=== PATIENT | female | born 1925 | race Caucasian/White ===

== ENCOUNTER 2016-04-20 21:36 | Inpatient (IN) | payer BC, OTHER ==
[~2016-04-20] VITALS: Ht 152.4 cm; Wt 84.9 kg
[~2016-04-20 21:36] MED LIST: ATEN50TA8 PO; ATOR-54 PO; CALC500C70 PO; DOCU100C31 PO; FURO-85 PO; GLIP5TAB3 PO; LEVO100T PO; LISI2.5T5 PO; MAGN400T6 PO; MULT-240 PO; OMEP20TA PO; SITA50TA PO
[2016-04-20 22:15] LABS: BASO % 0.2 %; BASO ABS # 0.02 K/uL (0-0.2); COMPLETE YES; EOS % 1.3 %; HEMATOCRIT 39.4 % (37-47); IG% 0.5 %; LYMPH % 13.3 %; MEAN CELL VOLUME 81.6 fL (80-100); MEAN CORPUSCULAR HEMOGLOBIN 26.9 pg (25-34); MEAN PLATELET VOLUME 9.9 fL (7.4-10.4); MONO % 8.4 %; NEUT % 76.3 %; PLATELET COUNT 252 K/uL (130-400); RED BLOOD COUNT 4.83 M/uL (4.2-5.4); WHITE BLOOD COUNT 9.81 K/uL (4.8-10.8)
--- NOTE | 2016-04-20 22:24 | DIAGNOSTIC IMAGING REPORT ---
CHEST ONE VIEW PORTABLE HISTORY: Possible sepsis COMPARISON: Chest 10/31/2014. FINDINGS: No focal lung consolidations to suggest pneumonia. No evidence for pulmonary edema. The heart is normal in size. No pleural effusions. No pneumothorax. Degenerative changes within the bilateral shoulders and sternoclavicular joints are again noted. IMPRESSION: No significant change compared to the prior study. No acute process. Electronically signed by: Arpit Gallagher M.D. 04/20/2016 10:22 PM
[2016-04-20 22:26] LABS: INR 1.2 (0.9-1.1); PROTHROMBIN TIME (PATIENT) 12.5 SECONDS (9.0-12.0)
[2016-04-20 22:35] LABS: BUN/CREATININE RATIO 23.7 (10-20); CALCIUM 9.2 mg/dl (8.5-10.1); MAGNESIUM 1.3 mg/dl (1.8-2.4); POTASSIUM 3.8 mmol/L (3.5-5.1)
[2016-04-20 22:38] LABS: ALB/GLOB RATIO 0.6 (0.9-2)
[2016-04-20] MEDS ORDERED: SODIUM CHLORIDE 0.9% 1000ML 250 ML IV STA (22:59)
[2016-04-20] MEDS ORDERED: PIPERACILLIN/TAZOBACTAM 4.5 GM/100ML D5W IV STA (22:59)
[2016-04-20] MEDS ORDERED: SODIUM CHLORIDE 0.9% 1000ML 1,000 ML IV STA (22:59)
[2016-04-20] MEDS ORDERED: CHOL100010 PO (23:10)
[2016-04-20] MEDS ORDERED: CALC-51 PO (23:10)
[2016-04-20] MEDS ORDERED: AMOX250C PO (23:11)
[2016-04-20] MEDS ORDERED: MAGNESIUM SULFATE 1GM / D5W 2 GM in PREMIXED IN D5W 100 ML IV STA (23:34)
[2016-04-20] MEDS ORDERED: MAGNESIUM SULFATE 1GM / D5W 1 GM BAG IV STA (23:44)
[2016-04-21] MEDS ORDERED: HEPARIN SOD 5000 UNIT/0.5 ML CARP SQ SCH
[2016-04-21] MEDS ORDERED: MAGNESIUM HYDROXIDE SUSP 30 ML UDC PO PRN
[2016-04-21] MEDS ORDERED: DOCUSATE SODIUM 100 MG CAP PO PRN
[2016-04-21] MEDS ORDERED: GLUCOSE 40% GEL 15 GM TUBE PO PRN
[2016-04-21] MEDS ORDERED: ONDANSETRON INJ 2 MG/ML 2 ML VIAL IV PRN
[2016-04-21] MEDS ORDERED: DEXTROSE 50% 50 ML SYR IV PRN
[2016-04-21] MEDS ORDERED: ALUMINUM/MAGNESIUM/SIMETH (MAALOX MAX) 30 ML UDC PO PRN
[2016-04-21] MEDS ORDERED: GLUCOSE 10 TABS/TUBE PO PRN
[2016-04-21] MEDS ORDERED: GLUCAGON FOR INJ 1 MG VIAL SQ PRN
--- NOTE | 2016-04-21 01:13 | EMERGENCY ROOM VISIT NOTE ---
History Report prepared by Kelly: Micheal Bryatn Under the Supervision of: Dr. Wander Paris M.D. First contact with patient: 22:47 Chief Complaint: INFECTION Stated Complaint: CONGESTION, DIARRHEA Nursing Triage Summary: Patient arrived to [facility] via BLS from home. EMS was paged for a fall with lift assistance to this patient's home. Patient reports falling this evening without sustaining an injury. Patient is due to see her PCP, Dr. Mccauley, tomorrow. Patient reports that she had a cold and the diarrhea last week when she scheduled the appointment. Those symptoms have since passed. Patient is concerned about a possible cellulits to the right hand. She is a diabetic and "bites her fingers when she is nervous." Patient has an open wound , draining purulent and bloody drainage, to the tip of the right middle finger. Right hand is edematous, +1 nonpitting edema noted. Right hand reddened with redness extending up into the right shoulder. Patient states "My hand just feels really stiff and tight." History of Present Illness The patient is a 89 year old female who presents to the Emergency Room by EMS with complaints of a worsening right arm infection. She has a history of diabetes and skin infections. She notes that she bites her fingers regularly. The patient notes that she had diarrhea all last week, as well as some abdominal pain. She has associated subjective fevers. She denies any chest pain , cough, or shortness of breath. The patient's caregiver notes that the patient fell earlier tonight. He states that the patient lives alone. He states that EMS was called for the patient's fall. The patient states that she fell onto her recliner, and slipped onto the floor. She has no pain from the fall. Denies dysuria or hematuria. No chest pain Source of History: patient, family Position: arm (right) Quality: other (infection) Timing: worsening Associated Symptoms: + abdominal pain (last week), + diarrhea (last week), + fevers (subjective), No SOB, No chest pain, No cough Review of Systems See HPI for pertinent positives & negatives. A total of 10 systems reviewed and were otherwise negative. Past Medical & Surgical Medical Problems: (1) Appendectomy (2) Atrial fibrillation (3) Benign hypertension (4) Bleeding from mouth (5) Bleeding from mouth (6) Cataract (7) Cellulitis (8) Cholecystectomy (9) Contact dermatitis (10) Diabetes mellitus (11) Gastroesophageal reflux disease (12) Lightheadedness (13) lymphedema right upper extremity (14) Orthopnea (15) Partial mastectomy - breast cancer (16) Respiratory distress (17) Shortness of breath (18) Urinary tract infection (19) venous stasis ulcer left lower extremity Old medical records were reviewed. Nurse's notes were reviewed and I agree with. Family History No pertinent family history Social History Smoking Status: Never Smoker Alcohol Use: none Drug Use: none Marital Status: Housing Status: lives alone Occupation Status: retired Current/Historical Medications Scheduled Amoxicillin (Amoxil), 250 MG PO BID Atenolol (Tenormin), 50 MG PO QAM Atorvastatin (Lipitor), 20 MG PO HS Calcium Carbonate-Vitamin D (Calcium), 1 TAB PO DAILY Cholecalciferol (Vitamin D), 1 TAB PO DAILY Furosemide (Lasix), 20 MG PO QAM Glipizide (Glucotrol), 10 MG PO BID Levothyroxine Sodium (Synthroid), 1 TAB PO QAM Lisinopril (Lisinopril), 5 MG PO QAM Magnesium Oxide (Mag-Ox), 400 MG PO QAM Multiple Vitamins W/ Minerals (Womens One Daily), 1 TAB PO DAILY Omeprazole (Omeprazole), 20 MG PO QPM Sitagliptin Phosphate (Januvia), 100 MG PO QPM Scheduled PRN Docusate Sodium (Docusate Sodium), 1 CAP PO DAILY PRN for Constipation Allergies Coded Allergies: No Known Allergies (Verified , 04/20/16) Physical Exam Vital Signs Date Time Temp Pulse Resp B/P Pulse Ox O2 Delivery O2 Flow Rate FiO2 04/20/16 22:59 102 20 107/65 96 Room Air 04/20/16 22:26 102 04/20/16 21:50 96 Room Air 04/20/16 21:49 37.4 102 20 116/77 96 Room Air Physical Exam General: Well developed, well nourished, non-ill appearing older female in no acute distress, breathing comfortably on room air. Normal speech HEENT: Normal cephalic atraumatic. Pupils are equal round and reactive to light. Extraocular movements are intact. Oropharynx is pink with moist mucous membranes. No swelling of the mouth lips or tongue. Neck: Supple with a midline trachea. No meningeal signs or stiffness, no JVD or bruits. No Stridor. Chest: Clear to auscultation bilaterally. No wheezes or rhonchi. No increased work of breathing. Heart: regular rate and rhythm. Abdomen: Soft nontender, nondistended without rebound guarding or rigidity. Extremities: No cyanosis or clubbing. No calf tenderness or assymetry. Spine/Back. Non tender to palpation. No CVA tenderness Skin: Redness and swelling of the right hand extending up to the axilla. Right middle finger has a lesion with some purulence at the tip. Lower extremities have chronic skin changes from peripheral edema. Neurologic exam: Cranial nerves two through 12 are intact. Motor and sensation are intact and symmetrical throughout. Medical Decision & Procedures ER Provider Diagnostic Interpretation: X-ray results as stated below per interpretation by me and the radiologist: CHEST ONE VIEW PORTABLE FINDINGS: No focal lung consolidations to suggest pneumonia. No evidence for pulmonary edema. The heart is normal in size. No pleural effusions. No pneumothorax. Degenerative changes within the bilateral shoulders and sternoclavicular joints are again noted. IMPRESSION: No significant change compared to the prior study. No acute process. Electronically signed by: Arpit Gallagher M.D. Three View Right Hand X-ray interpreted by me: Chronic degenerative change. Calcification at the tip of the middle finger. This could be bony destruction. Difficult to exclude osteomyelitis. Laboratory Results Test 04/20/16 21:50 04/20/16 21:59 Immature Granulocyte % (Auto) 0.5 % White Blood Count 9.81 K/uL (4.8-10.8) Red Blood Count 4.83 M/uL (4.2-5.4) Hemoglobin 13.0 g/dL (12.0-16.0) Hematocrit 39.4 % (37-47) Mean Corpuscular Volume 81.6 fL (80-100) Mean Corpuscular Hemoglobin 26.9 pg (25-34) Mean Corpuscular Hemoglobin Concent 33.0 g/dl (32-36) Platelet Count 252 K/uL (130-400) Mean Platelet Volume 9.9 fL (7.4-10.4) Neutrophils (%) (Auto) 76.3 % Lymphocytes (%) (Auto) 13.3 % Monocytes (%) (Auto) 8.4 % Eosinophils (%) (Auto) 1.3 % Basophils (%) (Auto) 0.2 % Neutrophils # (Auto) 7.49 K/uL (1.4-6.5) Lymphocytes # (Auto) 1.30 K/uL (1.2-3.4) Monocytes # (Auto) 0.82 K/uL (0.11-0.59) Eosinophils # (Auto) 0.13 K/uL (0-0.5) Basophils # (Auto) 0.02 K/uL (0-0.2) Immature Granulocyte # (Auto) 0.05 K/uL (0.00-0.02) Prothrombin Time 12.5 SECONDS (9.0-12.0) Prothromb Time International Ratio 1.2 (0.9-1.1) Activated Partial Thromboplast Time 27.1 SECONDS (21.0-31.0) Partial Thromboplastin Ratio 1.0 Magnesium Level 1.3 mg/dl (1.8-2.4) Total Bilirubin 0.6 mg/dl (0.2-1) Aspartate Amino Transf (AST/SGOT) 25 U/L (15-37) Alanine Aminotransferase (ALT/SGPT) 26 U/L (12-78) Alkaline Phosphatase 133 U/L (45-117) Total Protein 8.1 gm/dl (6.4-8.2) Albumin 2.9 gm/dl (3.4-5.0) Globulin 5.2 gm/dl (2.5-4.0) Albumin/Globulin Ratio 0.6 (0.9-2) Bedside Lactic Acid Venous 1.69 mmol/L (0.90-1.70) Laboratory studies as stated above per my review. Medications Administered Medications (Trade) Dose Ordered Sig/Susana Route Start Time Stop Time Status Last Admin Dose Admin Sodium Chloride 250 ml @ 999 mls/hr Q16M STAT IV 04/20/16 22:59 04/20/16 23:14 DC 04/20/16 23:05 999 MLS/HR Sodium Chloride (Nss 1000ml) 1,000 ml @ 100 mls/hr Q10H STAT IV 04/20/16 22:59 04/21/16 02:59 DC 04/21/16 00:18 100 MLS/HR Piperacillin Sod/ Tazobactam Sod (Zosyn Iv) 4.5 gm NOW STAT IV 04/20/16 22:59 04/20/16 23:01 DC 04/20/16 23:06 4.5 GM Magnesium Sulfate (Magnesium Sulfate) 2 gm NOW STAT IV 04/20/16 23:44 04/20/16 23:45 DC 04/21/16 00:18 2 GM ECG Indication: abdominal pain Rate (beats per minute): 102 Rhythm: atrial flutter Findings: no acute ischemic change, other (Left Langston Deviation) Comparison ECG Date: November 26, 2015 Change: no significant change ED Course 8: Past medical records reviewed. The patient was evaluated in room C4, and a complete history and physical examination were performed. 2258: Ordered Zosyn 4.5 gm IV, NSS 1000 mL @ 100 mL/hr IV, NSS 250 mL @ 999 mL/ hr IV. 2332: Upon reevaluation, the patient is resting comfortably. I discussed the results and treatment plan with the patient. She verbalized agreement of the treatment plan. The patient will be evaluated for further management. Medical Decision Differentials include, but are not limited to; cellulitis, abscess, osteomyelitis, and sepsis. The patient comes in as described above., She's not felt well for a couple days. On exam I'm concerned that she has redness and swelling over read hand with redness going all the way up to the axilla. She apparently chews on her fingers. The middle finger does have some lesion at the end of itself with some possible infection. On x-ray, there is a lot of bony destruction is difficult to say what chronic versus what's new. It's potential which could have an osteomyelitis underneath as well. She certainly does have an extensive cellulitis of the arm. She hasno elevated white count and she's been hemodynamically stable. She was hydrated with IV normal saline here. She was given IV antibiotics as outlined above. Blood cultures were obtained. She has nothing to suggest pneumonia or acute coronary syndrome at this point. I do think she needs to be admitted for IV antibiotics and wound care orthopedic consultation and further evaluation to determine the extensiveness of the wound. [facility] and will admit her for these measures. Consults Time Called: [id number] Consulting Physician: Dr. Javy Mcneal Returned Call: [phone] Discussed the patient's case with Dr. Palafox. The patient will be evaluated for further management. Impression Primary Impression: Right arm cellulitis Scribe Attestation The scribe's documentation has been prepared under my direction and personally reviewed by me in its entirety. I confirm that the note above accurately reflects all work, treatment, procedures, and medical decision making performed by me. Departure Information Dispostion Being Evaluated By Hospitalist Referrals Olivier Blevins M.D. (PCP) Patient Instructions A Signature Page, My [facility]
[2016-04-21 01:30] VITALS: BP 109/70; PULSE 98; TEMP 36.5; O2SAT 96; BMI 36.6
--- NOTE | 2016-04-21 02:19 | History and Physical ---
History & Physical Date & Time of Service: Apr 21, 2016 at 01:59 Chief Complaint: Cellulitis Primary Care Physician: Olivier Blevins M.D. History of Present Illness Source: patient, clinic records, hospital records This is an 89 year old female with PMH of paroxysmal atrial fibrillation, 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 Patient states that an injury over 20 years ago caused her to lose the distal portion of her right pointer finger and two fingers on the left hand; since then she has had a habit of biting her nails/distal fingers; states that she felt some pain in the right middle finger and has been picking at it and even biting it recently. She noticed that the right hand and arm developed erythema and swelling. Has had right axillary lymph node dissection in the past, but did not notice any swelling in the right upper extremity until today. Past Medical/Surgical History Medical Problems: (1) Appendectomy Status: Resolved (2) Atrial fibrillation Status: Chronic (3) Benign hypertension Status: Chronic (4) Bleeding from mouth Status: Resolved (5) Bleeding from mouth Status: Resolved (6) Cataract Status: Resolved (7) Cholecystectomy Status: Resolved (8) Contact dermatitis Status: Resolved (9) Diabetes mellitus Status: Chronic (10) Gastroesophageal reflux disease Status: Chronic (11) Lightheadedness Status: Resolved (12) lymphedema right upper extremity Status: Chronic (13) Orthopnea Status: Chronic (14) Partial mastectomy - breast cancer Status: Resolved (15) Respiratory distress Status: Resolved (16) Shortness of breath Status: Chronic (17) Urinary tract infection Status: Resolved (18) venous stasis ulcer left lower extremity Status: Chronic Family History No pertinent family history Social History Smoking Status: Never Smoker Drug Use: none Marital Status: Housing status: lives alone, other Occupational Status: retired Immunizations History of Influenza Vaccine: Yes History of Tetanus Vaccine?: Yes Tetanus Immunization Date: Dec 16, 2004 History of Pneumococcal: Yes Pneumococcal Date: Dec 16, 2004 History of Hepatitis B Vaccine: No Multi-Drug Resistant Organisms History of MDRO: No Allergies Coded Allergies: No Known Allergies (Verified , 04/20/16) Home Medications Scheduled Amoxicillin (Amoxil), 250 MG PO BID Atenolol (Tenormin), 50 MG PO QAM Atorvastatin (Lipitor), 20 MG PO HS Calcium Carbonate-Vitamin D (Calcium), 1 TAB PO DAILY Cholecalciferol (Vitamin D), 1 TAB PO DAILY Furosemide (Lasix), 20 MG PO QAM Glipizide (Glucotrol), 10 MG PO BID Levothyroxine Sodium (Synthroid), 1 TAB PO QAM Lisinopril (Lisinopril), 5 MG PO QAM Magnesium Oxide (Mag-Ox), 400 MG PO QAM Multiple Vitamins W/ Minerals (Womens One Daily), 1 TAB PO DAILY Omeprazole (Omeprazole), 20 MG PO QPM Sitagliptin Phosphate (Januvia), 100 MG PO QPM Scheduled PRN Docusate Sodium (Docusate Sodium), 1 CAP PO DAILY PRN for Constipation Review of Systems Constitutional: No chills, No fever Respiratory: No cough, No dyspnea on exertion, No shortness of breath, No sputum Cardiovascular: + edema (RUE), No chest pain, No palpitations Abdomen: No diarrhea, No nausea, No pain, No vomiting Musculoskeletal: + joint pain (right middle finger) Genitourinary - Female: No dysuria, No urinary frequency, No urinary incontinence, No urinary retention, No urinary urgency Neurologic: + balance problems (uses walker at baseline), No numbness/tingling Psychiatric: No depression symptoms Hematologic / Lymphatic: No abnormal bleeding/bruising Integumentary: + new/changing skin lesions Allergic / Immunologic: No environmental allergies, No seasonal allergies Physical Exam Vital Signs Date Time Temp Pulse Resp B/P Pulse Ox O2 Delivery O2 Flow Rate FiO2 04/21/16 00:18 102 20 110/75 96 Room Air 04/20/16 22:59 102 20 107/65 96 Room Air 04/20/16 22:26 102 04/20/16 21:50 96 Room Air 04/20/16 21:49 37.4 102 20 116/77 96 Room Air General Appearance: no apparent distress Head: normocephalic, atraumatic Respiratory/Chest: lungs clear, normal breath sounds, no respiratory distress, no accessory muscle use Cardiovascular: regular rate, rhythm, no murmur Abdomen/GI: normal bowel sounds, non tender, soft Extremities/Musculoskelatal: + swelling Neurologic/Psych: no motor/sensory deficits, alert, normal mood/affect Skin: + pertinent finding (right upper extremity erythema) Lymphatic: no adenopathy Diagnostics Laboratory Results Results Past 24 Hours Test 04/20/16 21:50 04/20/16 21:59 04/21/16 00:27 Range/Units White Blood Count 9.81 4.8-10.8 K/uL Red Blood Count 4.83 4.2-5.4 M/uL Hemoglobin 13.0 12.0-16.0 g/dL Hematocrit 39.4 37-47 % Mean Corpuscular Volume 81.6 80-100 fL Mean Corpuscular Hemoglobin 26.9 25-34 pg Mean Corpuscular Hemoglobin Concent 33.0 32-36 g/dl Platelet Count 252 130-400 K/uL Mean Platelet Volume 9.9 7.4-10.4 fL Neutrophils (%) (Auto) 76.3 % Lymphocytes (%) (Auto) 13.3 % Monocytes (%) (Auto) 8.4 % Eosinophils (%) (Auto) 1.3 % Basophils (%) (Auto) 0.2 % Neutrophils # (Auto) 7.49 1.4-6.5 K/uL Lymphocytes # (Auto) 1.30 1.2-3.4 K/uL Monocytes # (Auto) 0.82 0.11-0.59 K/uL Eosinophils # (Auto) 0.13 0-0.5 K/uL Basophils # (Auto) 0.02 0-0.2 K/uL RDW Standard Deviation 44.5 36.4-46.3 fL RDW Coefficient of Variation 15.1 11.5-14.5 % Immature Granulocyte % (Auto) 0.5 % Immature Granulocyte # (Auto) 0.05 0.00-0.02 K/uL Prothrombin Time 12.5 9.0-12.0 SECONDS Prothromb Time International Ratio 1.2 0.9-1.1 Activated Partial Thromboplast Time 27.1 21.0-31.0 SECONDS Partial Thromboplastin Ratio 1.0 Sodium Level 138 136-145 mmol/L Potassium Level 3.8 3.5-5.1 mmol/L Chloride Level 101 98-107 mmol/L Carbon Dioxide Level 27 21-32 mmol/L Anion Gap 10.0 3-11 mmol/L Blood Urea Nitrogen 24 7-18 mg/dl Creatinine 1.00 0.60-1.20 mg/dl Est Creatinine Clear Calc Drug Dose 36.9 ml/min Estimated GFR () 57.8 Estimated GFR (Non- 49.9 BUN/Creatinine Ratio 23.7 10-20 Random Glucose 235 70-99 mg/dl Calcium Level 9.2 8.5-10.1 mg/dl Magnesium Level 1.3 1.8-2.4 mg/dl Total Bilirubin 0.6 0.2-1 mg/dl Aspartate Amino Transf (AST/SGOT) 25 15-37 U/L Alanine Aminotransferase (ALT/SGPT) 26 12-78 U/L Alkaline Phosphatase 133 45-117 U/L Total Protein 8.1 6.4-8.2 gm/dl Albumin 2.9 3.4-5.0 gm/dl Globulin 5.2 2.5-4.0 gm/dl Albumin/Globulin Ratio 0.6 0.9-2 Bedside Lactic Acid Venous 1.69 0.90-1.70 mmol/L Influenza Type A Antigen Neg for Influ A NEG Influenza Type B Antigen Neg for Influ B NEG Microbiology Results 04/20/16 Blood Culture, Received Pending 04/20/16 Blood Culture, Received Pending 04/20/16 Gram Stain, Received Pending 04/20/16 Wound Culture, Received Pending Diagnostic Radiology CHEST ONE VIEW PORTABLE HISTORY: Possible sepsis COMPARISON: Chest 10/31/2014. FINDINGS: No focal lung consolidations to suggest pneumonia. No evidence for pulmonary edema. The heart is normal in size. No pleural effusions. No pneumothorax. Degenerative changes within the bilateral shoulders and sternoclavicular joints are again noted. IMPRESSION: No significant change compared to the prior study. No acute process. Impression Assessment and Plan This is an 89 year old female with PMH of paroxysmal atrial fibrillation, 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 Right Upper Extremity Cellulitis -->patient with likely trauma of the right middle finger causing cellulitis of the right upper extremity -->has had a history of lymphedema and cellulitis of the lower extremities -->right hand radiograph interpretation pending -->has a hx. of enterococcus faecalis sensitive to vanco -->will continue vancomycin here -->cultures are pending -->ID consultation pending DM2 -->hold oral agents -->sliding scale insulin HTN -->continue home medications Paroxysmal Atrial Fibrillation -->continue b-genie -->no anticoagulation due to fall risk and bleed risk DVT ppx -->SCDs FULL CODE VTE Prophylaxis VTE Risk Assessment Done? Y/N: Yes Risk Level: High
[2016-04-21] MEDS ORDERED: INSULIN ASPART 100 UNITS/ML 3 ML PEN SC STA (03:04)
[2016-04-21] MEDS ORDERED: VANCOMYCIN CONSULT ACTIVE PRN (03:15)
[2016-04-21] MEDS ORDERED: VANCOMYCIN INJ 2,100 MG in SODIUM CHLORIDE 0.9% 500ML 500 ML IV ONE (04:00)
[2016-04-21] MEDS: LEVOTHYROXINE 100 MCG TAB PO SCH (05:00)
[2016-04-21 06:22] LABS: HEMATOCRIT 33.4 % (37-47); MEAN CELL VOLUME 81.9 fL (80-100); MEAN CORPUSCULAR HEMOGLOBIN 27.2 pg (25-34); MEAN CORPUSCULAR HGB CONC 33.2 g/dl (32-36); MEAN PLATELET VOLUME 9.7 fL (7.4-10.4); PLATELET COUNT 223 K/uL (130-400); RED BLOOD COUNT 4.08 M/uL (4.2-5.4)
[2016-04-21 06:55] LABS: BUN/CREATININE RATIO 23.8 (10-20); CALCIUM 8.3 mg/dl (8.5-10.1); CREATININE 0.87 mg/dl (0.60-1.20); POTASSIUM 3.5 mmol/L (3.5-5.1)
--- NOTE | 2016-04-21 07:01 | DIAGNOSTIC IMAGING REPORT ---
RIGHT HAND MIN 3 VIEWS ROUTINE CLINICAL HISTORY: Hand pain status post trauma. COMPARISON: None. DISCUSSION: The bones are osteopenic. There are vascular calcifications present. Within the wrist there is chondrocalcinosis. There is calcification at right lower fibrocartilage. There are advanced osteoarthritic changes the level the first carpometacarpal joint. There are periarticular calcifications at the level of the metacarpophalangeal and interphalangeal joints. There are destructive changes involving the distal phalanges of the second and third fingers. There is tapering of the middle phalanx of the second/index finger. These findings may be chronic and related to old trauma. Clinical correlation this regard is advocated no acute fractures are visualized. There is dorsal soft tissue swelling. IMPRESSION: 1. Destructive changes involve the distal phalanges of the second and third digits. These findings are likely chronic, possibly related to old trauma. Clinical correlation in this regard is advocated 2. Multifocal periarticular calcifications 3. Chondrocalcinosis 4. Advanced degenerative changes the level the first carpal metacarpal joint 5. No acute fractures identified Electronically signed by: Brian Cedillo M.D. 04/21/2016 6:59 AM
[2016-04-21 08:17] VITALS: O2SAT 95
[2016-04-21 08:22] VITALS: BP 110/78; PULSE 96; TEMP 36.6; O2SAT 95
[2016-04-21] MEDS: CEROVITE ADV FORMULA TAB PO SCH (09:00)
[2016-04-21] MEDS: MAGNESIUM OXIDE 400 MG TAB PO SCH (09:00)
[2016-04-21] MEDS: LISINOPRIL 5 MG TAB PO SCH (09:00)
[2016-04-21] MEDS: INSULIN ASPART 100 UNITS/ML 3 ML PEN SC SCH ×4 (09:05→21:02)
[2016-04-21 09:56] LABS: ESTIMATED AVERAGE GLUCOSE 200 mg/dl; HA1C FLAG Normal (Normal)
--- NOTE | 2016-04-21 10:44 | Progress Note ---
Progress Note ID Consult Dictated #[id number] A/P: 1.Right 3rd digit cellulitis with abscess and chronic wound -continue vanco -check esr -suggest ortho eval, new abscess on plantar surface of hand, may need I&D -no osteo on x ray -will follow, thank you
[2016-04-21] MEDS ORDERED: NURSING VERBAL MED ORDER ONE (11:15)
[2016-04-21] MEDS ORDERED: MICONAZOLE NITRATE POWDER 43 GM EXT PRN (12:00)
--- NOTE | 2016-04-21 12:02 | INFECT. DISEASE CONSULTATION ---
DATE OF CONSULTATION: 04/21/2016 REQUESTING PHYSICIAN: Dr. Case. CONSULTATION IS FOLLOWS: This is an 89-year-old female who was admitted from home after she had worsening pain, swelling and erythema of her right middle finger. She has multiple digits with wounds and partial amputations. She states she does pick at her fingers. She had a wound over her right middle finger which she was picking at and this worsened within the past 2-3 days. She states she has had some weakness and fatigue over the past 1-2 weeks. She felt like she was getting the flu. She states she saw her primary care physician within the last 2 weeks and had blood work done which she reports as being normal. She does admit to subjective fevers and chills at home. She has been afebrile since admission. She did receive vancomycin and Zosyn empirically in the Emergency Room and now is on vancomycin monotherapy. Her white blood cell count is within normal limits. Blood cultures were done in the Emergency Room and are pending. She did have an x-ray of the hand which showed severe degenerative disease, but no fractures or foreign bodies were noted. She states this morning she has had worsening swelling and decreased range of motion of the third digit. She also reports a new pustule over the plantar aspect of the hand. She denies any drainage; however, the tip of her finger does have an open wound. There is a wound culture that is labeled right hip; however, I suspect that this is a culture of the hand. Results of this are pending. She appears to be tolerating antibiotics well. On my examination, she is out of bed to chair. She states she ate breakfast without difficulty. She denies any chest pain, cough, shortness of breath, nausea, vomiting, or abdominal pain. She does admit to having some diarrhea last week, but this has resolved. She denies any urinary symptoms. All remaining review of systems are reviewed and are negative except for as noted above. MEDICAL HISTORY: Significant for paroxysmal atrial fibrillation, history of breast cancer with metastatic disease to the axillary lymph nodes, type 2 diabetes, chronic kidney disease, lower extremity lymphedema, GERD, orthopnea and history of venous stasis ulcers. PAST SURGICAL HISTORY: Significant for appendectomy, cholecystectomy, mastectomy with node dissection. FAMILY HISTORY: Noncontributory. SOCIAL HISTORY: Negative for alcohol, drug and tobacco use. She lives alone. She is . ALLERGIES: She has no known drug allergies. CURRENT MEDICATIONS: Include vancomycin, Lipitor, Protonix, atenolol, lisinopril, magnesium, multivitamins, insulin, Synthroid, Tylenol, Maalox, Milk of Magnesia, Zofran and Colace. PHYSICAL EXAMINATION: VITAL SIGNS: She is afebrile, current temperature is 36.6, pulse is 96, respiratory rate 16, blood pressure 110/78, oxygen saturation is 95-96% on room air. GENERAL: She is awake, alert and oriented x3. She is in no acute distress. She is out of bed to chair. HEENT: On my exam, mucous membranes are moist. Extraocular muscles are intact. SKIN: Without rash. HEART: Without murmur. LUNGS: Clear bilaterally. ABDOMEN: Soft, nontender, and nondistended. EXTREMITIES: Examination of the right hand reveals significant edema and erythema of the right middle finger. She has decreased range of motion secondary to this. It is warm to touch. She does have erythema extending up to the wrist; however, she states on arrival yesterday this was to the area of the elbow and has improved. She did remove her dressing this morning to eat breakfast and now states that she noticed a small abscess over the plantar surface. This is about 1 x 1 cm, which is indurated and fluctuant. It is tender to touch. I am unable to express any drainage. The tip of the finger has a significant wound and erosion with minimal serous drainage. There is no bleeding. This is tender to palpation as well. LABORATORY STUDIES: CBC today reveals a white blood cell count of 8.0, hemoglobin 11.1, hematocrit 33.4, and platelets are 223. Chemistry panel reveals a sodium of 140, potassium 3.5, chloride 104, bicarbonate 24, BUN 21, creatinine 0.8, glucose of 193. LFTs are within normal limits in the Emergency Room. A flu swab was done in the ER and is negative. Blood and wound cultures are pending. Hand x-ray again shows degenerative changes, but no evidence of osteomyelitis. A chest x-ray done in the ER shows no acute disease. There is no previous micro from the wounds to review. ASSESSMENT AND PLAN: Right hand cellulitis with abscess concerning for underlying osteomyelitis. She can continue empiric antibiotics. I would suggest an orthopedic consultation for potential incision and drainage of the newly formed abscess. I will check inflammatory markers. Blood cultures and wound culture are pending. Pending those results, antibiotics will be adjusted. I suspect she will need a prolonged course of antibiotics. If she has any worsening, a CAT scan or MRI should be done to rule out any underlying osteomyelitis. We will follow along with you. Thank you for this consultation.
[2016-04-21 13:07] VITALS: Ht 152.4 cm; Wt 84.9 kg
--- NOTE | 2016-04-21 15:42 | Pharmacy Progress Note ---
Pharmacy Antibiotic Consult Date of Service: Apr 21, 2016. Pharmacy Dosing Scope Pharmacy is consulted to initiate Vancomycin IV dosing therapy, order appropriate labs and adjust drug dose/frequency. Subjective The patient is a 89 year old female admitted on Apr 20, 2016 at 23:54 with right hand cellulitis. PMH significant for CKD stage 3 and chronic lower extremity lymphedema. Objective Height (Feet): 5 Height (Inches): 0.00 Weight (Kilograms): 84.900 Lab Results (24hrs): Laboratory Tests Test 04/20/16 21:50 04/21/16 05:42 BUN/Creatinine Ratio 23.7 23.8 Blood Urea Nitrogen 24 mg/dl 21 mg/dl Creatinine 1.00 mg/dl 0.87 mg/dl White Blood Count 9.81 K/uL 8.00 K/uL Red Blood Count 4.83 M/uL Hemoglobin 13.0 g/dL Hematocrit 39.4 % Mean Corpuscular Volume 81.6 fL Mean Corpuscular Hemoglobin 26.9 pg Mean Corpuscular Hemoglobin Concent 33.0 g/dl Platelet Count 252 K/uL Mean Platelet Volume 9.9 fL Neutrophils (%) (Auto) 76.3 % Lymphocytes (%) (Auto) 13.3 % Monocytes (%) (Auto) 8.4 % Eosinophils (%) (Auto) 1.3 % Basophils (%) (Auto) 0.2 % Neutrophils # (Auto) 7.49 K/uL Lymphocytes # (Auto) 1.30 K/uL Monocytes # (Auto) 0.82 K/uL Eosinophils # (Auto) 0.13 K/uL Basophils # (Auto) 0.02 K/uL Micro Results: Item Value Date Time Gram Stain - Final Resulted 04/20/162253 Incision Site Hip , Right Blood Culture Received 04/20/162252 Blood Pending Blood Culture Received 04/20/162149 Blood Pending Assessment & Plan Assessment 89 year old female receiving empiric Vancomycin IV for treatment of right hand cellulitis with abscess concerning for osteomyelitis. 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 Plan Vancomycin IV dosing: * Loading dose: 2100 mg (25 mg/kg) * Maintenance dose: 1200 mg (14 mg/kg) IV every 24 hours. * PK estimates (based on Scr of 1.0 mg/dL): ke = 0.034 hr-1, T1/2 = ~20 hours, Vd = 0.7 L/kg * Risk factors for possible drug accumulation: BMI 36.6, CKD III. Selected dosing interval of q24 hour and slightly less than traditional dosing due to possible accumulation. * Goal trough level estimate for cellulitis/possible osteo: between 15 - 20 mcg /mL. * Trough level has been ordered for: at 0000. Pharmacy will continue to follow and will adjust dose/frequency as necessary. Thank you
[2016-04-21 16:24] VITALS: BP 118/72; PULSE 85; TEMP 36.6; O2SAT 97
[2016-04-21] MEDS: PANTOprazole SOD 40 MG TAB PO SCH (20:55)
[2016-04-21] MEDS: MICONAZOLE NITRATE POWDER 43 GM EXT SCH (20:55)
[2016-04-21] MEDS: ATORVASTATIN 20 MG TAB PO SCH (20:55)
--- NOTE | 2016-04-21 21:52 | Progress Note ---
Medicine Progress Note Date & Time of Visit: Apr 21, 2016 at 21:41. Subjective Pt was seen and examined Lying in bed comfortable with no acute distress Pt said that the right hand swelling, pain and erythema improve denies any chest pain, fever, palpitation Objective Last 8 Hrs Date Time Temp Pulse Resp B/P Pulse Ox O2 Delivery O2 Flow Rate FiO2 04/21/16 16:24 36.6 85 16 118/72 97 Room Air 04/21/16 15:46 Room Air Physical Exam: General- No acute distress Head- atraumatic Eyes- PERRL, EOMI ENT- oropharynx clear Neck- supple, no JVD Lungs- clear to auscultation and percussion Heart- regular rhythm; no murmur Abdomen- normal bowel sounds, soft, nontender Extremities- no calf tenderness, right hand swelling, erythema, Neuro- alert, oriented x 3; PERRL, EOMI Laboratory Results: Last 24 Hours Test 04/20/16 21:50 04/20/16 21:59 04/21/16 00:22 04/21/16 00:27 White Blood Count 9.81 K/uL Red Blood Count 4.83 M/uL Hemoglobin 13.0 g/dL Hematocrit 39.4 % Mean Corpuscular Volume 81.6 fL Mean Corpuscular Hemoglobin 26.9 pg Mean Corpuscular Hemoglobin Concent 33.0 g/dl Platelet Count 252 K/uL Mean Platelet Volume 9.9 fL Neutrophils (%) (Auto) 76.3 % Lymphocytes (%) (Auto) 13.3 % Monocytes (%) (Auto) 8.4 % Eosinophils (%) (Auto) 1.3 % Basophils (%) (Auto) 0.2 % Neutrophils # (Auto) 7.49 K/uL Lymphocytes # (Auto) 1.30 K/uL Monocytes # (Auto) 0.82 K/uL Eosinophils # (Auto) 0.13 K/uL Basophils # (Auto) 0.02 K/uL RDW Standard Deviation 44.5 fL RDW Coefficient of Variation 15.1 % Immature Granulocyte % (Auto) 0.5 % Immature Granulocyte # (Auto) 0.05 K/uL Prothrombin Time 12.5 SECONDS Prothromb Time International Ratio 1.2 Activated Partial Thromboplast Time 27.1 SECONDS Partial Thromboplastin Ratio 1.0 Sodium Level 138 mmol/L Potassium Level 3.8 mmol/L Chloride Level 101 mmol/L Carbon Dioxide Level 27 mmol/L Anion Gap 10.0 mmol/L Blood Urea Nitrogen 24 mg/dl Creatinine 1.00 mg/dl Est Creatinine Clear Calc Drug Dose 36.9 ml/min Estimated GFR () 57.8 Estimated GFR (Non- 49.9 BUN/Creatinine Ratio 23.7 Random Glucose 235 mg/dl Calcium Level 9.2 mg/dl Magnesium Level 1.3 mg/dl Total Bilirubin 0.6 mg/dl Aspartate Amino Transf (AST/SGOT) 25 U/L Alanine Aminotransferase (ALT/SGPT) 26 U/L Alkaline Phosphatase 133 U/L Total Protein 8.1 gm/dl Albumin 2.9 gm/dl Globulin 5.2 gm/dl Albumin/Globulin Ratio 0.6 Bedside Lactic Acid Venous 1.69 mmol/L Bedside Glucose 236 mg/dl Influenza Type A Antigen Neg for Influ A Influenza Type B Antigen Neg for Influ B Test 04/21/16 04:07 04/21/16 05:42 04/21/16 08:14 04/21/16 11:50 Bedside Glucose 219 mg/dl 194 mg/dl 218 mg/dl White Blood Count 8.00 K/uL Red Blood Count 4.08 M/uL Hemoglobin 11.1 g/dL Hematocrit 33.4 % Mean Corpuscular Volume 81.9 fL Mean Corpuscular Hemoglobin 27.2 pg Mean Corpuscular Hemoglobin Concent 33.2 g/dl RDW Standard Deviation 45.4 fL RDW Coefficient of Variation 15.2 % Platelet Count 223 K/uL Mean Platelet Volume 9.7 fL Sodium Level 140 mmol/L Potassium Level 3.5 mmol/L Chloride Level 104 mmol/L Carbon Dioxide Level 24 mmol/L Anion Gap 12.0 mmol/L Blood Urea Nitrogen 21 mg/dl Creatinine 0.87 mg/dl Est Creatinine Clear Calc Drug Dose 42.4 ml/min Estimated GFR () 68.5 Estimated GFR (Non- 59.1 BUN/Creatinine Ratio 23.8 Random Glucose 193 mg/dl Estimated Average Glucose 200 mg/dl Hemoglobin A1c 8.6 % Calcium Level 8.3 mg/dl Test 04/21/16 16:55 Bedside Glucose 154 mg/dl Date/Time Source Procedure Growth Status 04/20/16 22:53 Blood Blood Culture Pending Received 04/20/16 21:50 Blood Blood Culture Pending Received 04/20/16 22:54 Incision Site Hip , Right Gram Stain - Final Resulted 04/20/16 22:54 Incision Site Hip , Right Wound Culture Pending Resulted Assessment & Plan Right Upper Extremity Cellulitis -history of lymphedema and cellulitis of the lower extremities - Right hand xray: Destructive changes involve the distal phalanges of the second and third digits. Multifocal periarticular calcifications. Chondrocalcinosis Afebrile and no elevated WBC Continue IV vanco Follow up on urine cx and blood cx -ID on board -will consult ortho will check ESR, CRP DM2 -hold oral agents -sliding scale insulin - Continue monitor BS HTN -->continue home medications Paroxysmal Atrial Fibrillation -continue b-genie -no anticoagulation due to fall risk and bleed risk - rate is controlled DVT ppx -->SCDs CODE STATUS FULL CODE Current Inpatient Medications: Current Inpatient Medications Medications (Trade) Dose Ordered Sig/Susana Route Start Time Stop Time Status Last Admin Dose Admin Acetaminophen (Tylenol Tab) 650 mg Q4H PRN PO 04/21/16 00:00 05/21/16 00:00 Al Hydrox/Mg Hydrox/Simethicone (Maalox Max Susp) 15 ml Q4H PRN PO 04/21/16 00:00 05/21/16 00:00 Magnesium Hydroxide (Milk Of Magnesia Susp) 30 ml Q6H PRN PO 04/21/16 00:00 05/21/16 00:00 Ondansetron HCl (Zofran Inj) 4 mg Q6H PRN IV 04/21/16 00:00 05/21/16 00:00 Insulin Aspart (novoLOG ASPART) SLIDING SCALE If C... ACHS SC 04/21/16 07:00 05/21/16 06:59 04/21/16 21:02 1 UNITS Glucose (Glucose 40% Gel) 15-30 GRAMS 15 GRAMS... UD PRN PO 04/21/16 00:00 05/21/16 00:00 Glucose (Glucose Chew Tab) 4-8 Tablets 4 Tabl... UD PRN PO 04/21/16 00:00 05/21/16 00:00 Dextrose (Dextrose 50% 50ML Syringe) 25-50ML OF 50% DW IV FOR... UD PRN IV 04/21/16 00:00 05/21/16 00:00 Glucagon (Glucagon Inj) 1 mg UD PRN SQ 04/21/16 00:00 05/21/16 00:00 Atenolol (Tenormin Tab) 50 mg QAM PO 04/21/16 09:00 05/21/16 08:59 04/21/16 09:00 50 MG Atorvastatin Calcium (Lipitor Tab) 20 mg HS PO 04/21/16 21:00 05/21/16 20:59 04/21/16 20:55 20 MG Docusate Sodium (coLACE CAP) 100 mg DAILY PRN PO 04/21/16 00:00 05/21/16 00:00 Levothyroxine Sodium (Synthroid Tab) 100 mcg DAILYBB PO 04/21/16 06:00 05/21/16 05:59 04/21/16 05:00 100 MCG Lisinopril (Zestril Tab) 5 mg QAM PO 04/21/16 09:00 05/21/16 08:59 04/21/16 09:00 5 MG Magnesium Oxide (Mag-Ox Tab) 400 mg QAM PO 04/21/16 09:00 05/21/16 08:59 04/21/16 09:00 400 MG Multivitamins/ Minerals (Multivitamin W/ Minerals Tab) 1 tab DAILY PO 04/21/16 09:00 05/21/16 08:59 04/21/16 09:00 1 TAB Pantoprazole Sodium (Protonix Tab) 40 mg QPM PO 04/21/16 21:00 05/21/16 20:59 04/21/16 20:55 40 MG Vancomycin HCl 1 ea 1 ea UD PRN N/A 04/21/16 03:15 05/21/16 03:14 Vancomycin HCl/ Sodium Chloride (Vancomycin Inj/ Nss 250ml) 274 ml @ 125 mls/hr Q24H IV 04/22/16 00:00 05/01/16 04:44 Miconazole Nitrate (Desenex Powder) 1 appln BID EXT 04/21/16 21:00 05/21/16 20:59 04/21/16 20:55 1 APPLN Miconazole Nitrate (Desenex Powder) 1 appln DAILY PRN EXT 04/21/16 12:00 05/21/16 11:59
[2016-04-21 22:56] VITALS: BP 116/76; PULSE 102; TEMP 37.1; O2SAT 97
[2016-04-21] MEDS: VANCOMYCIN INJ 1,200 MG in SODIUM CHLORIDE 0.9% 250ML 250 ML IV SCH (23:45)
[2016-04-22] MEDS ORDERED: VANCOMYCIN INJ 1,300 MG in SODIUM CHLORIDE 0.9% 250ML 250 ML IV SCH ×2
[2016-04-22] MEDS: ACETAMINOPHEN 325 MG TAB PO PRN (01:23)
[2016-04-22] MEDS: LEVOTHYROXINE 100 MCG TAB PO SCH (05:44)
[2016-04-22 07:15] VITALS: BP 106/70; PULSE 96; TEMP 36.5; O2SAT 96
[2016-04-22 07:20] LABS: HEMATOCRIT 33.5 % (37-47); MEAN CELL VOLUME 81.7 fL (80-100); MEAN CORPUSCULAR HEMOGLOBIN 26.8 pg (25-34); MEAN CORPUSCULAR HGB CONC 32.8 g/dl (32-36); MEAN PLATELET VOLUME 9.6 fL (7.4-10.4); PLATELET COUNT 211 K/uL (130-400); WHITE BLOOD COUNT 7.42 K/uL (4.8-10.8)
[2016-04-22 08:05] LABS: BLOOD UREA NITROGEN 19 mg/dl (7-18); BUN/CREATININE RATIO 20.2 (10-20); C-REACTIVE PROTEIN 7.56 mg/dl (0-0.29); CALCIUM 8.4 mg/dl (8.5-10.1); CARBON DIOXIDE 25 mmol/L (21-32); CHLORIDE 107 mmol/L (98-107); CREATININE 0.96 mg/dl (0.60-1.20); GLUCOSE 193 mg/dl (70-99); POTASSIUM 4.1 mmol/L (3.5-5.1); RHEUMATOID FACTOR < 10.0 U/mL (0-15); SODIUM 141 mmol/L (136-145)
[2016-04-22] MEDS: LISINOPRIL 5 MG TAB PO SCH (09:04)
[2016-04-22] MEDS: MAGNESIUM OXIDE 400 MG TAB PO SCH (09:04)
[2016-04-22] MEDS: CEROVITE ADV FORMULA TAB PO SCH (09:05)
[2016-04-22] MEDS: MICONAZOLE NITRATE POWDER 43 GM EXT SCH ×2 (09:05→20:30)
[2016-04-22] MEDS: INSULIN ASPART 100 UNITS/ML 3 ML PEN SC SCH ×4 (09:08→22:42)
--- NOTE | 2016-04-22 10:14 | Clinical Documentation Query ---
CLINICAL DOCUMENTATION QUERY 89 year old female who presents to the Emergency Room by EMS with complaints of a worsening right arm infection. In your clinical opinion is this patient being managed for: ( ) Pressure ulcer of right buttock, stage 2 POA ( ) Other explanation of clinical findings (Please Explain) ( ) Unable to determine (Please Define) ( ) Need to Discuss ( ) Not Agree The medical record reflects the following clinical findings, treatment, and risk factors. Clinical Indicators: WOCN notes stage II pressure ulcer to right buttocks. H&P nor daily progress notes make any statement of pressure ulcer to right buttock. Without diagnosis and POA status associated severity and hospital acquired injury are at risk. Treatment: WOCN consult, Duoderm, Q2hr repositioning Risk Factors: Age, Please clarify and document your clinical opinion in the progress notes and discharge summary. Terms such as "probable", "suspected", "likely", "questionable", "possible", or "still to be ruled out" are acceptable. IF IN AGREEMENT, YOU MUST DOCUMENT ABOVE DIAGNOSTIC STATEMENT IN DAILY PROGRESS NOTES AND DISCHARGE SUMMARY. This document is not part of the patient's record. Thank You, Bry Carroll, RN [phone]
--- NOTE | 2016-04-22 12:59 | Progress Note ---
Medicine Progress Note Date & Time of Visit: Apr 22, 2016 at 12:55. Subjective Pt was seen and examined Sitting in chair very comfortable watching TV Pt said that she feels fine she said the right hand feels much better denies any pain, fever, sob, chest pain and palpitation Objective Last 8 Hrs Date Time Temp Pulse Resp B/P Pulse Ox O2 Delivery O2 Flow Rate FiO2 04/22/16 08:15 Room Air 04/22/16 07:15 36.5 96 16 106/70 96 Room Air Physical Exam: General- No acute distress Head- atraumatic Eyes- PERRL, EOMI ENT- oropharynx clear Neck- supple, no JVD Lungs- clear to auscultation and percussion Heart- regular rhythm; no murmur Abdomen- normal bowel sounds, soft, nontender Extremities- no calf tenderness, right hand swelling, erythema, Neuro- alert, oriented x 3; PERRL, EOMI Laboratory Results: Last 24 Hours Test 04/21/16 16:55 04/22/16 07:00 04/22/16 08:22 04/22/16 12:41 Bedside Glucose 154 mg/dl 189 mg/dl 179 mg/dl White Blood Count 7.42 K/uL Red Blood Count 4.10 M/uL Hemoglobin 11.0 g/dL Hematocrit 33.5 % Mean Corpuscular Volume 81.7 fL Mean Corpuscular Hemoglobin 26.8 pg Mean Corpuscular Hemoglobin Concent 32.8 g/dl RDW Standard Deviation 45.3 fL RDW Coefficient of Variation 15.3 % Platelet Count 211 K/uL Mean Platelet Volume 9.6 fL Erythrocyte Sedimentation Rate 51 mm/hr Sodium Level 141 mmol/L Potassium Level 4.1 mmol/L Chloride Level 107 mmol/L Carbon Dioxide Level 25 mmol/L Anion Gap 9.0 mmol/L Blood Urea Nitrogen 19 mg/dl Creatinine 0.96 mg/dl Est Creatinine Clear Calc Drug Dose 38.4 ml/min Estimated GFR () 60.8 Estimated GFR (Non- 52.4 BUN/Creatinine Ratio 20.2 Random Glucose 193 mg/dl Calcium Level 8.4 mg/dl C-Reactive Protein 7.56 mg/dl Rheumatoid Factor < 10.0 U/mL Assessment & Plan Right Upper Extremity Cellulitis -history of lymphedema and cellulitis of the lower extremities - Right hand xray: Destructive changes involve the distal phalanges of the second and third digits. Multifocal periarticular calcifications. Chondrocalcinosis Afebrile and no elevated WBC Continue IV vanco Follow up on urine cx and blood cx Preliminary wound cx growth staph aureus -ID on board -will consult ortho -ESR and CRP elevated improved DM2 -hold oral agents -sliding scale insulin - Continue monitor BS HTN -->continue home medications Paroxysmal Atrial Fibrillation -continue b-genie -no anticoagulation due to fall risk and bleed risk - rate is controlled DVT ppx -->SCDs CODE STATUS FULL CODE Current Inpatient Medications: Current Inpatient Medications Medications (Trade) Dose Ordered Sig/Susana Route Start Time Stop Time Status Last Admin Dose Admin Acetaminophen (Tylenol Tab) 650 mg Q4H PRN PO 04/21/16 00:00 05/21/16 00:00 04/22/16 01:23 650 MG Al Hydrox/Mg Hydrox/Simethicone (Maalox Max Susp) 15 ml Q4H PRN PO 04/21/16 00:00 05/21/16 00:00 Magnesium Hydroxide (Milk Of Magnesia Susp) 30 ml Q6H PRN PO 04/21/16 00:00 05/21/16 00:00 Ondansetron HCl (Zofran Inj) 4 mg Q6H PRN IV 04/21/16 00:00 05/21/16 00:00 Insulin Aspart (novoLOG ASPART) SLIDING SCALE If C... ACHS SC 04/21/16 07:00 05/21/16 06:59 04/22/16 09:08 5 UNITS Glucose (Glucose 40% Gel) 15-30 GRAMS 15 GRAMS... UD PRN PO 04/21/16 00:00 05/21/16 00:00 Glucose (Glucose Chew Tab) 4-8 Tablets 4 Tabl... UD PRN PO 04/21/16 00:00 05/21/16 00:00 Dextrose (Dextrose 50% 50ML Syringe) 25-50ML OF 50% DW IV FOR... UD PRN IV 04/21/16 00:00 05/21/16 00:00 Glucagon (Glucagon Inj) 1 mg UD PRN SQ 04/21/16 00:00 05/21/16 00:00 Atenolol (Tenormin Tab) 50 mg QAM PO 04/21/16 09:00 05/21/16 08:59 04/22/16 09:05 50 MG Atorvastatin Calcium (Lipitor Tab) 20 mg HS PO 04/21/16 21:00 05/21/16 20:59 04/21/16 20:55 20 MG Docusate Sodium (coLACE CAP) 100 mg DAILY PRN PO 04/21/16 00:00 05/21/16 00:00 Levothyroxine Sodium (Synthroid Tab) 100 mcg DAILYBB PO 04/21/16 06:00 05/21/16 05:59 04/22/16 05:44 100 MCG Lisinopril (Zestril Tab) 5 mg QAM PO 04/21/16 09:00 05/21/16 08:59 04/22/16 09:04 5 MG Magnesium Oxide (Mag-Ox Tab) 400 mg QAM PO 04/21/16 09:00 05/21/16 08:59 04/22/16 09:04 400 MG Multivitamins/ Minerals (Multivitamin W/ Minerals Tab) 1 tab DAILY PO 04/21/16 09:00 05/21/16 08:59 04/22/16 09:05 1 TAB Pantoprazole Sodium (Protonix Tab) 40 mg QPM PO 04/21/16 21:00 05/21/16 20:59 04/21/16 20:55 40 MG Vancomycin HCl 1 ea 1 ea UD PRN N/A 04/21/16 03:15 05/21/16 03:14 Vancomycin HCl/ Sodium Chloride (Vancomycin Inj/ Nss 250ml) 274 ml @ 125 mls/hr Q24H IV 04/22/16 00:00 05/01/16 04:44 04/21/16 23:45 125 MLS/HR Miconazole Nitrate (Desenex Powder) 1 appln BID EXT 04/21/16 21:00 05/21/16 20:59 04/22/16 09:05 1 APPLN Miconazole Nitrate (Desenex Powder) 1 appln DAILY PRN EXT 04/21/16 12:00 05/21/16 11:59
--- NOTE | 2016-04-22 14:57 | Progress Note ---
Progress Note Dr. Clifton was consulted regarding right hand cellulitis. I visited with the patient to begin orthopedic consultation. After introducing myself and explaining I am from [facility] and work with Dr. Clifton I was notified by the patient she is a longtime patient of Dr. Palacios from [facility] and would like to continue under his care. I advised the patient I would notify correct personal and have consult switched accordingly, which she was pleased about. Spoke with patient' s nurse and charge nurse. Consult switched.. No other issues at this time, thank you.
[2016-04-22 15:09] VITALS: BP 122/84; PULSE 79; TEMP 36.4; O2SAT 98
[2016-04-22] MEDS: ATORVASTATIN 20 MG TAB PO SCH (22:35)
[2016-04-22] MEDS: PANTOprazole SOD 40 MG TAB PO SCH (22:36)
--- NOTE | 2016-04-22 22:41 | DIAGNOSTIC IMAGING REPORT ---
MRI THE RIGHT HAND WITHOUT A WITH GADOLINIUM CLINICAL HISTORY: And swelling. Suspected abscess. COMPARISON STUDY: Conventional radiographic study dated 04/20/2016 FINDINGS: The patient was scanned in the axial sagittal and coronal planes before and after the administration of 8 cc of intravenous Gadavist. The examination is limited from a technical standpoint. There appears to be a blister/fluid collection involving the palm. This measures 6 mm. There is diffuse soft tissue edema. There are no fluid collections to indicate an abscess. There are osteoarthritic changes present most pronounced the level the first carpometacarpal joint. There are deformities involving the distal phalanges of the second and third digits consistent with an old posttraumatic injury. There is also nonspecific marrow edema involving the distal phalanx of the third digit. This could relate to prior trauma although osteomyelitis could appear similar. IMPRESSION: 1. Significantly limited study from a technical standpoint 2. No evidence of soft tissue abscess 3. Superficial 6 mm blister/fluid collection involving the palmar aspect of the hand 4. Moderate multilevel degenerative changes 5. Diffuse soft tissue edema 6. Nonspecific T1 and T2 marrow edema involving the distal phalanx of the third digit. This could either be posttraumatic or inflammatory/infectious. Electronically signed by: Brian Cedillo M.D. 04/22/2016 10:39 PM Dictated Date/Time: 04/22/2016 10:31 PM
[2016-04-22] MEDS ORDERED: GADAVIST IV PRN (22:45)
[2016-04-23] VITALS (8 sets, daily range): BP systolic 108–144; BP diastolic 52–83; PULSE 80–100; TEMP 36.4–36.7; O2SAT 96–100
[2016-04-23] MEDS: VANCOMYCIN INJ 1,200 MG in SODIUM CHLORIDE 0.9% 250ML 250 ML IV SCH (00:16)
--- NOTE | 2016-04-23 02:10 | CONSULTATION REPORT ---
DATE OF CONSULTATION: 04/22/2016 HISTORY OF PRESENT ILLNESS: The patient is an 89-year-old female well known to the practice. She has an injury to her left hand, where her fingertips got caught in some sort of a salt grinder, this was a number of days ago. Two days ago, she started to notice increased pain and swelling and redness in the left third finger. On physical examination, she has very little active motion. She has diffusely swollen third finger with bloody drainage from the wound on the tip of the finger. Not particularly tender along the tendon sheath or painful to passive stretch, consistent with Kan[place] signs. ASSESSMENT: It represents some cellulitis, possibly an abscess, less likely septic flexor tenosynovitis. PLAN: We will obtain an MRI of her hand to evaluate the soft tissues for collection that might need to be drained. Thank you for the consult. THEA
[2016-04-23] MEDS: LEVOTHYROXINE 100 MCG TAB PO SCH (05:31)
[2016-04-23] MEDS: MICONAZOLE NITRATE POWDER 43 GM EXT SCH ×2 (07:59→21:22)
[2016-04-23] MEDS: MAGNESIUM OXIDE 400 MG TAB PO SCH (08:00)
[2016-04-23] MEDS: LISINOPRIL 5 MG TAB PO SCH (08:00)
[2016-04-23] MEDS: CEROVITE ADV FORMULA TAB PO SCH (08:00)
[2016-04-23] MEDS: INSULIN ASPART 100 UNITS/ML 3 ML PEN SC SCH ×4 (08:04→21:21)
--- NOTE | 2016-04-23 09:54 | Orthopedic Progress Note ---
Orthopedic Progress Note Date of Service Apr 23, 2016. Subjective Reports: feeling well, Denies: complaints Additional Notes: States that the blister on the zurita aspect of her hand has gotten bigger. No increase in pain etc. Still difficult to bend fingers. Objective Blister on zurita surface has enlarged to approx 2cm. Middle fingertip looking more purulent. Erythema essentially the same of the middle finger. Date Time Temp Pulse Resp B/P Pulse Ox O2 Delivery O2 Flow Rate FiO2 04/23/16 08:29 96 Room Air 04/23/16 07:41 36.7 87 16 144/77 96 Room Air 04/23/16 06:09 36.6 87 18 142/77 96 Room Air 04/23/16 00:10 Room Air 04/23/16 00:08 36.7 100 18 108/52 98 Room Air 04/22/16 15:25 Room Air 04/22/16 15:09 36.4 79 18 122/84 98 Room Air Assessment & Plan Assessment: Infection Right middle finger. Plan: MRI negative for abscess. Cx of surface wound showing Staph Aureus. May need partial amputation of finger tip with possible I&D. Will discuss with Dr Santiago and make her NPO for now.
--- NOTE | 2016-04-23 10:21 | Progress Note ---
Subjective Date of Service: Apr 23, 2016. Subjective Pt evaluation today including: conversation w/ patient, physical exam, chart review, lab review pt seen in follow up, remains with edema of right third digit, larger palmar collection today, still with pain. denies f/c, no drainage, still with pain and decreased rom although somewhat improved. Mri done yesterday, ? distal osteo, no abscess, soft tissue edema noted. eval by orhto, ? distal amp, I&D. cultures with MSSA, remains on vanco, tolerating well. wbc nml,afebrile. blood cultures remain negative. All remaining ros reviewed and are negative, except as noted. Problem List Medical Problems: (1) Anxiety Status: Acute (2) Back pain Status: Acute (3) Intertriginous candidiasis Status: Acute (4) Right arm cellulitis Status: Acute Objective Vital Signs Date Time Temp Pulse Resp B/P Pulse Ox O2 Delivery O2 Flow Rate FiO2 04/23/16 08:29 96 Room Air 04/23/16 07:41 36.7 87 16 144/77 96 Room Air 04/23/16 07:20 Room Air 04/23/16 06:09 36.6 87 18 142/77 96 Room Air 04/23/16 00:10 Room Air 04/23/16 00:08 36.7 100 18 108/52 98 Room Air 04/22/16 15:25 Room Air 04/22/16 15:09 36.4 79 18 122/84 98 Room Air Physical Exam General Appearance: WD/WN, no apparent distress Eyes: EOMI Neck: supple Respiratory/Chest: lungs clear Cardiovascular: regular rate, rhythm, no edema Abdomen: soft Extremities: non-tender, normal inspection, no pedal edema Neurologic/Psychiatric: alert, oriented x 3 Skin: normal color Comments: exam of right hand shows minimal improvement in edema of 3rd digit, no opening, no drainage, distal finger dressing c/d/i. less erythema and edema in dorsal hand however increased size of palmar collection, ? blister vs superficial abscess. still with pain to palpation Laboratory Results Item Value Date Time Blood Culture - Preliminary Resulted 04/20/162149 Blood NO GROWTH TO DATE. Blood Culture - Preliminary Resulted 04/20/162252 Blood NO GROWTH TO DATE. Gram Stain - Final Resulted 04/20/162253 Incision Site Hip , Right Last 24 Hours Test 04/22/16 12:41 04/22/16 17:03 04/23/16 05:50 Bedside Glucose 179 mg/dl 158 mg/dl Creatinine 1.00 mg/dl Est Creatinine Clear Calc Drug Dose 36.9 ml/min Estimated GFR () 57.8 Estimated GFR (Non- 49.9 Assessment and Plan (1) Osteomyelitis Assessment & Plan: will change to ancef as culture with mssa, await ortho decision regarding debridement, ? distal amp. would give 4 weeks abx, maintain IV for now as she will be npo for possible surgery, blood cultures negative to date. will maintain IV for now but plan to d/c on po keflex x 4 weeks when medically stable for d/c
[2016-04-23] MEDS: CEFAZOLIN IV 1,000 MG in DEXTROSE 5% 50ML 50 ML IV SCH ×2 (11:35→19:15)
--- NOTE | 2016-04-23 20:31 | Progress Note ---
Medicine Progress Note Date & Time of Visit: Apr 23, 2016 at 20:24. Subjective Pt was seen and examined Lying in bed with no distress She said that she feels hungry because she was made NPO for possible surgery in the right hand denies any fever, palpitation, dizziness and SOB she still cannot close her hand, still has some pain in her hand Objective Last 8 Hrs Date Time Temp Pulse Resp B/P Pulse Ox O2 Delivery O2 Flow Rate FiO2 04/23/16 15:30 Room Air 04/23/16 15:28 36.4 18 127/75 100 Room Air Physical Exam: General- No acute distress Head- atraumatic Eyes- PERRL, EOMI ENT- oropharynx clear Neck- supple, no JVD Lungs- clear to auscultation and percussion Heart- regular rhythm; no murmur Abdomen- normal bowel sounds, soft, nontender Extremities- no calf tenderness, right hand swelling, erythema, Neuro- alert, oriented x 3; PERRL, EOMI Laboratory Results: Last 24 Hours Test 04/23/16 05:50 04/23/16 12:01 Creatinine 1.00 mg/dl Est Creatinine Clear Calc Drug Dose 36.9 ml/min Estimated GFR () 57.8 Estimated GFR (Non- 49.9 Bedside Glucose 224 mg/dl Assessment & Plan Right Upper Extremity Cellulitis -history of lymphedema and cellulitis of the lower extremities - Right hand xray: Destructive changes involve the distal phalanges of the second and third digits. Multifocal periarticular calcifications. Chondrocalcinosis Afebrile and no elevated WBC GRAM STAIN Final 04/21/16-1038 RESULT FEW POLYS NO ORGANISMS SEEN SURFACE WOUND CULTURE Final 04/23/16-0941 Organism 1 STAPHYLOCOCCUS AUREUS QUANITY FEW SENS SENSITIVITY TO FOLLOW +MIXWOUND PLUS LOW COUNTS OF PROBABLE SKIN HAILEY 1. STAPHYLOCOCCUS AUREUS Target Route Dose RX AB Cost M.I.C. IQ ------ ----- ------ -- ------ -------- - ------ TRIMET/SULFA S <=0.5/ 9.5 * OXACILLIN S 0.5 VANCOMYCIN S 2 ERYTHROMYCIN S <=0.5 TETRACYCLINE R >8 CLINDAMYCIN S <=0.5 DAPTOMYCIN S <=0.5 -ID on board -vanco was changed to IV ancef. Once ready to discharge she can transition to PO Keflex for 4 weeks -Will go to OR today for possible debridement, NPO for now - Will continue monitor DM2 -hold oral agents -sliding scale insulin - Continue monitor BS HTN -->continue home medications Paroxysmal Atrial Fibrillation -continue b-genie -no anticoagulation due to fall risk and bleed risk - rate is controlled DVT ppx -->SCDs CODE STATUS FULL CODE Current Inpatient Medications: Current Inpatient Medications Medications (Trade) Dose Ordered Sig/Susana Route Start Time Stop Time Status Last Admin Dose Admin Acetaminophen (Tylenol Tab) 650 mg Q4H PRN PO 04/21/16 00:00 05/21/16 00:00 04/22/16 01:23 650 MG Al Hydrox/Mg Hydrox/Simethicone (Maalox Max Susp) 15 ml Q4H PRN PO 04/21/16 00:00 05/21/16 00:00 Magnesium Hydroxide (Milk Of Magnesia Susp) 30 ml Q6H PRN PO 04/21/16 00:00 05/21/16 00:00 Ondansetron HCl (Zofran Inj) 4 mg Q6H PRN IV 04/21/16 00:00 05/21/16 00:00 Insulin Aspart (novoLOG ASPART) SLIDING SCALE If C... ACHS SC 04/21/16 07:00 05/21/16 06:59 04/23/16 16:49 2 UNITS Glucose (Glucose 40% Gel) 15-30 GRAMS 15 GRAMS... UD PRN PO 04/21/16 00:00 05/21/16 00:00 Glucose (Glucose Chew Tab) 4-8 Tablets 4 Tabl... UD PRN PO 04/21/16 00:00 05/21/16 00:00 Dextrose (Dextrose 50% 50ML Syringe) 25-50ML OF 50% DW IV FOR... UD PRN IV 04/21/16 00:00 05/21/16 00:00 Glucagon (Glucagon Inj) 1 mg UD PRN SQ 04/21/16 00:00 05/21/16 00:00 Atenolol (Tenormin Tab) 50 mg QAM PO 04/21/16 09:00 05/21/16 08:59 04/23/16 08:00 50 MG Atorvastatin Calcium (Lipitor Tab) 20 mg HS PO 04/21/16 21:00 05/21/16 20:59 04/22/16 22:35 20 MG Docusate Sodium (coLACE CAP) 100 mg DAILY PRN PO 04/21/16 00:00 05/21/16 00:00 Levothyroxine Sodium (Synthroid Tab) 100 mcg DAILYBB PO 04/21/16 06:00 05/21/16 05:59 04/23/16 05:31 100 MCG Lisinopril (Zestril Tab) 5 mg QAM PO 04/21/16 09:00 05/21/16 08:59 04/23/16 08:00 5 MG Magnesium Oxide (Mag-Ox Tab) 400 mg QAM PO 04/21/16 09:00 05/21/16 08:59 04/23/16 08:00 400 MG Multivitamins/ Minerals (Multivitamin W/ Minerals Tab) 1 tab DAILY PO 04/21/16 09:00 05/21/16 08:59 04/23/16 08:00 1 TAB Pantoprazole Sodium (Protonix Tab) 40 mg QPM PO 04/21/16 21:00 05/21/16 20:59 04/22/16 22:36 40 MG Miconazole Nitrate (Desenex Powder) 1 appln BID EXT 04/21/16 21:00 05/21/16 20:59 04/23/16 07:59 1 APPLN Miconazole Nitrate (Desenex Powder) 1 appln DAILY PRN EXT 04/21/16 12:00 05/21/16 11:59 Gadobutrol 8 mmol 8 mmol UD PRN IV 04/22/16 22:45 04/26/16 22:44 Cefazolin Sodium/ Dextrose (Ancef Iv/D5 50ml) 55 ml @ 100 mls/hr Q8H IV 04/23/16 11:00 05/23/16 10:29 04/23/16 19:15 100 MLS/HR
[2016-04-23] MEDS: ATORVASTATIN 20 MG TAB PO SCH (21:16)
[2016-04-23] MEDS: PANTOprazole SOD 40 MG TAB PO SCH (21:16)
[2016-04-23] MEDS ORDERED: VANCOMYCIN TROUGH SCH (23:30)
[2016-04-24] VITALS (9 sets, daily range): BP systolic 102–149; BP diastolic 62–86; PULSE 79–107; TEMP 36.4–37; O2SAT 98–100
[2016-04-24] MEDS: CEFAZOLIN IV 1,000 MG in DEXTROSE 5% 50ML 50 ML IV SCH ×3 (03:28→19:26)
[2016-04-24] MEDS: LEVOTHYROXINE 100 MCG TAB PO SCH (04:31)
[2016-04-24] MEDS ORDERED: NURSING VERBAL MED ORDER ONE ×2 (06:00→15:00)
[2016-04-24] MEDS: INSULIN ASPART 100 UNITS/ML 3 ML PEN SC SCH ×5 (06:00→20:59)
[2016-04-24 06:14] LABS: HEMATOCRIT 33.5 % (37-47); MEAN CELL VOLUME 82.5 fL (80-100); MEAN CORPUSCULAR HEMOGLOBIN 26.1 pg (25-34); MEAN CORPUSCULAR HGB CONC 31.6 g/dl (32-36); MEAN PLATELET VOLUME 9.9 fL (7.4-10.4); PLATELET COUNT 217 K/uL (130-400); RED BLOOD COUNT 4.06 M/uL (4.2-5.4); WHITE BLOOD COUNT 7.59 K/uL (4.8-10.8)
[2016-04-24 06:47] LABS: BUN/CREATININE RATIO 20.1 (10-20); CALCIUM 8.5 mg/dl (8.5-10.1); CREATININE 0.97 mg/dl (0.60-1.20)
[2016-04-24] MEDS: CEROVITE ADV FORMULA TAB PO SCH (08:44)
[2016-04-24] MEDS: MAGNESIUM OXIDE 400 MG TAB PO SCH (08:44)
[2016-04-24] MEDS: MICONAZOLE NITRATE POWDER 43 GM EXT SCH ×2 (08:44→20:27)
[2016-04-24] MEDS: LISINOPRIL 5 MG TAB PO SCH (08:52)
[2016-04-24] MEDS ORDERED: ONDANSETRON INJ 2 MG/ML 2 ML VIAL ONE (10:34)
[2016-04-24] MEDS ORDERED: LIDOCAINE HCL 2% 2 ML VIAL (20MG/ML) ONE (10:34)
[2016-04-24] MEDS ORDERED: FENTANYL CITRATE INJ 50 MCG/1 ML 2 ML VIAL ONE (10:34)
[2016-04-24] MEDS ORDERED: PROPOFOL IV EMULSION 10 MG/ML 20 ML VIAL IV ONE (10:34)
[2016-04-24] MEDS ORDERED: MIDAZOLAM HCL 1 MG/ML 2ML VIAL ONE (10:34)
--- NOTE | 2016-04-24 10:50 | Orthopedic Progress Note ---
Orthopedic Progress Note Date of Service Apr 24, 2016. Subjective Additional Notes: c/o pain in finger and malasie Objective left middle finger has obviouys infection,likely exposed bone Date Time Temp Pulse Resp B/P Pulse Ox O2 Delivery O2 Flow Rate FiO2 04/24/16 09:03 92 112/69 04/24/16 07:35 36.8 107 18 112/78 98 Room Air 04/24/16 07:15 Room Air 04/23/16 23:59 36.6 98 18 129/78 98 Room Air 04/23/16 23:45 Room Air 04/23/16 15:30 Room Air 04/23/16 15:28 36.4 18 127/75 100 Room Air 04/23/16 11:36 36.6 80 18 119/83 96 Room Air Laboratory Results 24 Hours: Test 04/24/16 05:33 Hematocrit 33.5 % Hemoglobin 10.6 g/dL Assessment & Plan Assessment: Infection Right middle finger. Plan: MRI negative for abscess. Cx of surface wound showing Staph Aureus. May need partial amputation of finger tip with possible I&D. Will discuss with Dr Santiago and make her NPO for now. (1) Osteomyelitis Acute Assessment & Plan: will plan for I and D of middle finger andf likely ampuation at tip for distal phalanx osteomyelitis. could not get into the OR yesterday due top muliptle emergencies. consent obtained. r/b discussed
[2016-04-24] MEDS ORDERED: CEFAZOLIN SOD 1 GM VIAL ONE (11:06)
--- NOTE | 2016-04-24 11:45 | Anesthesiology Progress Note ---
Anesthesia Post Op Note Date & Time Apr 24, 2016 at 11:45 Vital Signs Pain Intensity: 0.0 Vital Signs Past 12 Hours Date Time Temp Pulse Resp B/P Pulse Ox O2 Delivery O2 Flow Rate FiO2 04/24/16 09:03 92 112/69 04/24/16 07:35 36.8 107 18 112/78 98 Room Air 04/24/16 07:15 Room Air 04/23/16 23:59 36.6 98 18 129/78 98 Room Air Notes Mental Status: alert / awake / arousable, participated in evaluation Pt Amnestic to Procedure: Yes Nausea / Vomiting: adequately controlled Pain: adequately controlled Airway Patency, RR, SpO2: stable & adequate BP & HR: stable & adequate Hydration State: stable & adequate Anesthetic Complications: no major complications apparent
--- NOTE | 2016-04-24 11:50 | [facility] Post Operative Brief Note ---
Immediate Operative Summary Operative Date Apr 24, 2016. Pre-Operative Diagnosis Infected right middle finger Post-Operative Diagnosis Infected right middle finger Procedure(s) Performed right middle finger amputation, Incision and Drainage of septic flexor tenosynovitis Surgeon Dr. Sandy Copper Tapper Surgeon(s) none Estimated Blood Loss 15cc Findings gross pus and osteomyelitis; septic flexor tenosynovitis Specimens A. Right middle finger tissue Drains none Anesthesia local mac Complication(s) None Disposition Recovery Room / PACU
--- NOTE | 2016-04-24 14:10 | Progress Note ---
Medicine Progress Note Date & Time of Visit: Apr 24, 2016 at 14:02. Subjective Pt was seen and examined Lying in bed comfortable with no distress Daughter and grandson at bedside Pt is NPO this morning because she is waiting to go to OR denies any chest pain, palpitation, dizziness and sob Objective Last 8 Hrs Date Time Temp Pulse Resp B/P Pulse Ox O2 Delivery O2 Flow Rate FiO2 04/24/16 13:49 37.0 88 18 137/74 04/24/16 13:19 80 18 124/78 04/24/16 12:35 Nasal Cannula 2.0 04/24/16 12:35 36.4 79 18 121/73 99 Nasal Cannula 2.0 04/24/16 12:20 83 16 135/63 98 Nasal Cannula 2 04/24/16 12:10 36.5 80 18 96/61 99 Nasal Cannula 2 04/24/16 12:00 80 16 106/61 99 Nasal Cannula 2 04/24/16 11:51 36.3 79 16 107/64 100 Mask 10 04/24/16 09:03 92 112/69 04/24/16 07:35 36.8 107 18 112/78 98 Room Air 04/24/16 07:15 Room Air Physical Exam: General- No acute distress Head- atraumatic Eyes- PERRL, EOMI ENT- oropharynx clear Neck- supple, no JVD Lungs- clear to auscultation and percussion Heart- regular rhythm; no murmur Abdomen- normal bowel sounds, soft, nontender Extremities- no calf tenderness, right middle finger drainage pus Neuro- alert, oriented x 3; PERRL, EOMI Laboratory Results: Last 24 Hours Test 04/23/16 16:31 04/23/16 20:12 04/24/16 05:33 04/24/16 05:44 Bedside Glucose 179 mg/dl 214 mg/dl 224 mg/dl White Blood Count 7.59 K/uL Red Blood Count 4.06 M/uL Hemoglobin 10.6 g/dL Hematocrit 33.5 % Mean Corpuscular Volume 82.5 fL Mean Corpuscular Hemoglobin 26.1 pg Mean Corpuscular Hemoglobin Concent 31.6 g/dl RDW Standard Deviation 47.0 fL RDW Coefficient of Variation 15.4 % Platelet Count 217 K/uL Mean Platelet Volume 9.9 fL Sodium Level 140 mmol/L Potassium Level 4.0 mmol/L Chloride Level 107 mmol/L Carbon Dioxide Level 23 mmol/L Anion Gap 10.0 mmol/L Blood Urea Nitrogen 19 mg/dl Creatinine 0.97 mg/dl Est Creatinine Clear Calc Drug Dose 38.0 ml/min Estimated GFR () 60.0 Estimated GFR (Non- 51.8 BUN/Creatinine Ratio 20.1 Random Glucose 206 mg/dl Calcium Level 8.5 mg/dl Test 04/24/16 12:09 Bedside Glucose 190 mg/dl Date/Time Source Procedure Growth Status 04/24/16 11:30 Drainage-Deep Finger , Right 2nd Gram Stain Pending Received 04/24/16 11:30 Drainage-Deep Finger , Right 2nd Bacterial Culture Pending Received Assessment & Plan Right Upper Extremity Cellulitis -history of lymphedema and cellulitis of the lower extremities - Right hand xray: Destructive changes involve the distal phalanges of the second and third digits. Multifocal periarticular calcifications. Chondrocalcinosis Afebrile and no elevated WBC GRAM STAIN Final 04/21/16-1038 RESULT FEW POLYS NO ORGANISMS SEEN SURFACE WOUND CULTURE Final 04/23/16-0941 Organism 1 STAPHYLOCOCCUS AUREUS QUANITY FEW SENS SENSITIVITY TO FOLLOW +MIXWOUND PLUS LOW COUNTS OF PROBABLE SKIN HAILEY 1. STAPHYLOCOCCUS AUREUS Target Route Dose RX AB Cost M.I.C. IQ ------ ----- ------ -- ------ -------- - ------ TRIMET/SULFA S <=0.5/ 9.5 * OXACILLIN S 0.5 VANCOMYCIN S 2 ERYTHROMYCIN S <=0.5 TETRACYCLINE R >8 CLINDAMYCIN S <=0.5 DAPTOMYCIN S <=0.5 -ID on board -vanco was changed to IV ancef. Once ready to discharge she can transition to PO Keflex for 4 weeks -Went to OR this morning for debridement and amputation of the tip of the middle finger - Finding as per surgeon gross pus and osteomyelitis; septic flexor tenosynovitis -Continue IV antibiotic DM2 -hold oral agents -sliding scale insulin - Continue monitor BS HTN -->continue home medications Paroxysmal Atrial Fibrillation -continue b-genie -no anticoagulation due to fall risk and bleed risk - rate is controlled DVT ppx -->SCDs CODE STATUS FULL CODE Consultants: ID Orthopedic Current Inpatient Medications: Current Inpatient Medications Medications (Trade) Dose Ordered Sig/Susana Route Start Time Stop Time Status Last Admin Dose Admin Acetaminophen (Tylenol Tab) 650 mg Q4H PRN PO 04/21/16 00:00 05/21/16 00:00 04/22/16 01:23 650 MG Al Hydrox/Mg Hydrox/Simethicone (Maalox Max Susp) 15 ml Q4H PRN PO 04/21/16 00:00 05/21/16 00:00 Magnesium Hydroxide (Milk Of Magnesia Susp) 30 ml Q6H PRN PO 04/21/16 00:00 05/21/16 00:00 Ondansetron HCl (Zofran Inj) 4 mg Q6H PRN IV 04/21/16 00:00 05/21/16 00:00 Glucose (Glucose 40% Gel) 15-30 GRAMS 15 GRAMS... UD PRN PO 04/21/16 00:00 05/21/16 00:00 Glucose (Glucose Chew Tab) 4-8 Tablets 4 Tabl... UD PRN PO 04/21/16 00:00 05/21/16 00:00 Dextrose (Dextrose 50% 50ML Syringe) 25-50ML OF 50% DW IV FOR... UD PRN IV 04/21/16 00:00 05/21/16 00:00 Glucagon (Glucagon Inj) 1 mg UD PRN SQ 04/21/16 00:00 05/21/16 00:00 Atenolol (Tenormin Tab) 50 mg QAM PO 04/21/16 09:00 05/21/16 08:59 04/24/16 09:06 50 MG Atorvastatin Calcium (Lipitor Tab) 20 mg HS PO 04/21/16 21:00 05/21/16 20:59 04/23/16 21:16 20 MG Docusate Sodium (coLACE CAP) 100 mg DAILY PRN PO 04/21/16 00:00 05/21/16 00:00 Levothyroxine Sodium (Synthroid Tab) 100 mcg DAILYBB PO 04/21/16 06:00 05/21/16 05:59 04/23/16 05:31 100 MCG Lisinopril (Zestril Tab) 5 mg QAM PO 04/21/16 09:00 05/21/16 08:59 04/23/16 08:00 5 MG Magnesium Oxide (Mag-Ox Tab) 400 mg QAM PO 04/21/16 09:00 05/21/16 08:59 04/23/16 08:00 400 MG Multivitamins/ Minerals (Multivitamin W/ Minerals Tab) 1 tab DAILY PO 04/21/16 09:00 05/21/16 08:59 04/23/16 08:00 1 TAB Pantoprazole Sodium (Protonix Tab) 40 mg QPM PO 04/21/16 21:00 05/21/16 20:59 04/23/16 21:16 40 MG Miconazole Nitrate (Desenex Powder) 1 appln BID EXT 04/21/16 21:00 05/21/16 20:59 04/24/16 08:44 1 APPLN Miconazole Nitrate (Desenex Powder) 1 appln DAILY PRN EXT 04/21/16 12:00 05/21/16 11:59 Gadobutrol 8 mmol 8 mmol UD PRN IV 04/22/16 22:45 04/26/16 22:44 Cefazolin Sodium/ Dextrose (Ancef Iv/D5 50ml) 55 ml @ 100 mls/hr Q8H IV 04/23/16 11:00 05/23/16 10:29 04/24/16 03:28 100 MLS/HR Insulin Aspart (novoLOG ASPART) SLIDING SCALE If C... Q6 SC 04/24/16 06:00 05/24/16 05:59 04/24/16 13:27 3 UNITS
[2016-04-24] MEDS: PANTOprazole SOD 40 MG TAB PO SCH (20:27)
[2016-04-24] MEDS: ATORVASTATIN 20 MG TAB PO SCH (20:27)
[2016-04-24] MEDS: ACETAMINOPHEN 325 MG TAB PO PRN (20:28)
[2016-04-24] MEDS ORDERED: KETOROLAC TROMETHAMINE 15 MG/ML VIAL IV. PRN (21:15)
[2016-04-24] MEDS ORDERED: MoRPHine SULFATE 2 MG/ML CARP IV PRN (21:15)
[2016-04-24] MEDS ORDERED: KETOROLAC TROMETHAMINE 15 MG/ML VIAL IV. STA (21:21)
[2016-04-25 03:08] VITALS: BP 136/80; PULSE 75; TEMP 36.3; O2SAT 100
[2016-04-25] MEDS: CEFAZOLIN IV 1,000 MG in DEXTROSE 5% 50ML 50 ML IV SCH ×3 (03:35→18:42)
[2016-04-25] MEDS: LEVOTHYROXINE 100 MCG TAB PO SCH (05:42)
--- NOTE | 2016-04-25 06:28 | Orthopedic Progress Note ---
Orthopedic Progress Note Date of Service Apr 25, 2016. Subjective Post OP Day: 1 (right middle finger amputation, Incision and Drainage of septic flexor ) Reports: feeling well, pain controlled w PO medications, Denies: SOB, calf pain , chest pain, complaints, light headedness, nausea / vomiting Objective dressing C/D/I, A&O x3 sensation intact to thumb. dressing in place, no significant drainage noted. Date Time Temp Pulse Resp B/P Pulse Ox O2 Delivery O2 Flow Rate FiO2 04/25/16 03:08 36.3 75 16 136/80 100 Nasal Cannula 2.0 04/24/16 23:21 36.9 83 16 106/72 98 Nasal Cannula 2.0 04/24/16 19:40 Room Air 04/24/16 19:27 36.7 88 18 102/62 99 Nasal Cannula 2.0 04/24/16 16:15 36.4 83 18 149/86 100 Nasal Cannula 2.0 04/24/16 15:20 Nasal Cannula 2.0 04/24/16 14:56 82 18 123/62 04/24/16 13:49 37.0 88 18 137/74 04/24/16 13:19 80 18 124/78 04/24/16 12:35 Nasal Cannula 2.0 04/24/16 12:35 36.4 79 18 121/73 99 Nasal Cannula 2.0 04/24/16 12:20 83 16 135/63 98 Nasal Cannula 2 04/24/16 12:10 36.5 80 18 96/61 99 Nasal Cannula 2 04/24/16 12:00 80 16 106/61 99 Nasal Cannula 2 04/24/16 11:51 36.3 79 16 107/64 100 Mask 10 04/24/16 09:03 92 112/69 04/24/16 07:35 36.8 107 18 112/78 98 Room Air 04/24/16 07:15 Room Air Laboratory Results 24 Hours: Test 04/25/16 06:16 Assessment & Plan Assessment: Infection Right middle finger. POD #1 s/p right middle finger amputation, Incision and Drainage of septic flexor tenosynovitis -cont to ice/elevate above heart level for swelling -dr trejo instructed to leave dressing on until Tuesday, new dressing at that time -currently on IV abx, plan to switch to PO Abx at discharge -Intra op Cx pending -recheck CBC this am (1) Osteomyelitis Acute
[2016-04-25 07:12] LABS: BASO % 0.3 %; BASO ABS # 0.02 K/uL (0-0.2); COMPLETE YES; EOS % 2.9 %; HEMATOCRIT 35.2 % (37-47); IG% 0.9 %; LYMPH % 29.3 %; LYMPH ABS # 1.89 K/uL (1.2-3.4); MEAN CELL VOLUME 83.2 fL (80-100); MEAN CORPUSCULAR HEMOGLOBIN 26.5 pg (25-34); MEAN CORPUSCULAR HGB CONC 31.8 g/dl (32-36); MEAN PLATELET VOLUME 9.9 fL (7.4-10.4); MONO % 10.4 %; NEUT % 56.2 %; PLATELET COUNT 216 K/uL (130-400); RED BLOOD COUNT 4.23 M/uL (4.2-5.4); WHITE BLOOD COUNT 6.46 K/uL (4.8-10.8)
[2016-04-25 07:48] VITALS: BP 132/87; PULSE 83; TEMP 36.4; O2SAT 96
[2016-04-25] MEDS: CEROVITE ADV FORMULA TAB PO SCH (09:05)
[2016-04-25] MEDS: LISINOPRIL 5 MG TAB PO SCH (09:05)
[2016-04-25] MEDS: MAGNESIUM OXIDE 400 MG TAB PO SCH (09:05)
[2016-04-25] MEDS: MICONAZOLE NITRATE POWDER 43 GM EXT SCH ×2 (09:06→21:12)
[2016-04-25] MEDS: INSULIN ASPART 100 UNITS/ML 3 ML PEN SC SCH ×4 (09:31→21:24)
--- NOTE | 2016-04-25 10:25 | Progress Note ---
Medicine Progress Note Date & Time of Visit: Apr 25, 2016 at 10:13. Subjective Pt was seen and examined Sitting in chair very comfortable Pt said that she feels fine she said that she does not have any pain in her hand denies any fever, chest pain, palpitation, dizziness and sob Objective Last 8 Hrs Date Time Temp Pulse Resp B/P Pulse Ox O2 Delivery O2 Flow Rate FiO2 04/25/16 07:48 36.4 83 18 132/87 96 Room Air 04/25/16 03:08 36.3 75 16 136/80 100 Nasal Cannula 2.0 Physical Exam: General- No acute distress, very pleasant Head- atraumatic Eyes- PERRL, EOMI ENT- oropharynx clear Neck- supple, no JVD Lungs- clear to auscultation and percussion Heart- regular rhythm; no murmur Abdomen- normal bowel sounds, soft, nontender Extremities- no calf tenderness, Right hand dressing and wrapped Neuro- alert, oriented x 3; PERRL, EOMI Laboratory Results: Last 24 Hours Test 04/24/16 12:09 04/24/16 17:03 04/24/16 20:35 04/25/16 06:55 Bedside Glucose 190 mg/dl 207 mg/dl 190 mg/dl White Blood Count 6.46 K/uL Red Blood Count 4.23 M/uL Hemoglobin 11.2 g/dL Hematocrit 35.2 % Mean Corpuscular Volume 83.2 fL Mean Corpuscular Hemoglobin 26.5 pg Mean Corpuscular Hemoglobin Concent 31.8 g/dl Platelet Count 216 K/uL Mean Platelet Volume 9.9 fL Neutrophils (%) (Auto) 56.2 % Lymphocytes (%) (Auto) 29.3 % Monocytes (%) (Auto) 10.4 % Eosinophils (%) (Auto) 2.9 % Basophils (%) (Auto) 0.3 % Neutrophils # (Auto) 3.63 K/uL Lymphocytes # (Auto) 1.89 K/uL Monocytes # (Auto) 0.67 K/uL Eosinophils # (Auto) 0.19 K/uL Basophils # (Auto) 0.02 K/uL RDW Standard Deviation 46.6 fL RDW Coefficient of Variation 15.3 % Immature Granulocyte % (Auto) 0.9 % Immature Granulocyte # (Auto) 0.06 K/uL Test 04/25/16 08:05 Bedside Glucose 188 mg/dl Date/Time Source Procedure Growth Status 04/24/16 11:30 Drainage-Deep Finger , Right 2nd Gram Stain - Final Resulted 04/24/16 11:30 Bacterial Culture - Preliminary Alpha Strep. Not Enterococcus Resulted Assessment & Plan Right Upper Extremity Cellulitis -history of lymphedema and cellulitis of the lower extremities - Right hand xray: Destructive changes involve the distal phalanges of the second and third digits. Multifocal periarticular calcifications. Chondrocalcinosis Afebrile and no elevated WBC GRAM STAIN Final 04/21/16-1038 RESULT FEW POLYS NO ORGANISMS SEEN SURFACE WOUND CULTURE Final 04/23/16-0941 Organism 1 STAPHYLOCOCCUS AUREUS QUANITY FEW SENS SENSITIVITY TO FOLLOW +MIXWOUND PLUS LOW COUNTS OF PROBABLE SKIN HAILEY 1. STAPHYLOCOCCUS AUREUS Target Route Dose RX AB Cost M.I.C. IQ ------ ----- ------ -- ------ -------- - ------ TRIMET/SULFA S <=0.5/ 9.5 * OXACILLIN S 0.5 VANCOMYCIN S 2 ERYTHROMYCIN S <=0.5 TETRACYCLINE R >8 CLINDAMYCIN S <=0.5 DAPTOMYCIN S <=0.5 -ID on board -vanco was changed to IV ancef. Once ready to discharge she can transition to PO Keflex for 4 weeks -had debridement and amputation of the tip of the middle finger on 04/24/16) - Finding as per surgeon gross pus and osteomyelitis; septic flexor tenosynovitis -Continue IV antibiotic - POD#1, doing well. Right hand dressing and wrapped - As per ortho team, leave dressing on for Tuesday - Continue wound care - Intra op culture result pending - Advised pt to keep right hand elevates for the swelling - continue monitor DM2 -hold oral agents -sliding scale insulin - Continue monitor BS HTN -->continue home medications Paroxysmal Atrial Fibrillation -continue b-genie -no anticoagulation due to fall risk and bleed risk - rate is controlled DVT ppx -->SCDs CODE STATUS FULL CODE Consultants: [facility] Current Inpatient Medications: Current Inpatient Medications Medications (Trade) Dose Ordered Sig/Susana Route Start Time Stop Time Status Last Admin Dose Admin Acetaminophen (Tylenol Tab) 650 mg Q4H PRN PO 04/21/16 00:00 05/21/16 00:00 04/24/16 20:28 650 MG Al Hydrox/Mg Hydrox/Simethicone (Maalox Max Susp) 15 ml Q4H PRN PO 04/21/16 00:00 05/21/16 00:00 Magnesium Hydroxide (Milk Of Magnesia Susp) 30 ml Q6H PRN PO 04/21/16 00:00 05/21/16 00:00 Ondansetron HCl (Zofran Inj) 4 mg Q6H PRN IV 04/21/16 00:00 05/21/16 00:00 Glucose (Glucose 40% Gel) 15-30 GRAMS 15 GRAMS... UD PRN PO 04/21/16 00:00 05/21/16 00:00 Glucose (Glucose Chew Tab) 4-8 Tablets 4 Tabl... UD PRN PO 04/21/16 00:00 05/21/16 00:00 Dextrose (Dextrose 50% 50ML Syringe) 25-50ML OF 50% DW IV FOR... UD PRN IV 04/21/16 00:00 05/21/16 00:00 Glucagon (Glucagon Inj) 1 mg UD PRN SQ 04/21/16 00:00 05/21/16 00:00 Atenolol (Tenormin Tab) 50 mg QAM PO 04/21/16 09:00 05/21/16 08:59 04/25/16 09:06 50 MG Atorvastatin Calcium (Lipitor Tab) 20 mg HS PO 04/21/16 21:00 05/21/16 20:59 04/24/16 20:27 20 MG Docusate Sodium (coLACE CAP) 100 mg DAILY PRN PO 04/21/16 00:00 05/21/16 00:00 Levothyroxine Sodium (Synthroid Tab) 100 mcg DAILYBB PO 04/21/16 06:00 05/21/16 05:59 04/25/16 05:42 100 MCG Lisinopril (Zestril Tab) 5 mg QAM PO 04/21/16 09:00 05/21/16 08:59 04/25/16 09:05 5 MG Magnesium Oxide (Mag-Ox Tab) 400 mg QAM PO 04/21/16 09:00 05/21/16 08:59 04/25/16 09:05 400 MG Multivitamins/ Minerals (Multivitamin W/ Minerals Tab) 1 tab DAILY PO 04/21/16 09:00 05/21/16 08:59 04/25/16 09:05 1 TAB Pantoprazole Sodium (Protonix Tab) 40 mg QPM PO 04/21/16 21:00 05/21/16 20:59 04/24/16 20:27 40 MG Miconazole Nitrate (Desenex Powder) 1 appln BID EXT 04/21/16 21:00 05/21/16 20:59 04/25/16 09:06 1 APPLN Miconazole Nitrate (Desenex Powder) 1 appln DAILY PRN EXT 04/21/16 12:00 05/21/16 11:59 Gadobutrol 8 mmol 8 mmol UD PRN IV 04/22/16 22:45 04/26/16 22:44 Cefazolin Sodium/ Dextrose (Ancef Iv/D5 50ml) 55 ml @ 100 mls/hr Q8H IV 04/23/16 11:00 05/23/16 10:29 04/25/16 03:35 100 MLS/HR Insulin Aspart (novoLOG ASPART) SLIDING SCALE If C... ACHS SC 04/24/16 17:15 05/24/16 17:14 04/25/16 09:31 3 UNITS Ketorolac Tromethamine (Toradol Inj) 15 mg Q6H PRN IV. 04/24/16 21:15 04/29/16 21:14 Morphine Sulfate (MoRPHine SULFATE INJ) 1 mg Q4 PRN IV 04/24/16 21:15 05/08/16 21:14
[2016-04-25 11:00] VITALS: BP 118/82; PULSE 83; TEMP 36.3; O2SAT 96
[2016-04-25 15:38] VITALS: BP 113/67; PULSE 71; TEMP 36.9; O2SAT 97
[2016-04-25] MEDS: PANTOprazole SOD 40 MG TAB PO SCH (21:11)
[2016-04-25] MEDS: ATORVASTATIN 20 MG TAB PO SCH (21:11)
[2016-04-25 23:45] VITALS: BP 123/81; PULSE 104; TEMP 36.4; O2SAT 98
[2016-04-26] MEDS: CEFAZOLIN IV 1,000 MG in DEXTROSE 5% 50ML 50 ML IV SCH ×3 (03:44→18:13)
[2016-04-26] MEDS: LEVOTHYROXINE 100 MCG TAB PO SCH (06:05)
--- NOTE | 2016-04-26 07:03 | OPERATIVE REPORT ---
DATE OF OPERATION: 04/24/2016 PREOPERATIVE DIAGNOSIS: Right middle finger osteomyelitis. POSTOPERATIVE DIAGNOSIS: Same plus right middle finger septic flexor tenosynovitis. PROCEDURES: 1. Right middle finger amputation at middle phalanx. 2. Right middle finger I\T\D of septic flexor tenosynovitis. 3. Right middle finger excision of FDP tendon. SURGEON: Dr. Sandy. DRY PRESS OPERATOR HELPER: None. ANESTHESIA: Local monitored anesthesia care with a digital block. INDICATIONS: This is an 89-year-old female with a history of diabetes. She presents with a progressive drainage from the tip of the finger. Radiographs show concern for osteomyelitis. I reviewed her MRI but I find it nondiagnostic. Clinically, she has a suspicion for osteomyelitis in the finger with possible septic flexor tenosynovitis as she has a large blister in the palm. I discussed with her in the preoperative holding area amputation at the level of the middle phalanx with other work as indicated and she is agreeable and wishes to proceed. The risks and benefits have been discussed including, but not limited to, risk of infection, nerve injury, stiffness, loss of motion, failure to improve, etc. The patient is agreeable and wishes to proceed. DESCRIPTION OF PROCEDURE: Prior to beginning the finger amputation, I performed a digital block with 2 mL of lidocaine and 2 mL of Marcaine with a single injection at the proximal flexion crease of the digit for anesthesia. I made an elliptical fishmouth incision over the middle phalanx. Dissection was carried down through the skin and subcutaneous tissues. There was gross osteomyelitis at the distal phalanx and there was evidence of necrotic tissue and infection. I performed an amputation at the level of the middle phalanx and the remainder of the finger was passed off the table. The area was copiously irrigated and debrided of any devitalized tissue. This was irrigated with 2 liters of normal saline. I then performed a loose closure with 4-0 nylon. A finger tourniquet was applied. This was let down and there was adequate bleeding at the area once the tourniquet was removed. I inspected the patient's palm. There was a large blister in the area. I unroofed the blister, unroofed the sinus tract in the region of the A1 yahir. I injected lidocaine in the local area. The patient's sinus tract was opened and there was evidence of gross pus coming from the flexor tendon system. I elected to excise the FDP tendon as it was no longer attached to the distal tip of the finger. The A1 yahir was sharply incised. I took care to preserve the A2 yahir. There was gross pus encountered in the flexor tendon sheath. I then performed through and through irrigation for septic flexor tenosynovitis from distal to proximal as well as from proximal to distal. This resulted in improvements in infection. I debrided the finger in the region of the A1 yahir with debridement of skin, subcutaneous tissue and fascia. This completed irrigation and debridement of septic flexor tenosynovitis. The palmar incision was closed with 4-0 nylon in a running fashion. The patient was placed in a soft dressing and sent to the PACU in stable condition. Postoperative plan will be range of motion as tolerated and we will continue antibiotics. I recommend continuing intravenous antibiotics until interval clinical improvement is seen. I attest to the content of the Intraoperative Record and any orders documented therein. Any exceptio ns are noted below.
[2016-04-26 07:32] VITALS: BP 123/78; PULSE 100; TEMP 36.4; O2SAT 97
[2016-04-26 08:12] VITALS: O2SAT 97
[2016-04-26] MEDS: MICONAZOLE NITRATE POWDER 43 GM EXT SCH ×2 (08:21→20:27)
[2016-04-26 09:04] LABS: HEMATOCRIT 36.3 % (37-47); MEAN CELL VOLUME 81.8 fL (80-100); MEAN CORPUSCULAR HEMOGLOBIN 26.4 pg (25-34); MEAN CORPUSCULAR HGB CONC 32.2 g/dl (32-36); MEAN PLATELET VOLUME 9.6 fL (7.4-10.4); PLATELET COUNT 223 K/uL (130-400); RED BLOOD COUNT 4.44 M/uL (4.2-5.4)
[2016-04-26] MEDS: CEROVITE ADV FORMULA TAB PO SCH (09:05)
[2016-04-26] MEDS: MAGNESIUM OXIDE 400 MG TAB PO SCH (09:05)
[2016-04-26] MEDS: LISINOPRIL 5 MG TAB PO SCH (09:06)
[2016-04-26] MEDS: INSULIN ASPART 100 UNITS/ML 3 ML PEN SC SCH ×4 (09:10→20:40)
[2016-04-26 09:29] LABS: BUN/CREATININE RATIO 17.9 (10-20); CALCIUM 8.6 mg/dl (8.5-10.1); CREATININE 0.91 mg/dl (0.60-1.20); POTASSIUM 4.2 mmol/L (3.5-5.1)
--- NOTE | 2016-04-26 11:12 | Orthopedic Progress Note ---
Orthopedic Progress Note Date of Service Apr 26, 2016. Subjective Post OP Day: 2 Reports: feeling well, Denies: complaints Additional Notes: States he hand and finger are feeling better today. No other complaints. Objective Dressings taken down. Neri wound and finger tip looking much better since I saw them prior to surgery. Erythema lessening. No overt drainage. No purulence. Date Time Temp Pulse Resp B/P Pulse Ox O2 Delivery O2 Flow Rate FiO2 04/26/16 08:12 97 Room Air 04/26/16 08:09 Room Air 04/26/16 07:32 36.4 100 16 123/78 97 Room Air 04/26/16 00:25 Room Air 04/25/16 23:45 36.4 104 16 123/81 98 Room Air 04/25/16 20:00 Room Air 04/25/16 16:38 Room Air 04/25/16 15:38 36.9 71 18 113/67 97 Room Air 04/25/16 11:12 Room Air Laboratory Results 24 Hours: Test 04/26/16 08:51 Hematocrit 36.3 % Hemoglobin 11.7 g/dL Assessment & Plan Assessment: Infection Right middle finger. POD #2 s/p right middle finger amputation, Incision and Drainage of septic flexor tenosynovitis -cont to ice/elevate above heart level for swelling -Discussed with Dr Sandy this AM. No further surgical treatment needed. - Continue daily dressing changes of the right hand -Antibx as per admitting service/ID Team - FOLLOW UP WITH DR SANDY IN 7-10 DAYS -Intra op Cx showing Alpha Strep (1) Osteomyelitis Acute
[2016-04-26 15:07] VITALS: BP 121/82; PULSE 88; TEMP 36.4; O2SAT 96
--- NOTE | 2016-04-26 15:19 | Progress Note ---
Subjective Date of Service: Apr 26, 2016. Subjective Pt evaluation today including: chart review, lab review pt s/p amp of third digit. tolerated well. tolerating abx. afebrile. dressing intact, no plans for additional OR. culture with MSSA. OR culture with alpha strep. no leukocytosis. no events. Problem List Medical Problems: (1) Anxiety Status: Acute (2) Back pain Status: Acute (3) Intertriginous candidiasis Status: Acute (4) Right arm cellulitis Status: Acute Objective Vital Signs Date Time Temp Pulse Resp B/P Pulse Ox O2 Delivery O2 Flow Rate FiO2 04/26/16 13:10 Room Air 04/26/16 08:12 97 Room Air 04/26/16 08:09 Room Air 04/26/16 07:32 36.4 100 16 123/78 97 Room Air 04/26/16 00:25 Room Air 04/25/16 23:45 36.4 104 16 123/81 98 Room Air 04/25/16 20:00 Room Air 04/25/16 16:38 Room Air 04/25/16 15:38 36.9 71 18 113/67 97 Room Air Laboratory Results Item Value Date Time Blood Culture - Preliminary Resulted 04/20/16 2150 Blood NO GROWTH TO DATE. Blood Culture - Preliminary Resulted 04/20/16 2253 Blood NO GROWTH TO DATE. Gram Stain - Final Resulted 04/20/16 2254 Incision Site Hip , Right Blood Culture - Final Complete 04/20/16 2253 Blood NO GROWTH Gram Stain - Final Complete 04/20/16 2254 Incision Site Hip , Right Last 24 Hours Test 04/25/16 16:58 04/25/16 20:47 04/26/16 08:09 04/26/16 08:51 Bedside Glucose 207 mg/dl 198 mg/dl 205 mg/dl White Blood Count 7.30 K/uL Red Blood Count 4.44 M/uL Hemoglobin 11.7 g/dL Hematocrit 36.3 % Mean Corpuscular Volume 81.8 fL Mean Corpuscular Hemoglobin 26.4 pg Mean Corpuscular Hemoglobin Concent 32.2 g/dl RDW Standard Deviation 45.0 fL RDW Coefficient of Variation 15.1 % Platelet Count 223 K/uL Mean Platelet Volume 9.6 fL Sodium Level 140 mmol/L Potassium Level 4.2 mmol/L Chloride Level 105 mmol/L Carbon Dioxide Level 24 mmol/L Anion Gap 11.0 mmol/L Blood Urea Nitrogen 16 mg/dl Creatinine 0.91 mg/dl Est Creatinine Clear Calc Drug Dose 40.5 ml/min Estimated GFR () 64.8 Estimated GFR (Non- 55.9 BUN/Creatinine Ratio 17.9 Random Glucose 197 mg/dl Calcium Level 8.6 mg/dl Test 04/26/16 12:26 Bedside Glucose 220 mg/dl Assessment and Plan (1) Osteomyelitis Status: Acute Assessment & Plan: ok to transition to po abx upon d/c. would give 4 weeks. continue local wound care. can follow up with Id post d/c.
--- NOTE | 2016-04-26 20:22 | Progress Note ---
Medicine Progress Note Date & Time of Visit: Apr 26, 2016 at 20:15. Subjective Pt was seen and examined sitting in chair comfortable with no distress Pt said that she feels fine she does not have any pain denies any fever, palpitation, chest pain, shortness of breath Objective Last 8 Hrs Date Time Temp Pulse Resp B/P Pulse Ox O2 Delivery O2 Flow Rate FiO2 04/26/16 15:07 36.4 88 16 121/82 96 Room Air 04/26/16 13:10 Room Air Physical Exam: General- No acute distress, very pleasant Head- atraumatic Eyes- PERRL, EOMI ENT- oropharynx clear Neck- supple, no JVD Lungs- clear to auscultation and percussion Heart- regular rhythm; no murmur Abdomen- normal bowel sounds, soft, nontender Extremities- no calf tenderness, Right hand dressing and wrapped, no drainage Neuro- alert, oriented x 3; PERRL, EOMI Laboratory Results: Last 24 Hours Test 04/25/16 20:47 04/26/16 08:09 04/26/16 08:51 04/26/16 12:26 Bedside Glucose 198 mg/dl 205 mg/dl 220 mg/dl White Blood Count 7.30 K/uL Red Blood Count 4.44 M/uL Hemoglobin 11.7 g/dL Hematocrit 36.3 % Mean Corpuscular Volume 81.8 fL Mean Corpuscular Hemoglobin 26.4 pg Mean Corpuscular Hemoglobin Concent 32.2 g/dl RDW Standard Deviation 45.0 fL RDW Coefficient of Variation 15.1 % Platelet Count 223 K/uL Mean Platelet Volume 9.6 fL Sodium Level 140 mmol/L Potassium Level 4.2 mmol/L Chloride Level 105 mmol/L Carbon Dioxide Level 24 mmol/L Anion Gap 11.0 mmol/L Blood Urea Nitrogen 16 mg/dl Creatinine 0.91 mg/dl Est Creatinine Clear Calc Drug Dose 40.5 ml/min Estimated GFR () 64.8 Estimated GFR (Non- 55.9 BUN/Creatinine Ratio 17.9 Random Glucose 197 mg/dl Calcium Level 8.6 mg/dl Assessment & Plan Right Upper Extremity Cellulitis -history of lymphedema and cellulitis of the lower extremities - Right hand xray: Destructive changes involve the distal phalanges of the second and third digits. Multifocal periarticular calcifications. Chondrocalcinosis Afebrile and no elevated WBC GRAM STAIN Final 04/21/16-1038 RESULT FEW POLYS NO ORGANISMS SEEN SURFACE WOUND CULTURE Final 04/23/16-0941 Organism 1 STAPHYLOCOCCUS AUREUS QUANITY FEW SENS SENSITIVITY TO FOLLOW +MIXWOUND PLUS LOW COUNTS OF PROBABLE SKIN HAILEY 1. STAPHYLOCOCCUS AUREUS Target Route Dose RX AB Cost M.I.C. IQ ------ ----- ------ -- ------ -------- - ------ TRIMET/SULFA S <=0.5/ 9.5 * OXACILLIN S 0.5 VANCOMYCIN S 2 ERYTHROMYCIN S <=0.5 TETRACYCLINE R >8 CLINDAMYCIN S <=0.5 DAPTOMYCIN S <=0.5 -ID on board -vanco was changed to IV ancef. Once ready to discharge she can transition to PO Keflex for 4 weeks -had debridement and amputation of the tip of the middle finger on 04/24/16) - Finding as per surgeon gross pus and osteomyelitis; septic flexor tenosynovitis -Continue IV antibiotic - POD#2, doing well. Right hand dressing and wrapped - Follow up with ortho in 1 week - Continue wound care - Intra op culture grew alpha strep - Advised pt to keep right hand elevates for the swelling - Will discharge tomorrow on Keflex for 1 month - continue monitor DM2 -hold oral agents -sliding scale insulin - Continue monitor BS HTN -->continue home medications Paroxysmal Atrial Fibrillation -continue b-genie -no anticoagulation due to fall risk and bleed risk - rate is controlled DVT ppx -->SCDs CODE STATUS FULL CODE Disposition Will transfer to [facility] for rehab Consultants: [facility] Orth[facility] Current Inpatient Medications: Current Inpatient Medications Medications (Trade) Dose Ordered Sig/Susana Route Start Time Stop Time Status Last Admin Dose Admin Acetaminophen (Tylenol Tab) 650 mg Q4H PRN PO 04/21/16 00:00 05/21/16 00:00 04/24/16 20:28 650 MG Al Hydrox/Mg Hydrox/Simethicone (Maalox Max Susp) 15 ml Q4H PRN PO 04/21/16 00:00 05/21/16 00:00 04/25/16 16:55 15 ML Magnesium Hydroxide (Milk Of Magnesia Susp) 30 ml Q6H PRN PO 04/21/16 00:00 05/21/16 00:00 Ondansetron HCl (Zofran Inj) 4 mg Q6H PRN IV 04/21/16 00:00 05/21/16 00:00 Glucose (Glucose 40% Gel) 15-30 GRAMS 15 GRAMS... UD PRN PO 04/21/16 00:00 05/21/16 00:00 Glucose (Glucose Chew Tab) 4-8 Tablets 4 Tabl... UD PRN PO 04/21/16 00:00 05/21/16 00:00 Dextrose (Dextrose 50% 50ML Syringe) 25-50ML OF 50% DW IV FOR... UD PRN IV 04/21/16 00:00 05/21/16 00:00 Glucagon (Glucagon Inj) 1 mg UD PRN SQ 04/21/16 00:00 05/21/16 00:00 Atenolol (Tenormin Tab) 50 mg QAM PO 04/21/16 09:00 05/21/16 08:59 04/26/16 09:05 50 MG Atorvastatin Calcium (Lipitor Tab) 20 mg HS PO 04/21/16 21:00 05/21/16 20:59 04/25/16 21:11 20 MG Docusate Sodium (coLACE CAP) 100 mg DAILY PRN PO 04/21/16 00:00 05/21/16 00:00 Levothyroxine Sodium (Synthroid Tab) 100 mcg DAILYBB PO 04/21/16 06:00 05/21/16 05:59 04/26/16 06:05 100 MCG Lisinopril (Zestril Tab) 5 mg QAM PO 04/21/16 09:00 05/21/16 08:59 04/26/16 09:06 5 MG Magnesium Oxide (Mag-Ox Tab) 400 mg QAM PO 04/21/16 09:00 05/21/16 08:59 04/26/16 09:05 400 MG Multivitamins/ Minerals (Multivitamin W/ Minerals Tab) 1 tab DAILY PO 04/21/16 09:00 05/21/16 08:59 04/26/16 09:05 1 TAB Pantoprazole Sodium (Protonix Tab) 40 mg QPM PO 04/21/16 21:00 05/21/16 20:59 04/25/16 21:11 40 MG Miconazole Nitrate (Desenex Powder) 1 appln BID EXT 04/21/16 21:00 05/21/16 20:59 04/26/16 08:21 1 APPLN Miconazole Nitrate (Desenex Powder) 1 appln DAILY PRN EXT 04/21/16 12:00 05/21/16 11:59 Gadobutrol 8 mmol 8 mmol UD PRN IV 04/22/16 22:45 04/26/16 22:44 Cefazolin Sodium/ Dextrose (Ancef Iv/D5 50ml) 55 ml @ 100 mls/hr Q8H IV 04/23/16 11:00 05/23/16 10:29 04/26/16 18:13 100 MLS/HR Insulin Aspart (novoLOG ASPART) SLIDING SCALE If C... ACHS SC 04/24/16 17:15 05/24/16 17:14 04/26/16 17:49 4 UNITS Ketorolac Tromethamine (Toradol Inj) 15 mg Q6H PRN IV. 04/24/16 21:15 04/29/16 21:14 Morphine Sulfate (MoRPHine SULFATE INJ) 1 mg Q4 PRN IV 04/24/16 21:15 05/08/16 21:14
[2016-04-26] MEDS: PANTOprazole SOD 40 MG TAB PO SCH (20:27)
[2016-04-26] MEDS: ATORVASTATIN 20 MG TAB PO SCH (20:27)
[2016-04-26 23:10] VITALS: BP 99/63; PULSE 98; TEMP 36.6; O2SAT 97
[2016-04-27] MEDS: CEFAZOLIN IV 1,000 MG in DEXTROSE 5% 50ML 50 ML IV SCH ×2 (02:23→11:43)
[2016-04-27] MEDS: LEVOTHYROXINE 100 MCG TAB PO SCH (05:53)
[2016-04-27 07:07] VITALS: BP 108/64; PULSE 91; TEMP 36.6; O2SAT 95
[2016-04-27] MEDS: MICONAZOLE NITRATE POWDER 43 GM EXT SCH (08:59)
[2016-04-27] MEDS: MAGNESIUM OXIDE 400 MG TAB PO SCH (08:59)
[2016-04-27] MEDS: CEROVITE ADV FORMULA TAB PO SCH (08:59)
[2016-04-27] MEDS: LISINOPRIL 5 MG TAB PO SCH (09:00)
[2016-04-27] MEDS: INSULIN ASPART 100 UNITS/ML 3 ML PEN SC SCH ×2 (09:11→13:56)
[2016-04-27 14:20] VITALS: BP 108/64; PULSE 91; TEMP 36.6; O2SAT 95
--- NOTE | 2016-04-27 14:29 | Progress Note ---
Medicine Progress Note Date & Time of Visit: Apr 27, 2016 at 14:21. Subjective Pt was seen and examined very pleasant Sitting in chair comfortable with no distress Pt said that she feels fine she said that she does not have any pain in her had she denies any fever, palpitation, dizziness and sob Objective Last 8 Hrs Date Time Temp Pulse Resp B/P Pulse Ox O2 Delivery O2 Flow Rate FiO2 04/27/16 08:31 Room Air 04/27/16 07:07 36.6 91 18 108/64 95 Room Air Physical Exam: General- No acute distress, very pleasant Head- atraumatic Eyes- PERRL, EOMI ENT- oropharynx clear Neck- supple, no JVD Lungs- clear to auscultation and percussion Heart- regular rhythm; no murmur Abdomen- normal bowel sounds, soft, nontender Extremities- no calf tenderness, Right hand dressing and wrapped, no drainage Neuro- alert, oriented x 3; PERRL, EOMI Laboratory Results: Last 24 Hours Test 04/26/16 16:48 04/26/16 20:32 04/27/16 08:10 04/27/16 11:55 Bedside Glucose 210 mg/dl 195 mg/dl 195 mg/dl 206 mg/dl Diagnostic Imaging: MRI THE RIGHT HAND WITHOUT A WITH GADOLINIUM CLINICAL HISTORY: And swelling. Suspected abscess. COMPARISON STUDY: Conventional radiographic study dated 04/20/2016 FINDINGS: The patient was scanned in the axial sagittal and coronal planes before and after the administration of 8 cc of intravenous Gadavist. The examination is limited from a technical standpoint. There appears to be a blister/fluid collection involving the palm. This measures 6 mm. There is diffuse soft tissue edema. There are no fluid collections to indicate an abscess. There are osteoarthritic changes present most pronounced the level the first carpometacarpal joint. There are deformities involving the distal phalanges of the second and third digits consistent with an old posttraumatic injury. There is also nonspecific marrow edema involving the distal phalanx of the third digit. This could relate to prior trauma although osteomyelitis could appear similar. IMPRESSION: 1. Significantly limited study from a technical standpoint 2. No evidence of soft tissue abscess 3. Superficial 6 mm blister/fluid collection involving the palmar aspect of the hand 4. Moderate multilevel degenerative changes 5. Diffuse soft tissue edema 6. Nonspecific T1 and T2 marrow edema involving the distal phalanx of the third digit. This could either be posttraumatic or inflammatory/infectious. Electronically signed by: Brian Cedillo M.D. Assessment & Plan Right Upper Extremity Cellulitis -history of lymphedema and cellulitis of the lower extremities - Right hand xray: Destructive changes involve the distal phalanges of the second and third digits. Multifocal periarticular calcifications. Chondrocalcinosis Afebrile and no elevated WBC GRAM STAIN Final 04/21/16-1038 RESULT FEW POLYS NO ORGANISMS SEEN SURFACE WOUND CULTURE Final 04/23/16-0941 Organism 1 STAPHYLOCOCCUS AUREUS QUANITY FEW SENS SENSITIVITY TO FOLLOW +MIXWOUND PLUS LOW COUNTS OF PROBABLE SKIN HAILEY 1. STAPHYLOCOCCUS AUREUS Target Route Dose RX AB Cost M.I.C. IQ ------ ----- ------ -- ------ -------- - ------ TRIMET/SULFA S <=0.5/ 9.5 * OXACILLIN S 0.5 VANCOMYCIN S 2 ERYTHROMYCIN S <=0.5 TETRACYCLINE R >8 CLINDAMYCIN S <=0.5 DAPTOMYCIN S <=0.5 -ID on board -vanco was changed to IV ancef. Once ready to discharge she can transition to PO Keflex for 4 weeks -had debridement and amputation of the tip of the middle finger on 04/24/16) - Finding as per surgeon gross pus and osteomyelitis; septic flexor tenosynovitis -Continue IV antibiotic - POD#2, doing well. Right hand dressing and wrapped - Follow up with ortho in 1 week - Continue wound care - Intra op culture grew alpha strep - Advised pt to keep right hand elevates for the swelling - Will discharge on Keflex 500mg qid for 1 month - Case discussed with ID - Follow with ID as an outpatient DM2 -Will resume PO meds upon discharge -sliding scale insulin - Continue monitor BS HTN -->continue home medications Paroxysmal Atrial Fibrillation -continue b-genie -no anticoagulation due to fall risk and bleed risk - rate is controlled DVT ppx -->SCDs CODE STATUS FULL CODE Disposition Will transfer to [facility] for [facility] today Continue wound care Continue PT/OT Consultants: ID Orthopedic Procedures: Right middle finger amputation, Incision and Drainage of septic flexor tenosynovitis Current Inpatient Medications: Current Inpatient Medications Medications (Trade) Dose Ordered Sig/Susana Route Start Time Stop Time Status Last Admin Dose Admin Acetaminophen (Tylenol Tab) 650 mg Q4H PRN PO 04/21/16 00:00 05/21/16 00:00 04/24/16 20:28 650 MG Al Hydrox/Mg Hydrox/Simethicone (Maalox Max Susp) 15 ml Q4H PRN PO 04/21/16 00:00 05/21/16 00:00 04/25/16 16:55 15 ML Magnesium Hydroxide (Milk Of Magnesia Susp) 30 ml Q6H PRN PO 04/21/16 00:00 05/21/16 00:00 Ondansetron HCl (Zofran Inj) 4 mg Q6H PRN IV 04/21/16 00:00 05/21/16 00:00 Glucose (Glucose 40% Gel) 15-30 GRAMS 15 GRAMS... UD PRN PO 04/21/16 00:00 05/21/16 00:00 Glucose (Glucose Chew Tab) 4-8 Tablets 4 Tabl... UD PRN PO 04/21/16 00:00 05/21/16 00:00 Dextrose (Dextrose 50% 50ML Syringe) 25-50ML OF 50% DW IV FOR... UD PRN IV 04/21/16 00:00 05/21/16 00:00 Glucagon (Glucagon Inj) 1 mg UD PRN SQ 04/21/16 00:00 05/21/16 00:00 Atenolol (Tenormin Tab) 50 mg QAM PO 04/21/16 09:00 05/21/16 08:59 04/27/16 08:59 50 MG Atorvastatin Calcium (Lipitor Tab) 20 mg HS PO 04/21/16 21:00 05/21/16 20:59 04/26/16 20:27 20 MG Docusate Sodium (coLACE CAP) 100 mg DAILY PRN PO 04/21/16 00:00 05/21/16 00:00 Levothyroxine Sodium (Synthroid Tab) 100 mcg DAILYBB PO 04/21/16 06:00 05/21/16 05:59 04/27/16 05:53 100 MCG Lisinopril (Zestril Tab) 5 mg QAM PO 04/21/16 09:00 05/21/16 08:59 04/27/16 09:00 5 MG Magnesium Oxide (Mag-Ox Tab) 400 mg QAM PO 04/21/16 09:00 05/21/16 08:59 04/27/16 08:59 400 MG Multivitamins/ Minerals (Multivitamin W/ Minerals Tab) 1 tab DAILY PO 04/21/16 09:00 05/21/16 08:59 04/27/16 08:59 1 TAB Pantoprazole Sodium (Protonix Tab) 40 mg QPM PO 04/21/16 21:00 05/21/16 20:59 04/26/16 20:27 40 MG Miconazole Nitrate (Desenex Powder) 1 appln BID EXT 04/21/16 21:00 05/21/16 20:59 04/27/16 08:59 1 APPLN Miconazole Nitrate 1 appln 1 appln DAILY PRN EXT 04/21/16 12:00 05/21/16 11:59 Cefazolin Sodium/ Dextrose (Ancef Iv/D5 50ml) 55 ml @ 100 mls/hr Q8H IV 04/23/16 11:00 05/23/16 10:29 04/27/16 11:43 100 MLS/HR Insulin Aspart (novoLOG ASPART) SLIDING SCALE If C... ACHS SC 04/24/16 17:15 05/24/16 17:14 04/27/16 13:56 5 UNITS Ketorolac Tromethamine (Toradol Inj) 15 mg Q6H PRN IV. 04/24/16 21:15 04/29/16 21:14 Morphine Sulfate (MoRPHine SULFATE INJ) 1 mg Q4 PRN IV 04/24/16 21:15 05/08/16 21:14
--- NOTE | 2016-04-27 14:59 | Discharge Instructions ---
Discharge Instructions Admission Reason for Admission: Cellulitis Discharge Discharge Diagnosis / Problem: R hand cellulitis with abscess, S/P amputation of right middle finger tip Discharge Goals Goal(s): Decrease discomfort, Improve function, Improve disease control Activity Recommendations Activity Limitations: resume your previous activity (as tolerated) . Instructions / Follow-Up Instructions / Follow-Up Follow up with your primary care provider once discharge from rehab. Schedule a follow up appointment with Infectious Disease with Dr. Fany Conte: [address] [facility], [address], [place]. Follow up with orthopedic Dr. Sandy in 7-10 days. (Info given to patient) Continue daily dressing changes of the right hand Keep right hand elevate to prevent any swelling Continue Keflex by mouth 4xtimes daily for 1 month Continue PT/OT Current Hospital Diet Patient's current hospital diet: Diabetes Type 2 Diet Discharge Diet Recommended Diet: Diabetes Type 2 Diet Procedures Procedures Performed: right middle finger amputation, Incision and Drainage of septic flexor tenosynovitis Pending Studies Studies pending at discharge: no Laboratory Results Hemoglobin A1c Test 04/21/16 05:42 Range/Units Estimated Average Glucose 200 mg/dl Hemoglobin A1c 8.6 H 4.5-5.6 % Medical Emergencies . Who to Call and When: Medical Emergencies: If at any time you feel your situation is an emergency, please call 911 immediately. . Non-Emergent Contact Non-Emergency issues call your: Primary Care Provider Call Non-Emergent contact if: you have a fever, wound has increased drainage, wound has increased redness, wound has increased pain, you have any medication questions . . "Provider Documentation" section prepared by Chloe Case. VTE Core Measure Inpt VTE Proph given/why not?: SCD's
[2016-04-27] MEDS ORDERED: CEPH-571 PO (15:02)
[2016-04-27] MEDS ORDERED: MCTP EXT (15:06)
--- NOTE | 2016-04-29 23:59 | Discharge Summary ---
Discharge Summary Admission Date: Apr 20, 2016 at 23:54 Discharge Date: Apr 27, 2016 Discharge Disposition: Rehab Principal Diagnosis: Right upper ext cellulitis Secondary Diagnoses/Problems: R hand cellulitis with abscess S/P amputation of right middle finger tip DM type 2 Procedures: Right middle finger amputation, Incision and Drainage of septic flexor tenosynovitis Consultations: ID Orthopedic PT/OT Wound Care Medication Reconciliation New Medications: Cephalexin (Keflex) 500 Mg Cap 1 CAP PO QID for 30 Days, #120 CAP Miconazole Nitrate (Desenex Shake Powder) 43 Appln/43 Gm Powd 1 APPLN EXT BID for 7 Days applied through skin area under the breast, abdominal fold Continued Medications: Atenolol (Tenormin) 50 Mg Tab 50 MG PO QAM, TAB Atorvastatin (Lipitor) 20 Mg Tab 20 MG PO HS Calcium Carbonate-Vitamin D (Calcium) 1 Tab Tab 1 TAB PO DAILY Cholecalciferol (Vitamin D) Unknown Strength Tab 1 TAB PO DAILY Docusate Sodium (Docusate Sodium) 100 Mg Cap 1 CAP PO DAILY PRN for Constipation Furosemide (Lasix) 20 Mg Tab 20 MG PO QAM, TAB Glipizide (Glucotrol) 5 Mg Tab 10 MG PO BID Levothyroxine Sodium (Synthroid) 100 Mcg Tab 1 TAB PO QAM Lisinopril (Lisinopril) 2.5 Mg Tab 5 MG PO QAM Magnesium Oxide (Mag-Ox) 400 Mg Tab 400 MG PO QAM Multiple Vitamins W/ Minerals (Womens One Daily) 1 Tab Tab 1 TAB PO DAILY Omeprazole (Omeprazole) 20 Mg Tab 20 MG PO QPM Sitagliptin Phosphate (Januvia) 50 Mg Tab 100 MG PO QPM Discontinued Medications: Amoxicillin (Amoxil) 250 Mg Chw 250 MG PO BID, #180 Admission Information HPI (per Admitting provider): This is an 89 year old female with PMH of paroxysmal atrial fibrillation, 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 Patient states that an injury over 20 years ago caused her to lose the distal portion of her right pointer finger and two fingers on the left hand; since then she has had a habit of biting her nails/distal fingers; states that she felt some pain in the right middle finger and has been picking at it and even biting it recently. She noticed that the right hand and arm developed erythema and swelling. Has had right axillary lymph node dissection in the past, but did not notice any swelling in the right upper extremity until today. Physical Exam (per Admitting): General Appearance: no apparent distress Head: normocephalic, atraumatic Respiratory/Chest: lungs clear, normal breath sounds, no respiratory distress, no accessory muscle use Cardiovascular: regular rate, rhythm, no murmur Abdomen/GI: normal bowel sounds, non tender, soft Extremities/Musculoskelatal: + swelling Neurologic/Psych: no motor/sensory deficits, alert, normal mood/affect Skin: + pertinent finding (right upper extremity erythema) Lymphatic: no adenopathy Hospital Course Right Upper Extremity Cellulitis -history of lymphedema and cellulitis of the lower extremities - Right hand xray: Destructive changes involve the distal phalanges of the second and third digits. Multifocal periarticular calcifications. Chondrocalcinosis Afebrile and no elevated WBC GRAM STAIN Final 04/21/16-1038 RESULT FEW POLYS NO ORGANISMS SEEN SURFACE WOUND CULTURE Final 04/23/16-0941 Organism 1 STAPHYLOCOCCUS AUREUS QUANITY FEW SENS SENSITIVITY TO FOLLOW +MIXWOUND PLUS LOW COUNTS OF PROBABLE SKIN HAILEY 1. STAPHYLOCOCCUS AUREUS Target Route Dose RX AB Cost M.I.C. IQ ------ ----- ------ -- ------ -------- - ------ TRIMET/SULFA S <=0.5/ 9.5 * OXACILLIN S 0.5 VANCOMYCIN S 2 ERYTHROMYCIN S <=0.5 TETRACYCLINE R >8 CLINDAMYCIN S <=0.5 DAPTOMYCIN S <=0.5 -ID on board -vanco was changed to IV ancef. Once ready to discharge she can transition to PO Keflex for 4 weeks -had debridement and amputation of the tip of the middle finger on 04/24/16) - Finding as per surgeon gross pus and osteomyelitis; septic flexor tenosynovitis -Continue IV antibiotic - POD#2, doing well. Right hand dressing and wrapped - Follow up with ortho in 1 week - Continue wound care - Intra op culture grew alpha strep - Advised pt to keep right hand elevates for the swelling - Will discharge on Keflex 500mg qid for 1 month - Case discussed with ID - Follow with ID as an outpatient DM2 -Will resume PO meds upon discharge -sliding scale insulin - Continue monitor BS HTN -->continue home medications Paroxysmal Atrial Fibrillation -continue b-genie -no anticoagulation due to fall risk and bleed risk - rate is controlled DVT ppx -->SCDs CODE STATUS FULL CODE Disposition Will transfer to [facility] for rehab today Continue wound care Continue PT/OT Total time spent on discharge = 35 minutes This includes examination of the patient, discharge planning, medication reconciliation, and communication with other providers. Discharge Instructions Discharge Instructions Admission Reason for Admission: Cellulitis Discharge Discharge Diagnosis / Problem: R hand cellulitis with abscess, S/P amputation of right middle finger tip Discharge Goals Goal(s): Decrease discomfort, Improve function, Improve disease control Activity Recommendations Activity Limitations: resume your previous activity (as tolerated) . Instructions / Follow-Up Instructions / Follow-Up Follow up with your primary care provider once discharge from rehab. Schedule a follow up appointment with Infectious Disease with Dr. Fany Conte: [address] [facility], [address], [place]. Follow up with orthopedic Dr. Sandy in 7-10 days. (Info given to patient) Continue daily dressing changes of the right hand Keep right hand elevate to prevent any swelling Continue Keflex by mouth 4xtimes daily for 1 month Continue PT/OT Current Hospital Diet Patient's current hospital diet: Diabetes Type 2 Diet Discharge Diet Recommended Diet: Diabetes Type 2 Diet Procedures Procedures Performed: right middle finger amputation, Incision and Drainage of septic flexor tenosynovitis Pending Studies Studies pending at discharge: no Laboratory Results Hemoglobin A1c Test 04/21/16 05:42 Range/Units Estimated Average Glucose 200 mg/dl Hemoglobin A1c 8.6 H 4.5-5.6 % Medical Emergencies . Who to Call and When: Medical Emergencies: If at any time you feel your situation is an emergency, please call 911 immediately. . Non-Emergent Contact Non-Emergency issues call your: Primary Care Provider Call Non-Emergent contact if: you have a fever, wound has increased drainage, wound has increased redness, wound has increased pain, you have any medication questions . . "Provider Documentation" section prepared by Chloe Case. VTE Core Measure Inpt VTE Proph given/why not?: SCD's Additional Copies To [place], Olivier Musa M.D.
--- NOTE | 2016-05-04 09:27 | EDITING REQUIRED CODING QUERY ---
DEBRIDEMENT DOCUMENTATION To promote full compliance with coding requirements relating to patient care, physician participation is requested in all cases of passenger train braker uncertainty. Please assist us with the question(s) below: Please place an X in the parenthesis (x). If other, please document the finding: Type of Debridement: (x ) Excisional Debridement- Cutting away necrotic, devitalized tissue or slough to the level of viable tissue using a sharp instrument (i.e. scalpel, scissors, etc.) ( ) Non Excisional Debridement- The removal of necrotic, devitalized tissue or slough by means of scraping, mechanical brushing, flushing, or washing (i.e. irrigation,whirlpool);minor removal of loose fragments. ( ) Other (please specify): Instrument Used: (x ) Scissors (x ) Scalpel (x ) Curette ( x) Other (please specify): ronguer Depth of Debridement: (x ) Skin (x ) Skin and Subcutaneous Tissue (x ) Skin, Subcutaneous Tissue and Muscle (x ) Skin, Subcutaneous Tissue, Muscle and Bone (x ) Other (please specify): Please Specify the Size of Debridement in cm2: 3 [address] you Tila Lane
[2016-10-22] MEDS ORDERED: POTA10TA PO (09:31)
[2016-10-22] MEDS ORDERED: MTR500 PO (09:31)
[2016-10-22] MEDS ORDERED: FURO-85 PO (09:31)
[2016-10-22] MEDS ORDERED: LISI-729 PO (09:31)
[2016-10-22] MEDS ORDERED: ZNT150 PO (09:31)
[2016-10-22] MEDS ORDERED: MGNO400 PO (09:31)
[2016-10-22] MEDS ORDERED: LVQ750 PO (09:31)
[2016-10-22] MEDS ORDERED: VNCS250 PO (09:31)
[2016-10-31] MEDS ORDERED: GLC5 PO (12:56)
[2016-10-31] MEDS ORDERED: CEPH500C PO (12:56)
[2016-11-24] MEDS ORDERED: VNCS250 PO (10:54)
[2016-11-24] MEDS ORDERED: QSTP PO (10:54)
[2016-11-24] MEDS ORDERED: NYSP EXT (10:54)
== END 2016-04-27 17:01 | DRG 629 ==
LOC: ENRESERVTM → CANRESERV → ENRESERVDT → EDBD 21:36 → C.EDC 21:40 → C.3E 23:54
PROVIDERS: ADMIT Family Medicine; ATTEND Internal Medicine
PROC: 0LB70ZZ Excision of Right Hand Tendon, Open Approach (ICD-10-PCS; principal; 2016-04-24 09:30)
PROC: 0PBT0ZZ Excision of Right Finger Phalanx, Open Approach (ICD-10-PCS; principal; 2016-04-24 09:30)
PROC: 0X6Q0Z2 Detachment at Right Middle Finger, Mid, Open Approach (ICD-10-PCS; principal; 2016-04-24 09:30)
DX: E11.69 Type 2 diabetes mellitus with other specified complication (principal); M86.141 Other acute osteomyelitis, right hand; L03.011 Cellulitis of right finger; M65.841 Other synovitis and tenosynovitis, right hand; S60.521A Blister (nonthermal) of right hand, initial encounter; M11.241 Other chondrocalcinosis, right hand; B95.61 Methicillin susceptible Staphylococcus aureus infection as the cause of diseases classified elsewhere; I12.9 Hypertensive chronic kidney disease with stage 1 through stage 4 chronic kidney disease, or unspecified chronic kidney disease; I48.0 Paroxysmal atrial fibrillation; I89.0 Lymphedema, not elsewhere classified; N18.3 Chronic kidney disease, stage 3 (moderate); K21.9 Gastro-esophageal reflux disease without esophagitis; Z79.84 Long term (current) use of oral hypoglycemic drugs; Z79.891 Long term (current) use of opiate analgesic; Z85.3 Personal history of malignant neoplasm of breast; Z87.898 Personal history of other specified conditions; Z89.021 Acquired absence of right finger(s); X58.XXXA Exposure to other specified factors, initial encounter

== ENCOUNTER → 2016-07-01 | Outpatient (CLI) | payer BC ==
[~2016-07-01] MED LIST changes: +ACET-1311 PO; +ATEN-173 PO; +BISA10SU7 PR; +CALC-51 PO; -CALC500C70 PO; +CEPH500C PO; +CHOL100010 PO; +FERR1TAB13 PO; +GLC5 PO; +GLIP10TA9 PO; +LISI-729 PO; +LVQ750 PO; +MCTP EXT; +MENTOIN TOP; +MGNO400 PO; +MISCCAP80 PO; +MOML PO; +MTR500 PO; +MULTTAB58 PO; +NYSP EXT; +ONDA8TAB6 PO; +POTA10TA PO; +POTA1TAB97 PO; +PRNJ PO; +PROTEIN PO; +PROTPAK PO; +QSTP PO; +RXNS2.5 PO; +SIME80TA PO; +SNTONWC TOP; +SODI1ENE PR; +VNCS250 PO; +ZNT150 PO; +[UNRECOGNIZED DRUG - OTHER] TOP
[2016-07-01 08:30] LABS: HEMATOCRIT 30.2 % (37-47); MEAN CELL VOLUME 79.3 fL (80-100); MEAN CORPUSCULAR HEMOGLOBIN 25.2 pg (25-34); MEAN CORPUSCULAR HGB CONC 31.8 g/dl (32-36); MEAN PLATELET VOLUME 9.7 fL (7.4-10.4); PLATELET COUNT 247 K/uL (130-400); RED BLOOD COUNT 3.81 M/uL (4.2-5.4); WHITE BLOOD COUNT 7.07 K/uL (4.8-10.8)
[2016-07-01 09:09] LABS: BLOOD UREA NITROGEN 10 mg/dl (7-18); CALCIUM 7.8 mg/dl (8.5-10.1); CARBON DIOXIDE 30 mmol/L (21-32); CHLORIDE 106 mmol/L (98-107); CHOLESTEROL 66 mg/dl (0-200); CREATININE 0.79 mg/dl (0.60-1.20); GLUCOSE 96 mg/dl (70-99); POTASSIUM 2.7 mmol/L (3.5-5.1); SODIUM 145 mmol/L (136-145); TRIGLYCERIDES 86 mg/dl (0-150); VERY LOW DENSITY LIPOPROT CALC 17 mg/dl
[2016-07-01 09:22] LABS: CHOLESTEROL/HDL RATIO 3.1; HDL CHOLESTEROL 21 mg/dl; LDL CHOLESTEROL CALCULATED 28 mg/dl
== END ==
LOC: C.LABCC 08:12
PROVIDERS: ATTEND Internal Medicine
DX: E78.5 Hyperlipidemia, unspecified (principal); E03.9 Hypothyroidism, unspecified

== ENCOUNTER → 2016-07-05 | Outpatient (CLI) | payer BC ==
[2016-07-05 10:38] LABS: BASO % 0.1 %; BASO ABS # 0.01 K/uL (0-0.2); COMPLETE YES; EOS % 3.7 %; HEMATOCRIT 29.4 % (37-47); IG% 0.4 %; LYMPH % 32.6 %; LYMPH ABS # 2.44 K/uL (1.2-3.4); MEAN CELL VOLUME 79.5 fL (80-100); MEAN CORPUSCULAR HEMOGLOBIN 25.1 pg (25-34); MEAN CORPUSCULAR HGB CONC 31.6 g/dl (32-36); MEAN PLATELET VOLUME 9.6 fL (7.4-10.4); MONO % 12.7 %; NEUT % 50.5 %; PLATELET COUNT 188 K/uL (130-400); WHITE BLOOD COUNT 7.49 K/uL (4.8-10.8)
[2016-07-05 10:47] LABS: BLOOD UREA NITROGEN 18 mg/dl (7-18); BUN/CREATININE RATIO 22.9 (10-20); CALCIUM 8.1 mg/dl (8.5-10.1); CARBON DIOXIDE 28 mmol/L (21-32); CHLORIDE 102 mmol/L (98-107); CREATININE 0.78 mg/dl (0.60-1.20); GLUCOSE 92 mg/dl (70-99); POTASSIUM 3.1 mmol/L (3.5-5.1); SODIUM 140 mmol/L (136-145)
== END ==
LOC: C.LABCC 08:49
PROVIDERS: ATTEND Internal Medicine
DX: D64.9 Anemia, unspecified (principal)

== ENCOUNTER → 2016-07-13 | Outpatient (CLI) | payer BC ==
[2016-07-13 08:41] LABS: HEMATOCRIT 31.5 % (37-47); MEAN CELL VOLUME 79.3 fL (80-100); MEAN CORPUSCULAR HEMOGLOBIN 25.2 pg (25-34); MEAN CORPUSCULAR HGB CONC 31.7 g/dl (32-36); MEAN PLATELET VOLUME 9.7 fL (7.4-10.4); PLATELET COUNT 229 K/uL (130-400); RED BLOOD COUNT 3.97 M/uL (4.2-5.4); WHITE BLOOD COUNT 8.07 K/uL (4.8-10.8)
[2016-07-13 08:54] LABS: FERRITIN 141.6 ng/ml (8.0-388.0)
--- NOTE | 2016-07-21 12:41 | CODING QUERY MEDICAL NECESSITY ---
SUPPORTING DIAGNOSIS NEEDED A supporting diagnosis is required for the test/procedure performed on this patient in order for us to be reimbursed by the patient's insurance. Please provide a supporting diagnosis for the following test/procedure listed below next to the test name along with your signature. *If there is no additional diagnosis for this patient that would support the following test/procedure please document that below next to the test/procedure. Test(s)/Procedure(s) that require a supporting diagnosis: * VITAMIN B-12 LEVEL DIAGNOSIS: * FOLATE LEVEL DIAGNOSIS: * DOS: 07/13/16 Provider Signature: Date: Thank you Rosangela Christensen Health Information Management Once completed, please kindly fax back to [phone] For questions please call [phone]
== END ==
LOC: C.LABCC 08:19
PROVIDERS: ATTEND Internal Medicine
DX: E87.6 Hypokalemia (principal); D64.9 Anemia, unspecified

== ENCOUNTER → 2016-08-04 | Outpatient (CLI) | payer BC ==
[2016-08-04 10:10] LABS: HEMATOCRIT 33.9 % (37-47); MEAN CELL VOLUME 81.3 fL (80-100); MEAN CORPUSCULAR HEMOGLOBIN 25.4 pg (25-34); MEAN CORPUSCULAR HGB CONC 31.3 g/dl (32-36); MEAN PLATELET VOLUME 10.5 fL (7.4-10.4); PLATELET COUNT 179 K/uL (130-400); RED BLOOD COUNT 4.17 M/uL (4.2-5.4); WHITE BLOOD COUNT 9.88 K/uL (4.8-10.8)
[2016-08-04 10:32] LABS: BLOOD UREA NITROGEN 50 mg/dl (7-18); BUN/CREATININE RATIO 41.3 (10-20); CALCIUM 8.8 mg/dl (8.5-10.1); CARBON DIOXIDE 17 mmol/L (21-32); CHLORIDE 111 mmol/L (98-107); GLUCOSE 94 mg/dl (70-99); POTASSIUM 5.3 mmol/L (3.5-5.1); SODIUM 137 mmol/L (136-145)
[2016-08-04 10:46] LABS: THYROID STIMULATING HORMONE 0.447 uIu/ml (0.300-4.500)
== END | disposition home or self-care (01) ==
LOC: C.LABCC 09:17
PROVIDERS: ATTEND Internal Medicine
DX: R63.4 Abnormal weight loss (principal)

== ENCOUNTER → 2016-08-09 | Outpatient (CLI) | payer BC ==
[2016-08-09 08:30] LABS: BLOOD UREA NITROGEN 62 mg/dl (7-18); BUN/CREATININE RATIO 43.9 (10-20); CARBON DIOXIDE 15 mmol/L (21-32); CHLORIDE 109 mmol/L (98-107); GLUCOSE 96 mg/dl (70-99); POTASSIUM 4.6 mmol/L (3.5-5.1); SODIUM 137 mmol/L (136-145)
[2016-08-09 08:45] LABS: CALCIUM 8.7 mg/dl (8.5-10.1)
== END | disposition home or self-care (01) ==
LOC: C.LABCC 07:47
PROVIDERS: ATTEND Internal Medicine
DX: E87.6 Hypokalemia (principal)

== ENCOUNTER → 2016-08-16 | Outpatient (CLI) | payer BC ==
[2016-08-16 08:18] LABS: HEMATOCRIT 32.4 % (37-47); MEAN CELL VOLUME 81.6 fL (80-100); MEAN CORPUSCULAR HEMOGLOBIN 25.9 pg (25-34); MEAN CORPUSCULAR HGB CONC 31.8 g/dl (32-36); MEAN PLATELET VOLUME 9.4 fL (7.4-10.4); PLATELET COUNT 219 K/uL (130-400); RED BLOOD COUNT 3.97 M/uL (4.2-5.4); WHITE BLOOD COUNT 7.82 K/uL (4.8-10.8)
[2016-08-16 08:33] LABS: FERRITIN 265.8 ng/ml (8.0-388.0)
== END ==
LOC: C.LABCC 07:55
PROVIDERS: ATTEND Internal Medicine
DX: D64.9 Anemia, unspecified (principal)

== ENCOUNTER → 2016-08-24 | Outpatient (CLI) | payer BC ==
[2016-08-24 08:12] LABS: BLOOD UREA NITROGEN 50 mg/dl (7-18); BUN/CREATININE RATIO 35.9 (10-20); CARBON DIOXIDE 18 mmol/L (21-32); CHLORIDE 111 mmol/L (98-107); GLUCOSE 69 mg/dl (70-99); POTASSIUM 5.2 mmol/L (3.5-5.1); SODIUM 138 mmol/L (136-145)
[2016-08-24 08:51] LABS: CALCIUM 9.1 mg/dl (8.5-10.1)
== END ==
LOC: C.LABCC 07:48
PROVIDERS: ATTEND Internal Medicine
DX: R79.9 Abnormal finding of blood chemistry, unspecified (principal)

== ENCOUNTER → 2016-08-30 | Outpatient (CLI) | payer BC ==
[2016-08-30 10:26] LABS: BLOOD UREA NITROGEN 40 mg/dl (7-18); BUN/CREATININE RATIO 28.2 (10-20); CALCIUM 8.5 mg/dl (8.5-10.1); CARBON DIOXIDE 19 mmol/L (21-32); CHLORIDE 111 mmol/L (98-107); GLUCOSE 90 mg/dl (70-99); POTASSIUM 4.9 mmol/L (3.5-5.1); SODIUM 138 mmol/L (136-145)
== END ==
LOC: C.LABCC 09:41
PROVIDERS: ATTEND Internal Medicine
DX: E87.6 Hypokalemia (principal)

== ENCOUNTER → 2016-09-07 | Outpatient (CLI) | payer BC ==
[2016-09-07 09:27] LABS: BLOOD UREA NITROGEN 49 mg/dl (7-18); CALCIUM 8.3 mg/dl (8.5-10.1); CARBON DIOXIDE 21 mmol/L (21-32); CHLORIDE 110 mmol/L (98-107); GLUCOSE 114 mg/dl (70-99); POTASSIUM 4.5 mmol/L (3.5-5.1); SODIUM 138 mmol/L (136-145)
== END ==
LOC: C.LABCC 08:38
PROVIDERS: ATTEND Internal Medicine
DX: E87.5 Hyperkalemia (principal)

== ENCOUNTER → 2016-09-08 | Outpatient (CLI) | payer BC | LOC: C.LABCC 12:34 | PROVIDERS: ATTEND Internal Medicine | DX: R19.4 Change in bowel habit (principal) ==

== ENCOUNTER → 2016-09-09 | Outpatient (CLI) | payer BC ==
[2016-09-09 10:03] LABS: URINE APPEARANCE CLOUDY (CLEAR); URINE BILIRUBIN NEG (NEG); URINE COLOR YELLOW; URINE NITRITE NEG (NEG); URINE SPECIFIC GRAVITY 1.013 (1.000-1.030); UROBILINOGEN NEG (NEG)
[2016-09-09 10:11] LABS: MANUAL MICROSCOPIC REQUIRED? NO; REVIEW REQ? NO
== END ==
LOC: C.LABCC 08:35
PROVIDERS: ATTEND Internal Medicine
DX: R11.0 Nausea (principal); R53.81 Other malaise

== ENCOUNTER → 2016-09-14 | Outpatient (CLI) | payer BC ==
[2016-09-14 09:46] LABS: BLOOD UREA NITROGEN 27 mg/dl (7-18); CARBON DIOXIDE 18 mmol/L (21-32); CHLORIDE 111 mmol/L (98-107); GLUCOSE 55 mg/dl (70-99); SODIUM 138 mmol/L (136-145)
[2016-09-14 10:18] LABS: CALCIUM 8.4 mg/dl (8.5-10.1)
== END ==
LOC: C.LABCC 09:25
PROVIDERS: ATTEND Internal Medicine
DX: N17.9 Acute kidney failure, unspecified (principal)

== ENCOUNTER → 2016-09-29 | Outpatient (CLI) | payer BC ==
[2016-09-29 08:48] LABS: BLOOD UREA NITROGEN 29 mg/dl (7-18); BUN/CREATININE RATIO 26.1 (10-20); CARBON DIOXIDE 15 mmol/L (21-32); CHLORIDE 107 mmol/L (98-107); GLUCOSE 125 mg/dl (70-99); POTASSIUM 3.4 mmol/L (3.5-5.1); SODIUM 134 mmol/L (136-145)
[2016-09-29 08:59] LABS: CALCIUM 6.8 mg/dl (8.5-10.1)
== END ==
LOC: C.LABCC 08:15
PROVIDERS: ATTEND Internal Medicine
DX: N18.9 Chronic kidney disease, unspecified (principal)

== ENCOUNTER 2016-10-16 15:03 | Inpatient (IN) | payer BC, OTHER ==
[~2016-10-16] VITALS: Ht 152.4 cm; Wt 78.5 kg
[~2016-10-16 15:03] MED LIST changes: -ACET-1311 PO; -ATEN-173 PO; -BISA10SU7 PR; -CEPH500C PO; -FERR1TAB13 PO; -GLC5 PO; -GLIP10TA9 PO; -LISI-729 PO; -LVQ750 PO; -MENTOIN TOP; -MGNO400 PO; -MISCCAP80 PO; -MOML PO; -MTR500 PO; -MULTTAB58 PO; -NYSP EXT; -ONDA8TAB6 PO; -POTA10TA PO; -POTA1TAB97 PO; -PRNJ PO; -PROTEIN PO; -PROTPAK PO; -QSTP PO; -RXNS2.5 PO; -SIME80TA PO; -SNTONWC TOP; -SODI1ENE PR; -VNCS250 PO; -ZNT150 PO; -[UNRECOGNIZED DRUG - OTHER] TOP
[2016-10-16] MEDS ORDERED: SODIUM CHLORIDE 0.9% 1000ML 1,000 ML IV STA ×2 (15:13→15:44)
[2016-10-16] MEDS ORDERED: ONDANSETRON INJ 2 MG/ML 2 ML VIAL IV STA (15:13)
[2016-10-16] MEDS ORDERED: ATEN-173 PO (15:24)
[2016-10-16] MEDS ORDERED: FERR1TAB13 PO (15:27)
[2016-10-16] MEDS ORDERED: GLIP10TA9 PO (15:29)
[2016-10-16] MEDS ORDERED: PROTEIN PO (15:33)
[2016-10-16] MEDS ORDERED: LISI-729 PO (15:34)
[2016-10-16] MEDS ORDERED: POTA10TA PO (15:39)
[2016-10-16 15:42] LABS: HEMATOCRIT 37.6 % (37-47); MEAN CELL VOLUME 80.3 fL (80-100); MEAN CORPUSCULAR HEMOGLOBIN 26.5 pg (25-34); MEAN PLATELET VOLUME 8.9 fL (7.4-10.4); PLATELET COUNT 301 K/uL (130-400); RED BLOOD COUNT 4.68 M/uL (4.2-5.4); WHITE BLOOD COUNT 14.65 K/uL (4.8-10.8)
[2016-10-16] MEDS ORDERED: MoRPHine SULFATE 10 MG/ML CARP/VIAL IV STA (15:44)
[2016-10-16] MEDS ORDERED: ACET-1311 PO (15:49)
[2016-10-16] MEDS ORDERED: SIME80TA PO ×2 (15:53)
[2016-10-16] MEDS ORDERED: ONDA8TAB6 PO (15:53)
[2016-10-16 15:58] LABS: BUN/CREATININE RATIO 19.9 (10-20); CALCIUM 7.6 mg/dl (8.5-10.1); CREATININE 1.6 mg/dl (0.60-1.20); POTASSIUM 3.2 mmol/L (3.5-5.1)
[2016-10-16] MEDS ORDERED: NURSING VERBAL MED ORDER ONE (16:30)
[2016-10-16] MEDS ORDERED: OPTIRAY 320 IV PRN (16:45)
--- NOTE | 2016-10-16 17:02 | DIAGNOSTIC IMAGING REPORT ---
ADDENDUM The appearance suggests an ileus. A distal rectal obstruction is considered less likely but could have a similar appearance. Discussed with Dr. Fisher at time of dictation. Electronically signed by: Dipak Anthony M.D. 10/16/2016 5:10 PM Dictated Date/Time: 10/16/2016 5:[address] OF THE ABDOMEN AND PELVIS WITH CONTRAST CLINICAL HISTORY: Abdominal pain, vomiting and diarrhea. COMPARISON STUDY: CT of the abdomen and pelvis November 26, 2015. TECHNIQUE: Following IV administration of 115 mL of Optiray-320, axial images of the abdomen and pelvis were obtained from the lung bases to the proximal femurs. Images were reviewed in the axial, sagittal, and coronal planes. IV contrast was administered without complication. CT DOSE: 751.32 mGy.cm FINDINGS: Visualized portions of the lower chest demonstrate moderate cardiomegaly. There is no pneumatosis, free air or portal venous gas. There is no biliary ductal dilatation status post cholecystectomy. The liver, spleen, adrenal glands, left kidney and pancreas are unremarkable. Several large right renal calculi measure up to 2.6 cm. Mild dilatation of the upper aspect of the right renal collecting system is unchanged. There is marked right renal atrophy. There are no ureteral calculi. There is no left hydronephrosis. The small and large bowel are fluid-filled and moderately dilated. Dilatation is noted to the level the rectum. There is no transition point. There is no abscess. No lymphadenopathy is present. There is extensive atherosclerotic plaque of the abdominal aorta. Evaluation of the branch vessels is suboptimal on this non-CTA exam but there is suspected moderate narrowing of the origin of the celiac axis with diminished contrast within the proximal SMA which could reflect high-grade stenosis or occlusion with distal reconstitution. The inferior mesenteric artery is patent. 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 A fat-containing umbilical hernia is noted. A fat-containing left groin hernia. There are no suspicious osseous lesions. A moderate sized hiatal hernia is noted. IMPRESSION: 1. Moderately dilated, fluid-filled small and large bowel, dilated to the level of the anus. The findings suggest a diarrheal state. No transition point to suggest obstruction. No bowel wall thickening. Mildly distended, fluid-filled stomach. Close clinical monitoring is recommended. 2. Extensive atherosclerotic plaque of the abdominal aorta. The branch vessels are suboptimally assessed on this non-CTA exam but there is suspected severe stenosis versus occlusion with distal reconstitution of the proximal SMA with mild to moderate stenosis at the origin the celiac axis. Patent SCARLETT. 3. Large right renal calculus. Marked right renal atrophy. No ureteral calculus. 4. Moderate sized hiatal hernia. 5. Bladder wall thickening accentuated by underdistention. Electronically signed by: Dipak Anthony M.D. 10/16/2016 5:01 PM Dictated Date/Time: 10/16/2016 4:44 PM
[2016-10-16 17:03] LABS: VEN BLD GAS O2 SATURATION 81.1 %; VEN BLOOD GAS BASE EXCESS -15.1 mmol/L; VENOUS BLOOD GAS PCO2 23 mmHg (38.0-50.0); VENOUS BLOOD GAS PO2 51 mmHg
[2016-10-16 17:11] LABS: ANISOCYTOSIS PRESENT; BASO % 0.1 %; BASO ABS # 0.02 K/uL (0-0.2); COMPLETE YES; ECHINOCYTES 2+; IG% 0.3 %; LYMPH % 7.4 %; LYMPH ABS # 1.09 K/uL (1.2-3.4); MONO % 4.6 %; NEUT % 87.6 %
[2016-10-16] MEDS ORDERED: PIPERACILLIN/TAZOBACTAM 4.5 GM/100ML D5W IV STA (17:34)
[2016-10-16 17:46] VITALS: O2SAT 97; Ht 152.4 cm; Wt 78.5 kg
[2016-10-16] MEDS ORDERED: ACETAMINOPHEN 325 MG TAB PO PRN (18:00)
[2016-10-16] MEDS ORDERED: SODIUM CHLORIDE 0.9% 500ML 500 ML IV SCH (18:00)
[2016-10-16] MEDS ORDERED: ALUMINUM/MAGNESIUM/SIMETH (MAALOX MAX) 30 ML UDC PO PRN (18:00)
[2016-10-16] MEDS ORDERED: VANCOMYCIN CONSULT ACTIVE PRN (18:09)
[2016-10-16 18:12] LABS: URINE APPEARANCE TURBID (CLEAR); URINE BILIRUBIN NEG (NEG); URINE COLOR DK YELLOW; URINE EPITHELIAL CELL AUTO >30 /lpf (0-5); URINE NITRITE NEG (NEG); URINE SPECIFIC GRAVITY 1.042 (1.000-1.030); UROBILINOGEN NEG (NEG); ZZURINE CULT IF INDIC CATH YES
[2016-10-16] MEDS ORDERED: PIPERACILL/TAZOBAC CONSULT ACTIVE PRN (18:15)
[2016-10-16] MEDS ORDERED: PANTOprazole INJ 80 MG in DEXTROSE 5% 100ML IV SCH (18:15)
[2016-10-16 18:30] LABS: MANUAL MICROSCOPIC REQUIRED? NO; REVIEW REQ? YES
[2016-10-16] MEDS ORDERED: PANTOprazole INJ 40 MG in DEXTROSE 5% 100ML IV SCH (18:30)
--- NOTE | 2016-10-16 18:34 | Pharmacy Progress Note ---
Pharmacy Abx Initial Consult Date of Service Oct 16, 2016. Pharmacy Dosing Scope Date of Consult: 10/16/16 Consultation requested by: Dr. Lambert Pharmacy is consulted to initiate vancomycin and piperacillin/tazobactam IV dosing therapy, order appropriate labs and adjust drug dose/frequency. Subjective The patient is a 89 year old female admitted on . Objective Height (Feet): 5 Height (Inches): 0.00 Weight (Kilograms): 70.600 Vital Signs (Past 12Hrs) Vital Signs Past 12 Hours Date Time Temp Pulse Resp B/P (MAP) Pulse Ox O2 Delivery O2 Flow Rate FiO2 10/16/16 17:46 97 Room Air 10/16/16 16:56 109/46 10/16/16 16:21 88 18 106/32 97 Room Air 10/16/16 15:29 36.5 79 18 103/51 99 Room Air 10/16/16 15:17 78 Lab Results (24Hrs) Laboratory Tests (24 Hours) Test 10/16/16 15:34 10/16/16 16:50 White Blood Count 14.65 K/uL (4.8-10.8) H Red Blood Count 4.68 M/uL (4.2-5.4) Hemoglobin 12.4 g/dL (12.0-16.0) Hematocrit 37.6 % (37-47) Mean Corpuscular Volume 80.3 fL (80-100) Mean Corpuscular Hemoglobin 26.5 pg (25-34) Mean Corpuscular Hemoglobin Concent 33.0 g/dl (32-36) Platelet Count 301 K/uL (130-400) Mean Platelet Volume 8.9 fL (7.4-10.4) Neutrophils (%) (Auto) 87.6 % Lymphocytes (%) (Auto) 7.4 % Monocytes (%) (Auto) 4.6 % Eosinophils (%) (Auto) 0.0 % Basophils (%) (Auto) 0.1 % Neutrophils # (Auto) 12.83 K/uL (1.4-6.5) H Lymphocytes # (Auto) 1.09 K/uL (1.2-3.4) L Monocytes # (Auto) 0.67 K/uL (0.11-0.59) H Eosinophils # (Auto) 0.00 K/uL (0-0.5) Basophils # (Auto) 0.02 K/uL (0-0.2) Lactic Acid Level 1.5 mmol/L (0.4-2.0) Risk Factors for Resistance * Hospitalization for 48 hours or more within the past 90 days * Current hospitalization > 5 days * Chronic dialysis within the past 30 days * Immunocompromised (chronic steroid therapy, chemotherapy, immunomodulators) * 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 Assessment & Plan Assessment * 89 year old female admitted with nausea/vomiting and diarrhea - ileus on abdominal CT * Beginning broad-spectrum ABX for sepsis 2/2 to GI source * Serum creatinine elevated, though pt does have h/o CKD * baseline SCr ~1-1.2mg/dL, currently 1.6mg/dL Plan * Vancomycin and piperacillin/tazobactam for treatment of sepsis 2/2 GI source Vancomycin IV * Loading dose: 1500 mg (21 mg/kg) * Random level on 10/17 with AM labs * Dose per random level due to elevated creatinine * Re-dose vancomycin when level falls below 20mcg/mL Piperacillin/tazobactam * 4.5 g bolus administered over 30 minutes, then 3.375 g IV extended infusion every 8 hours for CrCl greater than 20 mL/min * CrCl ~20mL/min currently, however I anticipate improvement in renal function with IVF administration Of Note: * The combination of vancomycin and piperacillin/tazobactam can lead to renal impairment. * Ms Gee also received Optiray for abdominal CT which could also potentiate renal disfunction. Pharmacy will continue to follow and will adjust dose/frequency as necessary. Thank you.
[2016-10-16] MEDS ORDERED: VANCOMYCIN INJ 1,500 MG in SODIUM CHLORIDE 0.9% 500ML 500 ML IV SCH (19:00)
--- NOTE | 2016-10-16 19:08 | EMERGENCY ROOM VISIT NOTE ---
History Report prepared by Christineibmark: Micheal Bryant Under the Supervision of: Dr. Juan Fisher D.O. First contact with patient: 15:03 Chief Complaint: ILLNESS Stated Complaint: VOMITING, DIARRHEA, ILLNESS History of Present Illness The patient is a 89 year old female who presents to the Emergency Room by EMS with complaints of a persistent illness beginning two days ago. Per EMS, the patient is at her mental baseline. The patient's symptoms include vomiting, abdominal pain, abdominal distension and diarrhea. She denies any recent changes to her medications. The patient states that she has been able to keep liquids down. This is been going on for the past 2 days. She is a resident at a [facility] who confirms the story. Patient has no other complaints at this time. Pt denies headache, change in vision, fevers, chest pain, shortness of breath, and pain with urination. Source of History: patient Onset: Two days ago Quality: other (illness) Timing: other (persistent) Associated Symptoms: + vomiting, + abdominal pain, + diarrhea, No fevers, No chest pain, No SOB, No urinary symptoms Note: The patient's symptoms include: abdominal distension. Review of Systems See HPI for pertinent positives & negatives. A total of 10 systems reviewed and were otherwise negative. Past Medical & Surgical Medical Problems: (1) Appendectomy (2) Atrial fibrillation (3) Benign hypertension (4) Bleeding from mouth (5) Bleeding from mouth (6) Cataract (7) Cellulitis (8) Cholecystectomy (9) Contact dermatitis (10) Diabetes mellitus (11) Gastroesophageal reflux disease (12) Lightheadedness (13) lymphedema right upper extremity (14) Metabolic acidosis (15) Orthopnea (16) Partial mastectomy - breast cancer (17) Respiratory distress (18) Shortness of breath (19) Urinary tract infection (20) venous stasis ulcer left lower extremity Family History No pertinent family history Social History Smoking Status: Never Smoker Alcohol Use: none Drug Use: none Marital Status: Housing Status: lives alone Occupation Status: retired Current/Historical Medications Scheduled Atenolol (Tenormin), 25 MG PO DAILY Atorvastatin (Lipitor), 20 MG PO HS Cholecalciferol (Vitamin D), 1,000 UNITS PO QAM Ferrous Sulfate (Kp Ferrous Sulfate), 1 TAB PO BID Furosemide (Lasix), 10 MG PO QAM Glipizide (Glucotrol), 10 MG PO BID Levothyroxine Sodium (Synthroid), 1 TAB PO QAM Lisinopril (Lisinopril), 5 MG PO QAM Lisinopril (Zestril), 5 MG PO QAM Omeprazole (Omeprazole), 20 MG PO DAILY Potassium Chloride (K-Tabs), 10 MEQ PO DAILY Sitagliptin Phosphate (Januvia), 100 MG PO HS [House Protein Liquid], 30 ML PO DAILY Scheduled PRN Acetaminophen (Tylenol), 650 MG PO Q6H PRN for Pain or Fever Ondansetron Hcl (Zofran), 8 MG PO Q8 PRN for Nausea or Vomiting Simethicone (Bicarsim), 80 MG PO PC PRN for Gas or Constipation Simethicone (Bicarsim), 80 MG PO HS PRN for Gas or Constipation Allergies Coded Allergies: No Known Allergies (Verified , 10/16/16) Physical Exam Vital Signs Date Time Temp Pulse Resp B/P (MAP) Pulse Ox O2 Delivery O2 Flow Rate FiO2 10/16/16 18:50 79 18 106/56 99 Room Air 10/16/16 17:46 97 Room Air 10/16/16 16:56 109/46 10/16/16 16:21 88 18 106/32 97 Room Air 10/16/16 15:29 36.5 79 18 103/51 99 Room Air 10/16/16 15:17 78 Physical Exam GENERAL: Sitting up in bed, disheveled, ill appearing, dried vomit on chest EYE EXAM: normal conjunctiva. OROPHARYNX: no exudate, no erythema, lips, buccal mucosa, and tongue normal and mucous membranes are dried NECK: supple, no nuchal rigidity, no adenopathy, non-tender LUNGS: Clear to auscultation. Normal chest wall mechanics HEART: no murmurs, S1 normal and S2 normal ABDOMEN: Distended with hyperechoic bowel sounds with mild diffuse tenderness. no masses, no rebound or guarding. BACK: Back is symmetrical on inspection and there is no deformity, no midline tenderness, no CVA tenderness. RECTAL: Melanotic stools. BUTTOCKS: Several small ulcers on bilateral buttocks. SKIN: no rashes and no bruising UPPER EXTREMITIES: upper extremities are grossly normal. LOWER EXTREMITIES: No pitting edema. NEURO EXAM: Normal sensorium, cranial nerves II-XII grossly intact, normal speech. Medical Decision & Procedures ER Provider Diagnostic Interpretation: CT:Per my review, radiologist interpretation. CT OF THE ABDOMEN AND PELVIS WITH CONTRAST FINDINGS: Visualized portions of the lower chest demonstrate moderate cardiomegaly. There is no pneumatosis, free air or portal venous gas. There is no biliary ductal dilatation status post cholecystectomy. The liver, spleen, adrenal glands, left kidney and pancreas are unremarkable. Several large right renal calculi measure up to 2.6 cm. Mild dilatation of the upper aspect of the right renal collecting system is unchanged. There is marked right renal atrophy. There are no ureteral calculi. There is no left hydronephrosis. The small and large bowel are fluid-filled and moderately dilated. Dilatation is noted to the level the rectum. There is no transition point. There is no abscess. No lymphadenopathy is present. There is extensive atherosclerotic plaque of the abdominal aorta. Evaluation of the branch vessels is suboptimal on this non-CTA exam but there is suspected moderate narrowing of the origin of the celiac axis with diminished contrast within the proximal SMA which could reflect high-grade stenosis or occlusion with distal reconstitution. The inferior mesenteric artery is patent. 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 A fat-containing umbilical hernia is noted. A fat-containing left groin hernia. There are no suspicious osseous lesions. A moderate sized hiatal hernia is noted. IMPRESSION: 1. Moderately dilated, fluid-filled small and large bowel, dilated to the level of the anus. The findings suggest a diarrheal state. No transition point to suggest obstruction. No bowel wall thickening. Mildly distended, fluid-filled stomach. Close clinical monitoring is recommended. 2. Extensive atherosclerotic plaque of the abdominal aorta. The branch vessels are suboptimally assessed on this non-CTA exam but there is suspected severe stenosis versus occlusion with distal reconstitution of the proximal SMA with mild to moderate stenosis at the origin the celiac axis. Patent SCARLETT. 3. Large right renal calculus. Marked right renal atrophy. No ureteral calculus. 4. Moderate sized hiatal hernia. 5. Bladder wall thickening accentuated by underdistention. Electronically signed by: Dipak Anthony M.D. Laboratory Results 10/16/16 15:34 Red Blood Count 4.68, Mean Corpuscular Volume 80.3, Mean Corpuscular Hemoglobin 26.5, Mean Corpuscular Hemoglobin Concent 33.0, Mean Platelet Volume 8.9, Neutrophils (%) (Auto) 87.6, Lymphocytes (%) (Auto) 7.4, Monocytes (%) (Auto) 4.6, Eosinophils (%) (Auto) 0.0, Basophils (%) (Auto) 0.1, Neutrophils # (Auto) 12.83, Lymphocytes # (Auto) 1.09, Monocytes # (Auto) 0.67, Eosinophils # (Auto) 0.00, Basophils # (Auto) 0.02 10/16/16 15:34 Test 10/16/16 15:34 10/16/16 16:50 10/16/16 17:45 White Blood Count 14.65 K/uL (4.8-10.8) Red Blood Count 4.68 M/uL (4.2-5.4) Hemoglobin 12.4 g/dL (12.0-16.0) Hematocrit 37.6 % (37-47) Mean Corpuscular Volume 80.3 fL (80-100) Mean Corpuscular Hemoglobin 26.5 pg (25-34) Mean Corpuscular Hemoglobin Concent 33.0 g/dl (32-36) Platelet Count 301 K/uL (130-400) Mean Platelet Volume 8.9 fL (7.4-10.4) Neutrophils (%) (Auto) 87.6 % Lymphocytes (%) (Auto) 7.4 % Monocytes (%) (Auto) 4.6 % Eosinophils (%) (Auto) 0.0 % Basophils (%) (Auto) 0.1 % Neutrophils # (Auto) 12.83 K/uL (1.4-6.5) Lymphocytes # (Auto) 1.09 K/uL (1.2-3.4) Monocytes # (Auto) 0.67 K/uL (0.11-0.59) Eosinophils # (Auto) 0.00 K/uL (0-0.5) Basophils # (Auto) 0.02 K/uL (0-0.2) RDW Standard Deviation 52.1 fL (36.4-46.3) RDW Coefficient of Variation 17.7 % (11.5-14.5) Immature Granulocyte % (Auto) 0.3 % Immature Granulocyte # (Auto) 0.04 K/uL (0.00-0.02) Anisocytosis PRESENT Echinocytes 2+ Anion Gap 20.0 mmol/L (3-11) Est Creatinine Clear Calc Drug Dose 20.9 ml/min Estimated GFR () 32.8 Estimated GFR (Non- 28.3 BUN/Creatinine Ratio 19.9 (10-20) Calcium Level 7.6 mg/dl (8.5-10.1) Total Bilirubin 1.3 mg/dl (0.2-1) Direct Bilirubin 0.7 mg/dl (0-0.2) Aspartate Amino Transf (AST/SGOT) 12 U/L (15-37) Alanine Aminotransferase (ALT/SGPT) 14 U/L (12-78) Alkaline Phosphatase 163 U/L (45-117) Total Protein 7.2 gm/dl (6.4-8.2) Albumin 2.4 gm/dl (3.4-5.0) Lipase 38 U/L (73-393) Venous Blood pH 7.27 (7.36-7.41) Venous Blood Partial Pressure CO2 23 mmHg (38.0-50.0) Venous Blood Partial Pressure O2 51 mmHg Venous Blood HCO3 10 meq/L Venous Blood Oxygen Saturation 81.1 % Venous Blood Base Excess -15.1 mmol/L Lactic Acid Level 1.5 mmol/L (0.4-2.0) Urine Color DK YELLOW Urine Appearance TURBID (CLEAR) Urine pH 5.0 (4.5-7.5) Urine Specific [place] 1.042 (1.000-1.030) Urine Protein TRACE (NEG) Urine Glucose (UA) NEG (NEG) Urine Ketones TRACE (NEG) Urine Occult Blood 1+ (NEG) Urine Nitrite NEG (NEG) Urine Bilirubin NEG (NEG) Urine Urobilinogen NEG (NEG) Urine Leukocyte Esterase LARGE (NEG) Urine WBC (Auto) >30 /hpf (0-5) Urine RBC (Auto) 5-10 /hpf (0-4) Urine Hyaline Casts (Auto) 1-5 /lpf (0-5) Urine Epithelial Cells (Auto) >30 /lpf (0-5) Urine Bacteria (Auto) 4+ (NEG) Urine Pathogenic Casts /lpf (0) Urine Yeast (Auto) (NONE PRSENT) Laboratory results per my review. Medications Administered Medications (Trade) Dose Ordered Sig/Susana Route Start Time Stop Time Status Last Admin Dose Admin Sodium Chloride 1,000 ml @ 999 mls/hr Q1H1M STAT IV 10/16/16 15:13 10/16/16 16:13 DC 10/16/16 15:41 999 MLS/HR Ondansetron HCl (Zofran Inj) 4 mg NOW STAT IV 10/16/16 15:13 10/16/16 15:15 DC 10/16/16 15:41 4 MG Morphine Sulfate (MoRPHine SULFATE INJ) 6 mg NOW STAT IV 10/16/16 15:44 10/16/16 15:45 DC 10/16/16 16:11 6 MG Sodium Chloride 1,000 ml @ 999 mls/hr Q1H1M STAT IV 10/16/16 15:44 10/16/16 16:44 DC 10/16/16 16:12 999 MLS/HR Miscellaneous Information (Nursing Verbal Med Order) 1 ea ONE ONCE N/A 10/16/16 16:30 10/16/16 16:31 DC 10/16/16 16:15 1 EA Piperacillin Sod/ Tazobactam Sod (Zosyn Iv) 4.5 gm NOW STAT IV 10/16/16 17:34 10/16/16 17:35 DC 10/16/16 18:04 4.5 GM Pantoprazole Sodium 80 mg/ Dextrose 120 ml @ 480 mls/hr TODAY@1815 IV 10/16/16 18:15 10/16/16 18:29 DC 10/16/16 18:33 480 MLS/HR ED Course ED COURSE: Vital signs were reviewed and showed hypertension. The patients medical record was reviewed The above diagnostic studies were performed and reviewed. ED treatments and interventions as stated above. 1506: The patient was evaluated in room B7. A complete history and physical examination was performed. 1513: Ordered Zofran Inj 4 mg IV, Sodium Chloride 1000 ml @ 999 mls/hr IV. 1544: Ordered Sodium Chloride 1000 ml @ 999 mls/hr IV, Morphine Sulfate 6 mg IV. 1544: The patient had an episode of watery diarrhea. Nursing staff described the stool as appearing "dark and green". The stool was tested and Hemoccult was heme positive. 1718: Upon reevaluation, the patient is resting comfortably. I discussed my findings with the patient and she understands and agrees with the treatment plan. Based on the patients age, coexisting illnesses, exam and lab findings the decision to treat as an inpatient was made. The patient remained stable while under my care. The patient will be evaluated for further management. 1734: Ordered Zosyn 4.5 gm IV. 1755: The patient's Gastroccult was heme positive. Ordered Protonix IV Bolus/ Drip. Medical Decision Differential diagnoses includes but is not limited to gastritis, peptic ulcer disease, GERD, gallbladder disease, pancreatitis, small bowel obstruction, acute coronary syndrome, pericarditis, ischemic bowel, irritable bowel disease, irritable bowel syndrome, appendicitis, diverticulitis, malignancy, hernia, urinary tract infection, torsion, perforation, trauma, infectious. Blood pressure screening: Patient was found to have an elevated blood pressure and was referred to their primary doctor for recheck and further treatment. Medication Reconciliation: I attest that I have personally reviewed the patient' s current medication list. Patient is an 89-year-old female who presents the ER for nausea, vomiting and diarrhea that has been present for the past 2 days. She also notes that her abdomen has been distended. Abdomen is distended and is tender. She does have intermittent dry heaving. Heme positive stool and gastric occult positive vomit. CT shows diffuse distention of both small and large bowel. Discussed with radiology and they do not believe that this is ischemic. They do not see any obstruction. Gen. surgery agrees that there is no obvious obstruction. Initially upon presentation she was hypotensive with systolic in the 80s. White count 14,000. Bicarbonate was 11. Lactate was 1.5. UA was contaminated. VBG shows a pH of 7.27. With these findings patient was aggressively hydrated. She is given 2 L normal saline and multiple doses Zofran. She felt significantly better. Vomiting stopped. She was placed on PPI drip and bolus secondary to her hematemesis. Based on my discussion with radiology and normal lactate at do not believe that this is ischemic gut at that time. Do favor that its likely secondary to gastroenteritis causing the low bicarbonate but I cannot be certain at this time. Patient was updated bedside and admitted to internal medicine. She was given broad-spectrum antibiotics in the ER as well. Consults Time Called: 1708 Consulting Physician: Dr. Anthony -Radiology Returned Call: 1710 I reviewed the patient's case with Dr. Anthony. He does not believe the patient has any signs of ischemic bowel or bowel obstruction on CT. He believes it is likely gastroenteritis. Additional Consults: Time Called: 1710 Consulted Physician: Dr. Medellin -General Surgery Returned Call: 1712 Additional Comments: I reviewed the patient's case with Dr. Medellin. He agrees with Dr. Anthony. Time Called: 1716 Consulted Physician: [place]. [place] [place] Call: 1718 Additional Comments: I reviewed the patient's case with Dr. Lambert. [facility]. Impression Primary Impression: Gastroenteritis Additional Impressions: Metabolic acidosis Hypokalemia Critical Care I have personally spent 35 minutes of critical care time in the direct management of this patient. This includes bedside care, interpretation of diagnostic studies, and testing, discussion with consultants, patient, and family members, and other required patient management activities. This 35 minutes is in excess of all separately billable procedures. Scribe Attestation The scribe's documentation has been prepared under my direction and personally reviewed by me in its entirety. I confirm that the note above accurately reflects all work, treatment, procedures, and medical decision making performed by me. Departure Information Dispostion Being Evaluated By Hospitalist Referrals [facility] (PCP) Patient Instructions My [facility] Problem Qualifiers
--- NOTE | 2016-10-16 19:17 | History and Physical ---
History & Physical Date & Time of Service: Oct 16, 2016 at 19:09 Chief Complaint: Vomiting, Diarrhea, Illness Primary Care Physician: Jaky Siddiqi History of Present Illness 89-year-old diabetic female from [place] who presents with one-day history of diarrhea and nausea and vomiting. She is surprisingly oriented and has abdominal pain associated with this. She is found to be with a metabolic acidosis with a V BG showing pH 7.2 and a serum bicarbonate of 11 with preserved renal function. She is an abnormal CT scan showing dilatation of her bowels and discussion of SMA stenosis, but she does not examine like a bowel infarction. She is given 2 L of fluid IV Zosyn and recommended for admission. She was previously a DO NOT RESUSCITATE. Attempts to reach her daughter, as listed in the electronic record, were unsuccessful due to her voice mailbox being full and secondary number being a work number which is not open Past Medical/Surgical History Medical Problems: (1) Appendectomy Status: Resolved (2) Atrial fibrillation Status: Chronic (3) Benign hypertension Status: Chronic (4) Cataract Status: Resolved (5) Cholecystectomy Status: Resolved (6) Diabetes mellitus Status: Chronic (7) Gastroesophageal reflux disease Status: Chronic (8) lymphedema right upper extremity Status: Chronic (9) Partial mastectomy - breast cancer Status: Resolved (10) Urinary tract infection Status: Resolved (11) venous stasis ulcer left lower extremity Status: Chronic Family History No pertinent family history Social History Smoking Status: Never Smoker Drug Use: none Marital Status: Housing status: lives alone, other Occupational Status: retired Immunizations History of Influenza Vaccine: Yes History of Tetanus Vaccine?: Yes Tetanus Immunization Date: Dec 16, 2004 History of Pneumococcal: Yes Pneumococcal Date: Dec 16, 2004 History of Hepatitis B Vaccine: No Multi-Drug Resistant Organisms History of MDRO: No Allergies Coded Allergies: No Known Allergies (Verified , 10/16/16) Home Medications Scheduled Atenolol (Tenormin), 25 MG PO DAILY Atorvastatin (Lipitor), 20 MG PO HS Cholecalciferol (Vitamin D), 1,000 UNITS PO QAM Ferrous Sulfate (Kp Ferrous Sulfate), 1 TAB PO BID Furosemide (Lasix), 10 MG PO QAM Glipizide (Glucotrol), 10 MG PO BID Levothyroxine Sodium (Synthroid), 1 TAB PO QAM Lisinopril (Lisinopril), 5 MG PO QAM Lisinopril (Zestril), 5 MG PO QAM Omeprazole (Omeprazole), 20 MG PO DAILY Potassium Chloride (K-Tabs), 10 MEQ PO DAILY Sitagliptin Phosphate (Januvia), 100 MG PO HS [House Protein Liquid], 30 ML PO DAILY Scheduled PRN Acetaminophen (Tylenol), 650 MG PO Q6H PRN for Pain or Fever Ondansetron Hcl (Zofran), 8 MG PO Q8 PRN for Nausea or Vomiting Simethicone (Bicarsim), 80 MG PO PC PRN for Gas or Constipation Simethicone (Bicarsim), 80 MG PO HS PRN for Gas or Constipation Review of Systems ROS: well nourished well developed No double vision blurry vision No problems with speech or swallowing No palpitations, chest pain or pressure No Wheezing or breathing issues Right lower Quadrant abdominal pain nausea vomiting diarrhea over the last 18 hours No burning urine urine frequency or changes in color No focal joint pain or muscle pain No skin rashes gross oral lesions No unusual bruising or bleeding No focused back pain or numbness or loss of strength No changes in memory or confusion Physical Exam Vital Signs Date Time Temp Pulse Resp B/P (MAP) Pulse Ox O2 Delivery O2 Flow Rate FiO2 10/16/16 18:50 79 18 106/56 99 Room Air 10/16/16 17:46 97 Room Air 10/16/16 16:56 109/46 10/16/16 16:21 88 18 106/32 97 Room Air 10/16/16 15:29 36.5 79 18 103/51 99 Room Air 10/16/16 15:17 78 General Appearance: WD/WN, + mild distress Head: normocephalic, atraumatic Eyes: PERRL, EOMI ENT: TMs normal, pharynx normal Neck: supple, no adenopathy, trachea midline Respiratory/Chest: chest non-tender, lungs clear, normal breath sounds Cardiovascular: regular rate, rhythm, no murmur Abdomen/GI: soft, + tenderness (mid upper abdomen to the right lower quadrant) , + abnormal bowel sounds (absent bowel sounds), + distended Extremities/Musculoskelatal: normal capillary refill, no pedal edema, normal range of motion, + pertinent finding (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) Neurologic/Psych: alert, oriented x 3 Skin: normal color, warm/dry, no rash Diagnostics Laboratory Results Results Past 24 Hours Test 10/16/16 15:34 10/16/16 16:50 10/16/16 17:45 10/16/16 19:00 Range/Units White Blood Count 14.65 4.8-10.8 K/uL Red Blood Count 4.68 4.2-5.4 M/uL Hemoglobin 12.4 12.0-16.0 g/dL Hematocrit 37.6 37-47 % Mean Corpuscular Volume 80.3 80-100 fL Mean Corpuscular Hemoglobin 26.5 25-34 pg Mean Corpuscular Hemoglobin Concent 33.0 32-36 g/dl Platelet Count 301 130-400 K/uL Mean Platelet Volume 8.9 7.4-10.4 fL Neutrophils (%) (Auto) 87.6 % Lymphocytes (%) (Auto) 7.4 % Monocytes (%) (Auto) 4.6 % Eosinophils (%) (Auto) 0.0 % Basophils (%) (Auto) 0.1 % Neutrophils # (Auto) 12.83 1.4-6.5 K/uL Lymphocytes # (Auto) 1.09 1.2-3.4 K/uL Monocytes # (Auto) 0.67 0.11-0.59 K/uL Eosinophils # (Auto) 0.00 0-0.5 K/uL Basophils # (Auto) 0.02 0-0.2 K/uL RDW Standard Deviation 52.1 36.4-46.3 fL RDW Coefficient of Variation 17.7 11.5-14.5 % Immature Granulocyte % (Auto) 0.3 % Immature Granulocyte # (Auto) 0.04 0.00-0.02 K/uL Anisocytosis PRESENT Echinocytes 2+ Sodium Level 139 136-145 mmol/L Potassium Level 3.2 3.5-5.1 mmol/L Chloride Level 108 98-107 mmol/L Carbon Dioxide Level 11 21-32 mmol/L Anion Gap 20.0 3-11 mmol/L Blood Urea Nitrogen 32 7-18 mg/dl Creatinine 1.60 0.60-1.20 mg/dl Est Creatinine Clear Calc Drug Dose 20.9 ml/min Estimated GFR () 32.8 Estimated GFR (Non- 28.3 BUN/Creatinine Ratio 19.9 10-20 Random Glucose 245 70-99 mg/dl Calcium Level 7.6 8.5-10.1 mg/dl Total Bilirubin 1.3 0.2-1 mg/dl Direct Bilirubin 0.7 0-0.2 mg/dl Aspartate Amino Transf (AST/SGOT) 12 15-37 U/L Alanine Aminotransferase (ALT/SGPT) 14 12-78 U/L Alkaline Phosphatase 163 45-117 U/L Total Protein 7.2 6.4-8.2 gm/dl Albumin 2.4 3.4-5.0 gm/dl Lipase 38 73-393 U/L Venous Blood pH 7.27 7.36-7.41 Venous Blood Partial Pressure CO2 23 38.0-50.0 mmHg Venous Blood Partial Pressure O2 51 mmHg Venous Blood HCO3 10 meq/L Venous Blood Oxygen Saturation 81.1 % Venous Blood Base Excess -15.1 mmol/L Lactic Acid Level 1.5 0.4-2.0 mmol/L Urine Color DK YELLOW Urine Appearance TURBID CLEAR Urine pH 5.0 4.5-7.5 Urine Specific [place] 1.042 1.000-1.030 Urine Protein TRACE NEG Urine Glucose (UA) NEG NEG Urine Ketones TRACE NEG Urine Occult Blood 1+ NEG Urine Nitrite NEG NEG Urine Bilirubin NEG NEG Urine Urobilinogen NEG NEG Urine Leukocyte Esterase LARGE NEG Urine WBC (Auto) >30 0-5 /hpf Urine RBC (Auto) 5-10 0-4 /hpf Urine Hyaline Casts (Auto) 1-5 0-5 /lpf Urine Epithelial Cells (Auto) >30 0-5 /lpf Urine Bacteria (Auto) 4+ NEG Urine Pathogenic Casts 0 /lpf Urine Yeast (Auto) NONE PRSENT Microbiology Results 10/16/16 Urine Culture, Received Pending Diagnostic Radiology CT scan shows dilated loops of fluid-filled bowel. Discussion of SMA stenosis with reconstitution CXR normal Normal EKG Impression Assessment and Plan 89-year-old female with profound metabolic acidosis of undetermined significance is Concern for metabolic acidosis would be sepsis versus bowel ischemia. Her abdominal pain is much less than what he expected for bowel ischemia, she can have an infectious diarrhea or urinary tract infection. Stool studies will be sent urine culture will be sent blood culture will be sent Zosyn will be continued. She received 2.5 L of saline in the ER, bicarbonate drip will be begun and monitoring of her acidosis will be undertaken. He has not been prepared as with her acidosis this may get worse. If he continues to trend is low we will supplement her potassium Atrial fibrillation is rate controlled, she is not chronically anticoagulated Chronic kidney disease stage III is stable Regarding her diabetic care insulin sliding scale be undertaken with only ice chips and sips being offered D use for DVT prevention Advanced Directives Existing Living Will: Yes Existing Power of Supervisor [employer]: Yes (MANDO ) VTE Prophylaxis VTE Risk Assessment Done? Y/N: Yes Risk Level: Moderate
[2016-10-16 20:00] VITALS: BP 102/65; PULSE 111; TEMP 36.8; O2SAT 95
[2016-10-16 20:07] LABS: BUN/CREATININE RATIO 25.4 (10-20); CREATININE 1.3 mg/dl (0.60-1.20)
[2016-10-16 20:09] LABS: INR 1.3 (0.9-1.1); PARTIAL THROMBOPLASTIN RATIO 1.3; PROTHROMBIN TIME (PATIENT) 14.6 SECONDS (9.0-12.0)
[2016-10-16 20:13] LABS: CALCIUM 6.4 mg/dl (8.5-10.1)
[2016-10-16] MEDS ORDERED: SODIUM BICARBONATE 4.2% INJ 10 ML SYR IV STA (20:32)
[2016-10-16] MEDS: SODIUM BICARBONATE 8.4% INJ 100 MEQ in SODIUM CHLORIDE 0.45% 1000ML 1,000 ML IV SCH (20:50)
[2016-10-16] MEDS ORDERED: SODIUM BICARBONATE 4.2% INJ 10 ML SYR IV PRN (21:00)
[2016-10-16] MEDS: POTASSIUM CHLR 10 MEQ / WTR 10 MEQ in PREMIXED WATER 100 ML IV SCH ×2 (21:07→22:40)
[2016-10-16 21:24] LABS: ALLEN TEST POS (POS); ARTERIAL BLOOD GAS BASE EXCESS -14.1 mEq/L (-9-1.8); ARTERIAL BLOOD GAS HCO3 10 mmol/L (19-24); ARTERIAL BLOOD GAS PO2 108 mmHg (80-95); ARTERIAL BLOOD GAS pH 7.33 (7.35-7.45); O2 ADMINISTRATION ROOM AIR
[2016-10-16] MEDS: INSULIN ASPART 100 UNITS/ML 3 ML PEN SC SCH (21:39)
[2016-10-16] MEDS: HEPARIN SOD 5000 UNIT/0.5 ML CARP SQ SCH (21:41)
[2016-10-16] MEDS: ONDANSETRON INJ 2 MG/ML 2 ML VIAL IV PRN (22:45)
[2016-10-16] MEDS: PIPERACILL/TAZOBAC IV 3.375 GM in DEXTROSE 5% 100ML 100 ML IV SCH (23:39)
[2016-10-16 23:56] VITALS: BP 102/68; PULSE 80; TEMP 36; O2SAT 100
[2016-10-17] VITALS (8 sets, daily range): BP systolic 87–120; BP diastolic 49–72; PULSE 77–84; TEMP 36.4–37.1; O2SAT 90–98
[2016-10-17] MEDS: POTASSIUM CHLR 10 MEQ / WTR 10 MEQ in PREMIXED WATER 100 ML IV SCH ×3 (00:26→13:42)
[2016-10-17] MEDS: ONDANSETRON INJ 2 MG/ML 2 ML VIAL IV PRN (00:58)
[2016-10-17] MEDS ORDERED: NURSING VERBAL MED ORDER ONE ×2 (01:00→06:45)
[2016-10-17] MEDS ORDERED: ONDANSETRON INJ 2 MG/ML 2 ML VIAL IV PRN (01:15)
[2016-10-17] MEDS ORDERED: PROMETHAZINE HCL INJ 25 MG in SODIUM CHLORIDE 0.9% 50ML 50 ML IV PRN (01:15)
[2016-10-17 05:54] LABS: HEMATOCRIT 31.6 % (37-47); MEAN CELL VOLUME 79.2 fL (80-100); MEAN CORPUSCULAR HEMOGLOBIN 27.8 pg (25-34); MEAN CORPUSCULAR HGB CONC 35.1 g/dl (32-36); MEAN PLATELET VOLUME 9.3 fL (7.4-10.4); PLATELET COUNT 281 K/uL (130-400); RED BLOOD COUNT 3.99 M/uL (4.2-5.4); WHITE BLOOD COUNT 7.29 K/uL (4.8-10.8)
[2016-10-17] MEDS: LEVOTHYROXINE 100 MCG TAB PO SCH (05:54)
[2016-10-17] MEDS: SODIUM BICARBONATE 8.4% INJ 100 MEQ in SODIUM CHLORIDE 0.45% 1000ML 1,000 ML IV SCH (05:54)
[2016-10-17 06:26] LABS: BUN/CREATININE RATIO 26.2 (10-20); CALCIUM 6.2 mg/dl (8.5-10.1); CREATININE 1.4 mg/dl (0.60-1.20); POTASSIUM 2.8 mmol/L (3.5-5.1)
[2016-10-17] MEDS: POTASSIUM CHLR 10MEQ / WTR IV SCH ×5 (06:48→10:57)
[2016-10-17] MEDS: INSULIN ASPART 100 UNITS/ML 3 ML PEN SC SCH ×4 (07:00→21:06)
[2016-10-17 07:04] LABS: MAGNESIUM 0.7 mg/dl (1.8-2.4)
[2016-10-17] MEDS ORDERED: CALCIUM GLUCONATE 10% 1,000 MG in SODIUM CHLORIDE 0.9% 50ML 50 ML IV ONE ×4 (08:00→17:00)
[2016-10-17] MEDS: MAGNESIUM SULFATE 1GM / D5W 1 GM in PREMIXED IN D5W 100 ML IV SCH ×4 (08:17→16:28)
[2016-10-17] MEDS: PIPERACILL/TAZOBAC IV 3.375 GM in DEXTROSE 5% 100ML 100 ML IV SCH ×2 (08:22→15:10)
[2016-10-17] MEDS: HEPARIN SOD 5000 UNIT/0.5 ML CARP SQ SCH ×2 (08:25→09:00)
--- NOTE | 2016-10-17 08:45 | DIAGNOSTIC IMAGING REPORT ---
KUB CLINICAL HISTORY: Enteric tube placement. FINDINGS: An AP, portable, supine abdominal radiograph is correlated with abdominal CT dated 10/16/2016. An enteric tube projects below the diaphragm over the distal stomach. Distended and gas-filled loops of small bowel and colon are unchanged. Large nonobstructing right renal calculi are again noted. Cholecystectomy clips are observed. No evidence of intraperitoneal free air seen on this supine examination. The skeletal structures are osteopenic. Advanced lumbosacral spondylosis is observed. IMPRESSION: 1. An enteric tube has been placed. The tip projects over the distal stomach. 2. Gaseous distention of the small bowel and colon is unchanged from yesterday's CT scan. The appearance suggests ileus. Clinical correlation will be required. 3. Nonobstructing right renal calculi. Electronically signed by: Raymond Terrazas M.D. 10/17/2016 8:44 AM Dictated Date/Time: 10/17/2016 8:42 AM
[2016-10-17] MEDS ORDERED: MAGNESIUM SULFATE 1GM / D5W 1 GM in PREMIXED IN D5W 100 ML IV ONE (11:00)
[2016-10-17 12:58] LABS: BUN/CREATININE RATIO 23.5 (10-20); CALCIUM 6.6 mg/dl (8.5-10.1); CREATININE 1.7 mg/dl (0.60-1.20); MAGNESIUM 1.1 mg/dl (1.8-2.4); POTASSIUM 3.5 mmol/L (3.5-5.1)
[2016-10-17] MEDS ORDERED: VANCOMYCIN INJ 750 MG in SODIUM CHLORIDE 0.9% 250ML 250 ML IV ONE (14:00)
[2016-10-17] MEDS ORDERED: LEVOFLOXACIN / D5W 750 MG in PREMIXED IN D5W 150 ML IV SCH (14:15)
[2016-10-17] MEDS ORDERED: LEVOFLOXACIN CONSULT ACTIVE SCH (14:15)
--- NOTE | 2016-10-17 14:30 | Progress Note ---
Subjective Date of Service: Oct 17, 2016. Subjective Pt evaluation today including: conversation w/ patient, conversation w/ family (tried to call dtr - same as when dr johns tried last night - voicemail full can't leave message; was able to get voicemail at work # and left a " please call back" message but due to work # obviously could leave no details), physical exam, chart review, lab review, review of studies, conversation w/ sales enablement consultant, review of inpatient medication list notes that she's actually feeling relatively good. had diarrhea for about 1.5 days prior to admission. none today. had worse abdominal distention through the night so NGT placed - draining a good amount of fluid not bothering patient much. no f/c/s. no sob. prior labs reviewed - appears had an ongoing mildly hyperchloremic metabolic acidosis with renal insufficiency more often than not since ~mid august. based on lab review and frequency, it appears this was likely an issue being actively managed - do not have direct access to [facility] records - will ask for them to be sent, in order to know what diagnos(es) were being managed / worked up in this regard Problem List Medical Problems: (1) Anxiety Status: Acute (2) Back pain Status: Acute (3) Gastroenteritis Status: Acute (4) Hypokalemia Status: Acute (5) Intertriginous candidiasis Status: Acute (6) Right arm cellulitis Status: Acute Review of Systems all other ROS otherwise negative except for as above Objective Vital Signs Date Time Temp Pulse Resp B/P (MAP) Pulse Ox O2 Delivery O2 Flow Rate FiO2 10/17/16 12:00 Room Air 10/17/16 11:07 36.8 77 16 95/61 (72) 95 10/17/16 08:00 Room Air 10/17/16 07:17 36.4 84 20 120/72 (88) 90 Room Air 10/17/16 04:00 95 Room Air 10/17/16 03:46 36.5 81 18 95/59 (71) 98 Room Air 10/17/16 00:00 95 Room Air 10/16/16 23:56 36.0 80 18 102/68 (79) 100 Room Air 10/16/16 20:00 95 Room Air 10/16/16 20:00 36.8 111 24 102/65 (77) 95 Room Air 10/16/16 18:50 79 18 106/56 99 Room Air 10/16/16 17:46 97 Room Air 10/16/16 16:56 109/46 10/16/16 16:21 88 18 106/32 97 Room Air 10/16/16 15:29 36.5 79 18 103/51 99 Room Air 10/16/16 15:17 78 Physical Exam General Appearance: no apparent distress Eyes: EOMI ENT: hearing grossly normal, + pertinent finding (NGT in place w significant output no local breakdown) Neck: trachea midline Respiratory/Chest: lungs clear, normal breath sounds, no respiratory distress, no accessory muscle use Cardiovascular: regular rate, rhythm Abdomen: soft, + distended (moderately distended no pain no guarding/rebound) Extremities: normal range of motion, no pedal edema, no calf tenderness Neurologic/Psychiatric: hydrant setter II-XII nml as tested, alert, normal mood/affect, oriented x 3 (appearing oriented fairly well) Skin: normal color, warm/dry Laboratory Results Last 24 Hours Test 10/16/16 15:34 10/16/16 16:50 10/16/16 17:45 10/16/16 19:38 White Blood Count 14.65 K/uL Red Blood Count 4.68 M/uL Hemoglobin 12.4 g/dL Hematocrit 37.6 % Mean Corpuscular Volume 80.3 fL Mean Corpuscular Hemoglobin 26.5 pg Mean Corpuscular Hemoglobin Concent 33.0 g/dl Platelet Count 301 K/uL Mean Platelet Volume 8.9 fL Neutrophils (%) (Auto) 87.6 % Lymphocytes (%) (Auto) 7.4 % Monocytes (%) (Auto) 4.6 % Eosinophils (%) (Auto) 0.0 % Basophils (%) (Auto) 0.1 % Neutrophils # (Auto) 12.83 K/uL Lymphocytes # (Auto) 1.09 K/uL Monocytes # (Auto) 0.67 K/uL Eosinophils # (Auto) 0.00 K/uL Basophils # (Auto) 0.02 K/uL RDW Standard Deviation 52.1 fL RDW Coefficient of Variation 17.7 % Immature Granulocyte % (Auto) 0.3 % Immature Granulocyte # (Auto) 0.04 K/uL Anisocytosis PRESENT Echinocytes 2+ Prothrombin Time 14.6 SECONDS Prothromb Time International Ratio 1.3 Activated Partial Thromboplast Time 34.8 SECONDS Partial Thromboplastin Ratio 1.3 Sodium Level 139 mmol/L 141 mmol/L Potassium Level 3.2 mmol/L 3.0 mmol/L Chloride Level 108 mmol/L 113 mmol/L Carbon Dioxide Level 11 mmol/L 10 mmol/L Anion Gap 20.0 mmol/L 18.0 mmol/L Blood Urea Nitrogen 32 mg/dl 33 mg/dl Creatinine 1.60 mg/dl 1.30 mg/dl Est Creatinine Clear Calc Drug Dose 20.9 ml/min 25.7 ml/min Estimated GFR () 32.8 42.1 Estimated GFR (Non- 28.3 36.3 BUN/Creatinine Ratio 19.9 25.4 Random Glucose 245 mg/dl 254 mg/dl Calcium Level 7.6 mg/dl 6.4 mg/dl Total Bilirubin 1.3 mg/dl Direct Bilirubin 0.7 mg/dl Aspartate Amino Transf (AST/SGOT) 12 U/L Alanine Aminotransferase (ALT/SGPT) 14 U/L Alkaline Phosphatase 163 U/L Total Protein 7.2 gm/dl Albumin 2.4 gm/dl Lipase 38 U/L Venous Blood pH 7.27 Venous Blood Partial Pressure CO2 23 mmHg Venous Blood Partial Pressure O2 51 mmHg Venous Blood HCO3 10 meq/L Venous Blood Oxygen Saturation 81.1 % Venous Blood Base Excess -15.1 mmol/L Lactic Acid Level 1.5 mmol/L 1.5 mmol/L Urine Color DK YELLOW Urine Appearance TURBID Urine pH 5.0 Urine Specific [place] 1.042 Urine Protein TRACE Urine Glucose (UA) NEG Urine Ketones TRACE Urine Occult Blood 1+ Urine Nitrite NEG Urine Bilirubin NEG Urine Urobilinogen NEG Urine Leukocyte Esterase LARGE Urine WBC (Auto) >30 /hpf Urine RBC (Auto) 5-10 /hpf Urine Hyaline Casts (Auto) 1-5 /lpf Urine Epithelial Cells (Auto) >30 /lpf Urine Bacteria (Auto) 4+ Urine Pathogenic Casts /lpf Urine Yeast (Auto) Test 10/16/16 20:59 10/16/16 21:07 10/17/16 05:40 10/17/16 06:43 Bedside Glucose 276 mg/dl 142 mg/dl Arterial Blood pH 7.33 Arterial Blood Partial Pressure CO2 19 mmHg Arterial Blood Partial Pressure O2 108 mmHg Arterial Blood HCO3 10 mmol/L Arterial Blood Oxygen Saturation 98.0 % Arterial Blood Base Excess -14.1 mEq/L Arterial Blood Gas Delivery ROOM AIR James Test POS White Blood Count 7.29 K/uL Red Blood Count 3.99 M/uL Hemoglobin 11.1 g/dL Hematocrit 31.6 % Mean Corpuscular Volume 79.2 fL Mean Corpuscular Hemoglobin 27.8 pg Mean Corpuscular Hemoglobin Concent 35.1 g/dl RDW Standard Deviation 50.4 fL RDW Coefficient of Variation 17.4 % Platelet Count 281 K/uL Mean Platelet Volume 9.3 fL Sodium Level 143 mmol/L Potassium Level 2.8 mmol/L Chloride Level 115 mmol/L Carbon Dioxide Level 14 mmol/L Anion Gap 14.0 mmol/L Blood Urea Nitrogen 37 mg/dl Creatinine 1.40 mg/dl Est Creatinine Clear Calc Drug Dose 24.0 ml/min Estimated GFR () 38.5 Estimated GFR (Non- 33.2 BUN/Creatinine Ratio 26.2 Random Glucose 156 mg/dl Calcium Level 6.2 mg/dl Magnesium Level 0.7 mg/dl Random Vancomycin Level 17.9 mcg/ml Test 10/17/16 11:07 10/17/16 12:03 10/17/16 13:18 Bedside Glucose 195 mg/dl Hemoglobin 10.8 g/dL Sodium Level 142 mmol/L Potassium Level 3.5 mmol/L Chloride Level 110 mmol/L Carbon Dioxide Level 13 mmol/L Anion Gap 19.0 mmol/L Blood Urea Nitrogen 40 mg/dl Creatinine 1.70 mg/dl Est Creatinine Clear Calc Drug Dose 19.8 ml/min Estimated GFR () 30.5 Estimated GFR (Non- 26.3 BUN/Creatinine Ratio 23.5 Random Glucose 192 mg/dl Calcium Level 6.6 mg/dl Magnesium Level 1.1 mg/dl Lactic Acid Level 2.9 mmol/L Assessment and Plan diarrhea - now bloody -abrupt onset, no significant pain, (+) nausea/vomiting would beg infectious etiology -CT appearance of vasculopathy, blood at the end of the diarrhea begs ischemic -has since stopped -continue serial exams/serial labs. (as late addendum, 1p labs showed worsening renal insufficiency and lactic acidosis despite fluid/electrolyte resuscitation - because of concern on possible intraabdominal process fueling the illness, asked surgery to evaluate as well) -covering for infection or bacterial translocation from ischemia w abx CHENCHO/ARF on ?CKD with acute on subacute/chronic metabolic acidosis -difficult to tell baseline - creatinine normal in june, then july increased Cr became fairly persistent -possibly the subacute issue is clouding current acute clinical picture - ask for records -worse despite fluid resuscitation - further prompting surgical eval - burgeoning sepsis could absolutely appear this way -due to worsening - will double cover gram negatives with different mechanisms ( add levaquin to zosyn) hypokalemia/hypomagnesemia -almost certainly due to GI losses but fairly profound - supplement aggressively - unfortunately due to GI issues and NGT, will have to all be IV hypocalcemia -severe enough to be problematic/symptomatic - supplement as well -check vitamin D, assume will be low - once able to take PO would supplement this as well heme positive stools/anemia -no hemorrhage, showing hemodynamic stability overall -trend Hgb, type/screen to be safe -likely coming from the process causing #1 DVT proph -w heme positive stools of uncertain cause and high degree of frailty - pharmacologic strong relative contraindication at this time - follow Hgb/etc - if heme (+) stools end up not really being a marker of significant blood loss, can then start heparin SQ once it's clear bleedig is not an issue lactic acidosis -see above, ongoing fluid support, surgical eval out of concern this is coming from intraabdominal process, continue to trend chronic diastolic CHF -fortunately appearing compensated, continue to follow closely due to chronic diastolic CHF at baseline but acute need for fluid support UTI -doubt simple UTI/sepsis picture is the whole scenario, although possible. more likely UTI is smaller contributor or even possibly incidental finding. however, too ill to risk not treating -gram negative coverage as above. as improvement in intraabdominal situation ensues, could then streamline gram negative coverage based on urine culture sensitivities. hypothyroidism -synthroid. change to IV if not able to be advanced to PO by the end of 10/18 DM -sugars adequate given situation, continue to follow, continue insulin coverage Atrial fibrillation -rate controlled, she is not chronically anticoagulated foot wound and buttocks wounds -wound consult
[2016-10-17] MEDS ORDERED: LEVOFLOXACIN 750MG / D5W IV SCH (15:00)
[2016-10-17] MEDS: NSS + 20MEQ KCL 1000ML 1,000 ML IV SCH (15:11)
[2016-10-17] MEDS: LEVOFLOXACIN 750MG / D5W IV SCH (15:26)
[2016-10-17] MEDS ORDERED: VANCOMYCIN HCL 250 MG/5 ML SOLN PO ONE (15:44)
[2016-10-17 16:07] LABS: HEMATOCRIT 29.7 % (37-47); MEAN CELL VOLUME 77.3 fL (80-100); MEAN CORPUSCULAR HEMOGLOBIN 25.3 pg (25-34); MEAN CORPUSCULAR HGB CONC 32.7 g/dl (32-36); MEAN PLATELET VOLUME 9.1 fL (7.4-10.4); PLATELET COUNT 272 K/uL (130-400); RED BLOOD COUNT 3.84 M/uL (4.2-5.4); WHITE BLOOD COUNT 11.65 K/uL (4.8-10.8)
[2016-10-17 16:23] LABS: BUN/CREATININE RATIO 22.3 (10-20); CALCIUM 6.7 mg/dl (8.5-10.1); CREATININE 1.8 mg/dl (0.60-1.20); POTASSIUM 3.6 mmol/L (3.5-5.1)
[2016-10-17 16:35] LABS: BASOPHIL % 0.9 %; COMPLETE YES; ECHINOCYTES 1+; LYMPH ABS # 2.43 K/uL (1.2-3.4); LYMPHOCYTE % 20.9 %; NEUTROPHILS % 73.9 %
[2016-10-17] MEDS: RASPBERRY SYRUP 5 ML UDP PO SCH ×3 (17:00→21:03)
[2016-10-17] MEDS ORDERED: SODIUM CHLORIDE 0.9% 500ML 500 ML IV SCH (17:30)
[2016-10-17] MEDS: VANCOMYCIN HCL 250 MG/5 ML SOLN PO SCH ×2 (17:40→21:03)
--- NOTE | 2016-10-17 20:24 | Surgery Consultation ---
Consultation Date of Consultation: Oct 17, 2016. Attending Physician: Juan Valles D.O. Reason for Consultation: Abdominal distension and acidosis History of Present Illness Micrometastases this 89-year-old female who presented to the emergency room from [facility] with a complaint of vomiting, diarrhea and nausea. She had multiple episodes of watery diarrhea over the last 24 hours. She was a poor historian and much of the history is obtained from the chart. Upon arrival she was found to be acidotic that was felt to be milked metabolic in nature. Her abdomen was distended mildly. She was not complaining of abdominal pain at that time however. He was admitted for antibiotics and resuscitation. Past Medical/Surgical History Medical Problems: (1) Anxiety Status: Acute (2) Back pain Status: Acute (3) Gastroenteritis Status: Acute (4) Hypokalemia Status: Acute (5) Intertriginous candidiasis Status: Acute (6) Right arm cellulitis Status: Acute PMH: A fib HTN DM GERD Breast cancer PSH: Appendectomy Partial mastectomy Cholecystectomy Family History No pertinent family history Social History Smoking Status: Never Smoker Drug Use: none Marital Status: Housing Status: lives alone Occupation Status: retired Allergies Coded Allergies: No Known Allergies (Verified , 10/16/16) Home Medications Scheduled Atenolol (Tenormin), 25 MG PO DAILY Atorvastatin (Lipitor), 20 MG PO HS Cholecalciferol (Vitamin D), 1,000 UNITS PO QAM Ferrous Sulfate (Kp Ferrous Sulfate), 1 TAB PO BID Furosemide (Lasix), 10 MG PO QAM Glipizide (Glucotrol), 10 MG PO BID Levothyroxine Sodium (Synthroid), 1 TAB PO QAM Lisinopril (Lisinopril), 5 MG PO QAM Lisinopril (Zestril), 5 MG PO QAM Omeprazole (Omeprazole), 20 MG PO DAILY Potassium Chloride (K-Tabs), 10 MEQ PO DAILY Sitagliptin Phosphate (Januvia), 100 MG PO HS [House Protein Liquid], 30 ML PO DAILY Scheduled PRN Acetaminophen (Tylenol), 650 MG PO Q6H PRN for Pain or Fever Ondansetron Hcl (Zofran), 8 MG PO Q8 PRN for Nausea or Vomiting Simethicone (Bicarsim), 80 MG PO PC PRN for Gas or Constipation Simethicone (Bicarsim), 80 MG PO HS PRN for Gas or Constipation Current Inpatient Medications Current Inpatient Medications Medications (Trade) Dose Ordered Sig/Susana Route Start Time Stop Time Status Last Admin Dose Admin Ioversol (Optiray 320) 116 ml UD PRN IV 10/16/16 16:45 10/20/16 16:44 Levothyroxine Sodium (Synthroid Tab) 100 mcg DAILYBB PO 10/17/16 06:00 11/16/16 06:59 Heparin Sodium (Porcine) (Heparin Sq 5000 Unit/0.5ml) 5,000 unit Q12 SQ 10/16/16 21:00 11/15/16 20:59 Future Hold 10/16/16 21:41 5,000 UNIT Acetaminophen (Tylenol Tab) 650 mg Q4H PRN PO 10/16/16 18:00 11/15/16 17:59 Al Hydrox/Mg Hydrox/Simethicone (Maalox Max Susp) 15 ml Q4H PRN PO 10/16/16 18:00 11/15/16 17:59 Vancomycin HCl (Consult) 1 ea UD PRN N/A 10/16/16 18:09 11/15/16 18:08 Piperacillin Sod/ Tazobactam Sod 3.375 gm/Dextrose 115 ml @ 28.75 mls/ hr Q8H IV 10/17/16 00:00 10/26/16 17:59 10/17/16 15:10 28.75 MLS/HR Piperacillin Sod/ Tazobactam Sod (Consult) 1 ea UD PRN N/A 10/16/16 18:15 11/15/16 18:14 Insulin Aspart (novoLOG ASPART) SLIDING SCALE PARAMETER ACHS SC 10/16/16 21:00 11/15/16 20:59 10/17/16 11:53 2 UNITS Ondansetron HCl (Zofran Inj) 4 mg Q6H PRN IV 10/17/16 01:15 11/16/16 01:14 Promethazine HCl 25 mg/Sodium Chloride 51 ml @ 204 mls/hr Q6H PRN IV 10/17/16 01:15 11/16/16 01:14 10/17/16 01:40 204 MLS/HR Levofloxacin (Consult) 1 ea UD N/A 10/17/16 14:15 8/1/17 14:14 Potassium Chloride/Sodium Chloride 1,000 ml @ 100 mls/hr Q10H IV 10/17/16 15:00 11/16/16 14:59 10/17/16 15:11 100 MLS/HR Levofloxacin 750 mg/Prmx 150 ml @ 100 mls/hr Q2D@1500 IV 10/17/16 15:00 10/27/16 14:59 10/17/16 15:26 100 MLS/HR Vancomycin HCl (Vancomycin Oral Soln) 250 mg QID PO 10/17/16 17:00 10/31/16 16:59 10/17/16 17:40 250 MG Raspberry (Raspberry Syrup 5ml Cup) 5 ml QID PO 10/17/16 15:44 10/31/16 15:43 10/17/16 17:00 5 ML Review of Systems Constitutional: No fever Cardiovascular: No chest pain Abdomen: + problem reported (as per HPI) Genitourinary - Female: + problem reported (as per HPI) Physical Exam Date Time Temp Pulse Resp B/P (MAP) Pulse Ox O2 Delivery O2 Flow Rate FiO2 10/17/16 18:56 36.4 78 20 116/56 (76) 98 Room Air 10/17/16 16:00 Room Air 10/17/16 15:15 37.1 81 20 87/49 (62) 97 Room Air 98/63 (75) 10/17/16 12:00 Room Air 10/17/16 11:07 36.8 77 16 95/61 (72) 95 10/17/16 08:00 Room Air 10/17/16 07:17 36.4 84 20 120/72 (88) 90 Room Air 10/17/16 04:00 95 Room Air 10/17/16 03:46 36.5 81 18 95/59 (71) 98 Room Air 10/17/16 00:00 95 Room Air 10/16/16 23:56 36.0 80 18 102/68 (79) 100 Room Air General Appearance: WD/WN Head: normocephalic Neck: supple Respiratory/Chest: chest non-tender, lungs clear Cardiovascular: regular rate, rhythm Abdomen/GI: normal bowel sounds, soft, + tenderness (mild), + distended (mild) Back: normal inspection Extremities/Musculoskelatal: normal inspection Laboratory Results Last 24 Hours Test 10/16/16 20:59 10/16/16 21:07 10/17/16 05:40 10/17/16 06:43 Bedside Glucose 276 mg/dl 142 mg/dl Arterial Blood pH 7.33 Arterial Blood Partial Pressure CO2 19 mmHg Arterial Blood Partial Pressure O2 108 mmHg Arterial Blood HCO3 10 mmol/L Arterial Blood Oxygen Saturation 98.0 % Arterial Blood Base Excess -14.1 mEq/L Arterial Blood Gas Delivery ROOM AIR James Test POS White Blood Count 7.29 K/uL Red Blood Count 3.99 M/uL Hemoglobin 11.1 g/dL Hematocrit 31.6 % Mean Corpuscular Volume 79.2 fL Mean Corpuscular Hemoglobin 27.8 pg Mean Corpuscular Hemoglobin Concent 35.1 g/dl RDW Standard Deviation 50.4 fL RDW Coefficient of Variation 17.4 % Platelet Count 281 K/uL Mean Platelet Volume 9.3 fL Sodium Level 143 mmol/L Potassium Level 2.8 mmol/L Chloride Level 115 mmol/L Carbon Dioxide Level 14 mmol/L Anion Gap 14.0 mmol/L Blood Urea Nitrogen 37 mg/dl Creatinine 1.40 mg/dl Est Creatinine Clear Calc Drug Dose 24.0 ml/min Estimated GFR () 38.5 Estimated GFR (Non- 33.2 BUN/Creatinine Ratio 26.2 Random Glucose 156 mg/dl Calcium Level 6.2 mg/dl Magnesium Level 0.7 mg/dl Random Vancomycin Level 17.9 mcg/ml Test 10/17/16 11:07 10/17/16 12:03 10/17/16 13:18 10/17/16 16:00 Bedside Glucose 195 mg/dl Hemoglobin 10.8 g/dL 9.7 g/dL Sodium Level 142 mmol/L 141 mmol/L Potassium Level 3.5 mmol/L 3.6 mmol/L Chloride Level 110 mmol/L 110 mmol/L Carbon Dioxide Level 13 mmol/L 14 mmol/L Anion Gap 19.0 mmol/L 17.0 mmol/L Blood Urea Nitrogen 40 mg/dl 40 mg/dl Creatinine 1.70 mg/dl 1.80 mg/dl Est Creatinine Clear Calc Drug Dose 19.8 ml/min 18.7 ml/min Estimated GFR () 30.5 28.4 Estimated GFR (Non- 26.3 24.5 BUN/Creatinine Ratio 23.5 22.3 Random Glucose 192 mg/dl 201 mg/dl Calcium Level 6.6 mg/dl 6.7 mg/dl Magnesium Level 1.1 mg/dl Lactic Acid Level 2.9 mmol/L 1.7 mmol/L White Blood Count 11.65 K/uL Red Blood Count 3.84 M/uL Hematocrit 29.7 % Mean Corpuscular Volume 77.3 fL Mean Corpuscular Hemoglobin 25.3 pg Mean Corpuscular Hemoglobin Concent 32.7 g/dl Platelet Count 272 K/uL Mean Platelet Volume 9.1 fL RDW Standard Deviation 50.0 fL RDW Coefficient of Variation 17.6 % Neutrophils % (Manual) 73.9 % Lymphocytes % (Manual) 20.9 % Monocytes % (Manual) 4.3 % Basophils % (Manual) 0.9 % Neutrophils # (Manual) 8.61 K/uL Total Absolute Neutrophils 8.61 K/uL Lymphocytes # (Manual) 2.43 K/uL Total Absolute Lymphocytes 2.43 K/uL Monocytes # (Manual) 0.50 K/uL Basophils # (Manual) 0.10 K/uL Echinocytes 1+ Test 10/17/16 16:25 10/17/16 20:00 Bedside Glucose 218 mg/dl CDIFF TOXIN B GENE*(2 YR OR >) Final 10/17/16-153 Positive for C. difficile toxin B gene CT of abdomen and pelvis: The appearance suggests an ileus. A distal rectal obstruction is considered less likely but could have a similar appearance. Discussed with Dr. Fisher at time of dictation. Electronically signed by: Dipak Anthony M.D. 10/16/2016 5:10 PM Dictated Date/Time: 10/16/2016 5:[address] OF THE ABDOMEN AND PELVIS WITH CONTRAST CLINICAL HISTORY: Abdominal pain, vomiting and diarrhea. COMPARISON STUDY: CT of the abdomen and pelvis November 26, 2015. TECHNIQUE: Following IV administration of 115 mL of Optiray-320, axial images of the abdomen and pelvis were obtained from the lung bases to the proximal femurs. Images were reviewed in the axial, sagittal, and coronal planes. IV contrast was administered without complication. CT DOSE: 751.32 mGy.cm FINDINGS: Visualized portions of the lower chest demonstrate moderate cardiomegaly. There is no pneumatosis, free air or portal venous gas. There is no biliary ductal dilatation status post cholecystectomy. The liver, spleen, adrenal glands, left kidney and pancreas are unremarkable. Several large right renal calculi measure up to 2.6 cm. Mild dilatation of the upper aspect of the right renal collecting system is unchanged. There is marked right renal atrophy. There are no ureteral calculi. There is no left hydronephrosis. The small and large bowel are fluid-filled and moderately dilated. Dilatation is noted to the level the rectum. There is no transition point. There is no abscess. No lymphadenopathy is present. There is extensive atherosclerotic plaque of the abdominal aorta. Evaluation of the branch vessels is suboptimal on this non-CTA exam but there is suspected moderate narrowing of the origin of the celiac axis with diminished contrast within the proximal SMA which could reflect high-grade stenosis or occlusion with distal reconstitution. The inferior mesenteric artery is patent. 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 A fat-containing umbilical hernia is noted. A fat-containing left groin hernia. There are no suspicious osseous lesions. A moderate sized hiatal hernia is noted. IMPRESSION: 1. Moderately dilated, fluid-filled small and large bowel, dilated to the level of the anus. The findings suggest a diarrheal state. No transition point to suggest obstruction. No bowel wall thickening. Mildly distended, fluid-filled stomach. Close clinical monitoring is recommended. 2. Extensive atherosclerotic plaque of the abdominal aorta. The branch vessels are suboptimally assessed on this non-CTA exam but there is suspected severe stenosis versus occlusion with distal reconstitution of the proximal SMA with mild to moderate stenosis at the origin the celiac axis. Patent SCARLETT. 3. Large right renal calculus. Marked right renal atrophy. No ureteral calculus. 4. Moderate sized hiatal hernia. 5. Bladder wall thickening accentuated by underdistention. Assessment & Plan Most likely etiology for the patient's abdominal pain distention and diarrhea and C. difficile. She is now on oral Maxi for that. The etiology of the acidosis may be related to that as well. There was no pneumatosis seen. Ischemic bowel is not completely ruled out but she is not having abdominal pain or an exam that is commensurate with that. Her last lactic acid had decreased to 2.6. I I agree with the antibiotic choices. I agree with keeping her nothing by mouth and treating this conservatively at first. The patient is unsure as to whether or not she would want surgery. She wanted to discuss that with her daughter. There is no evidence of an acute indication for surgical intervention at this time. Thank you for allowing me to see this patient participate in her care. We will follow with you.
[2016-10-17] MEDS ORDERED: ALBUMIN HUMAN 25% 12.5 GM/50 ML VIAL IV ONE (22:15)
[2016-10-17 22:23] LABS: MAGNESIUM 1.6 mg/dl (1.8-2.4)
[2016-10-18] VITALS (9 sets, daily range): BP systolic 82–109; BP diastolic 45–69; PULSE 72–79; TEMP 36.1–36.8; O2SAT 96–100
[2016-10-18] MEDS: PIPERACILL/TAZOBAC IV 3.375 GM in DEXTROSE 5% 100ML 100 ML IV SCH ×2 (00:21→08:37)
[2016-10-18] MEDS: NSS + 20MEQ KCL 1000ML 1,000 ML IV SCH ×2 (00:28→11:30)
[2016-10-18] MEDS ORDERED: NURSING VERBAL MED ORDER ONE (05:00)
[2016-10-18] MEDS ORDERED: SODIUM CHLORIDE 0.9% 500ML 500 ML IV ONE (05:15)
[2016-10-18] MEDS: LEVOTHYROXINE 100 MCG TAB PO SCH (06:24)
[2016-10-18] MEDS: INSULIN ASPART 100 UNITS/ML 3 ML PEN SC SCH ×4 (07:00→21:00)
--- NOTE | 2016-10-18 07:10 | DIAGNOSTIC IMAGING REPORT ---
KUB CLINICAL HISTORY: NG placement tube position COMPARISON STUDY: 10/17/2016 FINDINGS: Nasogastric tube most likely at and are slightly distal to the gastroesophageal junction. This should be advanced. Bowel pattern continues to show several distended loops of small bowel. Partial bowel obstructive change must be considered. Right renal calcifications are unchanged. IMPRESSION: Naso-gastric tube at or intermediately distal to the gastroesophageal junction. This should be advanced. Partial small bowel obstruction radiographically Electronically signed by: Antoine Sigala M.D. 10/18/2016 7:09 AM Dictated Date/Time: 10/18/2016 7:07 AM
[2016-10-18] MEDS: RASPBERRY SYRUP 5 ML UDP PO SCH ×4 (08:37→20:29)
[2016-10-18] MEDS: VANCOMYCIN HCL 250 MG/5 ML SOLN PO SCH ×4 (08:37→20:29)
[2016-10-18 09:11] LABS: BASO % 0.1 %; BASO ABS # 0.01 K/uL (0-0.2); COMPLETE YES; EOS % 1.4 %; HEMATOCRIT 28.1 % (37-47); IG% 0.4 %; LYMPH % 22.1 %; LYMPH ABS # 1.86 K/uL (1.2-3.4); MEAN CELL VOLUME 78.3 fL (80-100); MEAN CORPUSCULAR HEMOGLOBIN 26.2 pg (25-34); MEAN CORPUSCULAR HGB CONC 33.5 g/dl (32-36); MONO % 5.5 %; NEUT % 70.5 %; PLATELET COUNT 226 K/uL (130-400); RED BLOOD COUNT 3.59 M/uL (4.2-5.4)
[2016-10-18 09:28] LABS: BUN/CREATININE RATIO 19.5 (10-20); CREATININE 2.1 mg/dl (0.60-1.20); MAGNESIUM 1.8 mg/dl (1.8-2.4); POTASSIUM 3.5 mmol/L (3.5-5.1)
[2016-10-18] MEDS ORDERED: VANCOMYCIN INJ 1,000 MG in SODIUM CHLORIDE 0.9% 250ML 250 ML IV SCH (10:30)
[2016-10-18] MEDS ORDERED: MAGNESIUM SULFATE 1GM / D5W 1 GM in PREMIXED IN D5W 100 ML IV ONE (11:45)
[2016-10-18] MEDS: POTASSIUM CHLR 10 MEQ / WTR 10 MEQ in PREMIXED WATER 100 ML IV SCH ×2 (12:59→14:40)
[2016-10-18] MEDS: METRONIDAZOLE / NSS 500 MG in PREMIXED NSS 100 ML IV SCH ×2 (12:59→20:12)
--- NOTE | 2016-10-18 13:26 | Surgery Progress Note ---
Surgery Progress Note Date of Service Oct 18, 2016. Subjective Post OP Day: HD #2 "thought I was going to last night" Feeling better today, no abdominal pain, no nausea or vomiting Per nursing staff, having black/bright red bloody bowel movements NGT needs advanced per KUB Objective Vital Signs: Date Time Temp Pulse Resp B/P (MAP) Pulse Ox O2 Delivery O2 Flow Rate FiO2 10/18/16 11:19 36.1 77 20 105/65 (78) 100 Room Air 10/18/16 07:13 36.3 79 20 99/62 (74) 97 Room Air 10/18/16 05:51 91/57 (68) 10/18/16 04:00 36.7 24 82/50 (61) 96 Room Air 92/61 (71) 10/18/16 04:00 96 Room Air 10/18/16 00:00 97 Room Air 10/18/16 00:00 36.7 78 24 96/58 (71) 97 Room Air 10/17/16 20:00 98 Room Air 10/17/16 18:56 36.4 78 20 116/56 (76) 98 Room Air 10/17/16 16:00 Room Air 10/17/16 15:15 37.1 81 20 87/49 (62) 97 Room Air 98/63 (75) Physical Exam: nasogastric drainage (bilious) General Appearance: no apparent distress, + obese Head: normocephalic, atraumatic Neck: trachea midline Respiratory/Chest: normal breath sounds, no respiratory distress, no accessory muscle use Cardiovascular: regular rate, rhythm, no murmur Abdomen: non tender, soft, no organomegaly, no pulsatile mass, + distended Laboratory Results: Results Past 24 Hours Test 10/17/16 16:00 10/17/16 16:25 10/17/16 20:10 10/17/16 20:17 Range/Units White Blood Count 11.65 4.8-10.8 K/uL Red Blood Count 3.84 4.2-5.4 M/uL Hemoglobin 9.7 10.8 12.0-16.0 g/dL Hematocrit 29.7 37-47 % Mean Corpuscular Volume 77.3 80-100 fL Mean Corpuscular Hemoglobin 25.3 25-34 pg Mean Corpuscular Hemoglobin Concent 32.7 32-36 g/dl Platelet Count 272 130-400 K/uL Mean Platelet Volume 9.1 7.4-10.4 fL RDW Standard Deviation 50.0 36.4-46.3 fL RDW Coefficient of Variation 17.6 11.5-14.5 % Neutrophils % (Manual) 73.9 % Lymphocytes % (Manual) 20.9 % Monocytes % (Manual) 4.3 % Basophils % (Manual) 0.9 % Neutrophils # (Manual) 8.61 1.4-6.5 K/uL Total Absolute Neutrophils 8.61 1.4-6.5 K/uL Lymphocytes # (Manual) 2.43 1.2-3.4 K/uL Total Absolute Lymphocytes 2.43 1.2-3.4 K/uL Monocytes # (Manual) 0.50 0.11-0.59 K/uL Basophils # (Manual) 0.10 0-0.2 K/uL Echinocytes 1+ Sodium Level 141 136-145 mmol/L Potassium Level 3.6 3.5-5.1 mmol/L Chloride Level 110 98-107 mmol/L Carbon Dioxide Level 14 21-32 mmol/L Anion Gap 17.0 3-11 mmol/L Blood Urea Nitrogen 40 7-18 mg/dl Creatinine 1.80 0.60-1.20 mg/dl Est Creatinine Clear Calc Drug Dose 18.7 ml/min Estimated GFR () 28.4 Estimated GFR (Non- 24.5 BUN/Creatinine Ratio 22.3 10-20 Random Glucose 201 70-99 mg/dl Lactic Acid Level 1.7 0.4-2.0 mmol/L Calcium Level 6.7 8.5-10.1 mg/dl Magnesium Level 1.6 1.8-2.4 mg/dl Bedside Glucose 218 204 70-90 mg/dl Test 10/18/16 07:06 10/18/16 08:44 10/18/16 11:15 Range/Units Bedside Glucose 110 112 70-90 mg/dl White Blood Count 8.40 4.8-10.8 K/uL Red Blood Count 3.59 4.2-5.4 M/uL Hemoglobin 9.4 12.0-16.0 g/dL Hematocrit 28.1 37-47 % Mean Corpuscular Volume 78.3 80-100 fL Mean Corpuscular Hemoglobin 26.2 25-34 pg Mean Corpuscular Hemoglobin Concent 33.5 32-36 g/dl Platelet Count 226 130-400 K/uL Mean Platelet Volume 9.0 7.4-10.4 fL Neutrophils (%) (Auto) 70.5 % Lymphocytes (%) (Auto) 22.1 % Monocytes (%) (Auto) 5.5 % Eosinophils (%) (Auto) 1.4 % Basophils (%) (Auto) 0.1 % Neutrophils # (Auto) 5.92 1.4-6.5 K/uL Lymphocytes # (Auto) 1.86 1.2-3.4 K/uL Monocytes # (Auto) 0.46 0.11-0.59 K/uL Eosinophils # (Auto) 0.12 0-0.5 K/uL Basophils # (Auto) 0.01 0-0.2 K/uL RDW Standard Deviation 51.5 36.4-46.3 fL RDW Coefficient of Variation 17.8 11.5-14.5 % Immature Granulocyte % (Auto) 0.4 % Immature Granulocyte # (Auto) 0.03 0.00-0.02 K/uL Sodium Level 141 136-145 mmol/L Potassium Level 3.5 3.5-5.1 mmol/L Chloride Level 113 98-107 mmol/L Carbon Dioxide Level 14 21-32 mmol/L Anion Gap 14.0 3-11 mmol/L Blood Urea Nitrogen 41 7-18 mg/dl Creatinine 2.10 0.60-1.20 mg/dl Est Creatinine Clear Calc Drug Dose 16.3 ml/min Estimated GFR () 23.6 Estimated GFR (Non- 20.4 BUN/Creatinine Ratio 19.5 10-20 Random Glucose 94 70-99 mg/dl Calcium Level 7.0 8.5-10.1 mg/dl Magnesium Level 1.8 1.8-2.4 mg/dl Random Vancomycin Level 17.9 mcg/ml Assessment & Plan C. Diff Colitis - No leukocytosis - abdomen soft, slightly distended, no peritonitis, rigidity, or guarding - NGT with 200 cc output, bilious, needs advanced - + Rectal bleeding - No abdominal pain - tolerating oral vancomycin - H&H stable Plan: Continue Oral and IV vancomycin, continue IV Flagyl Continue IV fluids Continue NPO and NGT to LIS Continue pain management as needed repeat am labs continue current medical management no surgical indication at this time will continue to monitor Dr. Medellin has seen and examined patient agrees with above
--- NOTE | 2016-10-18 14:33 | Nephrology Consultation ---
Nephrology Consultation Date & Providers Date of Consultation: Oct 18, 2016. Primary Care Provider: Jaky Siddiqi Referring Provider: Reason for Consultation Evaluation and management for acute kidney injury. History of Present Illness Diana is a 89-year-old female with past medical history significant for stage 3 chronic kidney disease, hypertension, diabetes admitted to the hospital with them C diff colitis and partial small bowel obstruction. Nephrologic consult was requested to manage acute kidney injury. Electronic medical records including labs and imaging are reviewed in detail during patient's visit. Diana has said baseline stage IIIA chronic kidney disease, baseline creatinine has been around 0.9-1.3. She was admitted to the hospital on 2016 with a 2 days history of nausea, vomiting, diarrhea and abdominal distention. CT abdomen without contrast showed partial small-bowel obstruction , C diff toxin assay was positive. Urine culture was positive for urinary tract infection with E coli. Currently she is on oral and IV vancomycin and Zosyn. Vancomycin trough level has been therapeutic. She has NG tube placed. overall feeling better. Creatinine was 1.6 on admission which has been slowly worsening, 2.1 this morning and current GFR around 20. She is found to have high anion gap metabolic acidosis and hypocalcemia. lactate was mildly elevated at 2.7 which improved. she has a Rose catheter and urine output has decreased over last 2 days. urinalysis was positive for trace proteinuria, has them pyuria and bacteriuria. She has been hypotensive throughout hospital course with this repeated systolic blood pressure in high 80s to 90s. Currently denies any shortness of breath or chest pain, her oxygen saturation above 90s in room air. No history of congestive heart failure. Allergies Coded Allergies: No Known Allergies (Verified , 10/16/16) Inpatient Medications Current Inpatient Medications Medications (Trade) Dose Ordered Sig/Susana Route Start Time Stop Time Status Last Admin Dose Admin Ioversol (Optiray 320) 116 ml UD PRN IV 10/16/16 16:45 10/20/16 16:44 Levothyroxine Sodium (Synthroid Tab) 100 mcg DAILYBB PO 10/17/16 06:00 11/16/16 06:59 10/18/16 06:24 100 MCG Heparin Sodium (Porcine) (Heparin Sq 5000 Unit/0.5ml) 5,000 unit Q12 SQ 10/16/16 21:00 11/15/16 20:59 Future Hold 10/16/16 21:41 5,000 UNIT Acetaminophen (Tylenol Tab) 650 mg Q4H PRN PO 10/16/16 18:00 11/15/16 17:59 Al Hydrox/Mg Hydrox/Simethicone (Maalox Max Susp) 15 ml Q4H PRN PO 10/16/16 18:00 11/15/16 17:59 Vancomycin HCl (Consult) 1 UD PRN N/A 10/16/16 18:09 11/15/16 18:08 Piperacillin Sod/ Tazobactam Sod 3.375 gm/Dextrose 115 ml @ 28.75 mls/ hr Q8H IV 10/17/16 00:00 10/26/16 17:59 10/18/16 08:37 28.75 MLS/HR Piperacillin Sod/ Tazobactam Sod (Consult) 1 [facility] PRN N/A 10/16/16 18:15 11/15/16 18:14 Insulin Aspart (novoLOG ASPART) SLIDING SCALE PARAMETER ACHS SC 10/16/16 21:00 11/15/16 20:59 10/17/16 21:06 3 UNITS Ondansetron HCl (Zofran Inj) 4 mg Q6H PRN IV 10/17/16 01:15 11/16/16 01:14 Promethazine HCl 25 mg/Sodium Chloride 51 ml @ 204 mls/hr Q6H PRN IV 10/17/16 01:15 11/16/16 01:14 10/17/16 01:40 204 MLS/HR Levofloxacin (Consult) 1 [facility] N/A 10/17/16 14:15 11/16/16 14:14 Potassium Chloride/Sodium Chloride 1,000 ml @ 125 mls/hr Q8H IV 10/17/16 15:00 11/16/16 14:59 10/18/16 11:30 100 MLS/HR Levofloxacin 750 mg/Prmx 150 ml @ 100 mls/hr Q2D@1500 IV 10/17/16 15:00 10/27/16 14:59 10/17/16 15:26 100 MLS/HR Vancomycin HCl (Vancomycin Oral Soln) 250 mg QID PO 10/17/16 17:00 10/31/16 16:59 10/18/16 13:00 250 MG Raspberry (Raspberry Syrup 5ml Cup) 5 ml QID PO 10/17/16 15:44 10/31/16 15:43 10/18/16 13:00 5 ML Potassium Chloride 10 meq/ Prmx 100 ml @ 100 mls/hr Q1H IV 10/18/16 13:00 10/18/16 14:59 10/18/16 12:59 100 MLS/HR Metronidazole 500 mg/Prmx 100 ml @ 100 mls/hr Q8H IV 10/18/16 12:00 11/01/16 11:59 10/18/16 12:59 100 MLS/HR Family History No pertinent family history Social History Smoking Status: Never Smoker Drug Use: none Marital Status: Housing Status: lives alone, other Occupation: retired Review of Systems A complete review of systems was performed. Pertinent positives are noted above. All other systems are negative. Physical Exam Date Time Temp Pulse Resp B/P (MAP) Pulse Ox O2 Delivery O2 Flow Rate FiO2 10/18/16 11:19 36.1 77 20 105/65 (78) 100 Room Air 10/18/16 07:13 36.3 79 20 99/62 (74) 97 Room Air 10/18/16 05:51 91/57 (68) 10/18/16 04:00 36.7 24 82/50 (61) 96 Room Air 92/61 (71) 10/18/16 04:00 96 Room Air 10/18/16 00:00 97 Room Air 10/18/16 00:00 36.7 78 24 96/58 (71) 97 Room Air 10/17/16 20:00 98 Room Air 10/17/16 18:56 36.4 78 20 116/56 (76) 98 Room Air 10/17/16 16:00 Room Air 10/17/16 15:15 37.1 81 20 87/49 (62) 97 Room Air 98/63 (75) GENERAL: Elderly female, AAA x 3, pleasant, healthy-appearing, not in any distress. HEENT: Atraumatic, normocephalic. NG tube in place NECK: Supple, no JVD, no carotid bruit appreciated. ENT: No sinus tenderness MOUTH and THROAT: Moist oral mucosa, no oral ulcer or pharyngeal erythema RESPIRATORY: Normal breathing efforts, no accessory muscle use, clear to auscultation bilaterally, no wheezes or rales. CARDIOVASCULAR: S1, S2 normal, rate rhythm regular. ABDOMEN: Soft, nontender, positive bowel sound. No distention, guarding or rigidity MUSCULOSKELETAL: No joint swelling, erythema or tenderness. Normal range of motion. SKIN: No skin rash EXTREMITY: No lower extremity edema NEURO: No gross focal neurological deficit, speech fluent. PSYCHIATRY: Normal mood and judgment Laboratory Results Last 24 Hours Test 10/17/16 16:00 10/17/16 16:25 10/17/16 20:10 10/17/16 20:17 White Blood Count 11.65 K/uL Red Blood Count 3.84 M/uL Hemoglobin 9.7 g/dL 10.8 g/dL Hematocrit 29.7 % Mean Corpuscular Volume 77.3 fL Mean Corpuscular Hemoglobin 25.3 pg Mean Corpuscular Hemoglobin Concent 32.7 g/dl Platelet Count 272 K/uL Mean Platelet Volume 9.1 fL RDW Standard Deviation 50.0 fL RDW Coefficient of Variation 17.6 % Neutrophils % (Manual) 73.9 % Lymphocytes % (Manual) 20.9 % Monocytes % (Manual) 4.3 % Basophils % (Manual) 0.9 % Neutrophils # (Manual) 8.61 K/uL Total Absolute Neutrophils 8.61 K/uL Lymphocytes # (Manual) 2.43 K/uL Total Absolute Lymphocytes 2.43 K/uL Monocytes # (Manual) 0.50 K/uL Basophils # (Manual) 0.10 K/uL Echinocytes 1+ Sodium Level 141 mmol/L Potassium Level 3.6 mmol/L Chloride Level 110 mmol/L Carbon Dioxide Level 14 mmol/L Anion Gap 17.0 mmol/L Blood Urea Nitrogen 40 mg/dl Creatinine 1.80 mg/dl Est Creatinine Clear Calc Drug Dose 18.7 ml/min Estimated GFR () 28.4 Estimated GFR (Non- 24.5 BUN/Creatinine Ratio 22.3 Random Glucose 201 mg/dl Lactic Acid Level 1.7 mmol/L Calcium Level 6.7 mg/dl Magnesium Level 1.6 mg/dl Bedside Glucose 218 mg/dl 204 mg/dl Test 10/18/16 07:06 10/18/16 08:44 10/18/16 11:15 10/18/16 13:11 Bedside Glucose 110 mg/dl 112 mg/dl White Blood Count 8.40 K/uL Red Blood Count 3.59 M/uL Hemoglobin 9.4 g/dL Hematocrit 28.1 % Mean Corpuscular Volume 78.3 fL Mean Corpuscular Hemoglobin 26.2 pg Mean Corpuscular Hemoglobin Concent 33.5 g/dl Platelet Count 226 K/uL Mean Platelet Volume 9.0 fL Neutrophils (%) (Auto) 70.5 % Lymphocytes (%) (Auto) 22.1 % Monocytes (%) (Auto) 5.5 % Eosinophils (%) (Auto) 1.4 % Basophils (%) (Auto) 0.1 % Neutrophils # (Auto) 5.92 K/uL Lymphocytes # (Auto) 1.86 K/uL Monocytes # (Auto) 0.46 K/uL Eosinophils # (Auto) 0.12 K/uL Basophils # (Auto) 0.01 K/uL RDW Standard Deviation 51.5 fL RDW Coefficient of Variation 17.8 % Immature Granulocyte % (Auto) 0.4 % Immature Granulocyte # (Auto) 0.03 K/uL Sodium Level 141 mmol/L Potassium Level 3.5 mmol/L Chloride Level 113 mmol/L Carbon Dioxide Level 14 mmol/L Anion Gap 14.0 mmol/L Blood Urea Nitrogen 41 mg/dl Creatinine 2.10 mg/dl Est Creatinine Clear Calc Drug Dose 16.3 ml/min Estimated GFR () 23.6 Estimated GFR (Non- 20.4 BUN/Creatinine Ratio 19.5 Random Glucose 94 mg/dl Calcium Level 7.0 mg/dl Magnesium Level 1.8 mg/dl Random Vancomycin Level 17.9 mcg/ml Impression (1) Acute kidney injury (2) Metabolic acidosis (3) Anemia (4) Proteinuria (5) Stage 3 chronic kidney disease (6) Urinary tract infection (7) Hypokalemia 89-year-old female with acute kidney injury in the setting of for of persistent hypotension with C diff colitis and partial small bowel obstruction. Baseline creatinine has been 0.9-1.3, creatinine was 1.6 on admission which has been slowly worsening over last 2 days, creatinine 2.1 this morning. Urine output has decreased significantly over last 2 days, respiratory status stable, oxygen saturation high 90s in room air. No nephrotoxicity medication exposure, has been on oral and high IV Vanco however trough level has been therapeutic. CT scan of abdomen pelvis without IV contrast on admission was negative for any postrenal obstruction. Acute kidney injury most likely hemodynamically mediated with the persistent hypotension throughout hospital course. Gap metabolic acidosis and hypocalcemia could be due to acute kidney injury, although patient had mildly elevated lactate, repeat lab showed normal lactic acid. Recommendations --change IV fluid to D5 W with 150 meq bicarbonate and 20 KCL at 100 mL/hour --check renal panel, ionized calcium and phosphate in a.m. --Strict monitoring of intake and output --will watch renal function and urine output closely, if urine output does not last picker in next 24 hours, worsening acidosis, worsening renal function or respiratory status, may need to consider renal replacement therapy however no indication at this point --avoid all nephrotoxins medications, dose medications for GFR less than 30 --called daughter Yadira Gee ), but could not reach. Thank you for allowing me to participate in your patient's care. It was a pleasure to see Diana This chart was completed utilizing [employer] Speech and voice recognition software. Grammatical errors, random word insertions, pronoun errors and incomplete sentences are occasional consequences of this system. Any questions or concerns about the content, text or information contained within the body of this dictation should be addressed directly to the physician for clarification.
[2016-10-18] MEDS: SODIUM BICARBONATE 8.4% INJ 150 MEQ, POTASSIUM CHLORIDE INJ 20 MEQ in DEXTROSE 5% 1000M... IV SCH (14:40)
--- NOTE | 2016-10-18 16:46 | DIAGNOSTIC IMAGING REPORT ---
CHEST ONE VIEW PORTABLE CLINICAL HISTORY: PICC LINE PLACEMENT TO LEFT ARM. COMPARISON STUDY: Chest radiograph September 18, 2016. FINDINGS: The tip of the left PICC projects over the mid SVC. There is no pneumothorax. Tip of nasogastric tube is below the lower aspect of this image but at least within the proximal stomach. Right basilar opacity is noted. There is mild left basilar opacity. There is no pneumothorax. Cardiomediastinal silhouette is stable. There is a small right pleural effusion. IMPRESSION: 1. Tip of left PICC within the mid SVC. 2. Bibasilar opacities, right greater than left. The appearance favors pneumonia although atelectasis could appear similar. 3. Small right pleural effusion. Electronically signed by: Dipak Anthony M.D. 10/18/2016 4:45 PM Dictated Date/Time: 10/18/2016 4:44 PM
--- NOTE | 2016-10-18 19:25 | Hospitalist Progress Note ---
Hospitalist Progress Note Date of Service Oct 18, 2016. Subjective Pt evaluation today including: conversation w/ patient, conversation w/ family (left voicemail on daughter's work VM, cell phone VM full), review of inpatient medication list Voiding: garcia catheter in place Pt reports she had a bad night but is feeling a little better this AM. UOP seems to have picked up a little bit but bread room hand rising. Pt having some abd distension, but no severe pain. No CP or SOB. RN reports she has lost multiple PIVs and needs PICC line Constitutional: No fever Cardiovascular: No chest pain Abdomen: No nausea All Other Systems: Reviewed and Negative Objective Vital Signs Date Time Temp Pulse Resp B/P (MAP) Pulse Ox O2 Delivery O2 Flow Rate FiO2 10/18/16 07:13 36.3 79 20 99/62 (74) 97 Room Air 10/18/16 05:51 91/57 (68) 10/18/16 04:00 36.7 24 82/50 (61) 96 Room Air 92/61 (71) 10/18/16 04:00 96 Room Air 10/18/16 00:00 97 Room Air 10/18/16 00:00 36.7 78 24 96/58 (71) 97 Room Air 10/17/16 20:00 98 Room Air 10/17/16 18:56 36.4 78 20 116/56 (76) 98 Room Air 10/17/16 16:00 Room Air 10/17/16 15:15 37.1 81 20 87/49 (62) 97 Room Air 98/63 (75) 10/17/16 12:00 Room Air Physical Exam General Appearance: WD/WN, no apparent distress Eyes: normal inspection, sclerae normal ENT: hearing grossly normal Neck: trachea midline Respiratory/Chest: lungs clear, normal breath sounds, no respiratory distress, no accessory muscle use Cardiovascular: regular rate, rhythm, no edema, no gallop, no murmur Abdomen: non tender (no tenderness throughout, no guarding), soft, no pulsatile mass, + abnormal bowel sounds (mildly hypoactive) Extremities: non-tender, normal inspection, no pedal edema, no calf tenderness Neurologic/Psychiatric: alert, oriented x 3 (oriented to person, place, time of year and month and off by 1 day for date) Skin: normal color, warm/dry, no rash Laboratory Results Last 24 Hours Test 10/17/16 12:03 10/17/16 13:18 10/17/16 16:00 10/17/16 16:25 Hemoglobin 10.8 g/dL 9.7 g/dL Sodium Level 142 mmol/L 141 mmol/L Potassium Level 3.5 mmol/L 3.6 mmol/L Chloride Level 110 mmol/L 110 mmol/L Carbon Dioxide Level 13 mmol/L 14 mmol/L Anion Gap 19.0 mmol/L 17.0 mmol/L Blood Urea Nitrogen 40 mg/dl 40 mg/dl Creatinine 1.70 mg/dl 1.80 mg/dl Est Creatinine Clear Calc Drug Dose 19.8 ml/min 18.7 ml/min Estimated GFR () 30.5 28.4 Estimated GFR (Non- 26.3 24.5 BUN/Creatinine Ratio 23.5 22.3 Random Glucose 192 mg/dl 201 mg/dl Calcium Level 6.6 mg/dl 6.7 mg/dl Magnesium Level 1.1 mg/dl 1.6 mg/dl Lactic Acid Level 2.9 mmol/L 1.7 mmol/L White Blood Count 11.65 K/uL Red Blood Count 3.84 M/uL Hematocrit 29.7 % Mean Corpuscular Volume 77.3 fL Mean Corpuscular Hemoglobin 25.3 pg Mean Corpuscular Hemoglobin Concent 32.7 g/dl Platelet Count 272 K/uL Mean Platelet Volume 9.1 fL RDW Standard Deviation 50.0 fL RDW Coefficient of Variation 17.6 % Neutrophils % (Manual) 73.9 % Lymphocytes % (Manual) 20.9 % Monocytes % (Manual) 4.3 % Basophils % (Manual) 0.9 % Neutrophils # (Manual) 8.61 K/uL Total Absolute Neutrophils 8.61 K/uL Lymphocytes # (Manual) 2.43 K/uL Total Absolute Lymphocytes 2.43 K/uL Monocytes # (Manual) 0.50 K/uL Basophils # (Manual) 0.10 K/uL Echinocytes 1+ Bedside Glucose 218 mg/dl Test 10/17/16 20:10 10/17/16 20:17 10/18/16 07:06 10/18/16 08:44 Bedside Glucose 204 mg/dl 110 mg/dl Hemoglobin 10.8 g/dL 9.4 g/dL White Blood Count 8.40 K/uL Red Blood Count 3.59 M/uL Hematocrit 28.1 % Mean Corpuscular Volume 78.3 fL Mean Corpuscular Hemoglobin 26.2 pg Mean Corpuscular Hemoglobin Concent 33.5 g/dl Platelet Count 226 K/uL Mean Platelet Volume 9.0 fL Neutrophils (%) (Auto) 70.5 % Lymphocytes (%) (Auto) 22.1 % Monocytes (%) (Auto) 5.5 % Eosinophils (%) (Auto) 1.4 % Basophils (%) (Auto) 0.1 % Neutrophils # (Auto) 5.92 K/uL Lymphocytes # (Auto) 1.86 K/uL Monocytes # (Auto) 0.46 K/uL Eosinophils # (Auto) 0.12 K/uL Basophils # (Auto) 0.01 K/uL RDW Standard Deviation 51.5 fL RDW Coefficient of Variation 17.8 % Immature Granulocyte % (Auto) 0.4 % Immature Granulocyte # (Auto) 0.03 K/uL Sodium Level 141 mmol/L Potassium Level 3.5 mmol/L Chloride Level 113 mmol/L Carbon Dioxide Level 14 mmol/L Anion Gap 14.0 mmol/L Blood Urea Nitrogen 41 mg/dl Creatinine 2.10 mg/dl Est Creatinine Clear Calc Drug Dose 16.3 ml/min Estimated GFR () 23.6 Estimated GFR (Non- 20.4 BUN/Creatinine Ratio 19.5 Random Glucose 94 mg/dl Calcium Level 7.0 mg/dl Magnesium Level 1.8 mg/dl Random Vancomycin Level 17.9 mcg/ml Assessment and Plan Pt is an 89 yo female with a h/o CKD stage III, hypothyroidism, DMII, HTN, GERD , RUE lymphedema, paroxysmal atrial fibrillation, 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 Cdiff colitis w sepsis -could explain entirety of clinical picture - with bloody diarrhea. With abrupt onset, no significant pain, (+) nausea/vomiting would beg infectious etiology. CT abdomen with ileus, diarrheal state, and near complete occlusion CT appearance of vasculopathy, blood at the end of the diarrhea begs ischemic, lactate was up but then down with IVFs and abx. NGT in place. Appreciate Gen Surgery consult for possible mesenteric ischemia. Non-surgical abdomen remains, examines benign today. Improving today. KUB with PSBO secondary to infection. Hgb slight drop to 9.3, 11-12 on admission -continue PO vanco and add IV Flagyl given severity of picture -continue IV abx due to ongoing concern of intraabdominal/intestinal superinfection but will dc Zosyn and Vanco, continue Levaquin and Flagyl IV -continue NGT to LIS and advanced as was at GE junction on KUB -continue IVFs -place PICC line Acute blood loss anemia- secondary to hematochezia/GI bleeding. Hgb fairly stable today from yesterday at 9.3. Not much blood in stool today compared to yesterday -follow CBC MARII on CKD stage III, with acute on subacute/chronic metabolic acidosis with +AG --> bread room hand rising to 2.1 likely secondary to ATN, hypotension. AG stable at 14 down from 20, HCO3 14 -add HCO3 to fluids -consult Nephrology in case of worsening and need for [employer] -follow labs hypokalemia/hypomagnesemia-profound initially, now improving, secondary to GI losses -almost certainly due to GI losses but fairly profound - supplement aggressively - unfortunately due to GI issues and NGT, will have to all be IV hypocalcemia-improved after supplementation -check Vit D level -continue supplementation prn Chronic diastolic CHF -fortunately appearing compensated, continue to follow closely due to chronic diastolic CHF at baseline but acute need for fluid support UTI -doubt simple UTI/sepsis picture is the whole scenario, although possible. more likely UTI is smaller contributor or even possibly incidental finding. however, too ill to risk not treating -Growing E. coli two types in Ur cx -continue Levaquin x 7 day course hypothyroidism-TSH normal in 07/2016 -continue po synthroid DMII-HgbA1C 8.7% 04/2016. -sugars adequate given situation, continue to follow, continue insulin coverage -holing home meds -check A1C in AM Paroxysmal Atrial fibrillation-in NSR on admission. She is not chronically anticoagulated secondary to h/o oral bleeding and frequent falls -holding atenolol and restart when BPs improve HTN-holding antihypertensives for now for hypotension foot wound and buttocks wounds -wound consult DVT proph -w heme positive stools of uncertain cause and high degree of frailty - pharmacologic strong relative contraindication at this time - follow Hgb/etc - if heme (+) stools end up not really being a marker of significant blood loss, can then start heparin SQ once it's clear bleeding is not an issue GI Proph-start IV H2 genie Dispo- DNR/DNI continue tele monitoring
[2016-10-18] MEDS: RANITIDINE IV 50 MG in DEXTROSE 5% 100ML 100 ML IV SCH (21:30)
[2016-10-19] VITALS (7 sets, daily range): BP systolic 100–124; BP diastolic 63–79; PULSE 62–77; TEMP 36.2–36.7; O2SAT 97–98
[2016-10-19] MEDS: SODIUM BICARBONATE 8.4% INJ 150 MEQ, POTASSIUM CHLORIDE INJ 20 MEQ in DEXTROSE 5% 1000M... IV SCH (01:57)
[2016-10-19] MEDS: METRONIDAZOLE / NSS 500 MG in PREMIXED NSS 100 ML IV SCH ×3 (03:44→20:56)
[2016-10-19 04:18] LABS: HEMATOCRIT 26.3 % (37-47); MEAN CELL VOLUME 79.5 fL (80-100); MEAN CORPUSCULAR HEMOGLOBIN 25.7 pg (25-34); MEAN CORPUSCULAR HGB CONC 32.3 g/dl (32-36); MEAN PLATELET VOLUME 9.1 fL (7.4-10.4); PLATELET COUNT 193 K/uL (130-400); RED BLOOD COUNT 3.31 M/uL (4.2-5.4); WHITE BLOOD COUNT 6.36 K/uL (4.8-10.8)
[2016-10-19 04:44] LABS: BUN/CREATININE RATIO 20.2 (10-20); CALCIUM 6.8 mg/dl (8.5-10.1); CREATININE 1.7 mg/dl (0.60-1.20); POTASSIUM 3.3 mmol/L (3.5-5.1)
[2016-10-19 04:52] LABS: FERRITIN 413.3 ng/ml (8.0-388.0)
[2016-10-19] MEDS ORDERED: NURSING VERBAL MED ORDER ONE ×3 (05:15→08:30)
[2016-10-19] MEDS ORDERED: POTASSIUM CHLR 10MEQ / WTR IV ONE (05:15)
[2016-10-19 05:31] LABS: MAGNESIUM 1.8 mg/dl (1.8-2.4)
[2016-10-19] MEDS: LEVOTHYROXINE 100 MCG TAB PO SCH (05:47)
[2016-10-19 06:45] LABS: ESTIMATED AVERAGE GLUCOSE 137 mg/dl; HA1C FLAG Normal (Normal)
[2016-10-19] MEDS ORDERED: POTASSIUM CHLORIDE 10 MEQ TABCR PO STA (08:05)
[2016-10-19] MEDS ORDERED: CALCIUM GLUCONATE 10% 1,000 MG in SODIUM CHLORIDE 0.9% 50ML 50 ML IV ONE (08:30)
[2016-10-19] MEDS ORDERED: POTASSIUM CHLR 20MEQ / WTR IV ONE (08:30)
[2016-10-19] MEDS ORDERED: MAGNESIUM SULFATE 1GM / D5W 1 GM in PREMIXED IN D5W 100 ML IV ONE (08:30)
[2016-10-19] MEDS: VANCOMYCIN HCL 250 MG/5 ML SOLN PO SCH ×4 (08:37→20:56)
[2016-10-19] MEDS: RASPBERRY SYRUP 5 ML UDP PO SCH ×4 (08:37→20:57)
[2016-10-19] MEDS: RANITIDINE IV 50 MG in DEXTROSE 5% 100ML 100 ML IV SCH ×2 (09:14→21:46)
[2016-10-19] MEDS: DEXTROSE 5% 1000ML 1,000 ML IV SCH ×2 (09:57→21:39)
--- NOTE | 2016-10-19 10:11 | Surgery Progress Note ---
Surgery Progress Note Date of Service Oct 19, 2016. Subjective + feeling well, + bowel movement, No complaints, No nausea, No vomiting Objective Vital Signs: Date Time Temp Pulse Resp B/P (MAP) Pulse Ox O2 Delivery O2 Flow Rate FiO2 10/19/16 07:46 36.7 62 22 108/69 (82) 98 Room Air 10/19/16 04:00 Room Air 10/19/16 03:20 36.2 72 16 100/63 (75) 98 Room Air 10/19/16 00:01 Room Air 10/18/16 23:49 36.2 74 20 91/45 (60) 98 Room Air 10/18/16 20:00 Room Air 10/18/16 19:00 36.8 72 20 93/52 (66) 99 Room Air 10/18/16 15:15 99 Room Air 10/18/16 15:15 36.4 74 20 109/69 (82) 99 Room Air 10/18/16 11:19 36.1 77 20 105/65 (78) 100 Room Air Abdomen: normal bowel sounds, non tender, soft, + distended (unchanged) Laboratory Results: Results Past 24 Hours Test 10/18/16 11:15 10/18/16 13:11 10/18/16 16:24 10/18/16 20:33 Range/Units Bedside Glucose 112 94 89 70-90 mg/dl Hemoglobin 9.3 12.0-16.0 g/dL Test 10/18/16 23:48 10/19/16 04:05 10/19/16 04:10 10/19/16 05:49 Range/Units Bedside Glucose 89 90 70-90 mg/dl White Blood Count 6.36 4.8-10.8 K/uL Red Blood Count 3.31 4.2-5.4 M/uL Hemoglobin 8.5 12.0-16.0 g/dL Hematocrit 26.3 37-47 % Mean Corpuscular Volume 79.5 80-100 fL Mean Corpuscular Hemoglobin 25.7 25-34 pg Mean Corpuscular Hemoglobin Concent 32.3 32-36 g/dl RDW Standard Deviation 52.2 36.4-46.3 fL RDW Coefficient of Variation 17.9 11.5-14.5 % Platelet Count 193 130-400 K/uL Mean Platelet Volume 9.1 7.4-10.4 fL Sodium Level 146 136-145 mmol/L Potassium Level 3.3 3.5-5.1 mmol/L Chloride Level 117 98-107 mmol/L Carbon Dioxide Level 22 21-32 mmol/L Anion Gap 7.0 3-11 mmol/L Blood Urea Nitrogen 34 7-18 mg/dl Creatinine 1.70 0.60-1.20 mg/dl Est Creatinine Clear Calc Drug Dose 20.2 ml/min Estimated GFR () 30.5 Estimated GFR (Non- 26.3 BUN/Creatinine Ratio 20.2 10-20 Random Glucose 80 70-99 mg/dl Estimated Average Glucose 137 mg/dl Hemoglobin A1c 6.4 4.5-5.6 % Calcium Level 6.8 8.5-10.1 mg/dl Ionized Calcium 0.99 1.12-1.32 mmol/l Phosphorus Level 2.0 2.5-4.9 mg/dl Magnesium Level 1.8 1.8-2.4 mg/dl Iron Level 70 35-150 mcg/dl Total Iron Binding Capacity 66 250-450 mcg/dl Transferrin 63 200-360 mg/dl Transferrin % Saturation 79 15-50 % Ferritin 413.3 8.0-388.0 ng/ml 25-Hydroxy Vitamin D Total 35.7 30-100 ng/ml Assessment & Plan Abdominal pain resolved Clamp NGT, if no nausea by tomorrow consider D/C NGT Stable
[2016-10-19 11:34] LABS: HEMATOCRIT 27.4 % (37-47)
[2016-10-19] MEDS: INSULIN ASPART 100 UNITS/ML 3 ML PEN SC SCH ×3 (11:53→23:58)
--- NOTE | 2016-10-19 12:50 | Nephrology Progress Note ---
Nephrology Progress Note Date of Service Oct 19, 2016. Chief Complaint follow-up for acute kidney injury. Review of Systems A complete review of systems was performed. Pertinent positives are noted above. All other systems are negative. Vital Signs Last 8 Hrs Date Time Temp Pulse Resp B/P (MAP) Pulse Ox O2 Delivery O2 Flow Rate FiO2 10/19/16 12:43 70 16 114/76 (89) 98 Room Air 10/19/16 12:00 Room Air 10/19/16 08:00 Room Air 10/19/16 07:46 36.7 62 22 108/69 (82) 98 Room Air Last Recorded Weight Weight (Kilograms): 75.800 Physical Exam GENERAL: Elderly female, AAA x 3, pleasant, ill-appearing, not in any distress. NG tube in place NECK: Supple, no JVD. RESPIRATORY: Normal breathing efforts, no accessory muscle use, clear to auscultation bilaterally, no wheezes or rales. CARDIOVASCULAR: S1, S2 normal, rate rhythm regular. ABDOMEN: Slightly distended but no rigidity or guarding, positive bowel sound EXTREMITY: No lower extremity edema NEURO: speech fluent. PSYCHIATRY: Normal mood and judgment Family History No pertinent family history Social History Smoking Status: Never smoker Drug Use: none Marital Status: Housing Status: lives alone, other Occupation: retired Laboratory Results Past 24 Hours 10/18/16 13:11 10/19/16 04:05 10/19/16 11:09 10/19/16 04:05 Test 10/18/16 16:24 10/18/16 20:33 10/18/16 23:48 10/19/16 04:05 Bedside Glucose 94 mg/dl (70-90) 89 mg/dl (70-90) 89 mg/dl (70-90) Red Blood Count 3.31 M/uL (4.2-5.4) Mean Corpuscular Volume 79.5 fL (80-100) Mean Corpuscular Hemoglobin 25.7 pg (25-34) Mean Corpuscular Hemoglobin Concent 32.3 g/dl (32-36) RDW Standard Deviation 52.2 fL (36.4-46.3) RDW Coefficient of Variation 17.9 % (11.5-14.5) Mean Platelet Volume 9.1 fL (7.4-10.4) Anion Gap 7.0 mmol/L (3-11) Est Creatinine Clear Calc Drug Dose 20.2 ml/min Estimated GFR () 30.5 Estimated GFR (Non- 26.3 BUN/Creatinine Ratio 20.2 (10-20) Estimated Average Glucose 137 mg/dl Hemoglobin A1c 6.4 % (4.5-5.6) Calcium Level 6.8 mg/dl (8.5-10.1) Ionized Calcium 0.99 mmol/l (1.12-1.32) Phosphorus Level 2.0 mg/dl (2.5-4.9) Magnesium Level 1.8 mg/dl (1.8-2.4) Iron Level 70 mcg/dl (35-150) Total Iron Binding Capacity 66 mcg/dl (250-450) Transferrin 63 mg/dl (200-360) Transferrin % Saturation 79 % (15-50) Ferritin 413.3 ng/ml (8.0-388.0) Test 10/19/16 04:10 10/19/16 05:49 10/19/16 11:49 25-Hydroxy Vitamin D Total 35.7 ng/ml (30-100) Bedside Glucose 90 mg/dl (70-90) 119 mg/dl (70-90) Allergies Coded Allergies: No Known Allergies (Verified , 10/16/16) Medications Current Inpatient Medications Medications (Trade) Dose Ordered Sig/Susana Route Start Time Stop Time Status Last Admin Dose Admin Ioversol (Optiray 320) 116 ml UD PRN IV 10/16/16 16:45 10/20/16 16:44 Levothyroxine Sodium (Synthroid Tab) 100 mcg DAILYBB PO 10/17/16 06:00 11/16/16 06:59 10/19/16 05:47 100 MCG Heparin Sodium (Porcine) (Heparin Sq 5000 Unit/0.5ml) 5,000 unit Q12 SQ 10/16/16 21:00 11/15/16 20:59 Future Hold 10/16/16 21:41 5,000 UNIT Acetaminophen (Tylenol Tab) 650 mg Q4H PRN PO 10/16/16 18:00 11/15/16 17:59 Al Hydrox/Mg Hydrox/Simethicone (Maalox Max Susp) 15 ml Q4H PRN PO 10/16/16 18:00 11/15/16 17:59 Ondansetron HCl (Zofran Inj) 4 mg Q6H PRN IV 10/17/16 01:15 11/16/16 01:14 Promethazine HCl 25 mg/Sodium Chloride 51 ml @ 204 mls/hr Q6H PRN IV 10/17/16 01:15 11/16/16 01:14 10/17/16 01:40 204 MLS/HR Levofloxacin (Consult) 1 ea UD N/A 10/17/16 14:15 11/16/16 14:14 Levofloxacin 750 mg/Prmx 150 ml @ 100 mls/hr Q2D@1500 IV 10/17/16 15:00 10/27/16 14:59 10/17/16 15:26 100 MLS/HR Vancomycin HCl (Vancomycin Oral Soln) 250 mg QID PO 10/17/16 17:00 10/31/16 16:59 10/19/16 12:07 250 MG Raspberry (Raspberry Syrup 5ml Cup) 5 ml QID PO 10/17/16 15:44 10/31/16 15:43 10/19/16 12:05 5 ML Metronidazole 500 mg/Prmx 100 ml @ 100 mls/hr Q8H IV 10/18/16 12:00 11/01/16 11:59 10/19/16 12:05 100 MLS/HR Ranitidine HCl 50 mg/Dextrose 102 ml @ 200 mls/hr Q12H IV 10/18/16 22:00 11/17/16 21:59 10/19/16 09:14 200 MLS/HR Heparin Sodium (Porcine) (Heparin 10 Unit/ ml 5 ml Flush) 5 ml PRN PRN FLUSH 10/19/16 02:00 11/18/16 01:59 Insulin Aspart (novoLOG ASPART) SLIDING SCALE PARAMETER Q6 SC 10/19/16 12:00 11/18/16 11:59 Dextrose 1,000 ml @ 75 mls/hr [id number] IV 10/19/16 09:45 11/18/16 09:44 10/19/16 09:57 75 MLS/HR Impression (1) Acute kidney injury (2) Metabolic acidosis (3) Anemia (4) Proteinuria (5) Stage 3 chronic kidney disease (6) Urinary tract infection (7) Hypokalemia 89-year-old female with acute kidney injury in the setting of for of persistent hypotension with C diff colitis and partial small bowel obstruction. Baseline creatinine has been 0.9-1.3, developed acute kidney injury, creatinine peaked to 2.1 which started to improve and dropped to 1.7 this morning. Urine output has been improving, respiratory status stable, oxygen saturation high 90s in room air. No nephrotoxicity medication exposure, has been on oral and high IV Vanco however trough level has been therapeutic. CT scan of abdomen pelvis without IV contrast on admission was negative for any postrenal obstruction. Acute kidney injury most likely hemodynamically mediated with the persistent hypotension throughout hospital course. Gap metabolic acidosis and hypocalcemia could be due to acute kidney injury. Recommendations --change IV fluid to D5 W at 75 mL/hour --monitor renal function closely with daily renal panel, expect renal function to continue to improve with hemodynamics support --Strict monitoring of intake and output --avoid all nephrotoxins medications, dose medications for GFR less than 30 Will follow
[2016-10-19] MEDS: LEVOFLOXACIN 750MG / D5W IV SCH (14:08)
--- NOTE | 2016-10-19 19:26 | Hospitalist Progress Note ---
Hospitalist Progress Note Date of Service Oct 19, 2016. Subjective Pt evaluation today including: conversation w/ patient, conversation w/ customer consultant (Gen Surgery) Voiding: garcia catheter in place Pt has no complaints. feeling better. Would like to get out of bed to chair for the [facility] [employer]. PT/OT consults placed but did not see pt today. NGT clamped this AM and pt has no abd pain, no nausea, feeling good. Minimal diarrhea today All Other Systems: Reviewed and Negative Objective Vital Signs Date Time Temp Pulse Resp B/P (MAP) Pulse Ox O2 Delivery O2 Flow Rate FiO2 10/19/16 16:00 98 Room Air 10/19/16 15:18 36.5 74 17 124/79 (94) 98 Room Air 10/19/16 12:43 70 16 114/76 (89) 98 Room Air 10/19/16 12:00 Room Air 10/19/16 08:00 Room Air 10/19/16 07:46 36.7 62 22 108/69 (82) 98 Room Air 10/19/16 04:00 Room Air 10/19/16 03:20 36.2 72 16 100/63 (75) 98 Room Air 10/19/16 00:01 Room Air 10/18/16 23:49 36.2 74 20 91/45 (60) 98 Room Air 10/18/16 20:00 Room Air Physical Exam General Appearance: WD/WN, no apparent distress Eyes: normal inspection, sclerae normal ENT: hearing grossly normal Neck: trachea midline Respiratory/Chest: lungs clear, normal breath sounds, no respiratory distress, no accessory muscle use Cardiovascular: regular rate, rhythm, no edema, no gallop, no murmur Abdomen: normal bowel sounds, non tender, soft, + pertinent finding (Garcia in palce draining clear yellow urine) Extremities: normal inspection, no pedal edema, no calf tenderness Neurologic/Psychiatric: alert, normal mood/affect Skin: normal color, warm/dry, no rash Laboratory Results Last 24 Hours Test 10/18/16 20:33 10/18/16 23:48 10/19/16 04:05 10/19/16 04:10 Bedside Glucose 89 mg/dl 89 mg/dl White Blood Count 6.36 K/uL Red Blood Count 3.31 M/uL Hemoglobin 8.5 g/dL Hematocrit 26.3 % Mean Corpuscular Volume 79.5 fL Mean Corpuscular Hemoglobin 25.7 pg Mean Corpuscular Hemoglobin Concent 32.3 g/dl RDW Standard Deviation 52.2 fL RDW Coefficient of Variation 17.9 % Platelet Count 193 K/uL Mean Platelet Volume 9.1 fL Sodium Level 146 mmol/L Potassium Level 3.3 mmol/L Chloride Level 117 mmol/L Carbon Dioxide Level 22 mmol/L Anion Gap 7.0 mmol/L Blood Urea Nitrogen 34 mg/dl Creatinine 1.70 mg/dl Est Creatinine Clear Calc Drug Dose 20.2 ml/min Estimated GFR () 30.5 Estimated GFR (Non- 26.3 BUN/Creatinine Ratio 20.2 Random Glucose 80 mg/dl Estimated Average Glucose 137 mg/dl Hemoglobin A1c 6.4 % Calcium Level 6.8 mg/dl Ionized Calcium 0.99 mmol/l Phosphorus Level 2.0 mg/dl Magnesium Level 1.8 mg/dl Iron Level 70 mcg/dl Total Iron Binding Capacity 66 mcg/dl Transferrin 63 mg/dl Transferrin % Saturation 79 % Ferritin 413.3 ng/ml 25-Hydroxy Vitamin D Total 35.7 ng/ml Test 10/19/16 05:49 10/19/16 11:09 10/19/16 11:49 10/19/16 16:27 Bedside Glucose 90 mg/dl 119 mg/dl 113 mg/dl Hemoglobin 9.0 g/dL Hematocrit 27.4 % Assessment and Plan Pt is an 89 yo female with a h/o CKD stage III, hypothyroidism, DMII, HTN, GERD , RUE lymphedema, paroxysmal atrial fibrillation, 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 diff colitis. Cdiff colitis w sepsis - with hematochezia, Acute blood loss anemia- secondary to hematochezia/GI bleeding--> With abrupt onset, (+) nausea/vomiting. CT abdomen with ileus, diarrheal state, and near complete occlusion SMA with collaterals CT appearance of vasculopathy, blood at the end of the diarrhea begs ischemic, lactate was up but then down with IVFs and abx. NGT in place and now clamped, much improved.. Appreciate Gen Surgery consult for possible mesenteric ischemia. Non-surgical abdomen remains, examines benign today. Hgb slight drop to 9.3->8.5-->9.0 today, 11-12 on admission. Initially received Zosyn and Vanco IV as well but stopped -continue PO vanco and IV Flagyl, IV Levaquin given severity of picture initially--> finish out 7 day course of Levaquin and Flagyl, 10 day course po Vanco -continue NGT clamped and may dc NGT by AM if doing well -advance diet as tolerated and as per Surgery -continue IVFs until taking po -placed PICC line for improved venous access -follow lytes, CBC MARII on CKD stage III, with acute on subacute/chronic metabolic acidosis with +AG --> top lift and automatic window repairer peaked at 2.1 likely secondary to ATN, hypotension. AG stable at 14 down from 20, HCO3 14 -added HCO3 to fluids and now improved to 22 -dc HCO3 IVFs -continue D5W as per Nephrology today for hypernatremia Na+ 146 -consult Nephrology appreciated -follow labs hypokalemia/hypomagnesemia, hypocalcemia-profound initially, now improving, secondary to GI losses and renal failure caused hypocalcemia--> improving but still low Vit D normal at 35 -supplemented again today -follow PRP Chronic diastolic CHF-examines dry to becoming euvolemic - continue to follow closely due to chronic diastolic CHF at baseline but acute need for fluid support UTI -doubt simple UTI/sepsis picture is the whole scenario, although possible. more likely UTI is smaller contributor or even possibly incidental finding. however, was too ill to risk not treating -Growing E. coli two types in Ur cx -continue Levaquin x 7 day course hypothyroidism-TSH normal in 07/2016 -continue po synthroid DMII-HgbA1C 8.7% 04/2016, now only 6.4%-well controlled -sugars adequate given situation, continue to follow, continue insulin coverage -holding home meds Paroxysmal Atrial fibrillation-in NSR on admission. She is not chronically anticoagulated secondary to h/o oral bleeding and frequent falls. Remains in sinus with PACs on tele -holding atenolol and restart when BPs improve HTN-holding antihypertensives for now for previous hypotension, BPs in normal range foot wound and buttocks wounds -wound consult DVT proph-SCDs -w heme positive stools, avoid anticoagulation GI Proph-start IV H2 genie Dispo- DNR/DNI continue tele monitoring Called son and daughter yesterday and awaiting call back
[2016-10-20] VITALS: BP 125/74; PULSE 76; TEMP 36.2; O2SAT 96
[2016-10-20 03:57] VITALS: BP 133/68; PULSE 78; TEMP 36.4; O2SAT 96
[2016-10-20] MEDS: METRONIDAZOLE / NSS 500 MG in PREMIXED NSS 100 ML IV SCH ×3 (04:17→21:10)
[2016-10-20 04:53] LABS: HEMATOCRIT 26.5 % (37-47); MEAN CELL VOLUME 80.5 fL (80-100); MEAN CORPUSCULAR HEMOGLOBIN 26.7 pg (25-34); MEAN CORPUSCULAR HGB CONC 33.2 g/dl (32-36); PLATELET COUNT 184 K/uL (130-400); RED BLOOD COUNT 3.29 M/uL (4.2-5.4); WHITE BLOOD COUNT 5.91 K/uL (4.8-10.8)
[2016-10-20] MEDS: LEVOTHYROXINE 100 MCG TAB PO SCH (05:54)
[2016-10-20] MEDS: INSULIN ASPART 100 UNITS/ML 3 ML PEN SC SCH ×3 (06:00→17:59)
[2016-10-20 08:14] VITALS: BP 118/69; PULSE 98; TEMP 36.3; O2SAT 97
[2016-10-20 09:12] LABS: CALCIUM 8.1 mg/dl (8.5-10.1); POTASSIUM 3.3 mmol/L (3.5-5.1)
[2016-10-20] MEDS: VANCOMYCIN HCL 250 MG/5 ML SOLN PO SCH ×4 (09:13→21:10)
[2016-10-20] MEDS: RASPBERRY SYRUP 5 ML UDP PO SCH ×4 (09:13→21:10)
[2016-10-20] MEDS: RANITIDINE IV 50 MG in DEXTROSE 5% 100ML 100 ML IV SCH ×2 (09:14→22:13)
--- NOTE | 2016-10-20 10:25 | Nephrology Progress Note ---
Nephrology Progress Note Date of Service Oct 20, 2016. Chief Complaint MARII Subjective Diana was resting comfortably in bed this morning. She developed atrial fibrillation overnight (HR ~80 bpm). Blood pressure remains appropriate. No fevers or chills. Patient did not answer many questions this morning. Review of Systems A complete review of systems was limited due to patient not answering questions. Pertinent positives are noted above. All other systems are negative. Vital Signs Last 8 Hrs Date Time Temp Pulse Resp B/P (MAP) Pulse Ox O2 Delivery O2 Flow Rate FiO2 10/20/16 08:14 36.3 98 20 118/69 (85) 97 Room Air 10/20/16 04:00 Room Air 10/20/16 03:57 36.4 78 20 133/68 (89) 96 Room Air Last Recorded Weight Weight (Kilograms): 75.900 Physical Exam General Appearance: no apparent distress, + thin Head: normocephalic, atraumatic Eyes: normal inspection, sclerae normal ENT: normal ENT inspection, pharynx normal, + pertinent finding (NGT) Neck: supple, no JVD Respiratory/Chest: lungs clear, no respiratory distress, no accessory muscle use Cardiovascular: regular rate, rhythm, no murmur Abdomen/GI: soft, + distended Extremities/Musculoskelatal: normal inspection, no pedal edema Neurologic/Psych: alert, + depressed affect Family History No pertinent family history Social History Smoking Status: Never smoker Drug Use: none Marital Status: Housing Status: lives alone, other Occupation: retired Laboratory Results Past 24 Hours 10/19/16 11:09 10/20/16 04:25 10/20/16 08:17 Test 10/19/16 11:49 10/19/16 16:27 10/19/16 20:13 10/19/16 23:56 Bedside Glucose 119 mg/dl (70-90) 113 mg/dl (70-90) 98 mg/dl (70-90) 113 mg/dl (70-90) Test 10/20/16 04:25 10/20/16 05:54 10/20/16 08:17 10/20/16 09:36 Red Blood Count 3.29 M/uL (4.2-5.4) Mean Corpuscular Volume 80.5 fL (80-100) Mean Corpuscular Hemoglobin 26.7 pg (25-34) Mean Corpuscular Hemoglobin Concent 33.2 g/dl (32-36) RDW Standard Deviation 53.4 fL (36.4-46.3) RDW Coefficient of Variation 18.1 % (11.5-14.5) Mean Platelet Volume 9.0 fL (7.4-10.4) Bedside Glucose 108 mg/dl (70-90) Anion Gap 10.0 mmol/L (3-11) Est Creatinine Clear Calc Drug Dose 34.7 ml/min Estimated GFR () 57.8 Estimated GFR (Non- 49.9 BUN/Creatinine Ratio 18.0 (10-20) Calcium Level 8.1 mg/dl (8.5-10.1) Allergies Coded Allergies: No Known Allergies (Verified , 10/16/16) Medications Current Inpatient Medications Medications (Trade) Dose Ordered Sig/Susana Route Start Time Stop Time Status Last Admin Dose Admin Ioversol (Optiray 320) 116 ml UD PRN IV 10/16/16 16:45 10/20/16 16:44 Levothyroxine Sodium (Synthroid Tab) 100 mcg DAILYBB PO 10/17/16 06:00 11/16/16 06:59 10/20/16 05:54 100 MCG Heparin Sodium (Porcine) (Heparin Sq 5000 Unit/0.5ml) 5,000 unit Q12 SQ 10/16/16 21:00 11/15/16 20:59 Future Hold 10/16/16 21:41 5,000 UNIT Acetaminophen (Tylenol Tab) 650 mg Q4H PRN PO 10/16/16 18:00 11/15/16 17:59 Al Hydrox/Mg Hydrox/Simethicone (Maalox Max Susp) 15 ml Q4H PRN PO 10/16/16 18:00 11/15/16 17:59 Ondansetron HCl (Zofran Inj) 4 mg Q6H PRN IV 10/17/16 01:15 11/16/16 01:14 Promethazine HCl 25 mg/Sodium Chloride 51 ml @ 204 mls/hr Q6H PRN IV 10/17/16 01:15 11/16/16 01:14 10/17/16 01:40 204 MLS/HR Levofloxacin (Consult) 1 ea UD N/A 10/17/16 14:15 11/16/16 14:14 Levofloxacin 750 mg/Prmx 150 ml @ 100 mls/hr Q2D@1500 IV 10/17/16 15:00 10/27/16 14:59 10/19/16 14:08 100 MLS/HR Vancomycin HCl (Vancomycin Oral Soln) 250 mg QID PO 10/17/16 17:00 10/31/16 16:59 10/20/16 09:13 250 MG Raspberry (Raspberry Syrup 5ml Cup) 5 ml QID PO 10/17/16 15:44 10/31/16 15:43 10/20/16 09:13 5 ML Metronidazole 500 mg/Prmx 100 ml @ 100 mls/hr Q8H IV 10/18/16 12:00 11/01/16 11:59 10/20/16 04:17 100 MLS/HR Ranitidine HCl 50 mg/Dextrose 102 ml @ 200 mls/hr Q12H IV 10/18/16 22:00 11/17/16 21:59 10/20/16 09:14 200 MLS/HR Heparin Sodium (Porcine) (Heparin 10 Unit/ ml 5 ml Flush) 5 ml PRN PRN FLUSH 10/19/16 02:00 11/18/16 01:59 Insulin Aspart (novoLOG ASPART) SLIDING SCALE PARAMETER Q6 SC 10/19/16 12:00 11/18/16 11:59 Dextrose 1,000 ml @ 75 mls/hr [id number] IV 10/19/16 09:45 11/18/16 09:44 10/19/16 21:39 75 MLS/HR Impression (1) Acute kidney injury (2) Metabolic acidosis (3) Anemia (4) Proteinuria (5) Stage 3 chronic kidney disease (6) Urinary tract infection (7) Hypokalemia Diana is an 89-year-old female with acute kidney injury in the setting of for of persistent hypotension with C diff colitis and partial small bowel obstruction. Baseline creatinine has been 0.9-1.3. Creatinine peaked at 2.1. Creatinine now 1.0 mg/dL this morning. CT scan of abdomen pelvis without IV contrast on admission was negative for any postrenal obstruction. Acute kidney injury most likely hemodynamically mediated with the persistent hypotension throughout hospital course. Recommendations MARII: -- continue D5W + 20 KCl @ 75 ml/h, stop when patient tolerating adequate PO -- Document I/O and daily metabolic profile with magnesium -- Medications are currently appropriate for renal function -- Continue to replace potassium as needed
[2016-10-20] MEDS ORDERED: NURSING VERBAL MED ORDER ONE ×2 (10:30→12:00)
[2016-10-20] MEDS: POTASSIUM CHLR 20MEQ / WTR IV SCH ×2 (11:03→12:37)
[2016-10-20] MEDS: DEXTROSE 5% 1000ML 1,000 ML IV SCH (11:05)
[2016-10-20 11:13] VITALS: BP 114/72; PULSE 96; TEMP 36.4; O2SAT 97
--- NOTE | 2016-10-20 11:28 | Surgery Progress Note ---
Surgery Progress Note Date of Service Oct 20, 2016. Subjective Post OP Day: HD # 4 No complaints not having any abdominal pain patient is unsure if she is having bowel movements or passing flatus however it is recorded by nursing staff +bowel function No nausea since NGT has been clamped NO vomiting Objective Vital Signs: Date Time Temp Pulse Resp B/P (MAP) Pulse Ox O2 Delivery O2 Flow Rate FiO2 10/20/16 08:14 36.3 98 20 118/69 (85) 97 Room Air 10/20/16 04:00 Room Air 10/20/16 03:57 36.4 78 20 133/68 (89) 96 Room Air 10/20/16 00:00 36.2 76 18 125/74 (91) 96 Room Air 10/20/16 00:00 Room Air 10/19/16 20:00 98 Room Air 10/19/16 20:00 98 Room Air 10/19/16 19:31 36.7 77 24 114/63 (80) 97 Room Air 10/19/16 16:00 98 Room Air 10/19/16 15:18 36.5 74 17 124/79 (94) 98 Room Air 10/19/16 12:43 70 16 114/76 (89) 98 Room Air 10/19/16 12:00 Room Air Physical Exam: nasogastric drainage (bilious ) General Appearance: WD/WN, no apparent distress Head: normocephalic, atraumatic Neck: trachea midline Respiratory/Chest: no respiratory distress, no accessory muscle use Abdomen: non tender, non distended, soft Laboratory Results: Results Past 24 Hours Test 10/19/16 11:49 10/19/16 16:27 10/19/16 20:13 10/19/16 23:56 Range/Units Bedside Glucose 119 113 98 113 70-90 mg/dl Test 10/20/16 04:25 10/20/16 05:54 10/20/16 08:17 Range/Units White Blood Count 5.91 4.8-10.8 K/uL Red Blood Count 3.29 4.2-5.4 M/uL Hemoglobin 8.8 12.0-16.0 g/dL Hematocrit 26.5 37-47 % Mean Corpuscular Volume 80.5 80-100 fL Mean Corpuscular Hemoglobin 26.7 25-34 pg Mean Corpuscular Hemoglobin Concent 33.2 32-36 g/dl RDW Standard Deviation 53.4 36.4-46.3 fL RDW Coefficient of Variation 18.1 11.5-14.5 % Platelet Count 184 130-400 K/uL Mean Platelet Volume 9.0 7.4-10.4 fL Bedside Glucose 108 70-90 mg/dl Sodium Level 145 136-145 mmol/L Potassium Level 3.3 3.5-5.1 mmol/L Chloride Level 115 98-107 mmol/L Carbon Dioxide Level 20 21-32 mmol/L Anion Gap 10.0 3-11 mmol/L Blood Urea Nitrogen 18 7-18 mg/dl Creatinine 1.00 0.60-1.20 mg/dl Est Creatinine Clear Calc Drug Dose 34.7 ml/min Estimated GFR () 57.8 Estimated GFR (Non- 49.9 BUN/Creatinine Ratio 18.0 10-20 Random Glucose 131 70-99 mg/dl Calcium Level 8.1 8.5-10.1 mg/dl Magnesium Level 1.7 1.8-2.4 mg/dl Assessment & Plan C. Diff Colitis - No leukocytosis - abdomen soft, no distended, no peritonitis, rigidity, or guarding - NGT clamped - No abdominal pain - tolerating oral vancomycin - H&H stable Plan: Continue Oral and IV vancomycin, continue IV Flagyl Continue IV fluids D/C NGT start clear liquids Continue pain management as needed repeat am labs continue current medical management no surgical indication at this time will continue to monitor Dr. Sanchez has seen and examined patient agrees with above
[2016-10-20] MEDS: MAGNESIUM SULFATE 1GM / D5W 1 GM in PREMIXED IN D5W 100 ML IV SCH ×2 (12:40→13:22)
[2016-10-20 15:22] VITALS: BP 114/74; PULSE 67; TEMP 36.5; O2SAT 96
[2016-10-20 19:20] VITALS: BP 125/68; PULSE 71; TEMP 36.4; O2SAT 98
--- NOTE | 2016-10-20 21:23 | Hospitalist Progress Note ---
Hospitalist Progress Note Date of Service Oct 20, 2016. Subjective Pt evaluation today including: conversation w/ patient Pt feeling well, no abd pain, had some loose stool today. In and out of A-fib at times but rate controlled. NGT removed and avery clears diet. Was OOB to chair today Constitutional: No fever Respiratory: No shortness of breath Cardiovascular: No chest pain All Other Systems: Reviewed and Negative Objective Vital Signs Date Time Temp Pulse Resp B/P (MAP) Pulse Ox O2 Delivery O2 Flow Rate FiO2 10/20/16 19:20 36.4 71 23 125/68 (87) 98 10/20/16 16:00 Room Air 10/20/16 15:22 36.5 67 17 114/74 (87) 96 Room Air 10/20/16 12:00 Room Air 10/20/16 11:13 36.4 96 20 114/72 (86) 97 Room Air 10/20/16 08:14 36.3 98 20 118/69 (85) 97 Room Air 10/20/16 08:00 Room Air 10/20/16 04:00 Room Air 10/20/16 03:57 36.4 78 20 133/68 (89) 96 Room Air 10/20/16 00:00 36.2 76 18 125/74 (91) 96 Room Air 10/20/16 00:00 Room Air Physical Exam General Appearance: WD/WN, no apparent distress Eyes: normal inspection, sclerae normal ENT: hearing grossly normal Neck: trachea midline Respiratory/Chest: lungs clear, normal breath sounds, no respiratory distress, no accessory muscle use Cardiovascular: no edema, no gallop, no murmur, + irregularly irregular Abdomen: normal bowel sounds, non tender, soft Extremities: non-tender, normal inspection, no pedal edema, no calf tenderness Neurologic/Psychiatric: alert, normal mood/affect Skin: normal color, warm/dry, no rash Laboratory Results Last 24 Hours Test 10/19/16 23:56 10/20/16 04:25 10/20/16 05:54 10/20/16 08:17 Bedside Glucose 113 mg/dl 108 mg/dl White Blood Count 5.91 K/uL Red Blood Count 3.29 M/uL Hemoglobin 8.8 g/dL Hematocrit 26.5 % Mean Corpuscular Volume 80.5 fL Mean Corpuscular Hemoglobin 26.7 pg Mean Corpuscular Hemoglobin Concent 33.2 g/dl RDW Standard Deviation 53.4 fL RDW Coefficient of Variation 18.1 % Platelet Count 184 K/uL Mean Platelet Volume 9.0 fL Sodium Level 145 mmol/L Potassium Level 3.3 mmol/L Chloride Level 115 mmol/L Carbon Dioxide Level 20 mmol/L Anion Gap 10.0 mmol/L Blood Urea Nitrogen 18 mg/dl Creatinine 1.00 mg/dl Est Creatinine Clear Calc Drug Dose 34.7 ml/min Estimated GFR () 57.8 Estimated GFR (Non- 49.9 BUN/Creatinine Ratio 18.0 Random Glucose 131 mg/dl Calcium Level 8.1 mg/dl Magnesium Level 1.7 mg/dl Test 10/20/16 11:20 10/20/16 16:35 10/20/16 17:56 10/20/16 20:22 Bedside Glucose 162 mg/dl 185 mg/dl 179 mg/dl 137 mg/dl Assessment and Plan Pt is an 89 yo female with a h/o CKD stage III, hypothyroidism, DMII, HTN, GERD , RUE lymphedema, paroxysmal atrial fibrillation, 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 diff colitis. Cdiff colitis w sepsis - with hematochezia, Acute blood loss anemia- secondary to hematochezia/GI bleeding--> With abrupt onset, (+) nausea/vomiting. CT abdomen with ileus, diarrheal state, and near complete occlusion SMA with collaterals CT appearance of vasculopathy, blood at the end of the diarrhea begs ischemic, lactate was up but then down with IVFs and abx. NGT removed and now tolerating clears, much improved overall. Appreciate Gen Surgery consult for possible mesenteric ischemia. Non-surgical abdomen remains, examines benign today. Anemia- Hgb slight drop to 9.3->8.5-->9.0->8.8 today, 11-12 on admission. Initially received Zosyn and Vanco IV as well but stopped -continue PO vanco and IV Flagyl, IV Levaquin given severity of picture initially--> finish out 7 day course of Levaquin and Flagyl, 10 day course po Vanco -advance diet as tolerated -continue IVFs until taking po adequately -placed PICC line for improved venous access -follow lytes, CBC and replace lytes prn MARII on CKD stage III, with acute on subacute/chronic metabolic acidosis with +AG --> studio potter peaked at 2.1 likely secondary to ATN, hypotension. Acidosis resolved. Machine Operator Assistant down to 1.0 now -received HCO3 in IVFs and improved, GI losses account for some too -continue D5W as per Nephrology today for hypernatremia which is now improving at Na+ 145 -consult Nephrology appreciated -follow labs hypokalemia/hypomagnesemia, hypocalcemia-profound initially, now improving, secondary to GI losses and renal failure caused hypocalcemia--> improving but still low Vit D normal at 35 -supplemented again today -follow PRP Chronic diastolic CHF-examines dry to becoming euvolemic - continue to follow closely due to chronic diastolic CHF at baseline but acute need for fluid support UTI -doubt simple UTI/sepsis picture is the whole scenario, although possible. more likely UTI is smaller contributor or even possibly incidental finding. however, was too ill to risk not treating -Growing E. coli two types in Ur cx -continue Levaquin x 7 day course hypothyroidism-TSH normal in 07/2016 -continue po synthroid DMII-HgbA1C 8.7% 04/2016, now only 6.4%-well controlled -sugars adequate given situation, continue to follow, continue insulin coverage -holding home meds Paroxysmal Atrial fibrillation-in NSR on admission. She is not chronically anticoagulated secondary to h/o oral bleeding and frequent falls. Remains in sinus with PACs on tele -holding atenolol and restart when BPs improve HTN-holding antihypertensives for now for previous hypotension, BPs in normal range foot wound and buttocks wounds -wound consult DVT proph-SCDs -w heme positive stools, avoid anticoagulation GI Proph-start IV H2 genie Dispo- DNR/DNI continue tele monitoring
[2016-10-21] VITALS (7 sets, daily range): BP systolic 92–148; BP diastolic 49–86; PULSE 56–75; TEMP 36.3–36.5; O2SAT 96–100
[2016-10-21] MEDS: DEXTROSE 5% 1000ML 1,000 ML IV SCH (01:59)
[2016-10-21] MEDS: METRONIDAZOLE / NSS 500 MG in PREMIXED NSS 100 ML IV SCH ×2 (04:17→11:58)
[2016-10-21] MEDS: LEVOTHYROXINE 100 MCG TAB PO SCH (05:42)
[2016-10-21] MEDS ORDERED: NURSING VERBAL MED ORDER ONE (05:45)
[2016-10-21 06:34] LABS: MEAN CELL VOLUME 81.5 fL (80-100); MEAN CORPUSCULAR HEMOGLOBIN 26.1 pg (25-34); MEAN CORPUSCULAR HGB CONC 32.1 g/dl (32-36); MEAN PLATELET VOLUME 9.3 fL (7.4-10.4); PLATELET COUNT 181 K/uL (130-400); RED BLOOD COUNT 3.56 M/uL (4.2-5.4); WHITE BLOOD COUNT 4.47 K/uL (4.8-10.8)
[2016-10-21] MEDS: INSULIN ASPART 100 UNITS/ML 3 ML PEN SC SCH ×5 (07:00→21:00)
[2016-10-21 07:08] LABS: BUN/CREATININE RATIO 15.1 (10-20); CREATININE 0.73 mg/dl (0.60-1.20); MAGNESIUM 1.8 mg/dl (1.8-2.4); PHOSPHORUS 2.4 mg/dl (2.5-4.9); POTASSIUM 3.3 mmol/L (3.5-5.1)
[2016-10-21] MEDS: VANCOMYCIN HCL 250 MG/5 ML SOLN PO SCH ×4 (08:19→21:09)
[2016-10-21] MEDS: RASPBERRY SYRUP 5 ML UDP PO SCH ×4 (08:19→21:09)
--- NOTE | 2016-10-21 08:43 | Wound Clinic H&P ---
History & Physical Wound Clinic Date of Service: Oct 21, 2016. Complaint: Ulceration left heel Primary Care Physician: Jaky Siddiqi History of Present Illness Patient recently admitted to [facility] in the [facility] for evaluation of abdominal pain and metabolic acidosis. Patient the current time denies any abdominal pain nausea or vomiting. Patient denies any chest pain or shortness of breath. Patient denies any fever or chills. Patient states the problem with her left heel started approximately 2-3 days prior to admission. Patient is uncertain how this occurred. No other systemic complaints this time. Medical History (1) lymphedema right upper extremity (2) Hypokalemia (3) Anemia (4) Proteinuria (5) Gastroenteritis (6) Acute kidney injury (7) Stage 3 chronic kidney disease (8) Gastroesophageal reflux disease (9) Benign hypertension (10) Partial mastectomy - breast cancer (11) Cataract (12) Appendectomy (13) Diabetes mellitus (14) Urinary tract infection (15) Cellulitis (16) Atrial fibrillation (17) Osteomyelitis (18) Metabolic acidosis Surgical History Hx Abdominal Surgery: No Hx Cardiac Surgery: No Hx Urinary Tract Surgery: No Hx Orthopedic: No Social History Occupation: retired Smoking Status: Never Smoker Current Medications Scheduled Atenolol (Tenormin), 25 MG PO DAILY Atorvastatin (Lipitor), 20 MG PO HS Cholecalciferol (Vitamin D), 1,000 UNITS PO QAM Ferrous Sulfate (Kp Ferrous Sulfate), 1 TAB PO BID Furosemide (Lasix), 10 MG PO QAM Glipizide (Glucotrol), 10 MG PO BID Levothyroxine Sodium (Synthroid), 1 TAB PO QAM Lisinopril (Lisinopril), 5 MG PO QAM Lisinopril (Zestril), 5 MG PO QAM Omeprazole (Omeprazole), 20 MG PO DAILY Potassium Chloride (K-Tabs), 10 MEQ PO DAILY Sitagliptin Phosphate (Januvia), 100 MG PO HS [House Protein Liquid], 30 ML PO DAILY Scheduled PRN Acetaminophen (Tylenol), 650 MG PO Q6H PRN for Pain or Fever Ondansetron Hcl (Zofran), 8 MG PO Q8 PRN for Nausea or Vomiting Simethicone (Bicarsim), 80 MG PO PC PRN for Gas or Constipation Simethicone (Bicarsim), 80 MG PO HS PRN for Gas or Constipation Allergies Coded Allergies: No Known Allergies (Verified , 10/16/16) Review of Systems 10 systems were reviewed in their entirety and positive findings were noted in HPI. Physical Exam Vital Signs: Last Vital Signs Documentation Date Time Temp Pulse Resp B/P (MAP) Pulse Ox O2 Delivery O2 Flow Rate FiO2 10/21/16 07:13 36.5 56 16 131/86 (101) 98 Room Air General: The patient is lying in bed in no distress. Alert, cooperative and appropriate to all questions. HEENT: Pupils equal and reactive to light. Sclera clear, EOM intact. Neck: Supple, No JVD noted Chest: CTA in all cowan. No deformity Heart: Irregular without murmurs, S3, S4, thrills, rubs or heaves Extremities: There is a a blood-filled blister noted to the posterior aspect of the left heel. This measures 2.2 x 4 cm. Once the bride of the underlying deep tissue injury measuring 1.5 x 2.3 cm. No periwound erythema active drainage or odor present. Pulses present no significant edema noted. Neurological: Alert and oriented x3. No focal deficits. Skin: No rashes, papules, vesicles, excoriations Laboratory Results were reviewed Diagnostic Radiology Results were reviewed Assessment 1.: stage II pressure ulcer left heel 2.: deep tissue injury left heel Plan At this time debridement was indicated. With the patient's permission the blister was deroofed with scissors and forceps. Underlying hematoma was removed. No bleeding occurred. The site will be dressed with Aquacel Ag and gauze change daily. Appropriate offloading will occur with waffle boots. Patient will continue to be monitored during her hospitalization and followed in the outpatient clinic upon discharge. This represented a non-excisional debridement of less than 20 cm.
[2016-10-21] MEDS ORDERED: POTASSIUM CHLR 20 MEQ / WTR 20 MEQ in PREMIXED WATER 100 ML IV SCH (09:15)
[2016-10-21] MEDS ORDERED: POTASSIUM CHLORIDE 10 MEQ TABCR PO STA (09:22)
--- NOTE | 2016-10-21 09:38 | Nephrology Progress Note ---
Nephrology Progress Note Date of Service Oct 21, 2016. Chief Complaint MARII Subjective No acute events overnight. NGT removed. Advancing diet. Diana had no acute complaints. She denies pain. No fevers or chills. Review of Systems A complete review of systems was performed. Pertinent positives are noted above. All other systems are negative. Vital Signs Last 8 Hrs Date Time Temp Pulse Resp B/P (MAP) Pulse Ox O2 Delivery O2 Flow Rate FiO2 10/21/16 08:00 Room Air 10/21/16 07:13 36.5 56 16 131/86 (101) 98 Room Air 10/21/16 04:00 Room Air 10/21/16 04:00 36.5 63 20 132/67 (88) 100 Room Air Last Recorded Weight Weight (Kilograms): 78.500 Physical Exam General Appearance: no apparent distress, + thin Head: normocephalic, atraumatic Eyes: normal inspection, sclerae normal ENT: normal ENT inspection, pharynx normal Neck: supple, no JVD Respiratory/Chest: lungs clear, no respiratory distress, no accessory muscle use Cardiovascular: regular rate, rhythm, no gallop Abdomen/GI: non tender, soft Extremities/Musculoskelatal: normal inspection, + pedal edema Neurologic/Psych: alert, oriented x 3 Family History No pertinent family history Social History Smoking Status: Never smoker Drug Use: none Marital Status: Housing Status: lives alone, other Occupation: retired Laboratory Results Past 24 Hours 10/21/16 06:13 10/21/16 06:13 Test 10/20/16 11:20 10/20/16 16:35 10/20/16 17:56 10/20/16 20:22 Bedside Glucose 162 mg/dl (70-90) 185 mg/dl (70-90) 179 mg/dl (70-90) 137 mg/dl (70-90) Test 10/21/16 06:13 10/21/16 06:40 Red Blood Count 3.56 M/uL (4.2-5.4) Mean Corpuscular Volume 81.5 fL (80-100) Mean Corpuscular Hemoglobin 26.1 pg (25-34) Mean Corpuscular Hemoglobin Concent 32.1 g/dl (32-36) RDW Standard Deviation 54.5 fL (36.4-46.3) RDW Coefficient of Variation 18.0 % (11.5-14.5) Mean Platelet Volume 9.3 fL (7.4-10.4) Anion Gap 10.0 mmol/L (3-11) Est Creatinine Clear Calc Drug Dose 48.4 ml/min Estimated GFR () 84.6 Estimated GFR (Non- 73.0 BUN/Creatinine Ratio 15.1 (10-20) Calcium Level 8.0 mg/dl (8.5-10.1) Phosphorus Level 2.4 mg/dl (2.5-4.9) Magnesium Level 1.8 mg/dl (1.8-2.4) Bedside Glucose 133 mg/dl (70-90) Allergies Coded Allergies: No Known Allergies (Verified , 10/16/16) Medications Current Inpatient Medications Medications (Trade) Dose Ordered Sig/Susana Route Start Time Stop Time Status Last Admin Dose Admin Levothyroxine Sodium (Synthroid Tab) 100 mcg DAILYBB PO 10/17/16 06:00 11/16/16 06:59 10/21/16 05:42 100 MCG Heparin Sodium (Porcine) (Heparin Sq 5000 Unit/0.5ml) 5,000 unit Q12 SQ 10/16/16 21:00 11/15/16 20:59 Future Hold 10/16/16 21:41 5,000 UNIT Acetaminophen (Tylenol Tab) 650 mg Q4H PRN PO 10/16/16 18:00 11/15/16 17:59 Al Hydrox/Mg Hydrox/Simethicone (Maalox Max Susp) 15 ml Q4H PRN PO 10/16/16 18:00 11/15/16 17:59 Ondansetron HCl (Zofran Inj) 4 mg Q6H PRN IV 10/17/16 01:15 11/16/16 01:14 Promethazine HCl 25 mg/Sodium Chloride 51 ml @ 204 mls/hr Q6H PRN IV 10/17/16 01:15 11/16/16 01:14 10/17/16 01:40 204 MLS/HR Levofloxacin (Consult) 1 ea UD N/A 10/17/16 14:15 11/16/16 14:14 Levofloxacin 750 mg/Prmx 150 ml @ 100 mls/hr Q2D@1500 IV 10/17/16 15:00 10/27/16 14:59 10/19/16 14:08 100 MLS/HR Vancomycin HCl (Vancomycin Oral Soln) 250 mg QID PO 10/17/16 17:00 10/31/16 16:59 10/21/16 08:19 250 MG Raspberry (Raspberry Syrup 5ml Cup) 5 ml QID PO 10/17/16 15:44 10/31/16 15:43 10/21/16 08:19 5 ML Metronidazole 500 mg/Prmx 100 ml @ 100 mls/hr Q8H IV 10/18/16 12:00 11/01/16 11:59 10/21/16 04:17 100 MLS/HR Ranitidine HCl 50 mg/Dextrose 102 ml @ 200 mls/hr Q12H IV 10/18/16 22:00 11/17/16 21:59 10/20/16 22:13 200 MLS/HR Heparin Sodium (Porcine) (Heparin 10 Unit/ ml 5 ml Flush) 5 ml PRN PRN FLUSH 10/19/16 02:00 11/18/16 01:59 Dextrose 1,000 ml @ 75 mls/hr [id number] IV 10/19/16 09:45 11/18/16 09:44 10/21/16 01:59 75 MLS/HR Insulin Aspart (novoLOG ASPART) SLIDING SCALE PARAMETER ACHS SC 10/21/16 07:00 11/20/16 06:59 Potassium Chloride 20 meq/ Prmx 100 ml @ 50 mls/hr Q2H IV 10/21/16 09:15 11/20/16 09:14 UNV Potassium Citrate (Urocit-K Tab) 10 meq BID PO 10/21/16 21:00 11/20/16 20:59 UNV Potassium Citrate (Urocit-K Tab) 10 meq 0918 ONCE PO 10/21/16 09:18 10/21/16 09:19 UNV Potassium Chloride (Klor-Con M10) 60 meq NOW STAT PO 10/21/16 09:22 10/21/16 09:23 UNV Magnesium Sulfate 1 gm/Prmx 100 ml @ 100 mls/hr ONE IV 10/21/16 09:30 11/20/16 09:29 UNV Impression (1) Acute kidney injury (2) Metabolic acidosis (3) Anemia (4) Proteinuria (5) Stage 3 chronic kidney disease (6) Urinary tract infection (7) Hypokalemia Diana is an 89-year-old female with acute kidney injury in the setting of for of persistent hypotension with C diff colitis and partial small bowel obstruction. Baseline creatinine has been 0.9-1.3. Creatinine peaked at 2.1 and has normalized. Acute kidney injury most likely hemodynamically mediated with the persistent hypotension throughout hospital course. Recommendations MARII: -- continue D5W + 20 KCl @ 75 ml/h, stop when patient tolerating adequate PO -- Additional 40 mEq IV potassium ordered today -- Start K citrate 10 mEq BID -- Document I/O and daily metabolic profile with magnesium -- Medications are currently appropriate for renal function
[2016-10-21] MEDS ORDERED: MAGNESIUM SULFATE 1GM / D5W 1 GM in PREMIXED IN D5W 100 ML IV ONE (10:00)
--- NOTE | 2016-10-21 10:00 | Surgery Progress Note ---
Surgery Progress Note Date of Service Oct 21, 2016. Subjective Post OP Day: HD # 5 + feeling well, + bowel movement, + flatus, + diet (tolerating clear liquids), No complaints, No chest pain, No SOB, No nausea, No vomiting Feeling much better without the NGT no abdominal pain Objective Vital Signs: Date Time Temp Pulse Resp B/P (MAP) Pulse Ox O2 Delivery O2 Flow Rate FiO2 10/21/16 08:00 Room Air 10/21/16 07:13 36.5 56 16 131/86 (101) 98 Room Air 10/21/16 04:00 Room Air 10/21/16 04:00 36.5 63 20 132/67 (88) 100 Room Air 10/21/16 00:00 36.4 71 18 136/78 (97) 98 Room Air 10/21/16 00:00 Room Air 10/20/16 20:00 Room Air 10/20/16 19:20 36.4 71 23 125/68 (87) 98 10/20/16 16:00 Room Air 10/20/16 15:22 36.5 67 17 114/74 (87) 96 Room Air 10/20/16 12:00 Room Air 10/20/16 11:13 36.4 96 20 114/72 (86) 97 Room Air General Appearance: WD/WN, no apparent distress Head: normocephalic, atraumatic Neck: trachea midline Respiratory/Chest: lungs clear, normal breath sounds, no respiratory distress, no accessory muscle use Cardiovascular: regular rate, rhythm, no murmur Abdomen: non tender, non distended, soft, no organomegaly Laboratory Results: Results Past 24 Hours Test 10/20/16 11:20 10/20/16 16:35 10/20/16 17:56 10/20/16 20:22 Range/Units Bedside Glucose 162 185 179 137 70-90 mg/dl Test 10/21/16 06:13 10/21/16 06:40 Range/Units White Blood Count 4.47 4.8-10.8 K/uL Red Blood Count 3.56 4.2-5.4 M/uL Hemoglobin 9.3 12.0-16.0 g/dL Hematocrit 29.0 37-47 % Mean Corpuscular Volume 81.5 80-100 fL Mean Corpuscular Hemoglobin 26.1 25-34 pg Mean Corpuscular Hemoglobin Concent 32.1 32-36 g/dl RDW Standard Deviation 54.5 36.4-46.3 fL RDW Coefficient of Variation 18.0 11.5-14.5 % Platelet Count 181 130-400 K/uL Mean Platelet Volume 9.3 7.4-10.4 fL Sodium Level 144 136-145 mmol/L Potassium Level 3.3 3.5-5.1 mmol/L Chloride Level 114 98-107 mmol/L Carbon Dioxide Level 20 21-32 mmol/L Anion Gap 10.0 3-11 mmol/L Blood Urea Nitrogen 11 7-18 mg/dl Creatinine 0.73 0.60-1.20 mg/dl Est Creatinine Clear Calc Drug Dose 48.4 ml/min Estimated GFR () 84.6 Estimated GFR (Non- 73.0 BUN/Creatinine Ratio 15.1 10-20 Random Glucose 130 70-99 mg/dl Calcium Level 8.0 8.5-10.1 mg/dl Phosphorus Level 2.4 2.5-4.9 mg/dl Magnesium Level 1.8 1.8-2.4 mg/dl Bedside Glucose 133 70-90 mg/dl Assessment & Plan C. Diff Colitis -vitals stable - H&H stable - Abdominal pain resolved - rectal bleeding resolved - No nausea or emesis since NGT removal and tolerating clears Plan: Advance diet as tolerated Continue PO Vancomycin and Flagyl and Levaquin Continue medical management No surgical indication at this time will continue to monitor Dr. Medellin has seen and examined patient, agrees with above
[2016-10-21] MEDS ORDERED: POTASSIUM CITRATE 10 MEQ TAB PO ONE (10:30)
[2016-10-21] MEDS: POTASSIUM CHLR 10MEQ / WTR IV SCH ×4 (10:30→13:22)
[2016-10-21] MEDS: RANITIDINE IV 50 MG in DEXTROSE 5% 100ML 100 ML IV SCH (10:30)
--- NOTE | 2016-10-21 12:46 | Hospitalist Progress Note ---
Hospitalist Progress Note Date of Service Oct 21, 2016. Subjective Pt evaluation today including: conversation w/ patient having some small green stools about 6x/day as per RN but no abd pain, avery clears. In and out of A-fib but mostly sinus since yesterday. All Other Systems: Reviewed and Negative Objective Vital Signs Date Time Temp Pulse Resp B/P (MAP) Pulse Ox O2 Delivery O2 Flow Rate FiO2 10/21/16 11:35 36.5 63 17 148/79 (102) 98 Room Air 10/21/16 08:00 Room Air 10/21/16 07:13 36.5 56 16 131/86 (101) 98 Room Air 10/21/16 04:00 Room Air 10/21/16 04:00 36.5 63 20 132/67 (88) 100 Room Air 10/21/16 00:00 36.4 71 18 136/78 (97) 98 Room Air 10/21/16 00:00 Room Air 10/20/16 20:00 Room Air 10/20/16 19:20 36.4 71 23 125/68 (87) 98 10/20/16 16:00 Room Air 10/20/16 15:22 36.5 67 17 114/74 (87) 96 Room Air Physical Exam General Appearance: WD/WN, no apparent distress Eyes: normal inspection, sclerae normal ENT: hearing grossly normal Neck: trachea midline Respiratory/Chest: lungs clear, normal breath sounds, no respiratory distress, no accessory muscle use Cardiovascular: regular rate, rhythm, no edema, no gallop, no murmur Abdomen: normal bowel sounds, non tender, soft Extremities: non-tender, no calf tenderness Neurologic/Psychiatric: alert, normal mood/affect Skin: normal color, warm/dry, no rash Laboratory Results Last 24 Hours Test 10/20/16 16:35 10/20/16 17:56 10/20/16 20:22 10/21/16 06:13 Bedside Glucose 185 mg/dl 179 mg/dl 137 mg/dl White Blood Count 4.47 K/uL Red Blood Count 3.56 M/uL Hemoglobin 9.3 g/dL Hematocrit 29.0 % Mean Corpuscular Volume 81.5 fL Mean Corpuscular Hemoglobin 26.1 pg Mean Corpuscular Hemoglobin Concent 32.1 g/dl RDW Standard Deviation 54.5 fL RDW Coefficient of Variation 18.0 % Platelet Count 181 K/uL Mean Platelet Volume 9.3 fL Sodium Level 144 mmol/L Potassium Level 3.3 mmol/L Chloride Level 114 mmol/L Carbon Dioxide Level 20 mmol/L Anion Gap 10.0 mmol/L Blood Urea Nitrogen 11 mg/dl Creatinine 0.73 mg/dl Est Creatinine Clear Calc Drug Dose 48.4 ml/min Estimated GFR () 84.6 Estimated GFR (Non- 73.0 BUN/Creatinine Ratio 15.1 Random Glucose 130 mg/dl Calcium Level 8.0 mg/dl Phosphorus Level 2.4 mg/dl Magnesium Level 1.8 mg/dl Test 10/21/16 06:40 10/21/16 11:13 Bedside Glucose 133 mg/dl 189 mg/dl Assessment and Plan Pt is an 89 yo female with a h/o CKD stage III, hypothyroidism, DMII, HTN, GERD , RUE lymphedema, paroxysmal atrial fibrillation, 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 diff colitis. Cdiff colitis w sepsis - with hematochezia, Acute blood loss anemia- secondary to hematochezia/GI bleeding--> With abrupt onset, (+) nausea/vomiting. CT abdomen with ileus, diarrheal state, and near complete occlusion SMA with collaterals CT appearance of vasculopathy, blood at the end of the diarrhea begs ischemic, lactate was up but then down with IVFs and abx. NGT removed and now tolerating clears, much improved overall. COntinues to improve. Appreciate Gen Surgery consult for possible mesenteric ischemia. Non-surgical abdomen remains, examines benign today. -advance diet to full liquids today for lunch and then ADA for dinner Initially received Zosyn and Vanco IV as well but stopped -continue PO vanco and IV Flagyl, IV Levaquin given severity of picture initially--> finish out 7 day course of po Levaquin and po Flagyl, 10 day course po Vanco -dc IVFs -placed PICC line for improved venous access -follow lytes, CBC and replace lytes prn Anemia- Hgb slight drop to 9.3->8.5-->9.0->8.8-->9.3 today, 11-12 on admission. Stable, secondary to GI bleeding with C.diff colitis -follow CBC MARII on CKD stage III, with acute on subacute/chronic metabolic acidosis with +AG , Hypernatremia--> bookmobile clerk peaked at 2.1 likely secondary to ATN, hypotension. Acidosis resolved. Splicing Machine Operator down to 0.73 now -received HCO3 in IVFs and improved, GI losses account for some too - hypernatremia which is now improving at Na+ 144, dc IVFs as now taking po -consult Nephrology appreciated -follow labs hypokalemia/hypomagnesemia, hypocalcemia-profound initially, now improving, secondary to GI losses and renal failure caused hypocalcemia--> improving but still low Vit D normal at 35 -supplemented here -follow PRP Chronic diastolic CHF-examines dry to becoming euvolemic - continue to follow closely due to chronic diastolic CHF at baseline but acute need for fluid support UTI -doubt simple UTI/sepsis picture is the whole scenario, although possible. more likely UTI is smaller contributor or even possibly incidental finding. however, was too ill to risk not treating -Growing E. coli two types in Ur cx -continue Levaquin po x 7 day course hypothyroidism-TSH normal in 07/2016 -continue po synthroid DMII-HgbA1C 8.7% 04/2016, now only 6.4%-well controlled -sugars adequate given situation, continue to follow, continue insulin coverage -holding home meds Paroxysmal Atrial fibrillation-in NSR on admission. She is not chronically anticoagulated secondary to h/o oral bleeding and frequent falls. Remains in sinus with PACs on tele -holding atenolol and restart when BPs improve HTN-holding antihypertensives for now for previous hypotension, BPs in normal range and creeping up now -resatrt atenolol first, then lisinopril and possibly lasix in a few days to a week if renal function remains normal foot wound and buttocks wounds -wound consult appreciated with debridement performed of heel at bedside -f/u with Wound clinic as outpt DVT proph-SCDs -w heme positive stools, avoid anticoagulation GI Proph-change to po H2 genie Dispo- DNR/DNI transfer to medical floor, then likely dc to DC tomorrow if lytes ok
[2016-10-21] MEDS: METRONIDAZOLE 500 MG TAB PO SCH ×2 (14:13→21:52)
[2016-10-21] MEDS ORDERED: LEVOFLOXACIN 750 MG TAB PO SCH (15:00)
[2016-10-21] MEDS: POTASSIUM CITRATE 10 MEQ TAB PO SCH (21:10)
[2016-10-21] MEDS: RANITIDINE HCL 150 MG TAB PO SCH (21:52)
[2016-10-22] MEDS: LEVOTHYROXINE 100 MCG TAB PO SCH (05:58)
[2016-10-22 07:08] LABS: BASO % 0.2 %; BASO ABS # 0.01 K/uL (0-0.2); COMPLETE YES; EOS % 5.2 %; HEMATOCRIT 30.4 % (37-47); IG% 1.1 %; LYMPH % 36.8 %; LYMPH ABS # 1.63 K/uL (1.2-3.4); MEAN CELL VOLUME 81.1 fL (80-100); MEAN CORPUSCULAR HEMOGLOBIN 25.6 pg (25-34); MEAN CORPUSCULAR HGB CONC 31.6 g/dl (32-36); MEAN PLATELET VOLUME 9.2 fL (7.4-10.4); MONO % 12.2 %; NEUT % 44.5 %; PLATELET COUNT 193 K/uL (130-400); RED BLOOD COUNT 3.75 M/uL (4.2-5.4); WHITE BLOOD COUNT 4.43 K/uL (4.8-10.8)
[2016-10-22 07:12] VITALS: BP 105/74; PULSE 75; TEMP 36.7; O2SAT 96
--- NOTE | 2016-10-22 07:37 | Surgery Progress Note ---
Surgery Progress Note Date of Service Oct 22, 2016. Subjective + bowel movement, + flatus, + diet (toerating clear lquid diet), No nausea, No vomiting Denies abdominal pain Objective Vital Signs: Date Time Temp Pulse Resp B/P (MAP) Pulse Ox O2 Delivery O2 Flow Rate FiO2 10/22/16 07:12 36.7 75 15 105/74 (84) 96 Room Air 10/22/16 00:00 Room Air 10/21/16 22:59 36.5 75 16 92/49 (63) 96 Room Air 10/21/16 20:15 Room Air 10/21/16 17:30 Room Air 10/21/16 14:45 36.3 73 16 128/68 (88) 98 Room Air 10/21/16 14:36 36.5 63 17 98 10/21/16 12:00 Room Air 10/21/16 11:35 36.5 63 17 148/79 (102) 98 Room Air 10/21/16 08:00 Room Air Abdomen: normal bowel sounds, non tender, non distended, soft Laboratory Results: Results Past 24 Hours Test 10/21/16 11:13 10/21/16 17:24 10/21/16 20:51 10/22/16 06:19 Range/Units Bedside Glucose 189 121 140 70-90 mg/dl White Blood Count 4.43 4.8-10.8 K/uL Red Blood Count 3.75 4.2-5.4 M/uL Hemoglobin 9.6 12.0-16.0 g/dL Hematocrit 30.4 37-47 % Mean Corpuscular Volume 81.1 80-100 fL Mean Corpuscular Hemoglobin 25.6 25-34 pg Mean Corpuscular Hemoglobin Concent 31.6 32-36 g/dl Platelet Count 193 130-400 K/uL Mean Platelet Volume 9.2 7.4-10.4 fL Neutrophils (%) (Auto) 44.5 % Lymphocytes (%) (Auto) 36.8 % Monocytes (%) (Auto) 12.2 % Eosinophils (%) (Auto) 5.2 % Basophils (%) (Auto) 0.2 % Neutrophils # (Auto) 1.97 1.4-6.5 K/uL Lymphocytes # (Auto) 1.63 1.2-3.4 K/uL Monocytes # (Auto) 0.54 0.11-0.59 K/uL Eosinophils # (Auto) 0.23 0-0.5 K/uL Basophils # (Auto) 0.01 0-0.2 K/uL RDW Standard Deviation 53.3 36.4-46.3 fL RDW Coefficient of Variation 17.8 11.5-14.5 % Immature Granulocyte % (Auto) 1.1 % Immature Granulocyte # (Auto) 0.05 0.00-0.02 K/uL Assessment & Plan C diff colitis No peritonitis CO2 increased No surgical indication at this time
[2016-10-22 07:44] LABS: BUN/CREATININE RATIO 9.4 (10-20); CALCIUM 8.3 mg/dl (8.5-10.1); CREATININE 0.64 mg/dl (0.60-1.20); MAGNESIUM 1.4 mg/dl (1.8-2.4); POTASSIUM 3.4 mmol/L (3.5-5.1)
[2016-10-22] MEDS: INSULIN ASPART 100 UNITS/ML 3 ML PEN SC SCH ×2 (08:00→12:00)
[2016-10-22] MEDS ORDERED: POTASSIUM CHLORIDE 10 MEQ TABCR PO STA (08:21)
[2016-10-22] MEDS: MAGNESIUM SULFATE 1GM / D5W 1 GM in PREMIXED IN D5W 100 ML IV SCH ×2 (09:09→10:46)
[2016-10-22] MEDS: RANITIDINE HCL 150 MG TAB PO SCH (09:15)
[2016-10-22] MEDS: POTASSIUM CITRATE 10 MEQ TAB PO SCH (09:15)
[2016-10-22] MEDS: METRONIDAZOLE 500 MG TAB PO SCH ×2 (09:16→14:09)
[2016-10-22] MEDS: RASPBERRY SYRUP 5 ML UDP PO SCH ×2 (09:18→13:19)
[2016-10-22] MEDS: VANCOMYCIN HCL 250 MG/5 ML SOLN PO SCH ×2 (09:18→13:19)
--- NOTE | 2016-10-22 09:28 | Nephrology Progress Note ---
Nephrology Progress Note Date of Service Oct 22, 2016. Chief Complaint MARII Subjective No acute events overnight. No complaints this morning. Denies abdominal pain. No shortness of breath. Diarrhea notably improving. Stool remains loose. Review of Systems A complete review of systems was performed. Pertinent positives are noted above. All other systems are negative. Vital Signs Last 8 Hrs Date Time Temp Pulse Resp B/P (MAP) Pulse Ox O2 Delivery O2 Flow Rate FiO2 10/22/16 08:00 Room Air 10/22/16 07:12 36.7 75 15 105/74 (84) 96 Room Air Last Recorded Weight Weight (Kilograms): 78.500 Physical Exam General Appearance: no apparent distress, + thin Head: normocephalic, atraumatic Eyes: normal inspection, sclerae normal ENT: normal ENT inspection, + pertinent finding (oral mucosa dry without lesions) Neck: supple, no JVD Respiratory/Chest: lungs clear, no respiratory distress, no accessory muscle use Cardiovascular: no murmur, + irregularly irregular Abdomen/GI: non tender, soft Extremities/Musculoskelatal: normal inspection, no pedal edema Neurologic/Psych: alert, oriented x 3 Family History No pertinent family history Social History Smoking Status: Never smoker Drug Use: none Marital Status: Housing Status: lives alone, other Occupation: retired Laboratory Results Past 24 Hours 10/22/16 06:19 Red Blood Count 3.75, Mean Corpuscular Volume 81.1, Mean Corpuscular Hemoglobin 25.6, Mean Corpuscular Hemoglobin Concent 31.6, Mean Platelet Volume 9.2, Neutrophils (%) (Auto) 44.5, Lymphocytes (%) (Auto) 36.8, Monocytes (%) (Auto) 12.2, Eosinophils (%) (Auto) 5.2, Basophils (%) (Auto) 0.2, Neutrophils # (Auto ) 1.97, Lymphocytes # (Auto) 1.63, Monocytes # (Auto) 0.54, Eosinophils # (Auto ) 0.23, Basophils # (Auto) 0.01 10/22/16 06:19 Test 10/21/16 11:13 10/21/16 17:24 10/21/16 20:51 10/22/16 06:19 Bedside Glucose 189 mg/dl (70-90) 121 mg/dl (70-90) 140 mg/dl (70-90) White Blood Count 4.43 K/uL (4.8-10.8) Red Blood Count 3.75 M/uL (4.2-5.4) Hemoglobin 9.6 g/dL (12.0-16.0) Hematocrit 30.4 % (37-47) Mean Corpuscular Volume 81.1 fL (80-100) Mean Corpuscular Hemoglobin 25.6 pg (25-34) Mean Corpuscular Hemoglobin Concent 31.6 g/dl (32-36) Platelet Count 193 K/uL (130-400) Mean Platelet Volume 9.2 fL (7.4-10.4) Neutrophils (%) (Auto) 44.5 % Lymphocytes (%) (Auto) 36.8 % Monocytes (%) (Auto) 12.2 % Eosinophils (%) (Auto) 5.2 % Basophils (%) (Auto) 0.2 % Neutrophils # (Auto) 1.97 K/uL (1.4-6.5) Lymphocytes # (Auto) 1.63 K/uL (1.2-3.4) Monocytes # (Auto) 0.54 K/uL (0.11-0.59) Eosinophils # (Auto) 0.23 K/uL (0-0.5) Basophils # (Auto) 0.01 K/uL (0-0.2) RDW Standard Deviation 53.3 fL (36.4-46.3) RDW Coefficient of Variation 17.8 % (11.5-14.5) Immature Granulocyte % (Auto) 1.1 % Immature Granulocyte # (Auto) 0.05 K/uL (0.00-0.02) Anion Gap 8.0 mmol/L (3-11) Est Creatinine Clear Calc Drug Dose 55.2 ml/min Estimated GFR () 91.7 Estimated GFR (Non- 79.1 BUN/Creatinine Ratio 9.4 (10-20) Calcium Level 8.3 mg/dl (8.5-10.1) Magnesium Level 1.4 mg/dl (1.8-2.4) Test 10/22/16 08:14 Bedside Glucose 114 mg/dl (70-90) Allergies Coded Allergies: No Known Allergies (Verified , 10/16/16) Medications Current Inpatient Medications Medications (Trade) Dose Ordered Sig/Susana Route Start Time Stop Time Status Last Admin Dose Admin Levothyroxine Sodium (Synthroid Tab) 100 mcg DAILYBB PO 10/17/16 06:00 11/16/16 06:59 10/22/16 05:58 100 MCG Heparin Sodium (Porcine) (Heparin Sq 5000 Unit/0.5ml) 5,000 unit Q12 SQ 10/16/16 21:00 11/15/16 20:59 Future Hold 10/16/16 21:41 5,000 UNIT Acetaminophen (Tylenol Tab) 650 mg Q4H PRN PO 10/16/16 18:00 11/15/16 17:59 Al Hydrox/Mg Hydrox/Simethicone (Maalox Max Susp) 15 ml Q4H PRN PO 10/16/16 18:00 11/15/16 17:59 Ondansetron HCl (Zofran Inj) 4 mg Q6H PRN IV 10/17/16 01:15 11/16/16 01:14 Promethazine HCl 25 mg/Sodium Chloride 51 ml @ 204 mls/hr Q6H PRN IV 10/17/16 01:15 11/16/16 01:14 10/17/16 01:40 204 MLS/HR Levofloxacin (Consult) 1 ea UD N/A 10/17/16 14:15 11/16/16 14:14 Vancomycin HCl (Vancomycin Oral Soln) 250 mg QID PO 10/17/16 17:00 10/31/16 16:59 10/22/16 09:18 250 MG Raspberry (Raspberry Syrup 5ml Cup) 5 ml QID PO 10/17/16 15:44 10/31/16 15:43 10/22/16 09:18 5 ML Heparin Sodium (Porcine) (Heparin 10 Unit/ ml 5 ml Flush) 5 ml PRN PRN FLUSH 10/19/16 02:00 11/18/16 01:59 10/22/16 06:19 10 ML Insulin Aspart (novoLOG ASPART) SLIDING SCALE PARAMETER ACHS SC 10/21/16 07:00 11/20/16 06:59 10/21/16 18:17 1 UNITS Potassium Citrate (Urocit-K Tab) 10 meq BID PO 10/21/16 21:00 11/20/16 20:59 10/22/16 09:15 10 MEQ Levofloxacin (Levaquin Tab) 750 mg Q2D@1500 PO 10/21/16 15:00 10/31/16 14:59 10/21/16 18:09 750 MG Metronidazole (Flagyl Tab) 500 mg TID PO 10/21/16 14:00 10/31/16 13:59 10/22/16 09:16 500 MG Ranitidine HCl (zANTac TAB) 150 mg BID PO 10/21/16 21:00 11/20/16 20:59 10/22/16 09:15 150 MG Magnesium Sulfate 1 gm/Prmx 100 ml @ 100 mls/hr Q1H IV 10/22/16 09:00 10/22/16 10:59 10/22/16 09:09 100 MLS/HR Potassium Chloride 10 meq/ Prmx 100 ml @ 100 mls/hr Q1H IV 10/22/16 09:00 10/22/16 10:59 Impression (1) Acute kidney injury (2) Metabolic acidosis (3) Anemia (4) Proteinuria (5) Stage 3 chronic kidney disease (6) Urinary tract infection (7) Hypokalemia Diana is an 89-year-old female with acute kidney injury in the setting of for of persistent hypotension with C diff colitis and partial small bowel obstruction. Creatinine peaked at 2.1 and has normalized. Electrolyte abnormalities including hypokalemia, hypomagnesemia in the setting of poor oral intake and GI losses persist. Acute kidney injury most likely hemodynamically mediated with the persistent hypotension throughout hospital course. Recommendations -- IVF DC'd -- Appears too be tolerating appropriate oral intake -- Additional 40 mEq IV potassium ordered today -- Mg sulfate 2 grams IV today -- Continue K citrate 10 mEq BID -- Start an additional 40 mEq KCl PO daily -- Restart oral magnesium oxide 400 mg every 2-3 days at discharge -- Monitor weekly renal profile post discharge with follow up in the nephrology clinic in 2 weeks (I have requested an appointment to be scheduled) -- Medications are currently appropriate for renal function -- Plan of care was discussed with Dr. Hensley this morning
[2016-10-22] MEDS ORDERED: VNCS250 PO (09:31)
[2016-10-22] MEDS ORDERED: MTR500 PO (09:31)
[2016-10-22] MEDS ORDERED: POTA10TA PO (09:31)
[2016-10-22] MEDS ORDERED: MGNO400 PO (09:31)
[2016-10-22] MEDS ORDERED: FURO-85 PO (09:31)
[2016-10-22] MEDS ORDERED: ZNT150 PO (09:31)
[2016-10-22] MEDS ORDERED: LVQ750 PO (09:31)
[2016-10-22] MEDS ORDERED: LISI-729 PO (09:31)
--- NOTE | 2016-10-22 09:44 | Discharge Instructions ---
Discharge Instructions Date of Service Oct 22, 2016. Admission Reason for Admission: Metabolic Acidosis,Sepsis,Colitis Discharge Discharge Diagnosis / Problem: C. diff colitis, sepsis Discharge Goals Goal(s): Improve disease control, Diagnostic testing, Therapeutic intervention Activity Recommendations Activity Level: Assistance Required Therapies: Physical Therapy, Occupational Therapy . Additional Information Patient informed of condition: Yes Advance Directives: Yes DNR: Yes Level of Care: Skilled Communicable Disease: Yes (C. 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 diff colitis. Cdiff colitis w sepsis - with hematochezia, Acute blood loss anemia- secondary to hematochezia/GI bleeding--> With abrupt onset, (+) nausea/vomiting. CT abdomen with ileus, diarrheal state, and near complete occlusion SMA with collaterals CT appearance of vasculopathy, blood at the end of the diarrhea begs ischemic, lactate was up but then down with IVFs and abx. NGT removed and now tolerating diabetic diet, much improved overall. Continues to improve. Appreciate Gen Surgery consult for possible mesenteric ischemia. Non-surgical abdomen remains, examines benign today. Initially received Zosyn and Vanco IV as well but stopped and changed to IV Levaquin and Flagyl -Upon discharge, finish out 7 day course of po Levaquin (for UTI and abdominal sepsis) and po Flagyl (abdominal sepsis), 10 day course po Vanco (for C. diff) -placed PICC line for improved venous access-discontinued upon discharge -follow BMP, CBC in 1 week and cc results to Nephrology Dr. Yinka Jim Anemia of acute blood loss, GI bleed- Stable, secondary to GI bleeding with C.diff colitis Hgb slight drop to -->9.3 and stable for many days now, 11-12 on admission. -follow CBC in 1 week MARII on CKD stage III, with acute on subacute/chronic metabolic acidosis with +AG , Hypernatremia--> repairer resistance welding machines peaked at 2.1 likely secondary to ATN, hypotension. Acidosis resolved. Pelt Grader down to 0.64 now, HCO3 up to 24 -received HCO3 in IVFs and improved, GI losses account for some too - hypernatremia which is now improving at Na+ 145 -consult Nephrology appreciated -follow labs in 1 week as above -f/u with Nephrology in 1-2 weeks-Nephrology office to arrange follow up appt hypokalemia/hypomagnesemia, hypocalcemia-profound initially, now improving, secondary to GI losses and renal failure caused hypocalcemia--> improving but still slightly low today Vit D normal at 35 -supplemented here again on day of discharge -dc on Mag oxide 400mg po every 3rd day (don't want to worsen diarrhea), KCl 40 meq po daily Chronic diastolic CHF-examines euvolemic - continue to follow closely -hold lasix until diarrhea resolved and lyte abnormalities resolved -restart atenolol on discharge -hold lisinopril until ok by Nephrology to restart as BPs low normal UTI -doubt simple UTI/sepsis picture is the whole scenario, although possible. more likely UTI is smaller contributor or even possibly incidental finding. however, was too ill to risk not treating -Growing E. coli two types in Ur cx -continue Levaquin po x 7 day course hypothyroidism-TSH normal in 07/2016 -continue po synthroid DMII-HgbA1C 8.7% 04/2016, now only 6.4%-well controlled -sugars adequate given situation, continue to follow, continue insulin coverage -holding home meds Paroxysmal Atrial fibrillation-in NSR on admission. She is not chronically anticoagulated secondary to h/o oral bleeding and frequent falls. Remains in sinus with PACs on tele -restart atenolol HTN-held antihypertensives for previous hypotension, BPs in normal range and creeping up now -resatart atenolol first, then lisinopril and possibly lasix in a few days to a week if renal function remains normal foot wound and buttocks wounds -wound consult appreciated with debridement performed of heel at bedside -f/u with Wound clinic as outpt DVT proph-SCDs -w heme positive stools, avoid anticoagulation GI Proph-change to po H2 genie to avoid PPI use as can be associated with C. diff colitis Dispo- DNR/DNI Dc to [facility] today Current Hospital Diet Patient's current hospital diet: Diabetes Type 2 Diet Discharge Diet Recommended Diet: Diabetes Type 2 Diet Procedures Procedures Performed: CT abd/pel Chest xray KUB Pending Studies Studies pending at discharge: no Physician Orders On Transfer Special Precautions: Fall risk Dressing Changes: Heel wound daily dressing changes, needs f/u with Wound Care Clinic IV Therapy: None Vital Signs: Routine Weigh: Routine Additional Orders: Check BMP, CBC in 1 week and cc result to Dr. Yinka Jim/Nephrology Follow up Nephrology in 1-2 weeks POLST Discussion: Not Applicable Laboratory Results Hemoglobin A1c Test 10/19/16 04:05 Range/Units Estimated Average Glucose 137 mg/dl Hemoglobin A1c 6.4 H 4.5-5.6 % Medical Emergencies . Who to Call and When: Medical Emergencies: If at any time you feel your situation is an emergency, please call 911 immediately. . Non-Emergent Contact Non-Emergency issues call your: Primary Care Provider, Analytical Research Chemist Call Non-Emergent contact if: you have a fever, your pain is not controlled, your pain is worsening, your pain is unusual for you, you have any medication questions . . "Provider Documentation" section prepared by Leah Hensley. . Core Measure Problem Core Measures: None
--- NOTE | 2016-10-22 10:10 | Discharge Summary ---
Discharge Summary Date of Service Oct 22, 2016. Discharge Summary Admission Date: Oct 16, 2016 at 18:03 Discharge Date: Oct 22, 2016 Discharge Disposition: care home facility Principal Diagnosis: C. 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 COMPARISON STUDY: CT of the abdomen and pelvis November 26, 2015. TECHNIQUE: Following IV administration of 115 mL of Optiray-320, axial images of the abdomen and pelvis were obtained from the lung bases to the proximal femurs. Images were reviewed in the axial, sagittal, and coronal planes. IV contrast was administered without complication. CT DOSE: 751.32 mGy.cm FINDINGS: Visualized portions of the lower chest demonstrate moderate cardiomegaly. There is no pneumatosis, free air or portal venous gas. There is no biliary ductal dilatation status post cholecystectomy. The liver, spleen, adrenal glands, left kidney and pancreas are unremarkable. Several large right renal calculi measure up to 2.6 cm. Mild dilatation of the upper aspect of the right renal collecting system is unchanged. There is marked right renal atrophy. There are no ureteral calculi. There is no left hydronephrosis. The small and large bowel are fluid-filled and moderately dilated. Dilatation is noted to the level the rectum. There is no transition point. There is no abscess. No lymphadenopathy is present. There is extensive atherosclerotic plaque of the abdominal aorta. Evaluation of the branch vessels is suboptimal on this non-CTA exam but there is suspected moderate narrowing of the origin of the celiac axis with diminished contrast within the proximal SMA which could reflect high-grade stenosis or occlusion with distal reconstitution. The inferior mesenteric artery is patent. 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 A fat-containing umbilical hernia is noted. A fat-containing left groin hernia. There are no suspicious osseous lesions. A moderate sized hiatal hernia is noted. IMPRESSION: 1. Moderately dilated, fluid-filled small and large bowel, dilated to the level of the anus. The findings suggest a diarrheal state. No transition point to suggest obstruction. No bowel wall thickening. Mildly distended, fluid-filled stomach. Close clinical monitoring is recommended. 2. Extensive atherosclerotic plaque of the abdominal aorta. The branch vessels are suboptimally assessed on this non-CTA exam but there is suspected severe stenosis versus occlusion with distal reconstitution of the proximal SMA with mild to moderate stenosis at the origin the celiac axis. Patent SCARLETT. 3. Large right renal calculus. Marked right renal atrophy. No ureteral calculus. 4. Moderate sized hiatal hernia. 5. Bladder wall thickening accentuated by underdistention. ADDENDUM The appearance suggests an ileus. A distal rectal obstruction is considered less likely but could have a similar appearance. Discussed with Dr. Fisher at time of dictation. CHEST ONE VIEW PORTABLE CLINICAL HISTORY: PICC LINE PLACEMENT TO LEFT ARM. COMPARISON STUDY: Chest radiograph September 18, 2016. FINDINGS: The tip of the left PICC projects over the mid SVC. There is no pneumothorax. Tip of nasogastric tube is below the lower aspect of this image but at least within the proximal stomach. Right basilar opacity is noted. There is mild left basilar opacity. There is no pneumothorax. Cardiomediastinal silhouette is stable. There is a small right pleural effusion. IMPRESSION: 1. Tip of left PICC within the mid SVC. 2. Bibasilar opacities, right greater than left. The appearance favors pneumonia although atelectasis could appear similar. 3. Small right pleural effusion. PICC Line Placement KUB Consultations: Nephrology General Surgery Medication Reconciliation New Medications: Magnesium Oxide (Magnesium-Oxide) 400 Mg Tab 400 MG PO Q3D for 30 Days Levofloxacin (Levofloxacin) 750 Mg Tab 750 MG PO Q2D@1500 for 2 Days, TAB last dose on 10/22/16 Metronidazole (Metronidazole) 500 Mg Tab 500 MG PO TID for 2 Days, #6 TAB last dose evening of 10/23/16 Ranitidine HCl (Ranitidine HCl) 150 Mg Tab 150 MG PO BID for 30 Days, #60 TAB Vancomycin HCl (Vancomycin HCl) 250 Mg/5 Ml Susp 250 MG PO QID for 4 Days last dose evening of 10/26/16 Changed Medications: Furosemide (Lasix) 20 Mg Tab 10 MG PO QAM for 30 Days (Medication details modified) HOLD UNTIL OK TO RESTART PER NEPHROLOGY Lisinopril (Zestril) 5 Mg Tab 5 MG PO QAM for 30 Days, #30 TAB (Medication details modified) HOLD UNTIL OK TO RESTART PER NEPHROLOGY Potassium Chloride (K-Tabs) 10 Meq Tab 40 MEQ PO DAILY for 30 Days (Changed from: 10 MEQ) Continued Medications: Acetaminophen (Tylenol) 325 Mg Tab 650 MG PO Q6H PRN for Pain or Fever, TAB TAKE 650MG EVERY 6 HOURS NEEDED FOR PAIN NOT TO EXCEED 3GM IN 24 HOURS Atenolol (Tenormin) 25 Mg Tab 25 MG PO DAILY, TAB Atorvastatin (Lipitor) 20 Mg Tab 20 MG PO HS Cholecalciferol (Vitamin D) 1,000 Unit Tab 1000 UNITS PO QAM Ferrous Sulfate (Kp Ferrous Sulfate) 325 Mg Tab 1 TAB PO BID for 30 Days, #60 TAB 3 Refills Glipizide (Glucotrol) 10 Mg Tab 10 MG PO BID, TAB Levothyroxine Sodium (Synthroid) 100 Mcg Tab 1 TAB PO QAM Ondansetron Hcl (Zofran) 8 Mg Tab 8 MG PO Q8 PRN for Nausea or Vomiting, TAB Simethicone (Bicarsim) 80 Mg Tab 80 MG PO PC PRN for Gas or Constipation Simethicone (Bicarsim) 80 Mg Tab 80 MG PO HS PRN for Gas or Constipation Sitagliptin Phosphate (Januvia) 50 Mg Tab 100 MG PO HS [House Protein Liquid] () 30 ML PO DAILY Discontinued Medications: Lisinopril (Lisinopril) 2.5 Mg Tab 5 MG PO QAM Omeprazole (Omeprazole) 20 Mg Tab 20 MG PO DAILY TAKE 20MG DAILY BY MOUTH ONE HALF HOUR BEFORE BREAKFAST Discharge Exam Physical Exam General Appearance: WD/WN, no apparent distress Eyes: normal inspection, sclerae normal ENT: hearing grossly normal Neck: trachea midline Respiratory/Chest: lungs clear, normal breath sounds, no respiratory distress, no accessory muscle use Cardiovascular: regular rate, rhythm, no edema, no gallop, no murmur Abdomen: normal bowel sounds, non tender, soft Extremities: non-tender, no calf tenderness Neurologic/Psychiatric: alert, normal mood/affect Skin: normal color, warm/dry, no rash Review of Systems: Constitutional: No fever Eyes: No problem reported ENT: No problem reported Respiratory: No problem reported Cardiovascular: No problem reported Abdomen: + diarrhea (3/day), No GI bleeding Musculoskeletal: No problem reported Genitourinary - Female: No problem reported Neurologic: No problem reported Psychiatric: No problem reported Endocrine: No problem reported Hematologic / Lymphatic: No problem reported Integumentary: No problem reported Hospital Course Pt is an 89 yo female with a h/o CKD stage III, hypothyroidism, DMII, HTN, GERD , RUE lymphedema, paroxysmal atrial fibrillation, 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 diff colitis. Cdiff colitis w sepsis - with hematochezia, Acute blood loss anemia- secondary to hematochezia/GI bleeding--> With abrupt onset, (+) nausea/vomiting. CT abdomen with ileus, diarrheal state, and near complete occlusion SMA with collaterals CT appearance of vasculopathy, blood at the end of the diarrhea begs ischemic, lactate was up but then down with IVFs and abx. NGT removed and now tolerating diabetic diet, much improved overall. Continues to improve. Appreciate Gen Surgery consult for possible mesenteric ischemia. Non-surgical abdomen remains, examines benign today. Initially received Zosyn and Vanco IV as well but stopped and changed to IV Levaquin and Flagyl -Upon discharge, finish out 7 day course of po Levaquin (for UTI and abdominal sepsis) and po Flagyl (abdominal sepsis), 10 day course po Vanco (for C. diff) -placed PICC line for improved venous access-discontinued upon discharge -follow BMP, CBC in 1 week and cc results to Nephrology Dr. Yinka Jim Anemia of acute blood loss, GI bleed- Stable, secondary to GI bleeding with C.diff colitis Hgb slight drop to -->9.3 and stable for many days now, 11-12 on admission. 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 Acidosis resolved. [employer] down to 0.64 now, HCO3 up to 24 -received HCO3 in IVFs and improved, GI losses account for some too - hypernatremia which is now improving at Na+ 145 -consult Nephrology appreciated -follow labs in 1 week as above -f/u with Nephrology in 1-2 weeks-Nephrology office to arrange follow up appt hypokalemia/hypomagnesemia, hypocalcemia-profound initially, now improving, secondary to GI losses and renal failure caused hypocalcemia--> improving but still slightly low today Vit D normal at 35 -supplemented here again on day of discharge -dc on Mag oxide 400mg po every 3rd day (don't want to worsen diarrhea), KCl 40 meq po daily Chronic diastolic CHF-examines euvolemic - continue to follow closely -hold lasix until diarrhea resolved and lyte abnormalities resolved -restart atenolol on discharge -hold lisinopril until ok by Nephrology to restart as BPs low normal UTI -doubt simple UTI/sepsis picture is the whole scenario, although possible. more likely UTI is smaller contributor or even possibly incidental finding. however, was too ill to risk not treating -Growing E. coli two types in Ur cx -continue Levaquin po x 7 day course hypothyroidism-TSH normal in 07/2016 -continue po synthroid DMII-HgbA1C 8.7% 04/2016, now only 6.4%-well controlled -sugars adequate given situation, continue to follow, continue insulin coverage -holding home meds Paroxysmal Atrial fibrillation-in NSR on admission. She is not chronically anticoagulated secondary to h/o oral bleeding and frequent falls. Remains in sinus with PACs on tele -restart atenolol HTN-held antihypertensives for previous hypotension, BPs in normal range and creeping up now -resatart atenolol first, then lisinopril and possibly lasix in a few days to a week if renal function remains normal foot wound and buttocks wounds -wound consult appreciated with debridement performed of heel at bedside -f/u with Wound clinic as outpt DVT proph-SCDs -w heme positive stools, avoid anticoagulation GI Proph-change to po H2 genie to avoid PPI use as can be associated with C. diff colitis Dispo- DNR/DNI Dc to [facility] today Total Time Spent: Greater than 30 minutes This includes examination of the patient, discharge planning, medication reconciliation, and communication with other providers. Discharge Instructions Please refer to the electronic Patient Visit Report (Discharge Instructions) for additional information. Follow-Up PCP at [facility] in 2-3 days Nephrology in 1-2 weeks Additional Copies To Jaky Siddiqi; Yinka Jim D.O.
[2016-10-22] MEDS: POTASSIUM CHLR 10 MEQ / WTR 10 MEQ in PREMIXED WATER 100 ML IV SCH ×2 (11:44→13:14)
[2016-10-22 13:50] VITALS: BP 105/74; PULSE 75; TEMP 36.7; O2SAT 96
[2016-10-31] MEDS ORDERED: CEPH500C PO (12:56)
[2016-10-31] MEDS ORDERED: GLC5 PO (12:56)
[2016-11-24] MEDS ORDERED: VNCS250 PO (10:54)
[2016-11-24] MEDS ORDERED: QSTP PO (10:54)
[2016-11-24] MEDS ORDERED: NYSP EXT (10:54)
== END 2016-10-22 15:00 | DRG 872 ==
LOC: EDBD 15:03 → C.EDB 15:04 → C.2T 18:03 → ENRESERV 18:23 → C.MSN 10-21 14:37
PROVIDERS: ADMIT Internal Medicine; ATTEND Family Medicine
PROC: 02HV33Z Insertion of Infusion Device into Superior Vena Cava, Percutaneous Approach (ICD-10-PCS; 2016-10-18)
PROC: 0HDNXZZ Extraction of Left Foot Skin, External Approach (ICD-10-PCS; principal; 2016-10-21)
DX: A41.9 Sepsis, unspecified organism (principal); I13.0 Hypertensive heart and chronic kidney disease with heart failure and stage 1 through stage 4 chronic kidney disease, or unspecified chronic kidney disease; E87.2 Acidosis; I50.32 Chronic diastolic (congestive) heart failure; N17.9 Acute kidney failure, unspecified; K56.60 Unspecified intestinal obstruction; A04.7 Enterocolitis due to Clostridium difficile; D62 Acute posthemorrhagic anemia; K92.2 Gastrointestinal hemorrhage, unspecified; N39.0 Urinary tract infection, site not specified; Z66 Do not resuscitate; Z90.49 Acquired absence of other specified parts of digestive tract; I48.0 Paroxysmal atrial fibrillation; K21.9 Gastro-esophageal reflux disease without esophagitis; F41.9 Anxiety disorder, unspecified; N18.3 Chronic kidney disease, stage 3 (moderate); E11.22 Type 2 diabetes mellitus with diabetic chronic kidney disease; E66.9 Obesity, unspecified; Z68.33 Body mass index [BMI] 33.0-33.9, adult; E03.9 Hypothyroidism, unspecified; E83.51 Hypocalcemia; E83.42 Hypomagnesemia; B96.20 Unspecified Escherichia coli [E. coli] as the cause of diseases classified elsewhere; L89.622 Pressure ulcer of left heel, stage 2; Z90.10 Acquired absence of unspecified breast and nipple; Z85.3 Personal history of malignant neoplasm of breast; Z79.899 Other long term (current) drug therapy; Z85.858 Personal history of malignant neoplasm of other endocrine glands

== ENCOUNTER → 2016-10-26 | Outpatient (CLI) | payer BC ==
[~2016-10-26] MED LIST changes: +ACET-1311 PO; +ATEN-173 PO; -ATEN50TA8 PO; +BISA10SU7 PR; -CALC-51 PO; +CEPH500C PO; -DOCU100C31 PO; +FERR1TAB13 PO; +GLC5 PO; +GLIP10TA9 PO; -GLIP5TAB3 PO; +LISI-729 PO; -LISI2.5T5 PO; +LVQ750 PO; -MCTP EXT; +MENTOIN TOP; +MGNO400 PO; +MISCCAP80 PO; +MOML PO; +MTR500 PO; -MULT-240 PO; +MULTTAB58 PO; +NYSP EXT; -OMEP20TA PO; +ONDA8TAB6 PO; +POTA10TA PO; +POTA1TAB97 PO; +PRNJ PO; +PROTEIN PO; +PROTPAK PO; +QSTP PO; +RXNS2.5 PO; +SIME80TA PO; +SNTONWC TOP; +SODI1ENE PR; +VNCS250 PO; +ZNT150 PO; +[UNRECOGNIZED DRUG - OTHER] TOP
[2016-10-26 08:35] LABS: HEMATOCRIT 30.5 % (37-47); MEAN CELL VOLUME 83.3 fL (80-100); MEAN CORPUSCULAR HEMOGLOBIN 26.2 pg (25-34); MEAN CORPUSCULAR HGB CONC 31.5 g/dl (32-36); MEAN PLATELET VOLUME 9.3 fL (7.4-10.4); PLATELET COUNT 150 K/uL (130-400); RED BLOOD COUNT 3.66 M/uL (4.2-5.4); WHITE BLOOD COUNT 6.35 K/uL (4.8-10.8)
[2016-10-26 08:43] LABS: BLOOD UREA NITROGEN 4 mg/dl (7-18); BUN/CREATININE RATIO 6.1 (10-20); CALCIUM 7.8 mg/dl (8.5-10.1); CARBON DIOXIDE 27 mmol/L (21-32); CHLORIDE 111 mmol/L (98-107); CREATININE 0.72 mg/dl (0.60-1.20); GLUCOSE 60 mg/dl (70-99); MAGNESIUM 1.2 mg/dl (1.8-2.4); POTASSIUM 3.2 mmol/L (3.5-5.1); SODIUM 145 mmol/L (136-145)
== END ==
LOC: C.LABCC 08:00
PROVIDERS: ATTEND Internal Medicine
DX: N18.3 Chronic kidney disease, stage 3 (moderate) (principal)

== ENCOUNTER 2016-10-30 07:22 | Observation (INO) | payer BC ==
[~2016-10-30] VITALS: Ht 152.4 cm; Wt 72.0 kg
[~2016-10-30 07:22] MED LIST changes: -BISA10SU7 PR; -CEPH500C PO; -GLC5 PO; -MAGN400T6 PO; -MENTOIN TOP; -MISCCAP80 PO; -MOML PO; -MULTTAB58 PO; -NYSP EXT; -POTA1TAB97 PO; -PRNJ PO; -PROTPAK PO; -QSTP PO; -RXNS2.5 PO; -SNTONWC TOP; -SODI1ENE PR; -[UNRECOGNIZED DRUG - OTHER] TOP
[2016-10-30] MEDS ORDERED: DEXTROSE 10% IV STA ×4 (07:38)
[2016-10-30] MEDS ORDERED: SODIUM CHLORIDE 0.9% 1000ML 1,000 ML IV SCH (07:38)
[2016-10-30] MEDS ORDERED: SODI CHLOR IV STA ×4 (07:38)
[2016-10-30] MEDS ORDERED: FURO-85 PO (08:12)
[2016-10-30] MEDS ORDERED: MULTTAB58 PO (08:12)
[2016-10-30] MEDS ORDERED: POTA1TAB97 PO (08:12)
[2016-10-30] MEDS ORDERED: MAGN400T6 PO (08:12)
--- NOTE | 2016-10-30 08:40 | DIAGNOSTIC IMAGING REPORT ---
HEAD WITHOUT CONTRAST (CT) CT DOSE: 1311.46 mGy.cm HISTORY: Mental status change Stroke TECHNIQUE: Multiaxial CT images of the head were performed without the use of intravenous contrast. Comparison: 10/30/2014 Findings: The paranasal sinuses and mastoid air cells are clear. The calvarium and skull base are intact. The ventricles and sulci are within normal limits. There is no mass, hematoma, midline shift, or acute infarct. Moderate age-related atrophy Impression: No acute intracranial abnormality. Age-related change The above report was generated using voice recognition software. It may contain grammatical, syntax or spelling errors. Electronically signed by: Antoine Sigala M.D. 10/30/2016 8:39 AM Dictated Date/Time: 10/30/2016 8:38 AM
[2016-10-30 09:08] LABS: HEMATOCRIT 31.9 % (37-47); MEAN CELL VOLUME 84.6 fL (80-100); MEAN CORPUSCULAR HEMOGLOBIN 25.7 pg (25-34); MEAN CORPUSCULAR HGB CONC 30.4 g/dl (32-36); MEAN PLATELET VOLUME 10.1 fL (7.4-10.4); PLATELET COUNT 194 K/uL (130-400); RED BLOOD COUNT 3.77 M/uL (4.2-5.4); WHITE BLOOD COUNT 8.73 K/uL (4.8-10.8)
[2016-10-30 09:22] LABS: INR 1.2 (0.9-1.1); PARTIAL THROMBOPLASTIN RATIO 1.3; PROTHROMBIN TIME (PATIENT) 13.2 SECONDS (9.0-12.0)
[2016-10-30 09:26] LABS: BLOOD UREA NITROGEN 10 mg/dl (7-18); BUN/CREATININE RATIO 14.9 (10-20); CARBON DIOXIDE 27 mmol/L (21-32); CHLORIDE 108 mmol/L (98-107); CREATININE 0.67 mg/dl (0.60-1.20); GLUCOSE 107 mg/dl (70-99); POTASSIUM 3.8 mmol/L (3.5-5.1); SODIUM 140 mmol/L (136-145)
[2016-10-30 09:29] LABS: BASO % 0.1 %; BASO ABS # 0.01 K/uL (0-0.2); COMPLETE YES; EOS % 0.2 %; IG% 0.6 %; LYMPH % 17.8 %; LYMPH ABS # 1.55 K/uL (1.2-3.4); MONO % 10.1 %; NEUT % 71.2 %; OVALOCYTES 1+
[2016-10-30 09:47] LABS: URINE APPEARANCE CLOUDY (CLEAR); URINE BILIRUBIN NEG (NEG); URINE COLOR YELLOW; URINE EPITHELIAL CELL AUTO >30 /lpf (0-5); URINE NITRITE NEG (NEG); URINE SPECIFIC GRAVITY 1.016 (1.000-1.030); UROBILINOGEN NEG (NEG); ZZURINE CULT IF INDIC CATH YES
[2016-10-30 09:58] LABS: MANUAL MICROSCOPIC REQUIRED? NO; REVIEW REQ? YES
[2016-10-30] MEDS ORDERED: CEFTRIAXONE SOD INJ 1 GM ADDVIAL IV STA (11:50)
[2016-10-30] MEDS ORDERED: ONDANSETRON 8 MG TAB PO PRN (12:45)
[2016-10-30] MEDS ORDERED: ACETAMINOPHEN 325 MG TAB PO PRN (12:45)
[2016-10-30] MEDS ORDERED: SIMETHICONE 80 MG CHEW PO PRN (12:45)
[2016-10-30] MEDS ORDERED: ONDANSETRON INJ 2 MG/ML 2 ML VIAL IV PRN (12:45)
[2016-10-30] MEDS ORDERED: MAGNESIUM OXIDE 400 MG TAB PO SCH (12:45)
[2016-10-30] MEDS ORDERED: ALUMINUM/MAGNESIUM/SIMETH (MAALOX MAX) 30 ML UDC PO PRN (12:45)
[2016-10-30] MEDS ORDERED: MAGNESIUM HYDROXIDE SUSP 30 ML UDC PO PRN (12:45)
[2016-10-30] MEDS ORDERED: POLYETHYLENE (MIRALAX) 17 GM PACK PO PRN (12:45)
[2016-10-30] MEDS ORDERED: GLUCAGON FOR INJ 1 MG VIAL SQ PRN (13:00)
[2016-10-30] MEDS ORDERED: DEXTROSE 50% 50 ML SYR IV PRN (13:00)
--- NOTE | 2016-10-30 13:17 | History and Physical ---
History & Physical Date & Time of Service: Oct 30, 2016 at 13:01 Chief Complaint: Altered Mental Status Primary Care Physician: Jaky Siddiqi History of Present Illness Source: patient 89 y/o F Hx PAF, DM II, chronic anemia. Pt became confused and lethargic at her care facility early this AM. It was reported that she may have had a facial droop and that she exhibited a rightward gaze. At the time that EMS arrived at the [facility], her blood glu was measured at 48. She was treated with D10 on route to the hospital and her symptoms gradually resolved. She is awake and oriented at the time of admission and free of focal deficits. Her UA is + and her Blood glu was 71 on initial labs, which were otherwise unremarkable. She denies CP, SOB, dysuria, visual disturbances, HARVEY or lightheadedness. Past Medical/Surgical History Medical Problems: (1) Appendectomy Status: Resolved (2) Atrial fibrillation Status: Chronic (3) Benign hypertension Status: Chronic (4) Cataract Status: Resolved (5) Cholecystectomy Status: Resolved (6) Diabetes mellitus Status: Chronic (7) Gastroesophageal reflux disease Status: Chronic (8) Hyperlipidemia Status: Chronic (9) lymphedema right upper extremity Status: Chronic (10) Partial mastectomy - breast cancer Status: Resolved (11) Urinary tract infection Status: Resolved (12) venous stasis ulcer left lower extremity Status: Chronic Surgical Problems: (1) History of knee replacement Status: Chronic Family History Cancer Diabetes mellitus Heart disease Hypertension Social History Smoking Status: Never Smoker Drug Use: none Marital Status: Housing status: lives alone, other Occupational Status: retired Immunizations History of Influenza Vaccine: Yes History of Tetanus Vaccine?: Yes Tetanus Immunization Date: Dec 16, 2004 History of Pneumococcal: Yes Pneumococcal Date: Dec 16, 2004 History of Hepatitis B Vaccine: No Multi-Drug Resistant Organisms History of MDRO: No Allergies Coded Allergies: No Known Allergies (Verified , 10/30/16) Home Medications Scheduled Atenolol (Tenormin), 25 MG PO DAILY Atorvastatin (Lipitor), 20 MG PO HS Cholecalciferol (Vitamin D), 1,000 UNITS PO QAM Ferrous Sulfate (Kp Ferrous Sulfate), 325 MG PO BID Furosemide (Lasix), 10 MG PO DAILY Glipizide (Glucotrol), 10 MG PO BID Levothyroxine Sodium (Synthroid), 100 MCG PO QAM Magnesium Oxide (Mag-Ox), 400 MG PO Q2D Multiple Vitamin (Multivitamin), 1 TAB PO DAILY Potassium Chloride (K-Tab), 40 MEQ PO BID Ranitidine HCl (Ranitidine HCl), 150 MG PO BID Sitagliptin Phosphate (Januvia), 100 MG PO HS [House Protein Liquid], 30 ML PO DAILY Scheduled PRN Acetaminophen (Tylenol), 650 MG PO Q6H PRN for Pain or Fever Ondansetron Hcl (Zofran), 8 MG PO Q8 PRN for Nausea or Vomiting Simethicone (Bicarsim), 80 MG PO PC PRN for Gas or Constipation Review of Systems Does not recall her altered mentation this AM Constitutional: No fever, No chills, No sweats Eyes: No worsening of vision, No eye pain ENT: No hearing loss, No nasal symptoms Respiratory: No cough, No wheezing Cardiovascular: No chest pain, No PND Abdomen: No pain, No nausea, No vomiting Musculoskeletal: No joint pain Genitourinary - Female: No dysuria, No urinary frequency, No urinary urgency Neurologic: + memory loss (acute), + weakness Psychiatric: No depression symptoms Endocrine: + fatigue Hematologic / Lymphatic: No abnormal bleeding/bruising Integumentary: No rash Allergic / Immunologic: No environmental allergies Physical Exam Vital Signs Date Time Temp Pulse Resp B/P (MAP) Pulse Ox O2 Delivery O2 Flow Rate FiO2 10/30/16 12:33 69 10/30/16 11:27 81 18 94 10/30/16 10:57 67 10/30/16 10:31 102/74 10/30/16 10:27 70 10/30/16 10:02 10/30/16 09:57 73 16 100 10/30/16 09:27 73 99 10/30/16 09:22 84 22 10/30/16 08:52 72 20 100 10/30/16 08:34 71 10/30/16 08:22 71 24 10/30/16 07:56 100 Room Air 10/30/16 07:52 71 20 10/30/16 07:34 36.4 79 23 134/54 100 Room Air 10/30/16 07:29 134/54 General Appearance: WD/WN, no apparent distress, + pertinent finding (PLeasant , overweight, elderly female - AAO x 2 - no distress) Head: normocephalic Eyes: normal inspection, EOMI ENT: normal ENT inspection, pharynx normal Neck: supple, no JVD Respiratory/Chest: chest non-tender, lungs clear, normal breath sounds Cardiovascular: regular rate, rhythm, no edema, no gallop Abdomen/GI: normal bowel sounds, non tender, soft Back: normal inspection, no CVA tenderness, no muscle spasm, normal range of motion Extremities/Musculoskelatal: normal inspection, normal range of motion Neurologic/Psych: inspector wire rope II-XII nml as tested, no motor/sensory deficits, alert, normal mood/affect, normal reflexes, oriented x 3 Skin: normal color, warm/dry, no rash Diagnostics Laboratory Results Results Past 24 Hours Test 10/30/16 07:28 10/30/16 08:38 10/30/16 09:15 Range/Units Bedside Glucose 71 70-90 mg/dl White Blood Count 8.73 4.8-10.8 K/uL Red Blood Count 3.77 4.2-5.4 M/uL Hemoglobin 9.7 12.0-16.0 g/dL Hematocrit 31.9 37-47 % Mean Corpuscular Volume 84.6 80-100 fL Mean Corpuscular Hemoglobin 25.7 25-34 pg Mean Corpuscular Hemoglobin Concent 30.4 32-36 g/dl Platelet Count 194 130-400 K/uL Mean Platelet Volume 10.1 7.4-10.4 fL Neutrophils (%) (Auto) 71.2 % Lymphocytes (%) (Auto) 17.8 % Monocytes (%) (Auto) 10.1 % Eosinophils (%) (Auto) 0.2 % Basophils (%) (Auto) 0.1 % Neutrophils # (Auto) 6.22 1.4-6.5 K/uL Lymphocytes # (Auto) 1.55 1.2-3.4 K/uL Monocytes # (Auto) 0.88 0.11-0.59 K/uL Eosinophils # (Auto) 0.02 0-0.5 K/uL Basophils # (Auto) 0.01 0-0.2 K/uL RDW Standard Deviation 56.8 36.4-46.3 fL RDW Coefficient of Variation 18.4 11.5-14.5 % Immature Granulocyte % (Auto) 0.6 % Immature Granulocyte # (Auto) 0.05 0.00-0.02 K/uL Ovalocytes 1+ Prothrombin Time 13.2 9.0-12.0 SECONDS Prothromb Time International Ratio 1.2 0.9-1.1 Activated Partial Thromboplast Time 33.6 21.0-31.0 SECONDS Partial Thromboplastin Ratio 1.3 Sodium Level 140 136-145 mmol/L Potassium Level 3.8 3.5-5.1 mmol/L Chloride Level 108 98-107 mmol/L Carbon Dioxide Level 27 21-32 mmol/L Anion Gap 5.0 3-11 mmol/L Blood Urea Nitrogen 10 7-18 mg/dl Creatinine 0.67 0.60-1.20 mg/dl Est Creatinine Clear Calc Drug Dose 52.9 ml/min Estimated GFR () 90.3 Estimated GFR (Non- 77.9 BUN/Creatinine Ratio 14.9 10-20 Random Glucose 107 70-99 mg/dl Calcium Level 8.0 8.5-10.1 mg/dl Total Creatine Kinase 10 26-192 U/L Creatine Kinase MB 0.7 0.5-3.6 ng/ml Creatine Kinase MB Ratio 7.0 0-3.0 Troponin I < 0.015 0-0.045 ng/ml Urine Color YELLOW Urine Appearance CLOUDY CLEAR Urine pH 5.0 4.5-7.5 Urine Specific [place] 1.016 1.000-1.030 Urine Protein NEG NEG Urine Glucose (UA) NEG NEG Urine Ketones NEG NEG Urine Occult Blood TRACE NEG Urine Nitrite NEG NEG Urine Bilirubin NEG NEG Urine Urobilinogen NEG NEG Urine Leukocyte Esterase LARGE NEG Urine WBC (Auto) >30 0-5 /hpf Urine RBC (Auto) 0-4 0-4 /hpf Urine Hyaline Casts (Auto) 1-5 0-5 /lpf Urine Epithelial Cells (Auto) >30 0-5 /lpf Urine Bacteria (Auto) 1+ NEG Urine Renal Epithelial Cells 0-5 /lpf Urine Pathogenic Casts 0 /lpf Microbiology Results 10/30/16 Urine Culture, Received Pending Diagnostic Radiology No acute changes on CT head EKG Sinus - possible previous ant infarct - no acute ischemic changes Impression Assessment and Plan 89 y/o F Hx PAF, DM II, chronic anemia. Pt became confused and lethargic at her care facility early this AM. It was reported that she may have had a facial droop and that she exhibited a rightward gaze. At the time that EMS arrived at the [facility], her blood glu was measured at 48. She was treated with D10 on route to the hospital and her symptoms gradually resolved. She is awake and oriented at the time of admission and free of focal deficits. Her UA is + and her Blood glu was 71 on initial labs, which were otherwise unremarkable. She denies CP, SOB, dysuria, visual disturbances, HARVEY or lightheadedness. 1) AMS - neuro deficits - in context of hypoglycemia - As symptoms resolved with administration of glu, there is no current justification for a CVA workup. We will monitor on telemetry with frequent POCs and treat with D50 and Glucagon as needed. She is placed on IVF to include D5. 2) DM - will commence sliding scale with glucose > 250 - oral meds are held 3) UTI - Ceftriaxone pending cultures 4) Anemia - Hb is at baseline Full code confirmed with pt - Heparin prophylaxis Total time for this admit including review of labs, meds, imaging - discussion with pt and ER attending - 34 min Level of Care Telemetry Resuscitation Status FULL RESUSCITATION VTE Prophylaxis VTE Risk Assessment Done? Y/N: Yes Risk Level: Moderate Given or contraindicated: Unfractionated heparin SQ
[2016-10-30 14:25] VITALS: BP 138/76; PULSE 74; TEMP 36.7; Ht 152.4 cm; Wt 72.0 kg
--- NOTE | 2016-10-30 14:47 | EMERGENCY ROOM VISIT NOTE ---
History Report prepared by Kelly: Nena Barrow Under the Supervision of: Dr. Mukesh Holman M.D. 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 The patient came to the ED via ambulance from [facility]. EMS was called for stroke-like symptoms. Upon EMS arrival, the patient's blood sugar glucose was found to be 48. EMS started a D10 drip en route and the patient's mental status started to improve by the time she got into the ED. The patient has diabetes and is on glipizide. snf staff reported a facial droop, but EMS did not appreciate one. EMS also reports that the patient initially had a rightward gaze but that has resolved. Pt denies headache, chest pain, and abdominal pain. The history is limited secondary to the patient's altered mental status. 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 Past Medical & Surgical Medical Problems: (1) Acute kidney injury (2) Anemia (3) Appendectomy (4) Atrial fibrillation (5) Benign hypertension (6) Cataract (7) Cellulitis (8) Cholecystectomy (9) Diabetes mellitus (10) Gastroesophageal reflux disease (11) Hyperlipidemia (12) Hypoglycemia (13) lymphedema right upper extremity (14) Metabolic acidosis (15) Partial mastectomy - breast cancer (16) Proteinuria (17) Stage 3 chronic kidney disease (18) Urinary tract infection (19) UTI (urinary tract infection) (20) venous stasis ulcer left lower extremity Surgical Problems: (1) History of knee replacement Family History Cancer Diabetes mellitus Heart disease Hypertension Social History Smoking Status: Never Smoker Alcohol Use: none Drug Use: none Marital Status: Housing Status: lives alone Occupation Status: retired Current/Historical Medications Scheduled Atenolol (Tenormin), 25 MG PO DAILY Atorvastatin (Lipitor), 20 MG PO HS Cholecalciferol (Vitamin D), 1,000 UNITS PO QAM Ferrous Sulfate (Kp Ferrous Sulfate), 325 MG PO BID Furosemide (Lasix), 10 MG PO DAILY Glipizide (Glucotrol), 10 MG PO BID Levothyroxine Sodium (Synthroid), 100 MCG PO QAM Magnesium Oxide (Mag-Ox), 400 MG PO Q2D Multiple Vitamin (Multivitamin), 1 TAB PO DAILY Potassium Chloride (K-Tab), 40 MEQ PO BID Ranitidine HCl (Ranitidine HCl), 150 MG PO BID Sitagliptin Phosphate (Januvia), 100 MG PO HS [House Protein Liquid], 30 ML PO DAILY Scheduled PRN Acetaminophen (Tylenol), 650 MG PO Q6H PRN for Pain or Fever Ondansetron Hcl (Zofran), 8 MG PO Q8 PRN for Nausea or Vomiting Simethicone (Bicarsim), 80 MG PO PC PRN for Gas or Constipation Allergies Coded Allergies: No Known Allergies (Verified , 10/30/16) Physical Exam Vital Signs Date Time Temp Pulse Resp B/P (MAP) Pulse Ox O2 Delivery O2 Flow Rate FiO2 10/30/16 13:02 68 21 10/30/16 13:01 10/30/16 12:33 69 10/30/16 12:32 74 20 97 10/30/16 12:31 119/52 10/30/16 12:02 75 23 96 10/30/16 12:01 108/83 10/30/16 11:58 109/84 10/30/16 11:56 69/ 10/30/16 11:32 89 28 10/30/16 11:27 81 18 94 10/30/16 10:57 67 10/30/16 10:31 102/74 10/30/16 10:27 70 10/30/16 10:02 10/30/16 09:57 73 16 100 10/30/16 09:27 73 99 10/30/16 09:22 84 22 10/30/16 08:52 72 20 100 10/30/16 08:34 71 10/30/16 08:22 71 24 10/30/16 07:56 100 Room Air 10/30/16 07:52 71 20 10/30/16 07:34 36.4 79 23 134/54 100 Room Air 10/30/16 07:29 134/54 Physical Exam GENERAL: Awake, alert, well appearing, no distress HENT: Normocephalic, atraumatic. TM's normal. Oropharynx unremarkable. EYES: Pupils are 3 mm and sluggish. PERRL. EOMI. Normal conjunctiva. Sclera non-icteric. NECK: Supple. No nuchal rigidity. FROM. No JVD or bruit. RESPIRATORY: CTA CARDIAC: RRR. No murmur. ABDOMEN: Soft, non distended. No tenderness to palpation. No rebound or guarding. No masses. RECTAL: Deferred. MUSCULOSKELETAL: Unremarkable. No edema. No discoloration. Gross motor strength symmetric. 4/5 strength in bilateral upper and lower extremities. NEURO: Cranial nerves 2-12 grossly intact. Altered sensorium. Following commands. No sensory or motor deficits noted. Gait normal. Speech slurred. No pronator drift. Negative rhomberg. SKIN: No rash or jaundice noted. LYMPH: No adenopathy. Medical Decision & Procedures ER Provider Diagnostic Interpretation: Radiology results as stated below per my review and radiologist interpretation: HEAD WITHOUT CONTRAST (CT) Findings: The paranasal sinuses and mastoid air cells are clear. The calvarium and skull base are intact. The ventricles and sulci are within normal limits. There is no mass, hematoma, midline shift, or acute infarct. Moderate age-related atrophy Impression: No acute intracranial abnormality. Age-related change The above report was generated using voice recognition software. It may contain grammatical, syntax or spelling errors. Electronically signed by: Antoine Sigala M.D. 10/30/2016 8:39 AM Dictated Date/Time: 10/30/2016 8:38 AM Laboratory Results 10/30/16 08:38 Red Blood Count 3.77, Mean Corpuscular Volume 84.6, Mean Corpuscular Hemoglobin 25.7, Mean Corpuscular Hemoglobin Concent 30.4, Mean Platelet Volume 10.1, Neutrophils (%) (Auto) 71.2, Lymphocytes (%) (Auto) 17.8, Monocytes (%) (Auto) 10.1, Eosinophils (%) (Auto) 0.2, Basophils (%) (Auto) 0.1, Neutrophils # (Auto ) 6.22, Lymphocytes # (Auto) 1.55, Monocytes # (Auto) 0.88, Eosinophils # (Auto ) 0.02, Basophils # (Auto) 0.01 10/30/16 08:38 Test 10/30/16 07:28 10/30/16 08:38 10/30/16 09:15 Bedside Glucose 71 mg/dl (70-90) White Blood Count 8.73 K/uL (4.8-10.8) Red Blood Count 3.77 M/uL (4.2-5.4) Hemoglobin 9.7 g/dL (12.0-16.0) Hematocrit 31.9 % (37-47) Mean Corpuscular Volume 84.6 fL (80-100) Mean Corpuscular Hemoglobin 25.7 pg (25-34) Mean Corpuscular Hemoglobin Concent 30.4 g/dl (32-36) Platelet Count 194 K/uL (130-400) Mean Platelet Volume 10.1 fL (7.4-10.4) Neutrophils (%) (Auto) 71.2 % Lymphocytes (%) (Auto) 17.8 % Monocytes (%) (Auto) 10.1 % Eosinophils (%) (Auto) 0.2 % Basophils (%) (Auto) 0.1 % Neutrophils # (Auto) 6.22 K/uL (1.4-6.5) Lymphocytes # (Auto) 1.55 K/uL (1.2-3.4) Monocytes # (Auto) 0.88 K/uL (0.11-0.59) Eosinophils # (Auto) 0.02 K/uL (0-0.5) Basophils # (Auto) 0.01 K/uL (0-0.2) RDW Standard Deviation 56.8 fL (36.4-46.3) RDW Coefficient of Variation 18.4 % (11.5-14.5) Immature Granulocyte % (Auto) 0.6 % Immature Granulocyte # (Auto) 0.05 K/uL (0.00-0.02) Ovalocytes 1+ Prothrombin Time 13.2 SECONDS (9.0-12.0) Prothromb Time International Ratio 1.2 (0.9-1.1) Activated Partial Thromboplast Time 33.6 SECONDS (21.0-31.0) Partial Thromboplastin Ratio 1.3 Anion Gap 5.0 mmol/L (3-11) Est Creatinine Clear Calc Drug Dose 52.9 ml/min Estimated GFR () 90.3 Estimated GFR (Non- 77.9 BUN/Creatinine Ratio 14.9 (10-20) Calcium Level 8.0 mg/dl (8.5-10.1) Total Creatine Kinase 10 U/L (26-192) Creatine Kinase MB 0.7 ng/ml (0.5-3.6) Creatine Kinase MB Ratio 7.0 (0-3.0) Troponin I < 0.015 ng/ml (0-0.045) Urine Color YELLOW Urine Appearance CLOUDY (CLEAR) Urine pH 5.0 (4.5-7.5) Urine Specific [place] 1.016 (1.000-1.030) Urine Protein NEG (NEG) Urine Glucose (UA) NEG (NEG) Urine Ketones NEG (NEG) Urine Occult Blood TRACE (NEG) Urine Nitrite NEG (NEG) Urine Bilirubin NEG (NEG) Urine Urobilinogen NEG (NEG) Urine Leukocyte Esterase LARGE (NEG) Urine WBC (Auto) >30 /hpf (0-5) Urine RBC (Auto) 0-4 /hpf (0-4) Urine Hyaline Casts (Auto) 1-5 /lpf (0-5) Urine Epithelial Cells (Auto) >30 /lpf (0-5) Urine Bacteria (Auto) 1+ (NEG) Urine Renal Epithelial Cells /lpf (0-5) Urine Pathogenic Casts /lpf (0) Laboratory results reviewed by me Medications Administered Medications (Trade) Dose Ordered Sig/Susana Route Start Time Stop Time Status Last Admin Dose Admin Sodium Chloride 1,000 ml @ 50 mls/hr Q20H IV 10/30/16 07:38 11/29/16 07:37 10/30/16 09:29 50 MLS/HR Sodium Chloride 155 meq/Dextrose 312 ml @ 0 mls/hr Q0M STAT IV 10/30/16 07:38 10/30/16 07:48 DC 10/30/16 07:57 0 MLS/HR Ceftriaxone Sodium (Rocephin Inj) 1 gm NOW STAT IV 10/30/16 11:50 10/30/16 11:51 DC 10/30/16 11:57 1 GM ECG Indication: altered mental status Rate (beats per minute): 70 Rhythm: sinus rhythm Findings: 1st degree AV block, no acute ischemic change, left axis deviation, no ectopy, other (septal infarct) ED Course 0727: The patient was evaluated in room A12. A complete history and physical exam was performed. 0738: Ordered Sodium Chloride 155 meq/Dextrose 312 ml @ 0 mls/hr Wide Open IV, Sodium Chloride 1000 ml @ 50 mls/hr IV 0804: I reassessed the patient. She is talking and answering questions. Her son is at bedside and reports that the patient is at her baseline. 1150: Ordered Rocephin 1 gm IV 1202: Upon reexamination, the patient was resting comfortably. I discussed the test results and treatment plan with her. The patient will be evaluated for further management. 1253: Discussed the patient's case with Dr. Trotter of the [facility] Service. The patient will be evaluated for further treatment and disposition. Medical Decision Medication Reconciliation: I attest that I have personally reviewed the patient' s current medication list Blood pressure screening: Patient was found to have normal blood pressure on screening and does not require follow-up. Triage Nursing notes reviewed. The patient's presentation and history were concerning for altered mental status. Etiologies such as metabolic, infection, hypo/hyperglycemia, electrolyte abnormalities, cardiac sources, intracerebral event, toxicologic, neurologic, as well as others were entertained. The patient was evaluated promptly upon arrival. EMS found her blood sugar to be 48. The initiated D10. Her mental status gradually improved. Unlike examination she was following basic commands. She did not have any focal findings. She was generally weak. Her speech was somewhat garbled however. She was sent to CT scan. Blood work, imaging and urinalysis was performed. The patient was found to have a UTI. Her CBC and chemistry panel were otherwise unremarkable. The patient made a significant improvement after the D10. She was given lunch. Family presented to the Emergency Room and noted that she was back to baseline. The patient was given IV Rocephin. Consultation was made with internal medicine. The patient was evaluated for further management. Consults Time Called: 1209 Consulting Physician: Dr. Trotter - [facility] Returned Call: 1254 Discussed the patient's case with Dr. Trotter of the [facility]. The patient will be evaluated for further treatment and disposition. Impression Primary Impression: Altered mental status Additional Impressions: Hypoglycemia UTI (urinary tract infection) Scribe Attestation The scribe's documentation has been prepared under my direction and personally reviewed by me in its entirety. I confirm that the note above accurately reflects all work, treatment, procedures, and medical decision making performed by me. Departure Information Dispostion Being Evaluated By Hospitalist Referrals [facility] (PCP) Problem Qualifiers Primary Impression: Altered mental status Altered mental status type: unspecified Qualified Codes: R41.82 - Altered mental status, unspecified Additional Impressions: UTI (urinary tract infection) Urinary tract infection type: site unspecified Hematuria presence: without hematuria Qualified Codes: N39.0 - Urinary tract infection, site not specified
[2016-10-30 14:56] VITALS: O2SAT 98
[2016-10-30 15:40] VITALS: BP 148/66; PULSE 79; TEMP 36.5; O2SAT 99
[2016-10-30] MEDS: D5NSS + 20MEQ KCL 1,000 ML IV SCH (15:51)
[2016-10-30] MEDS: HEPARIN SOD 5000 UNIT/0.5 ML CARP SQ SCH ×2 (15:54→20:55)
[2016-10-30] MEDS: INSULIN ASPART 100 UNITS/ML 3 ML PEN SC SCH ×2 (17:46→20:53)
[2016-10-30] MEDS: FERROUS SULFATE 325 MG TAB PO SCH (17:47)
[2016-10-30] MEDS ORDERED: IV FLUIDS COMPLETED PRN (18:45)
[2016-10-30 19:34] VITALS: BP 127/72; PULSE 84; TEMP 36.7; O2SAT 97
[2016-10-30] MEDS: POTASSIUM CHLORIDE 20 MEQ TABCR PO SCH (20:53)
[2016-10-30] MEDS: RANITIDINE HCL 150 MG TAB PO SCH (20:53)
[2016-10-30] MEDS ORDERED: ATORVASTATIN 20 MG TAB PO SCH (21:00)
[2016-10-31 00:02] VITALS: BP 111/54; PULSE 82; TEMP 36.7; O2SAT 97
[2016-10-31] MEDS: D5NSS + 20MEQ KCL 1,000 ML IV SCH (04:42)
[2016-10-31 04:44] VITALS: BP 91/48; PULSE 70; TEMP 36.8; O2SAT 97
[2016-10-31] MEDS: HEPARIN SOD 5000 UNIT/0.5 ML CARP SQ SCH (06:00)
[2016-10-31] MEDS ORDERED: LEVOTHYROXINE 100 MCG TAB PO SCH (06:00)
[2016-10-31] MEDS: INSULIN ASPART 100 UNITS/ML 3 ML PEN SC SCH ×2 (07:00→11:00)
[2016-10-31 07:29] VITALS: BP 112/67; PULSE 77; TEMP 36.9; O2SAT 98
[2016-10-31] MEDS: FERROUS SULFATE 325 MG TAB PO SCH (08:57)
[2016-10-31] MEDS: POTASSIUM CHLORIDE 20 MEQ TABCR PO SCH (08:58)
[2016-10-31] MEDS: RANITIDINE HCL 150 MG TAB PO SCH (08:58)
[2016-10-31] MEDS ORDERED: FUROSEMIDE 20 MG TAB PO SCH (09:00)
[2016-10-31] MEDS ORDERED: MULTIVITAMIN TAB PO SCH (09:00)
[2016-10-31] MEDS ORDERED: CHOLECALCIFEROL 1000 INTER.UNIT TAB PO SCH (09:00)
[2016-10-31 10:39] VITALS: BP 112/67; PULSE 77; TEMP 36.9; O2SAT 98
[2016-10-31 11:16] VITALS: BP 118/56; PULSE 72; TEMP 36.9; O2SAT 98
[2016-10-31] MEDS ORDERED: CEFTRIAXONE SOD INJ 1 GM in DEXTROSE 5% ADD-VANTAGE 50ML 50 ML IV SCH (12:00)
[2016-10-31] MEDS ORDERED: GLC5 PO (12:56)
[2016-10-31] MEDS ORDERED: CEPH500C PO (12:56)
--- NOTE | 2016-10-31 13:02 | Discharge Instructions ---
Discharge Instructions Date of Service Oct 31, 2016. Admission Reason for Admission: Hypoglycemia,Uti Discharge Discharge Diagnosis / Problem: Hypoglycemia, UTI Discharge Goals Goal(s): Improve function, Improve disease control Activity Recommendations Activity Level: Assistance Required Therapies: Physical Therapy, Occupational Therapy Lifting Limitations: none Exercise/Sports Limitations: as tolerated Shower/Bathe: no limitations . Additional Information Patient informed of condition: Yes Advance Directives: Yes DNR: No Level of Care: Skilled Communicable Disease: No Prognosis: Stable Oxygen at (LPM): no Rose Catheter: No Instructions / Follow-Up Instructions / Follow-Up Medications: - GLIPIZIDE: was taking 10mg BID, unsure if she has had hypoglycemia before, would recommend cutting dose back to 5mg twice a day starting tomorrow discuss with physician at [facility], may want to hold Glipizide all together and monitor her blood sugars - KEFLEX: continue twice a day starting tomorrow AM, UA with signs of UTI but no growth on urine culture no signs of systemic infection, would be uncomplicated UTI at best, can treat for three days Hypoglycemia: resolved quickly, sugars actually elevated today, safe for d/c back to [facility] Altered mental status: due to hypoglycemia, symptoms completely resolved with correction of sugars, she is oriented x 3 today UTI: uncomplicated, no symptoms, no signs of systemic infection FOLLOW UP - Dr. Can this week Current Hospital Diet Patient's current hospital diet: Regular Diet Discharge Diet Recommended Diet: Diabetes Type 2 Diet Pending Studies Studies pending at discharge: no Physician Orders On Transfer POLST Discussion: Not Applicable Laboratory Results Hemoglobin A1c Test 10/19/16 04:05 Range/Units Estimated Average Glucose 137 mg/dl Hemoglobin A1c 6.4 H 4.5-5.6 % Medical Emergencies . Who to Call and When: Medical Emergencies: If at any time you feel your situation is an emergency, please call 911 immediately. . Non-Emergent Contact Non-Emergency issues call your: Primary Care Provider Call Non-Emergent contact if: you have any medication questions . . "Provider Documentation" section prepared by Fede Mendenhall. . Core Measure Problem Core Measures: None [place] Drug Monitoring Program Search Results: no issues identified
--- NOTE | 2016-10-31 13:27 | Discharge Summary ---
Discharge Summary Date of Service Oct 31, 2016. Discharge Summary Admission Date: Oct 30, 2016 at 14:00 Discharge Date: Oct 31, 2016 Discharge Disposition: [facility] facility Principal Diagnosis: Metabolic encephalopathy secondary to hypoglycemia Problems/Secondary Diagnoses: (1) Atrial fibrillation Status: Chronic (2) Benign hypertension Status: Chronic (3) Diabetes mellitus Status: Chronic (4) Gastroesophageal reflux disease Status: Chronic (5) History of knee replacement Status: Chronic (6) Hyperlipidemia Status: Chronic Immunizations: Have You Had Influenza Vaccine: Yes History of Tetanus Vaccine?: Yes Tetanus Immunization Date: Dec 16, 2004 History of Pneumococcal: Yes Pneumococcal Date: Dec 16, 2004 History of Hepatitis B Vaccine: No Procedures: none Consultations: none Medication Reconciliation New Medications: Cephalexin Monohydrate (Keflex) 500 Mg Cap 1 CAP PO BID for 2 Days, #4 CAP Glipizide (Glipizide) 5 Mg Tab 5 MG PO BID for 30 Days, #60 TABS 1 Refill Continued Medications: Acetaminophen (Tylenol) 325 Mg Tab 650 MG PO Q6H PRN for Pain or Fever, TAB TAKE 650MG EVERY 6 HOURS NEEDED FOR PAIN NOT TO EXCEED 3GM IN 24 HOURS Atenolol (Tenormin) 25 Mg Tab 25 MG PO DAILY, TAB Atorvastatin (Lipitor) 20 Mg Tab 20 MG PO HS Cholecalciferol (Vitamin D) 1,000 Unit Tab 1000 UNITS PO QAM Ferrous Sulfate (Kp Ferrous Sulfate) 325 Mg Tab 325 MG PO BID Furosemide (Lasix) 20 Mg Tab 10 MG PO DAILY, TAB Levothyroxine Sodium (Synthroid) 100 Mcg Tab 100 MCG PO QAM Magnesium Oxide (Mag-Ox) 400 Mg Tab 400 MG PO Q2D, TAB Multiple Vitamin (Multivitamin) 1 Tab Tab 1 TAB PO DAILY, TAB CHEWABLE Ondansetron Hcl (Zofran) 8 Mg Tab 8 MG PO Q8 PRN for Nausea or Vomiting, TAB Potassium Chloride (K-Tab) 20 Meq Tab 40 MEQ PO BID Ranitidine HCl (Ranitidine HCl) 150 Mg Tab 150 MG PO BID for 30 Days, #60 TAB Simethicone (Bicarsim) 80 Mg Tab 80 MG PO PC PRN for Gas or Constipation Sitagliptin Phosphate (Januvia) 50 Mg Tab 100 MG PO HS [House Protein Liquid] () 30 ML PO DAILY Discontinued Medications: Glipizide (Glucotrol) 10 Mg Tab 10 MG PO BID, TAB Discharge Exam patient feeling well today, completely oriented, eating well, no further hypoglycemia denies fever, dysuria or urinary frequency, no symptoms of UTI eating both breakfast and lunch Review of Systems: Constitutional: No fever, No chills, No sweats, No weight loss, No weakness , No fatigue, No problem reported Eyes: No worsening of vision, No eye pain, No redness, No discharge, No diplopia, No problem reported ENT: No hearing loss, No unusual epistaxis, No nasal symptoms, No sore throat, No tinnitus, No dental problems, No trouble swallowing, No problem reported Respiratory: No cough, No sputum, No wheezing, No shortness of breath, No dyspnea on exertion, No dyspnea at rest, No hemoptysis, No problem reported Cardiovascular: No chest pain, No orthopnea, No PND, No edema, No claudication, No palpitations, No problem reported Abdomen: No pain, No nausea, No vomiting, No diarrhea, No constipation, No GI bleeding, No problem reported Musculoskeletal: No joint pain, No muscle pain, No swelling, No calf pain, No problem reported Genitourinary - Female: No dysuria, No urinary frequency, No urinary urgency , No urinary incontinence, No urinary retention, No hematuria Neurologic: + memory loss (confusion surrounding events of coming here), No paralysis, No weakness, No numbness/tingling, No vertigo, No balance problems, No problem reported Psychiatric: No depression symptoms, No anhedonism, No anxiety, No insomnia , No substance abuse, No problem reported Endocrine: No fatigue, No excessive thirst, No excessive urination, No problem reported Hematologic / Lymphatic: No abnormal bleeding/bruising, No clotting problems , No swollen lymph nodes, No night sweats, No problem reported Integumentary: No rash, No itch, No new/changing skin lesions, No color change, No bleeding, No problem reported Physical Exam: General Appearance: WD/WN, no apparent distress Eyes: normal inspection, EOMI, sclerae normal ENT: normal ENT inspection, hearing grossly normal, pharynx normal Neck: supple, no adenopathy, no JVD, trachea midline Respiratory/Chest: chest non-tender, lungs clear, normal breath sounds, no respiratory distress, no accessory muscle use Cardiovascular: regular rate, rhythm, no edema, no gallop, no JVD, no murmur , normal peripheral pulses Abdomen / GI: normal bowel sounds, non tender, soft, no organomegaly Extremities: normal inspection, no calf tenderness, normal capillary refill , no pedal edema, normal range of motion, pelvis stable Neurologic/Psychiatric: 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 Pt became confused and lethargic at her care facility early this AM. It was reported that she may have had a facial droop and that she exhibited a rightward gaze. At the time that EMS arrived at the [place], her blood glu was measured at 48. She was treated with D10 on route to the hospital and her symptoms gradually resolved. She is awake and oriented at the time of admission and free of focal deficits. Her UA is + and her Blood glu was 71 on initial labs, which were otherwise unremarkable. She denies CP, SOB, dysuria, visual disturbances, HARVEY or lightheadedness. 1) Metabolic encephalopathy - in context of hypoglycemia - symptoms resolved quickly with correction of hypoglycemia given D10 and then on D5 overnight eating well suspect hypoglycemia due to Glipizide, 10mg BID, unsure if she has had hypoglycemia before will continue januvia, decrease Glipizide to 5mg BID but will leave up to Dr. Can if he wants to hold all together 2) DM - see above 3) UTI - Ceftriaxone initiated, no growth on culture, will d/c on Keflex 500mg BID for 2 more days since she has no fever, no symptoms 4) Anemia - Hb is at baseline Total Time Spent: Greater than 30 minutes This includes examination of the patient, discharge planning, medication reconciliation, and communication with other providers. Discharge Instructions Please refer to the electronic Patient Visit Report (Discharge Instructions) for additional information. Follow-Up Dr. Can this week Additional Copies To [facility]
== END 2016-10-31 14:12 ==
LOC: EDBD 07:22 → C.EDA 07:23 → ENRESERV 13:38 → C.2E 14:00
PROVIDERS: ADMIT Internal Medicine; ATTEND Internal Medicine
DX: G93.41 Metabolic encephalopathy (principal); E11.649 Type 2 diabetes mellitus with hypoglycemia without coma; E11.22 Type 2 diabetes mellitus with diabetic chronic kidney disease; I12.9 Hypertensive chronic kidney disease with stage 1 through stage 4 chronic kidney disease, or unspecified chronic kidney disease; N18.3 Chronic kidney disease, stage 3 (moderate); E78.5 Hyperlipidemia, unspecified; K21.9 Gastro-esophageal reflux disease without esophagitis; I48.0 Paroxysmal atrial fibrillation; D64.9 Anemia, unspecified; N39.0 Urinary tract infection, site not specified; Z79.899 Other long term (current) drug therapy

== ENCOUNTER → 2016-11-03 | Outpatient (CLI) | payer BC ==
[~2016-11-03] MED LIST changes: +BISA10SU7 PR; +CEPH500C PO; +GLC5 PO; -GLIP10TA9 PO; -LISI-729 PO; -LVQ750 PO; +MAGN400T6 PO; +MENTOIN TOP; -MGNO400 PO; +MISCCAP80 PO; +MOML PO; -MTR500 PO; +MULTTAB58 PO; +NYSP EXT; -POTA10TA PO; +POTA1TAB97 PO; +PRNJ PO; +PROTPAK PO; +QSTP PO; +RXNS2.5 PO; +SNTONWC TOP; +SODI1ENE PR; +[UNRECOGNIZED DRUG - OTHER] TOP
[2016-11-03 10:18] LABS: BLOOD UREA NITROGEN 5 mg/dl (7-18); BUN/CREATININE RATIO 6.8 (10-20); CALCIUM 8.2 mg/dl (8.5-10.1); CARBON DIOXIDE 26 mmol/L (21-32); CHLORIDE 109 mmol/L (98-107); CREATININE 0.71 mg/dl (0.60-1.20); GLUCOSE 102 mg/dl (70-99); POTASSIUM 3.7 mmol/L (3.5-5.1); SODIUM 143 mmol/L (136-145)
== END ==
LOC: C.LABCC 09:32
PROVIDERS: ATTEND Internal Medicine
DX: E87.6 Hypokalemia (principal); E83.42 Hypomagnesemia

== ENCOUNTER → 2016-11-11 | Outpatient (CLI) | payer BC ==
[~2016-11-11] MED LIST changes: -CEPH500C PO
== END ==
LOC: C.LABCC 17:54
PROVIDERS: ATTEND Internal Medicine
DX: R19.7 Diarrhea, unspecified (principal)

== ENCOUNTER → 2016-11-11 | Outpatient (CLI) | payer BC ==
[2016-11-11 09:21] LABS: BASO % 0.6 %; BASO ABS # 0.04 K/uL (0-0.2); COMPLETE YES; HEMATOCRIT 33.8 % (37-47); IG% 0.3 %; LYMPH % 47.6 %; LYMPH ABS # 2.93 K/uL (1.2-3.4); MEAN CELL VOLUME 88.5 fL (80-100); MEAN CORPUSCULAR HEMOGLOBIN 26.4 pg (25-34); MEAN CORPUSCULAR HGB CONC 29.9 g/dl (32-36); MEAN PLATELET VOLUME 10.1 fL (7.4-10.4); MONO % 14.1 %; NEUT % 29.4 %; PLATELET COUNT 286 K/uL (130-400); RED BLOOD COUNT 3.82 M/uL (4.2-5.4); WHITE BLOOD COUNT 6.16 K/uL (4.8-10.8)
== END ==
LOC: C.LABCC 08:01
PROVIDERS: ATTEND Internal Medicine
DX: R19.7 Diarrhea, unspecified (principal)

== ENCOUNTER 2016-11-18 20:49 | Inpatient (IN) | payer BC, OTHER ==
[~2016-11-18] VITALS: Ht 152.4 cm; Wt 72.1 kg
[2016-11-18] MEDS: INSULIN ASPART 100 UNITS/ML 3 ML PEN SC SCH ×2 (06:00→12:00)
[~2016-11-18 20:49] MED LIST changes: -BISA10SU7 PR; -MENTOIN TOP; -MISCCAP80 PO; -MOML PO; -NYSP EXT; -PRNJ PO; -PROTPAK PO; -QSTP PO; -RXNS2.5 PO; -SNTONWC TOP; -SODI1ENE PR; -VNCS250 PO; -[UNRECOGNIZED DRUG - OTHER] TOP
[2016-11-18] MEDS ORDERED: ONDANSETRON INJ 2 MG/ML 2 ML VIAL IV STA (20:58)
[2016-11-18] MEDS ORDERED: SODIUM CHLORIDE 0.9% 1000ML 1,000 ML IV STA (20:58)
--- NOTE | 2016-11-18 21:07 | EMERGENCY ROOM VISIT NOTE ---
History Report prepared by Kelly: Sulma Dougherty Under the Supervision of: Dr. Ernie Canseco D.O. First contact with patient: 20:55 Stated Complaint: NAUSEA, VOMITING, BOWEL BLOCKAGE History of Present Illness The patient is a 89 year old female who presents to the Emergency Room with complaints of intermittent vomiting beginning 3 days ago. The patient states that she had an x-ray 3 days ago that showed a bowel blockage. She reports that this morning she woke up and began vomiting. She complains of nausea and bloating. The patient notes that she has a history of diabetes, heart issues, and an appendectomy. She does not think that she has had any previous bowel obstruction. She denies any rectal bleeding, Source of History: patient Onset: 3 days ago Position: other (global) Quality: other (vomiting) Timing: intermittent Associated Symptoms: + nausea, No abdominal pain Note: She denies any rectal bleeding. She complains of bloating. Review of Systems See HPI for pertinent positives & negatives. A total of 10 systems reviewed and were otherwise negative. Past Medical & Surgical Medical Problems: (1) Acute kidney injury (2) Anemia (3) Appendectomy (4) Atrial fibrillation (5) Benign hypertension (6) Cataract (7) Cellulitis (8) Cholecystectomy (9) Diabetes mellitus (10) Gastroesophageal reflux disease (11) Hyperlipidemia (12) Hypoglycemia (13) lymphedema right upper extremity (14) Metabolic acidosis (15) Partial mastectomy - breast cancer (16) Proteinuria (17) Stage 3 chronic kidney disease (18) Urinary tract infection (19) UTI (urinary tract infection) (20) venous stasis ulcer left lower extremity Surgical Problems: (1) History of knee replacement Family History Cancer Diabetes mellitus Heart disease Hypertension Social History Smoking Status: Never Smoker Alcohol Use: none Drug Use: none Marital Status: Housing Status: lives alone Occupation Status: retired Current/Historical Medications Scheduled Atenolol (Tenormin), 25 MG PO DAILY Atorvastatin (Lipitor), 20 MG PO HS Cholecalciferol (Vitamin D), 1,000 UNITS PO QAM Ferrous Sulfate (Kp Ferrous Sulfate), 325 MG PO BID Furosemide (Lasix), 10 MG PO DAILY Glipizide (Glipizide), 5 MG PO BID Levothyroxine Sodium (Synthroid), 100 MCG PO QAM Magnesium Oxide (Mag-Ox), 400 MG PO Q2D Multiple Vitamin (Multivitamin), 1 TAB PO DAILY Potassium Chloride (K-Tab), 40 MEQ PO BID Ranitidine HCl (Ranitidine HCl), 150 MG PO BID Sitagliptin Phosphate (Januvia), 50 MG PO DAILY Scheduled PRN Acetaminophen (Tylenol), 650 MG PO Q6H PRN for Pain or Fever Ondansetron Hcl (Zofran), 8 MG PO Q8 PRN for Nausea or Vomiting Simethicone (Bicarsim), 80 MG PO PC PRN for Gas or Constipation Allergies Coded Allergies: No Known Allergies (Verified , 11/18/16) Physical Exam Vital Signs Date Time Temp Pulse Resp B/P (MAP) Pulse Ox O2 Delivery O2 Flow Rate FiO2 11/18/16 21:26 92 11/18/16 20:57 36.4 99 22 128/77 98 Room Air Physical Exam GENERAL: Patient is awake, alert, and in no acute distress. Patient is resting comfortably and is anxious appearing. EYES: The conjunctivae are clear. The pupils are round and reactive. EARS, NOSE, MOUTH AND THROAT: The nose is without any evidence of any deformity. Mucous membranes are moist tongue is midline NECK: The neck is nontender and supple. RESPIRATORY: Normal respiratory effort is noted there is no evidence of wheezing rhonchi or rales CARDIOVASCULAR: Regular rate and rhythm noted there no murmurs rubs or gallops normal S1 normal S2 GASTROINTESTINAL: Bowel sounds are present in all quadrants. Moderately distended and diffusely tender, no specific guarding or rigidity. MUSCULOSKELETAL/EXTREMITIES: There is no evidence of gross deformity full range of motion is noted in the hips and shoulders SKIN: There is no obvious evidence of any rash. There are no petechiae, pallor or cyanosis noted. Pedal edema noted bilaterally. NEUROLOGIC: Patient is awake alert and oriented x3 Medical Decision & Procedures ER Provider Diagnostic Interpretation: Radiology results as stated below per my review and radiologist interpretation: CHEST ONE VIEW PORTABLE FINDINGS: The cardiac and mediastinal contours remain stable. There are resolving bibasilar airspace opacities. There is no failure. There are no pleural effusions. There is no free intraperitoneal air.[ IMPRESSION: 1. Resolving bibasal airspace opacities 2. No evidence of free intraperitoneal air Electronically signed by: Brian Cedillo M.D. 11/18/2016 9:11 PM Dictated Date/Time: 11/18/2016 9:[address] SCAN OF THE ABDOMEN AND PELVIS WITHOUT CONTRAST FINDINGS: Lower chest: There is respiratory motion artifact. There is mild basilar atelectasis. There is a fluid-filled hiatal hernia. There is mild distal esophageal wall thickening. Liver: The unenhanced liver is normal in size, contour, and attenuation. There is no intrahepatic biliary ductal dilatation. Gallbladder: Surgically absent Spleen: Normal in size and attenuation. Pancreas: Unremarkable. Adrenal glands: There is bilateral adrenal gland thickening similar to the preceding study. Kidneys: There are 2 large right renal calculi measuring 18 mm and 17 mm respectively. Left renal calcifications are felt to be vascular. There is no hydronephrosis. No ureteral calculi are visualized. Bowel: There are no transition zones indicate bowel obstruction. There is a fat-containing umbilical hernia. There are distended bowel loops, likely colonic. There are multiple colonic air-fluid levels. There is fluid present within the sigmoid down to the anal verge. The findings are suggestive of an ileus. There is a fat-containing left inguinal hernia. Peritoneum: There is no intraperitoneal free air or abdominal ascites. Vasculature: The abdominal aorta is normal in course and caliber. Adenopathy: None. Pelvic viscera: The bladder, and pelvic viscera are unremarkable. Skeletal structures: No destructive osseous lesions are seen. IMPRESSION: 1. Distended fluid-filled bowel down to the level of the anus. The findings are consistent with an ileus or diarrheal state. No obstructing lesions are identified. 2. Fat-containing left inguinal hernia and fat-containing umbilical hernia 3. Right-sided nephrolithiasis 4. Hiatal hernia Electronically signed by: Brian Cedillo M.D. 11/18/2016 10:14 PM Dictated Date/Time: 11/18/2016 10:08 PM Laboratory Results 11/18/16 21:35 Red Blood Count 4.53, Mean Corpuscular Volume 87.2, Mean Corpuscular Hemoglobin 26.7, Mean Corpuscular Hemoglobin Concent 30.6, Mean Platelet Volume 9.2, Neutrophils (%) (Auto) 88.7, Lymphocytes (%) (Auto) 5.2, Monocytes (%) (Auto) 5.6, Eosinophils (%) (Auto) 0.0, Basophils (%) (Auto) 0.1, Neutrophils # (Auto) 23.71, Lymphocytes # (Auto) 1.38, Monocytes # (Auto) 1.51, Eosinophils # (Auto) 0.00, Basophils # (Auto) 0.02 11/18/16 21:35 Test 11/18/16 21:35 White Blood Count 26.73 K/uL (4.8-10.8) Red Blood Count 4.53 M/uL (4.2-5.4) Hemoglobin 12.1 g/dL (12.0-16.0) Hematocrit 39.5 % (37-47) Mean Corpuscular Volume 87.2 fL (80-100) Mean Corpuscular Hemoglobin 26.7 pg (25-34) Mean Corpuscular Hemoglobin Concent 30.6 g/dl (32-36) Platelet Count 306 K/uL (130-400) Mean Platelet Volume 9.2 fL (7.4-10.4) Neutrophils (%) (Auto) 88.7 % Lymphocytes (%) (Auto) 5.2 % Monocytes (%) (Auto) 5.6 % Eosinophils (%) (Auto) 0.0 % Basophils (%) (Auto) 0.1 % Neutrophils # (Auto) 23.71 K/uL (1.4-6.5) Lymphocytes # (Auto) 1.38 K/uL (1.2-3.4) Monocytes # (Auto) 1.51 K/uL (0.11-0.59) Eosinophils # (Auto) 0.00 K/uL (0-0.5) Basophils # (Auto) 0.02 K/uL (0-0.2) RDW Standard Deviation 54.5 fL (36.4-46.3) RDW Coefficient of Variation 17.0 % (11.5-14.5) Immature Granulocyte % (Auto) 0.4 % Immature Granulocyte # (Auto) 0.11 K/uL (0.00-0.02) Ovalocytes 1+ Echinocytes 1+ Prothrombin Time 12.7 SECONDS (9.0-12.0) Prothromb Time International Ratio 1.2 (0.9-1.1) Activated Partial Thromboplast Time 28.6 SECONDS (21.0-31.0) Partial Thromboplastin Ratio 1.1 Anion Gap 8.0 mmol/L (3-11) Est Creatinine Clear Calc Drug Dose 29.2 ml/min Estimated GFR () 51.5 Estimated GFR (Non- 44.5 BUN/Creatinine Ratio 29.5 (10-20) Calcium Level 8.9 mg/dl (8.5-10.1) Total Bilirubin 0.5 mg/dl (0.2-1) Direct Bilirubin 0.3 mg/dl (0-0.2) Aspartate Amino Transf (AST/SGOT) 11 U/L (15-37) Alanine Aminotransferase (ALT/SGPT) 11 U/L (12-78) Alkaline Phosphatase 112 U/L (45-117) Total Creatine Kinase 12 U/L (26-192) Creatine Kinase MB 0.7 ng/ml (0.5-3.6) Creatine Kinase MB Ratio 5.8 (0-3.0) Troponin I < 0.015 ng/ml (0-0.045) Total Protein 7.0 gm/dl (6.4-8.2) Albumin 2.3 gm/dl (3.4-5.0) Lipase 45 U/L (73-393) Laboratory results per my review. Medications Administered Medications (Trade) Dose Ordered Sig/Susana Route Start Time Stop Time Status Last Admin Dose Admin Sodium Chloride 1,000 ml @ 999 mls/hr Q1H1M STAT IV 11/18/16 20:58 11/18/16 21:58 DC 11/18/16 20:58 999 MLS/HR Ondansetron HCl (Zofran Inj) 4 mg NOW STAT IV 11/18/16 20:58 11/18/16 21:00 DC 11/18/16 21:53 4 MG ECG Indication: vomiting Rate (beats per minute): 96 Rhythm: sinus rhythm Findings: 1st degree AV block, nonspecific-ST abn, no ectopy ED Course 2054: The patient was evaluated in room C4. A complete history and physical examination were performed. 2057: Zofran Inj 4mg IV, NSS 1,000 ml @ 999 mls/hr IV. 3: I reevaluated and updated the patient. 2300: I discussed the patient's case with Dr. Trotter of [facility] [place]. The patient will be evaluated for further management. 6: Upon reevaluation, the patient is doing well. I discussed results and treatment plan with the patient. She verbalizes agreement and understanding. I spoke with Dr. Trotter of the [facility] [place]. The patient will be evaluated for further management and care. Medical Decision Differential diagnosis: Etiologies such as gastroenteritis, food borne illness, infections, appendicitis , diverticulitis, inflammatory bowel disease, obstruction, GI bleed, biliary pathology, as well as others were entertained. Nursing notes reviewed. Additional history is obtained from the patient's family members. The patient is an 89-year-old female who presented to emergency department for abdominal distention and was thought to have a bowel obstruction. The patient's radiographic studies appear to show severely distended bowel. The patient was having diarrhea but was unable to give a specimen while in the emergency department. She does have a history of C. difficile colitis. She was treated with IV fluids in the emergency department. I discussed the patient's laboratory and radiographic studies with her and her daughter. I discussed his case with the on-call [facility] hospitalist. They've agreed to evaluate the patient in emergency apartment for further management and disposition. Medication Reconcilliation Current Medication List: was personally reviewed by me Blood Pressure Screening Patient's blood pressure: Normal blood pressure Blood pressure disposition: Did not require urgent referral Consults Time Called: 225 Consulting Physician: Dr. Trotter - [facility] [place] Returned Call: [phone] I discussed the patient's case with Dr. Trotter of [facility] [place]. The patient will be evaluated for further management. Impression Primary Impression: Abdominal pain Additional Impressions: Nausea Vomiting Elevated WBC count Diarrhea Ileus C. difficile colitis Scribe Attestation The scribe's documentation has been prepared under my direction and personally reviewed by me in its entirety. I confirm that the note above accurately reflects all work, treatment, procedures, and medical decision making performed by me. Departure Information Dispostion Being Evaluated By Hospitalist Referrals [email or web address] (PCP) Problem Qualifiers
--- NOTE | 2016-11-18 21:12 | DIAGNOSTIC IMAGING REPORT ---
CHEST ONE VIEW PORTABLE CLINICAL HISTORY: Abdominal pain, nausea, vomiting, pneumonia. COMPARISON STUDY: October 18, 2016 FINDINGS: The cardiac and mediastinal contours remain stable. There are resolving bibasilar airspace opacities. There is no failure. There are no pleural effusions. There is no free intraperitoneal air.[ IMPRESSION: 1. Resolving bibasal airspace opacities 2. No evidence of free intraperitoneal air Electronically signed by: Brian Cedillo M.D. 11/18/2016 9:11 PM Dictated Date/Time: 11/18/2016 9:10 PM
[2016-11-18 21:53] LABS: HEMATOCRIT 39.5 % (37-47); MEAN CELL VOLUME 87.2 fL (80-100); MEAN CORPUSCULAR HEMOGLOBIN 26.7 pg (25-34); MEAN CORPUSCULAR HGB CONC 30.6 g/dl (32-36); MEAN PLATELET VOLUME 9.2 fL (7.4-10.4); PLATELET COUNT 306 K/uL (130-400); RED BLOOD COUNT 4.53 M/uL (4.2-5.4); WHITE BLOOD COUNT 26.73 K/uL (4.8-10.8)
[2016-11-18 22:02] LABS: INR 1.2 (0.9-1.1); PARTIAL THROMBOPLASTIN RATIO 1.1; PROTHROMBIN TIME (PATIENT) 12.7 SECONDS (9.0-12.0)
[2016-11-18 22:09] LABS: ALT/SGPT 11 U/L (12-78); BLOOD UREA NITROGEN 32 mg/dl (7-18); BUN/CREATININE RATIO 29.5 (10-20); CALCIUM 8.9 mg/dl (8.5-10.1); CARBON DIOXIDE 24 mmol/L (21-32); CHLORIDE 108 mmol/L (98-107); GLUCOSE 228 mg/dl (70-99); POTASSIUM 4.1 mmol/L (3.5-5.1); SODIUM 140 mmol/L (136-145)
[2016-11-18 22:15] LABS: ALKALINE PHOSPHATASE 112 U/L (45-117); AST/SGOT 11 U/L (15-37); CKMB/CK RATIO 5.8 (0-3.0)
--- NOTE | 2016-11-18 22:15 | DIAGNOSTIC IMAGING REPORT ---
CT SCAN OF THE ABDOMEN AND PELVIS WITHOUT CONTRAST CLINICAL HISTORY: vomiting COMPARISON STUDY: 10/16/2016 TECHNIQUE: CT scan of the abdomen and pelvis was performed from the lung bases to the proximal femurs. Images are reviewed in the axial, sagittal, and coronal planes. IV contrast was not administered for this examination. A dose lowering technique was utilized adhering to the principles of ALARA. CT DOSE: 748.79 mGy.cm FINDINGS: Lower chest: There is respiratory motion artifact. There is mild basilar atelectasis. There is a fluid-filled hiatal hernia. There is mild distal esophageal wall thickening. Liver: The unenhanced liver is normal in size, contour, and attenuation. There is no intrahepatic biliary ductal dilatation. Gallbladder: Surgically absent Spleen: Normal in size and attenuation. Pancreas: Unremarkable. Adrenal glands: There is bilateral adrenal gland thickening similar to the preceding study. Kidneys: There are 2 large right renal calculi measuring 18 mm and 17 mm respectively. Left renal calcifications are felt to be vascular. There is no hydronephrosis. No ureteral calculi are visualized. Bowel: There are no transition zones indicate bowel obstruction. There is a fat-containing umbilical hernia. There are distended bowel loops, likely colonic. There are multiple colonic air-fluid levels. There is fluid present within the sigmoid down to the anal verge. The findings are suggestive of an ileus. There is a fat-containing left inguinal hernia. Peritoneum: There is no intraperitoneal free air or abdominal ascites. Vasculature: The abdominal aorta is normal in course and caliber. Adenopathy: None. Pelvic viscera: The bladder, and pelvic viscera are unremarkable. Skeletal structures: No destructive osseous lesions are seen. IMPRESSION: 1. Distended fluid-filled bowel down to the level of the anus. The findings are consistent with an ileus or diarrheal state. No obstructing lesions are identified. 2. Fat-containing left inguinal hernia and fat-containing umbilical hernia 3. Right-sided nephrolithiasis 4. Hiatal hernia Electronically signed by: Brian Cedillo M.D. 11/18/2016 10:14 PM Dictated Date/Time: 11/18/2016 10:08 PM
[2016-11-18 22:20] LABS: BASO % 0.1 %; BASO ABS # 0.02 K/uL (0-0.2); COMPLETE YES; ECHINOCYTES 1+; IG% 0.4 %; LYMPH % 5.2 %; LYMPH ABS # 1.38 K/uL (1.2-3.4); MONO % 5.6 %; NEUT % 88.7 %; OVALOCYTES 1+
[2016-11-18] MEDS ORDERED: MoRPHine SULFATE 2 MG/ML CARP IV PRN (23:15)
[2016-11-19] VITALS (12 sets, daily range): BP systolic 112–140; BP diastolic 60–80; PULSE 79–92; TEMP 36.3–36.9; O2SAT 93–99; BMI 29.3
[2016-11-19] MEDS ORDERED: GLUCOSE 40% GEL 15 GM TUBE PO PRN (00:45)
[2016-11-19] MEDS ORDERED: GLUCAGON FOR INJ 1 MG VIAL SQ PRN (00:45)
[2016-11-19] MEDS ORDERED: GLUCOSE 10 TABS/TUBE PO PRN (00:45)
[2016-11-19] MEDS ORDERED: DEXTROSE 50% 50 ML SYR IV PRN (00:45)
[2016-11-19] MEDS: SODIUM CHLORIDE 0.9% 1000ML 1,000 ML IV SCH ×2 (01:20→12:32)
--- NOTE | 2016-11-19 01:25 | History and Physical ---
History & Physical Date & Time of Service: Nov 19, 2016 at 00:42 Chief Complaint: Colitis, Nausea & Vomiting Primary Care Physician: Jaky Siddiqi History of Present Illness Source: patient, family 89 y/o F Hx PAF, DM II, hypothyroidism. Recent admission with hypoglycemia and AMS likely due to PNM. Developed acute nausea, vomiting and diarrhea at her facility today and presented for evaluation. She denies abdominal pain, denies CP, SOB, dysuria. Labs are notable for marked leukocytosis. CT abdomen reveals a fluid filled colon consistent with a diarrheal illness but does not specifically mention colitis. The pt is considerably distressed due to nausea at the time of admission. Per her daughter, there have been a few recent cases of a similar illness at her facility. Past Medical/Surgical History Medical Problems: (1) Appendectomy Status: Resolved (2) Atrial fibrillation Status: Chronic (3) Benign hypertension Status: Chronic (4) Cataract Status: Resolved (5) Cholecystectomy Status: Resolved (6) Diabetes mellitus Status: Chronic (7) Gastroesophageal reflux disease Status: Chronic (8) Hyperlipidemia Status: Chronic (9) lymphedema right upper extremity Status: Chronic (10) Partial mastectomy - breast cancer Status: Resolved (11) Urinary tract infection Status: Resolved (12) venous stasis ulcer left lower extremity Status: Chronic Surgical Problems: (1) History of knee replacement Status: Chronic Family History Cancer Diabetes mellitus Heart disease Hypertension Social History Smoking Status: Never Smoker Drug Use: none Marital Status: Housing status: lives alone, other Occupational Status: retired Immunizations History of Influenza Vaccine: Yes History of Tetanus Vaccine?: Yes Tetanus Immunization Date: Dec 16, 2004 History of Pneumococcal: Yes Pneumococcal Date: Dec 16, 2004 History of Hepatitis B Vaccine: No Multi-Drug Resistant Organisms History of MDRO: No Allergies Coded Allergies: No Known Allergies (Verified , 11/18/16) Home Medications Scheduled Atenolol (Tenormin), 25 MG PO DAILY Atorvastatin (Lipitor), 20 MG PO HS Cholecalciferol (Vitamin D), 1,000 UNITS PO QAM Ferrous Sulfate (Kp Ferrous Sulfate), 325 MG PO BID Furosemide (Lasix), 10 MG PO DAILY Glipizide (Glipizide), 5 MG PO BID Levothyroxine Sodium (Synthroid), 100 MCG PO QAM Magnesium Oxide (Mag-Ox), 400 MG PO Q2D Multiple Vitamin (Multivitamin), 1 TAB PO DAILY Potassium Chloride (K-Tab), 40 MEQ PO BID Ranitidine HCl (Ranitidine HCl), 150 MG PO BID Sitagliptin Phosphate (Januvia), 50 MG PO DAILY Scheduled PRN Acetaminophen (Tylenol), 650 MG PO Q6H PRN for Pain or Fever Ondansetron Hcl (Zofran), 8 MG PO Q8 PRN for Nausea or Vomiting Simethicone (Bicarsim), 80 MG PO PC PRN for Gas or Constipation Physical Exam Vital Signs Date Time Temp Pulse Resp B/P (MAP) Pulse Ox O2 Delivery O2 Flow Rate FiO2 11/19/16 00:06 73 21 122/62 96 Room Air 11/18/16 23:00 70 20 130/62 96 Room Air 11/18/16 21:26 92 11/18/16 20:57 36.4 99 22 128/77 98 Room Air Diagnostics Laboratory Results Results Past 24 Hours Test 11/18/16 21:35 11/18/16 23:21 Range/Units White Blood Count 26.73 4.8-10.8 K/uL Red Blood Count 4.53 4.2-5.4 M/uL Hemoglobin 12.1 12.0-16.0 g/dL Hematocrit 39.5 37-47 % Mean Corpuscular Volume 87.2 80-100 fL Mean Corpuscular Hemoglobin 26.7 25-34 pg Mean Corpuscular Hemoglobin Concent 30.6 32-36 g/dl Platelet Count 306 130-400 K/uL Mean Platelet Volume 9.2 7.4-10.4 fL Neutrophils (%) (Auto) 88.7 % Lymphocytes (%) (Auto) 5.2 % Monocytes (%) (Auto) 5.6 % Eosinophils (%) (Auto) 0.0 % Basophils (%) (Auto) 0.1 % Neutrophils # (Auto) 23.71 1.4-6.5 K/uL Lymphocytes # (Auto) 1.38 1.2-3.4 K/uL Monocytes # (Auto) 1.51 0.11-0.59 K/uL Eosinophils # (Auto) 0.00 0-0.5 K/uL Basophils # (Auto) 0.02 0-0.2 K/uL RDW Standard Deviation 54.5 36.4-46.3 fL RDW Coefficient of Variation 17.0 11.5-14.5 % Immature Granulocyte % (Auto) 0.4 % Immature Granulocyte # (Auto) 0.11 0.00-0.02 K/uL Ovalocytes 1+ Echinocytes 1+ Prothrombin Time 12.7 9.0-12.0 SECONDS Prothromb Time International Ratio 1.2 0.9-1.1 Activated Partial Thromboplast Time 28.6 21.0-31.0 SECONDS Partial Thromboplastin Ratio 1.1 Sodium Level 140 136-145 mmol/L Potassium Level 4.1 3.5-5.1 mmol/L Chloride Level 108 98-107 mmol/L Carbon Dioxide Level 24 21-32 mmol/L Anion Gap 8.0 3-11 mmol/L Blood Urea Nitrogen 32 7-18 mg/dl Creatinine 1.10 0.60-1.20 mg/dl Est Creatinine Clear Calc Drug Dose 29.2 ml/min Estimated GFR () 51.5 Estimated GFR (Non- 44.5 BUN/Creatinine Ratio 29.5 10-20 Random Glucose 228 70-99 mg/dl Calcium Level 8.9 8.5-10.1 mg/dl Total Bilirubin 0.5 0.2-1 mg/dl Direct Bilirubin 0.3 0-0.2 mg/dl Aspartate Amino Transf (AST/SGOT) 11 15-37 U/L Alanine Aminotransferase (ALT/SGPT) 11 12-78 U/L Alkaline Phosphatase 112 45-117 U/L Total Creatine Kinase 12 26-192 U/L Creatine Kinase MB 0.7 0.5-3.6 ng/ml Creatine Kinase MB Ratio 5.8 0-3.0 Troponin I < 0.015 0-0.045 ng/ml Total Protein 7.0 6.4-8.2 gm/dl Albumin 2.3 3.4-5.0 gm/dl Lipase 45 73-393 U/L Bedside Lactic Acid Venous 1.26 0.90-1.70 mmol/L Microbiology Results 11/18/16 Blood Culture, Received Pending 11/18/16 Blood Culture, Received Pending 11/19/16 C.difficile Toxin B Gene (PCR), Ordered Pending 11/19/16 WBC Smear, Georgie Batch Pending 11/19/16 Shiga Toxin Test, Georgie Batch Pending 11/19/16 Stool Culture, Georgie Batch Pending Diagnostic Radiology 1. Distended fluid-filled bowel down to the level of the anus. The findings are consistent with an ileus or diarrheal state. No obstructing lesions are identified. 2. Fat-containing left inguinal hernia and fat-containing umbilical hernia 3. Right-sided nephrolithiasis 4. Hiatal hernia Impression Assessment and Plan 89 y/o F Hx PAF, DM II, hypothyroidism. Developed acute nausea, vomiting and diarrhea at her facility today and presented for evaluation. She denies abdominal pain, denies CP, SOB, dysuria. Labs are notable for marked leukocytosis. CT abdomen reveals a fluid filled colon consistent with a diarrheal illness but does not specifically mention colitis. Per her daughter, there have been a few recent cases of a similar illness at her facility. 1) Nausea, vomiting, diarrhea. She does not have a fever but does have considerable leukocytosis. We will check for Cdiff and obtain a stool culture - she will be started on Flagyl empirically due to recent antibiotic use. She will be kept NPO and treated with IVF and antiemetics as needed. Degree of leukocytosis is not consistent with her imaging or exam presently - we are pending a UA and will trend her CBC. 2) DM 2 - placed on sliding scale with Aspart only. 3) PAF - presently sinus - she is placed on telemetry and will receive IV Metoprolol Q8H. 4) Hypothyroid - placed on IV Synthroid daily Full code - Heparin prophylaxis Total time for this admit including review of labs, meds, imaging, records - discussion with pt, daughter, ER attending - 38 min Resuscitation Status FULL RESUSCITATION VTE Prophylaxis VTE Risk Assessment Done? Y/N: Yes Risk Level: Moderate
[2016-11-19] MEDS ORDERED: METOCLOPRAMIDE HCL INJ 5 MG/ML 2 ML VIAL IV ONE (01:30)
[2016-11-19] MEDS: METRONIDAZOLE / NSS 500 MG in PREMIXED NSS 100 ML IV SCH ×3 (01:33→18:20)
[2016-11-19] MEDS: INSULIN ASPART 100 UNITS/ML 3 ML PEN SC SCH ×3 (01:38→18:06)
[2016-11-19] MEDS: METOPROLOL TARTRATE 1 MG/ML VIAL IV. SCH ×3 (06:04→22:09)
[2016-11-19 06:30] LABS: HEMATOCRIT 37.2 % (37-47); MEAN CELL VOLUME 88.4 fL (80-100); MEAN CORPUSCULAR HGB CONC 31.7 g/dl (32-36); MEAN PLATELET VOLUME 9.6 fL (7.4-10.4); PLATELET COUNT 253 K/uL (130-400); RED BLOOD COUNT 4.21 M/uL (4.2-5.4); WHITE BLOOD COUNT 23.69 K/uL (4.8-10.8)
[2016-11-19 06:56] LABS: BUN/CREATININE RATIO 27.5 (10-20); CALCIUM 8.5 mg/dl (8.5-10.1); CREATININE 1.1 mg/dl (0.60-1.20); MAGNESIUM 1.8 mg/dl (1.8-2.4)
[2016-11-19] MEDS: HEPARIN SOD 5000 UNIT/0.5 ML CARP SQ SCH ×2 (08:26→20:59)
[2016-11-19] MEDS: LEVOTHYROXINE SODIUM INJ 50 MCG in SYRINGE 0 ML IV SCH (09:35)
--- NOTE | 2016-11-19 16:43 | Progress Note ---
Subjective Date of Service: Nov 19, 2016. Subjective Pt evaluation today including: conversation w/ patient, conversation w/ family , physical exam, chart review, lab review, review of studies, review of inpatient medication list Nurse reported abdominal is distended, some nausea, small amount of dark stool, patient no obvious complaint, Problem List Medical Problems: (1) Abdominal pain Status: Acute (2) Altered mental status Status: Acute (3) Anxiety Status: Acute (4) Back pain Status: Acute (5) Diarrhea Status: Acute (6) Elevated WBC count Status: Acute (7) Gastroenteritis Status: Acute (8) Hypokalemia Status: Acute (9) Ileus Status: Acute (10) Intertriginous candidiasis Status: Acute (11) Nausea Status: Acute (12) Right arm cellulitis Status: Acute (13) Vomiting Status: Acute Review of Systems Constitutional: + weakness, + fatigue, No fever, No chills, No sweats, No weight loss, No problem reported Eyes: No worsening of vision, No eye pain, No redness, No discharge, No diplopia ENT: No hearing loss, No unusual epistaxis, No nasal symptoms, No sore throat, No tinnitus, No dental problems, No trouble swallowing Respiratory: No cough, No sputum, No wheezing, No shortness of breath, No dyspnea on exertion, No dyspnea at rest, No hemoptysis Cardiac: No chest pain, No orthopnea, No PND, No edema, No claudication, No palpitations Abdomen: + nausea, No pain, No vomiting, No diarrhea, No constipation Musculoskeletal: No joint pain, No muscle pain, No swelling, No calf pain Female : No dysuria, No urinary frequency, No hematuria, No incontinence, No abnormal vaginal bleeding, No vaginal discharge Neurologic: No memory loss, No paralysis, No weakness, No numbness/tingling, No vertigo, No balance problems Psychiatric: No depression symptoms, No anhedonism, No anxiety, No insomnia, No substance abuse Heme: No abnormal bleeding/bruising, No clotting problems, No swollen lymph nodes, No night sweats Endo: No fatigue, No excessive thirst, No excessive urination Skin: No rash, No itch, No new/changing skin lesions, No color change, No bleeding Objective Vital Signs Date Time Temp Pulse Resp B/P (MAP) Pulse Ox O2 Delivery O2 Flow Rate FiO2 11/19/16 15:52 36.8 90 22 115/75 (88) 98 Room Air 11/19/16 12:33 82 132/72 11/19/16 12:00 99 Room Air 11/19/16 11:13 36.7 79 20 112/60 (77) 99 Room Air 11/19/16 08:00 98 Room Air 11/19/16 07:27 36.7 89 20 133/73 (93) 98 Room Air 11/19/16 06:04 91 115/71 11/19/16 04:00 Room Air 11/19/16 03:08 36.6 86 20 123/80 (94) 98 Room Air 11/19/16 01:00 Room Air 11/19/16 00:36 36.3 92 16 128/77 Room Air 11/19/16 00:06 73 21 122/62 96 Room Air 11/18/16 23:00 70 20 130/62 96 Room Air 11/18/16 21:26 92 11/18/16 20:57 36.4 99 22 128/77 98 Room Air Physical Exam General Appearance: WD/WN, no apparent distress, + pertinent finding (frail and weak) Eyes: normal inspection, PERRL, EOMI, sclerae normal ENT: normal ENT inspection, hearing grossly normal, pharynx normal Neck: supple, no adenopathy, thyroid normal, no JVD, no carotid bruits, trachea midline Respiratory/Chest: chest non-tender, normal breath sounds, no respiratory distress, no accessory muscle use, + decreased breath sounds Cardiovascular: regular rate, rhythm, no edema, no gallop, no JVD, no murmur Abdomen: soft, no organomegaly, no pulsatile mass, + abnormal bowel sounds ( decreased bowel sound), + distended (mild) Extremities: normal range of motion, non-tender, normal inspection, no pedal edema, no calf tenderness, normal capillary refill, pelvis stable 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, no motor/sensory deficits, alert, normal mood/affect, oriented x 3 Skin: normal color, warm/dry, no rash Lymphatic: no adenopathy Laboratory Results Last 24 Hours Test 11/18/16 21:35 11/18/16 23:21 11/19/16 01:12 11/19/16 06:03 White Blood Count 26.73 K/uL 23.69 K/uL Red Blood Count 4.53 M/uL 4.21 M/uL Hemoglobin 12.1 g/dL 11.8 g/dL Hematocrit 39.5 % 37.2 % Mean Corpuscular Volume 87.2 fL 88.4 fL Mean Corpuscular Hemoglobin 26.7 pg 28.0 pg Mean Corpuscular Hemoglobin Concent 30.6 g/dl 31.7 g/dl Platelet Count 306 K/uL 253 K/uL Mean Platelet Volume 9.2 fL 9.6 fL Neutrophils (%) (Auto) 88.7 % Lymphocytes (%) (Auto) 5.2 % Monocytes (%) (Auto) 5.6 % Eosinophils (%) (Auto) 0.0 % Basophils (%) (Auto) 0.1 % Neutrophils # (Auto) 23.71 K/uL Lymphocytes # (Auto) 1.38 K/uL Monocytes # (Auto) 1.51 K/uL Eosinophils # (Auto) 0.00 K/uL Basophils # (Auto) 0.02 K/uL RDW Standard Deviation 54.5 fL 55.7 fL RDW Coefficient of Variation 17.0 % 17.1 % Immature Granulocyte % (Auto) 0.4 % Immature Granulocyte # (Auto) 0.11 K/uL Ovalocytes 1+ Echinocytes 1+ Prothrombin Time 12.7 SECONDS Prothromb Time International Ratio 1.2 Activated Partial Thromboplast Time 28.6 SECONDS Partial Thromboplastin Ratio 1.1 Sodium Level 140 mmol/L 142 mmol/L Potassium Level 4.1 mmol/L 4.0 mmol/L Chloride Level 108 mmol/L 113 mmol/L Carbon Dioxide Level 24 mmol/L 23 mmol/L Anion Gap 8.0 mmol/L 6.0 mmol/L Blood Urea Nitrogen 32 mg/dl 30 mg/dl Creatinine 1.10 mg/dl 1.10 mg/dl Est Creatinine Clear Calc Drug Dose 29.2 ml/min 29.8 ml/min Estimated GFR () 51.5 51.5 Estimated GFR (Non- 44.5 44.5 BUN/Creatinine Ratio 29.5 27.5 Random Glucose 228 mg/dl 167 mg/dl Calcium Level 8.9 mg/dl 8.5 mg/dl Total Bilirubin 0.5 mg/dl Direct Bilirubin 0.3 mg/dl Aspartate Amino Transf (AST/SGOT) 11 U/L Alanine Aminotransferase (ALT/SGPT) 11 U/L Alkaline Phosphatase 112 U/L Total Creatine Kinase 12 U/L Creatine Kinase MB 0.7 ng/ml Creatine Kinase MB Ratio 5.8 Troponin I < 0.015 ng/ml Total Protein 7.0 gm/dl Albumin 2.3 gm/dl Lipase 45 U/L Bedside Lactic Acid Venous 1.26 mmol/L Bedside Glucose 200 mg/dl Magnesium Level 1.8 mg/dl Test 11/19/16 06:05 11/19/16 11:21 Bedside Glucose 155 mg/dl 124 mg/dl Assessment and Plan 89 y/o F admitted because of acute nausea, vomiting and diarrhea Per report upon admission, denies abdominal pain, denies CP, SOB, dysuria. Labs are notable for marked leukocytosis. CT abdomen reveals a fluid filled colon consistent with a diarrheal illness but does not specifically mention colitis. Per her daughter, there have been a few recent cases of a similar illness at her facility. Hx PAF, DM II, hypothyroidism. C. difficile positive with Nausea, vomiting, diarrhea. recent Cdiff colitis w sepsis in earlier october 2016 with hematochezia, Acute blood loss anemia- secondary to hematochezia/GI bleeding was With abrupt onset, (+) nausea/vomiting. CT abdomen with ileus, diarrheal state, and near complete occlusion SMA with collaterals Leukocytosis has trends down kept NPO and treated with IVF and antiemetics as needed. Continue metronidazole and IV fluid upgrade to iv vanco ( no po vanco b/c NPO and ileus with n/v now) Repeat KUB DM 2 - placed on sliding scale with Aspart only. PAF - presently sinus - she is placed on telemetry and will receive IV Metoprolol Q8H. Hypothyroid - placed on IV Synthroid daily heel wound, will continue wound care Discussed with daughter about the patient's condition and care plan, onset on questions, daughter reported patient is do not resuscitation, CODE STATUS changed Heparin prophylaxis Continued [facility] stay due to: multiple IV medications needed Discharge planning: uncertain
[2016-11-19] MEDS ORDERED: CONSULT PHARMACY STA (16:51)
--- NOTE | 2016-11-19 17:08 | DIAGNOSTIC IMAGING REPORT ---
KUB HISTORY: ileus follow up COMPARISON: Abdomen and pelvis CT 11/18/2016. KUB 10/18/16. FINDINGS: There are again noted multiple distended gas-filled loops of large and small bowel seen throughout the abdomen. This is similar to the prior study. Prior cholecystectomy. Right-sided nephrolithiasis, unchanged. No pneumoperitoneum or pneumatosis. Old left-sided rib fractures. IMPRESSION: No significant change in the multiple distended gas-filled loops of large and small bowel seen throughout the abdomen. Electronically signed by: Arpit Gallagher M.D. 11/19/2016 5:06 PM Dictated Date/Time: 11/19/2016 5:03 PM
[2016-11-19] MEDS: NSS + 20MEQ KCL 1000ML 1,000 ML IV SCH (18:20)
[2016-11-19] MEDS: RASPBERRY SYRUP 5 ML UDP PO SCH (20:59)
[2016-11-19] MEDS: VANCOMYCIN HCL 250 MG/5 ML SOLN PO SCH (20:59)
[2016-11-19] MEDS: RANITIDINE IV 50 MG in DEXTROSE 5% 100ML 100 ML IV SCH (21:00)
[2016-11-20] VITALS (8 sets, daily range): BP systolic 101–115; BP diastolic 56–69; PULSE 75–97; TEMP 36.4–37; O2SAT 97–100
[2016-11-20] MEDS: METRONIDAZOLE / NSS 500 MG in PREMIXED NSS 100 ML IV SCH ×3 (01:16→16:48)
[2016-11-20] MEDS: INSULIN ASPART 100 UNITS/ML 3 ML PEN SC SCH ×4 (05:43→21:00)
[2016-11-20] MEDS: METOPROLOL TARTRATE 1 MG/ML VIAL IV. SCH ×3 (05:44→22:03)
[2016-11-20] MEDS: NSS + 20MEQ KCL 1000ML 1,000 ML IV SCH (05:44)
[2016-11-20 05:59] LABS: HEMATOCRIT 36.7 % (37-47); MEAN CELL VOLUME 89.1 fL (80-100); MEAN CORPUSCULAR HEMOGLOBIN 27.2 pg (25-34); MEAN CORPUSCULAR HGB CONC 30.5 g/dl (32-36); MEAN PLATELET VOLUME 9.7 fL (7.4-10.4); PLATELET COUNT 223 K/uL (130-400); RED BLOOD COUNT 4.12 M/uL (4.2-5.4); WHITE BLOOD COUNT 18.45 K/uL (4.8-10.8)
[2016-11-20 06:28] LABS: BASO % 0.2 %; BASO ABS # 0.03 K/uL (0-0.2); COMPLETE YES; ECHINOCYTES 1+; EOS % 0.1 %; IG% 0.5 %; LYMPH % 13.3 %; LYMPH ABS # 2.46 K/uL (1.2-3.4); MONO % 6.5 %; NEUT % 79.4 %; OVALOCYTES 1+
[2016-11-20 06:29] LABS: BUN/CREATININE RATIO 28.7 (10-20); CALCIUM 8.2 mg/dl (8.5-10.1); CREATININE 0.83 mg/dl (0.60-1.20); MAGNESIUM 1.6 mg/dl (1.8-2.4); POTASSIUM 3.4 mmol/L (3.5-5.1)
[2016-11-20] MEDS ORDERED: POTASSIUM PHOS 3 MMOL/1 ML INFUSION IV STA (07:58)
[2016-11-20] MEDS ORDERED: MAGNESIUM SULFATE 1GM / D5W 1 GM in PREMIXED IN D5W 100 ML IV ONE (08:15)
[2016-11-20] MEDS: HEPARIN SOD 5000 UNIT/0.5 ML CARP SQ SCH ×2 (08:26→22:06)
[2016-11-20] MEDS ORDERED: POTASSIUM PHOSPHATE INJ 30 MMOL in SODIUM CHLORIDE 0.9% 500ML 500 ML IV ONE (08:30)
[2016-11-20] MEDS: D5W AND 1/2NSS 1,000 ML IV SCH (08:52)
[2016-11-20] MEDS: VANCOMYCIN HCL 250 MG/5 ML SOLN PO SCH ×3 (08:53→22:09)
[2016-11-20] MEDS: MAGNESIUM OXIDE 400 MG TAB PO SCH ×2 (08:53→22:01)
[2016-11-20] MEDS: RASPBERRY SYRUP 5 ML UDP PO SCH ×3 (08:53→22:02)
[2016-11-20] MEDS: LEVOTHYROXINE SODIUM INJ 50 MCG in SYRINGE 0 ML IV SCH (08:53)
--- NOTE | 2016-11-20 13:11 | Progress Note ---
Subjective Date of Service: Nov 20, 2016. Subjective Pt evaluation today including: conversation w/ patient, conversation w/ family , physical exam, chart review, lab review, review of studies, review of inpatient medication list Much awake and alert, conversational, and pleasant, feel more energetic, speak louder, No complaining, has bowel movement 1 Problem List Medical Problems: (1) Abdominal pain Status: Acute (2) Altered mental status Status: Acute (3) Anxiety Status: Acute (4) Back pain Status: Acute (5) Diarrhea Status: Acute (6) Elevated WBC count Status: Acute (7) Gastroenteritis Status: Acute (8) Hypokalemia Status: Acute (9) Ileus Status: Acute (10) Intertriginous candidiasis Status: Acute (11) Nausea Status: Acute (12) Right arm cellulitis Status: Acute (13) Vomiting Status: Acute Review of Systems Constitutional: + weakness, + fatigue, No fever, No chills, No sweats, No weight loss, No problem reported Eyes: No worsening of vision, No eye pain, No redness, No discharge, No diplopia ENT: No hearing loss, No unusual epistaxis, No nasal symptoms, No sore throat, No tinnitus, No dental problems, No trouble swallowing Respiratory: No cough, No sputum, No wheezing, No shortness of breath, No dyspnea on exertion, No dyspnea at rest, No hemoptysis Cardiac: No chest pain, No orthopnea, No PND, No edema, No claudication, No palpitations Abdomen: No pain, No nausea, No vomiting, No diarrhea, No constipation Musculoskeletal: No joint pain, No muscle pain, No swelling, No calf pain Female : No dysuria, No urinary frequency, No hematuria, No incontinence, No abnormal vaginal bleeding, No vaginal discharge Neurologic: No memory loss, No paralysis, No weakness, No numbness/tingling, No vertigo, No balance problems Psychiatric: No depression symptoms, No anhedonism, No anxiety, No insomnia, No substance abuse Heme: No abnormal bleeding/bruising, No clotting problems, No swollen lymph nodes, No night sweats Endo: No fatigue, No excessive thirst, No excessive urination Skin: No rash, No itch, No new/changing skin lesions, No color change, No bleeding Objective Vital Signs Date Time Temp Pulse Resp B/P (MAP) Pulse Ox O2 Delivery O2 Flow Rate FiO2 11/20/16 12:00 Room Air 11/20/16 11:58 36.5 83 18 101/64 (76) 98 Room Air 11/20/16 08:00 97 Room Air 11/20/16 07:43 37.0 84 20 109/69 (82) 97 Room Air 11/20/16 05:44 85 123/72 11/20/16 04:00 Room Air 11/20/16 03:13 36.7 97 20 103/65 (78) 98 Room Air 11/20/16 00:00 Room Air 11/19/16 23:48 36.9 92 18 115/71 (86) 97 11/19/16 22:09 85 124/80 11/19/16 22:06 85 124/80 (95) 11/19/16 20:00 93 Room Air 11/19/16 19:55 36.8 84 18 140/77 (98) 93 Room Air 11/19/16 16:00 98 Room Air 11/19/16 15:52 36.8 90 22 115/75 (88) 98 Room Air Physical Exam General Appearance: WD/WN, no apparent distress, + pertinent finding (chronic ear looking, frail) Eyes: normal inspection, PERRL, EOMI, sclerae normal ENT: normal ENT inspection, hearing grossly normal, pharynx normal Neck: supple, no adenopathy, thyroid normal, no JVD, no carotid bruits, trachea midline Respiratory/Chest: chest non-tender, normal breath sounds, no respiratory distress, no accessory muscle use, + decreased breath sounds Cardiovascular: regular rate, rhythm, no edema, no gallop, no JVD, no murmur Abdomen: normal bowel sounds, non tender, soft, no organomegaly, no pulsatile mass Extremities: normal range of motion, non-tender, normal inspection, no pedal edema, no calf tenderness, normal capillary refill, pelvis stable 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, no motor/sensory deficits, alert, normal mood/affect, oriented x 3 Skin: normal color, warm/dry, no rash Lymphatic: no adenopathy Laboratory Results Last 24 Hours Test 11/19/16 18:05 11/19/16 23:55 11/20/16 04:56 11/20/16 05:40 Bedside Glucose 127 mg/dl 124 mg/dl 107 mg/dl White Blood Count 18.45 K/uL Red Blood Count 4.12 M/uL Hemoglobin 11.2 g/dL Hematocrit 36.7 % Mean Corpuscular Volume 89.1 fL Mean Corpuscular Hemoglobin 27.2 pg Mean Corpuscular Hemoglobin Concent 30.5 g/dl Platelet Count 223 K/uL Mean Platelet Volume 9.7 fL Neutrophils (%) (Auto) 79.4 % Lymphocytes (%) (Auto) 13.3 % Monocytes (%) (Auto) 6.5 % Eosinophils (%) (Auto) 0.1 % Basophils (%) (Auto) 0.2 % Neutrophils # (Auto) 14.64 K/uL Lymphocytes # (Auto) 2.46 K/uL Monocytes # (Auto) 1.20 K/uL Eosinophils # (Auto) 0.02 K/uL Basophils # (Auto) 0.03 K/uL RDW Standard Deviation 56.0 fL RDW Coefficient of Variation 17.1 % Immature Granulocyte % (Auto) 0.5 % Immature Granulocyte # (Auto) 0.10 K/uL Ovalocytes 1+ Echinocytes 1+ Sodium Level 146 mmol/L Potassium Level 3.4 mmol/L Chloride Level 118 mmol/L Carbon Dioxide Level 22 mmol/L Anion Gap 6.0 mmol/L Blood Urea Nitrogen 24 mg/dl Creatinine 0.83 mg/dl Est Creatinine Clear Calc Drug Dose 39.5 ml/min Estimated GFR () 72.5 Estimated GFR (Non- 62.5 BUN/Creatinine Ratio 28.7 Random Glucose 125 mg/dl Calcium Level 8.2 mg/dl Phosphorus Level 2.0 mg/dl Magnesium Level 1.6 mg/dl Test 11/20/16 12:16 Bedside Glucose 117 mg/dl Assessment and Plan 89 y/o F admitted because of acute nausea, vomiting and diarrhea Per report upon admission, denies abdominal pain, denies CP, SOB, dysuria. Labs are notable for marked leukocytosis. CT abdomen reveals a fluid filled colon consistent with a diarrheal illness but does not specifically mention colitis. Per her daughter, there have been a few recent cases of a similar illness at her facility. Hx PAF, DM II, hypothyroidism. Diarrhea with C. difficile positive with Nausea, vomiting Possible associated with sepsis with significant leukocytosis and mental status changes Improving recent Cdiff colitis w sepsis in earlier october 2016 with hematochezia, Acute blood loss anemia- secondary to hematochezia/GI bleeding was With abrupt onset, (+) nausea/vomiting. CT abdomen with ileus, diarrheal state, and near complete occlusion SMA with collaterals clear liquid diet advances tolerated Continue metronidazole iv and oral Vanco for C. difficile colitis DM 2 - placed on sliding scale with Aspart only. PAF - continue telemetry and IV Metoprolol Q8H. Hypothyroid - placed on IV Synthroid daily Hypomagnesemia hypophosphatemia and hypokinemia, replaced and will follow-up heel wound, will continue wound care Discussed with daughter about the patient's condition and care plan, onset on questions, daughter reported patient is do not resuscitation, Improving CODE STATUS changed Heparin prophylaxis Continued [facility] stay due to: multiple IV medications needed Discharge planning: uncertain
[2016-11-20] MEDS ORDERED: NURSING VERBAL MED ORDER ONE (18:15)
[2016-11-20] MEDS: RANITIDINE IV 50 MG in DEXTROSE 5% 100ML 100 ML IV SCH (22:09)
[2016-11-21] VITALS (7 sets, daily range): BP systolic 94–129; BP diastolic 51–76; PULSE 69–87; TEMP 36.3–37; O2SAT 96–98
[2016-11-21] MEDS: METRONIDAZOLE / NSS 500 MG in PREMIXED NSS 100 ML IV SCH ×2 (01:34→08:40)
[2016-11-21] MEDS: D5W AND 1/2NSS 1,000 ML IV SCH (01:34)
[2016-11-21] MEDS: METOPROLOL TARTRATE 1 MG/ML VIAL IV. SCH ×3 (05:57→21:19)
[2016-11-21 06:07] LABS: CALCIUM 7.6 mg/dl (8.5-10.1); CREATININE 0.6 mg/dl (0.60-1.20); MAGNESIUM 1.6 mg/dl (1.8-2.4); PHOSPHORUS 1.9 mg/dl (2.5-4.9); POTASSIUM 3.2 mmol/L (3.5-5.1)
[2016-11-21] MEDS: INSULIN ASPART 100 UNITS/ML 3 ML PEN SC SCH ×4 (07:00→20:49)
[2016-11-21] MEDS: RASPBERRY SYRUP 5 ML UDP PO SCH ×3 (08:40→21:20)
[2016-11-21] MEDS: MAGNESIUM OXIDE 400 MG TAB PO SCH ×2 (08:40→21:20)
[2016-11-21] MEDS: HEPARIN SOD 5000 UNIT/0.5 ML CARP SQ SCH ×2 (08:42→21:21)
[2016-11-21] MEDS: VANCOMYCIN HCL 250 MG/5 ML SOLN PO SCH ×3 (08:49→21:19)
[2016-11-21] MEDS: LEVOTHYROXINE SODIUM INJ 50 MCG in SYRINGE 0 ML IV SCH (09:08)
[2016-11-21] MEDS ORDERED: POTASSIUM CHLORIDE 10 MEQ TABCR PO STA (11:28)
[2016-11-21] MEDS ORDERED: POTASSIUM PHOS 3 MMOL/1 ML INFUSION IV STA (11:28)
[2016-11-21] MEDS ORDERED: POTASSIUM PHOSPHATE INJ 30 MMOL in SODIUM CHLORIDE 0.9% 500ML 500 ML IV ONE (11:45)
[2016-11-21] MEDS ORDERED: MAGNESIUM SULFATE 1GM / D5W 1 GM in PREMIXED IN D5W 100 ML IV ONE (12:00)
[2016-11-21 12:06] LABS: BASO % 0.1 %; BASO ABS # 0.02 K/uL (0-0.2); COMPLETE YES; EOS % 0.7 %; HEMATOCRIT 34.2 % (37-47); IG% 0.4 %; LYMPH % 16.8 %; LYMPH ABS # 2.32 K/uL (1.2-3.4); MEAN CELL VOLUME 88.4 fL (80-100); MEAN CORPUSCULAR HEMOGLOBIN 27.1 pg (25-34); MEAN CORPUSCULAR HGB CONC 30.7 g/dl (32-36); MEAN PLATELET VOLUME 9.6 fL (7.4-10.4); MONO % 6.5 %; NEUT % 75.5 %; PLATELET COUNT 203 K/uL (130-400); RED BLOOD COUNT 3.87 M/uL (4.2-5.4); WHITE BLOOD COUNT 13.78 K/uL (4.8-10.8)
[2016-11-21] MEDS: POTASSIUM CHLR 10 MEQ / WTR 10 MEQ in PREMIXED WATER 100 ML IV SCH ×2 (12:22→14:26)
[2016-11-21 12:25] LABS: BUN/CREATININE RATIO 19.7 (10-20); CALCIUM 7.6 mg/dl (8.5-10.1); CREATININE 0.64 mg/dl (0.60-1.20); MAGNESIUM 1.6 mg/dl (1.8-2.4); POTASSIUM 3.2 mmol/L (3.5-5.1)
--- NOTE | 2016-11-21 13:07 | Progress Note ---
Subjective Date of Service: Nov 21, 2016. 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, today has no more diarrhea so for Problem List Medical Problems: (1) Abdominal pain Status: Acute (2) Altered mental status Status: Acute (3) Anxiety Status: Acute (4) Back pain Status: Acute (5) Diarrhea Status: Acute (6) Elevated WBC count Status: Acute (7) Gastroenteritis Status: Acute (8) Hypokalemia Status: Acute (9) Ileus Status: Acute (10) Intertriginous candidiasis Status: Acute (11) Nausea Status: Acute (12) Right arm cellulitis Status: Acute (13) Vomiting Status: Acute Review of Systems Constitutional: + weakness, + fatigue, No fever, No chills, No sweats, No weight loss, No problem reported Eyes: No worsening of vision, No eye pain, No redness, No discharge, No diplopia ENT: No hearing loss, No unusual epistaxis, No nasal symptoms, No sore throat, No tinnitus, No dental problems, No trouble swallowing Respiratory: No cough, No sputum, No wheezing, No shortness of breath, No dyspnea on exertion, No dyspnea at rest, No hemoptysis Cardiac: No chest pain, No orthopnea, No PND, No edema, No claudication, No palpitations Abdomen: No pain, No nausea, No vomiting, No diarrhea, No constipation Musculoskeletal: No joint pain, No muscle pain, No swelling, No calf pain Female : No dysuria, No urinary frequency, No hematuria, No incontinence, No abnormal vaginal bleeding, No vaginal discharge Neurologic: No memory loss, No paralysis, No weakness, No numbness/tingling, No vertigo, No balance problems Psychiatric: No depression symptoms, No anhedonism, No anxiety, No insomnia, No substance abuse Heme: No abnormal bleeding/bruising, No clotting problems, No swollen lymph nodes, No night sweats Endo: No fatigue, No excessive thirst, No excessive urination Skin: No rash, No itch, No new/changing skin lesions, No color change, No bleeding Objective Vital Signs Date Time Temp Pulse Resp B/P (MAP) Pulse Ox O2 Delivery O2 Flow Rate FiO2 8/6/17 11:56 36.8 76 19 112/67 (82) 98 Room Air 11/21/16 08:16 37.0 69 18 129/61 (83) 96 11/21/16 08:00 Room Air 11/21/16 05:57 80 110/68 11/21/16 04:00 Room Air 11/21/16 03:51 36.3 80 19 110/68 (82) 96 Room Air 11/21/16 00:00 36.4 79 18 121/76 (91) 96 Room Air 11/20/16 23:59 Room Air 11/20/16 22:03 78 106/58 11/20/16 20:00 Room Air 11/20/16 19:37 36.4 78 18 106/58 (74) 100 Room Air 11/20/16 16:00 Room Air 11/20/16 15:55 36.5 78 16 115/56 (75) 99 Room Air 11/20/16 14:36 75 111/69 (83) 11/20/16 14:26 80 107/64 11/20/16 14:25 80 107/64 (78) Physical Exam General Appearance: WD/WN, no apparent distress, + thin, + pertinent finding ( frail, chronically ill-looking) Eyes: normal inspection, PERRL, EOMI, sclerae normal ENT: normal ENT inspection, hearing grossly normal, pharynx normal Neck: supple, no adenopathy, thyroid normal, no JVD, no carotid bruits, trachea midline Respiratory/Chest: chest non-tender, normal breath sounds, no respiratory distress, no accessory muscle use, + decreased breath sounds Cardiovascular: regular rate, rhythm, no edema, no gallop, no JVD, no murmur Abdomen: normal bowel sounds, non tender, soft, no organomegaly, no pulsatile mass Extremities: normal range of motion, non-tender, normal inspection, no pedal edema, no calf tenderness, normal capillary refill, pelvis stable 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, no motor/sensory deficits, alert, normal mood/affect, oriented x 3 Skin: normal color, warm/dry, no rash Lymphatic: no adenopathy Laboratory Results Last 24 Hours Test 11/20/16 18:03 11/20/16 20:23 11/21/16 05:13 11/21/16 06:56 Bedside Glucose 155 mg/dl 160 mg/dl 131 mg/dl Sodium Level 146 mmol/L Potassium Level 3.2 mmol/L Chloride Level 118 mmol/L Carbon Dioxide Level 23 mmol/L Anion Gap 5.0 mmol/L Blood Urea Nitrogen 14 mg/dl Creatinine 0.60 mg/dl Est Creatinine Clear Calc Drug Dose 55.1 ml/min Estimated GFR () 93.7 Estimated GFR (Non- 80.8 BUN/Creatinine Ratio 24.0 Random Glucose 150 mg/dl Calcium Level 7.6 mg/dl Phosphorus Level 1.9 mg/dl Magnesium Level 1.6 mg/dl Test 11/21/16 11:32 11/21/16 11:42 Bedside Glucose 156 mg/dl White Blood Count 13.78 K/uL Red Blood Count 3.87 M/uL Hemoglobin 10.5 g/dL Hematocrit 34.2 % Mean Corpuscular Volume 88.4 fL Mean Corpuscular Hemoglobin 27.1 pg Mean Corpuscular Hemoglobin Concent 30.7 g/dl Platelet Count 203 K/uL Mean Platelet Volume 9.6 fL Neutrophils (%) (Auto) 75.5 % Lymphocytes (%) (Auto) 16.8 % Monocytes (%) (Auto) 6.5 % Eosinophils (%) (Auto) 0.7 % Basophils (%) (Auto) 0.1 % Neutrophils # (Auto) 10.40 K/uL Lymphocytes # (Auto) 2.32 K/uL Monocytes # (Auto) 0.89 K/uL Eosinophils # (Auto) 0.10 K/uL Basophils # (Auto) 0.02 K/uL RDW Standard Deviation 55.2 fL RDW Coefficient of Variation 17.0 % Immature Granulocyte % (Auto) 0.4 % Immature Granulocyte # (Auto) 0.05 K/uL Sodium Level 145 mmol/L Potassium Level 3.2 mmol/L Chloride Level 114 mmol/L Carbon Dioxide Level 22 mmol/L Anion Gap 9.0 mmol/L Blood Urea Nitrogen 13 mg/dl Creatinine 0.64 mg/dl Est Creatinine Clear Calc Drug Dose 53.1 ml/min Estimated GFR () 91.7 Estimated GFR (Non- 79.1 BUN/Creatinine Ratio 19.7 Random Glucose 163 mg/dl Calcium Level 7.6 mg/dl Magnesium Level 1.6 mg/dl Assessment and Plan 89 y/o F admitted because of acute nausea, vomiting and diarrhea Per report upon admission, denies abdominal pain, denies CP, SOB, dysuria. Labs are notable for marked leukocytosis. CT abdomen reveals a fluid filled colon consistent with a diarrheal illness but does not specifically mention colitis. Per her daughter, there have been a few recent cases of a similar illness at her facility. Hx PAF, DM II, hypothyroidism. Diarrhea with C. difficile positive with Nausea, vomiting, no more diarrhea Possible associated with sepsis with significant leukocytosis and mental status changes Improving recent Cdiff colitis w sepsis in earlier october 2016 with hematochezia, Acute blood loss anemia- secondary to hematochezia/GI bleeding was With abrupt onset, (+) nausea/vomiting. CT abdomen with ileus, diarrheal state, and near complete occlusion SMA with collaterals Continue at advanced diet Has been on metronidazole iv upon admission and oral Vanco for C. difficile colitis was admitted in the second day Patient is having recurrent C. difficile, will normal give metronidazole, we'll discontinue it him a will continue vanco oral for C. difficile treatment Significant hypophosphatemia, hypokinemia and hypomagnesemia, possible from diarrhea, replaced and follow-up labs ordered DM 2 - placed on sliding scale with Aspart only. PAF - continue telemetry and IV Metoprolol Q8H. Hypothyroid - placed on IV Synthroid daily Hypomagnesemia hypophosphatemia and hypokinemia, replaced and will follow-up heel wound, will continue wound care Discussed with daughter about the patient's condition and care plan, answered all questions, daughter reported patient is do not resuscitation, Improving CODE STATUS changed Heparin prophylaxis Discharge plan is PT OT, possible oral vanco to home if continue to place stable Continued [facility] stay due to: multiple IV medications needed Discharge planning: uncertain
[2016-11-21] MEDS ORDERED: MAGNESIUM OXIDE 400 MG TAB PO SCH (21:00)
[2016-11-21] MEDS: ONDANSETRON INJ 2 MG/ML 2 ML VIAL IV PRN (21:18)
[2016-11-21] MEDS: RANITIDINE IV 50 MG in DEXTROSE 5% 100ML 100 ML IV SCH (21:18)
[2016-11-21] MEDS ORDERED: MoRPHine SULFATE 2 MG/ML CARP IV STA (21:43)
[2016-11-21] MEDS ORDERED: MoRPHine SULFATE 2 MG/ML CARP IV PRN (21:45)
--- NOTE | 2016-11-21 22:22 | DIAGNOSTIC IMAGING REPORT ---
KUB HISTORY: Abdominal distention. ?ileus COMPARISON: KUB 11/19/2016. FINDINGS: Cholecystectomy. Multiple distended gas-filled loops of large and small bowel seen throughout the abdomen. This has slightly improved compared to the prior study. Right-sided nephrolithiasis, unchanged. No pneumoperitoneum or pneumatosis. IMPRESSION: Slight improvement in the distended gas-filled loops of large and small bowel seen throughout the abdomen. Findings favor an ileus. Electronically signed by: Arpit Gallagher M.D. 11/21/2016 10:20 PM Dictated Date/Time: 11/21/2016 10:19 PM
[2016-11-22 04:00] VITALS: BP 113/68; PULSE 80; TEMP 36.6; O2SAT 98
[2016-11-22] MEDS: METOPROLOL TARTRATE 1 MG/ML VIAL IV. SCH (06:22)
[2016-11-22] MEDS: INSULIN ASPART 100 UNITS/ML 3 ML PEN SC SCH ×5 (07:00→21:00)
[2016-11-22 07:31] LABS: BASO % 0.1 %; BASO ABS # 0.01 K/uL (0-0.2); COMPLETE YES; HEMATOCRIT 32.1 % (37-47); IG% 0.5 %; LYMPH % 23.7 %; LYMPH ABS # 2.03 K/uL (1.2-3.4); MEAN CORPUSCULAR HEMOGLOBIN 27.4 pg (25-34); MEAN CORPUSCULAR HGB CONC 31.5 g/dl (32-36); MEAN PLATELET VOLUME 9.3 fL (7.4-10.4); MONO % 7.2 %; NEUT % 67.5 %; PLATELET COUNT 189 K/uL (130-400); RED BLOOD COUNT 3.69 M/uL (4.2-5.4); WHITE BLOOD COUNT 8.58 K/uL (4.8-10.8)
[2016-11-22 07:59] LABS: BUN/CREATININE RATIO 17.2 (10-20); CALCIUM 7.8 mg/dl (8.5-10.1); CREATININE 0.58 mg/dl (0.60-1.20); MAGNESIUM 1.8 mg/dl (1.8-2.4)
[2016-11-22 08:16] VITALS: BP 112/60; PULSE 69; TEMP 37; O2SAT 94
[2016-11-22] MEDS: RASPBERRY SYRUP 5 ML UDP PO SCH ×3 (08:32→21:44)
[2016-11-22] MEDS: LEVOTHYROXINE SODIUM INJ 50 MCG in SYRINGE 0 ML IV SCH (08:33)
[2016-11-22] MEDS: VANCOMYCIN HCL 250 MG/5 ML SOLN PO SCH ×3 (08:33→21:44)
[2016-11-22] MEDS: MAGNESIUM OXIDE 400 MG TAB PO SCH ×2 (08:33→21:44)
[2016-11-22] MEDS: HEPARIN SOD 5000 UNIT/0.5 ML CARP SQ SCH ×2 (08:35→21:10)
[2016-11-22] MEDS ORDERED: NURSING VERBAL MED ORDER ONE (10:15)
[2016-11-22] MEDS ORDERED: NYSTATIN POWDER 15GM BTL EXT PRN (10:30)
[2016-11-22 11:13] VITALS: BP 112/60; PULSE 69; TEMP 37; O2SAT 94
[2016-11-22 12:19] VITALS: BP 114/75; PULSE 88; TEMP 36.5; O2SAT 100
--- NOTE | 2016-11-22 14:45 | Progress Note ---
Subjective Date of Service: Nov 22, 2016. Subjective Pt evaluation today including: conversation w/ patient, physical exam, lab review, review of inpatient medication list Pain: no pain PO Intake: adequate Voiding: no voiding problems patient with explosive diarrhea early this AM per RN, patient had pain prior to moving bowels tolerating clears, no nausea/vomiting no dyspnea, no chest pain reviewed lab work today, WBC now normal at 8 and Cr stable Problem List Medical Problems: (1) Abdominal pain Status: Acute (2) Altered mental status Status: Acute (3) Anxiety Status: Acute (4) Back pain Status: Acute (5) Diarrhea Status: Acute (6) Elevated WBC count Status: Acute (7) Gastroenteritis Status: Acute (8) Hypokalemia Status: Acute (9) Ileus Status: Acute (10) Intertriginous candidiasis Status: Acute (11) Nausea Status: Acute (12) Right arm cellulitis Status: Acute (13) Vomiting Status: Acute Review of Systems Abdomen: + pain, + diarrhea All Other Systems: Reviewed and Negative Medications Current Inpatient Medications Medications (Trade) Dose Ordered Sig/Susana Route Start Time Stop Time Status Last Admin Dose Admin Heparin Sodium (Porcine) (Heparin Sq 5000 Unit/0.5ml) 5,000 unit Q12 SQ 11/19/16 09:00 12/19/16 08:59 11/22/16 08:35 5,000 UNIT Ondansetron HCl (Zofran Inj) 4 mg Q6H PRN IV 11/18/16 23:15 12/18/16 23:14 11/21/16 21:18 4 MG Morphine Sulfate (MoRPHine SULFATE INJ) 2 mg Q3H PRN IV 11/18/16 23:15 12/02/16 23:14 Glucose (Glucose 40% Gel) 15-30 GRAMS 15 GRAMS... UD PRN PO 11/19/16 00:45 12/19/16 00:44 Glucose (Glucose Chew Tab) 4-8 Tablets 4 Tabl... UD PRN PO 11/19/16 00:45 12/19/16 00:44 Dextrose (Dextrose 50% 50ML Syringe) 25-50ML OF 50% DW IV FOR... UD PRN IV 11/19/16 00:45 12/19/16 00:44 Glucagon (Glucagon Inj) 1 mg UD PRN SQ 11/19/16 00:45 12/19/16 00:44 Vancomycin HCl (Vancomycin Oral Soln) 250 mg TID PO 11/19/16 21:00 12/03/16 20:59 11/22/16 14:22 250 MG Raspberry (Raspberry Syrup 5ml Cup) 5 ml TID PO 11/19/16 21:00 12/03/16 20:59 11/22/16 14:22 5 ML Magnesium Oxide (Mag-Ox Tab) 400 mg BID PO 11/20/16 09:00 12/20/16 08:59 11/22/16 08:33 400 MG Insulin Aspart (novoLOG ASPART) SLIDING SCALE G... ACHS SC 11/20/16 21:00 12/20/16 20:59 Morphine Sulfate (MoRPHine SULFATE INJ) 1 mg Q2H PRN IV 11/21/16 21:45 12/05/16 21:44 Nystatin (Mycostatin Powder) 1 appln PRN PRN EXT 11/22/16 10:30 12/22/16 10:29 Cholestyramine Resin (Questran Powder Light) 4 gm BID@10,22 PO 11/22/16 22:00 12/22/16 21:59 Atenolol (Tenormin Tab) 25 mg DAILY PO 11/23/16 09:00 12/23/16 08:59 Atorvastatin Calcium (Lipitor Tab) 20 mg HS PO 11/22/16 21:00 12/22/16 20:59 Glipizide (Glucotrol Tab) 5 mg BIDM PO 11/22/16 16:45 12/22/16 16:44 Levothyroxine Sodium (Synthroid Tab) 100 mcg DAILYBB PO 11/23/16 06:00 12/23/16 05:59 Ranitidine HCl (zANTac TAB) 150 mg BID PO 11/22/16 21:00 12/22/16 20:59 Sitagliptin Phosphate (Januvia Tab) 50 mg DAILY PO 11/23/16 09:00 12/23/16 08:59 Objective Vital Signs Date Time Temp Pulse Resp B/P (MAP) Pulse Ox O2 Delivery O2 Flow Rate FiO2 11/22/16 12:19 36.5 88 18 114/75 (88) 100 Room Air 11/22/16 11:13 37.0 69 16 94 11/22/16 08:16 37.0 69 16 112/60 (77) 94 11/22/16 08:00 Room Air 11/22/16 06:22 80 113/68 11/22/16 04:00 36.6 80 17 113/68 (83) 98 Room Air 11/22/16 04:00 Room Air 11/21/16 23:59 Room Air 11/21/16 23:50 36.4 84 20 94/51 (65) 97 Room Air 11/21/16 21:19 87 124/65 11/21/16 20:00 Room Air 11/21/16 19:43 36.7 87 18 124/65 (84) 96 Room Air 11/21/16 16:09 36.4 82 18 117/73 (88) 98 11/21/16 16:00 Room Air Physical Exam General Appearance: WD/WN, no apparent distress Eyes: normal inspection, EOMI, sclerae normal ENT: normal ENT inspection, hearing grossly normal, pharynx normal Neck: supple, no adenopathy, no JVD, trachea midline Respiratory/Chest: chest non-tender, lungs clear, normal breath sounds, no respiratory distress, no accessory muscle use Cardiovascular: regular rate, rhythm, no edema, no gallop, no JVD, no murmur Abdomen: normal bowel sounds, non tender, soft, no organomegaly Extremities: normal range of motion, non-tender, normal inspection, no pedal edema, no calf tenderness Neurologic/Psychiatric: 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 II-XII 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 as tested, alert, normal mood/affect, oriented x 3, + motor weakness (generalized) Skin: normal color, warm/dry, no rash Laboratory Results Last 24 Hours Test 11/21/16 16:24 11/21/16 20:42 11/22/16 06:49 11/22/16 07:18 Bedside Glucose 123 mg/dl 116 mg/dl 105 mg/dl White Blood Count 8.58 K/uL Red Blood Count 3.69 M/uL Hemoglobin 10.1 g/dL Hematocrit 32.1 % Mean Corpuscular Volume 87.0 fL Mean Corpuscular Hemoglobin 27.4 pg Mean Corpuscular Hemoglobin Concent 31.5 g/dl Platelet Count 189 K/uL Mean Platelet Volume 9.3 fL Neutrophils (%) (Auto) 67.5 % Lymphocytes (%) (Auto) 23.7 % Monocytes (%) (Auto) 7.2 % Eosinophils (%) (Auto) 1.0 % Basophils (%) (Auto) 0.1 % Neutrophils # (Auto) 5.79 K/uL Lymphocytes # (Auto) 2.03 K/uL Monocytes # (Auto) 0.62 K/uL Eosinophils # (Auto) 0.09 K/uL Basophils # (Auto) 0.01 K/uL RDW Standard Deviation 55.0 fL RDW Coefficient of Variation 17.0 % Immature Granulocyte % (Auto) 0.5 % Immature Granulocyte # (Auto) 0.04 K/uL Sodium Level 146 mmol/L Potassium Level 4.0 mmol/L Chloride Level 119 mmol/L Carbon Dioxide Level 19 mmol/L Anion Gap 8.0 mmol/L Blood Urea Nitrogen 10 mg/dl Creatinine 0.58 mg/dl Est Creatinine Clear Calc Drug Dose 58.3 ml/min Estimated GFR () 94.7 Estimated GFR (Non- 81.7 BUN/Creatinine Ratio 17.2 Random Glucose 118 mg/dl Calcium Level 7.8 mg/dl Phosphorus Level 2.9 mg/dl Magnesium Level 1.8 mg/dl Test 11/22/16 11:21 11/22/16 12:10 Bedside Glucose 113 mg/dl 99 mg/dl Assessment and Plan 89 y/o F admitted because of acute nausea, vomiting and diarrhea - C difficile colitis: still with diarrhea but less frequent continue Vancomycin PO and Flagyl IV for now with plans to just use Vancomycin add Questran for symptom control transfer to medical floor today advance diet to diabetic, regular consistency - Hypokalemia, Hypophosphatemia and Hypomagnesemia: present on admission, due to diarrhea resolved on lab work repeat labs tomorrow - DM type II: resume home meds of glipizide and Januvia Novolog SS diabetic diet - H/o paroxysmal atrial fibrillation: resume Atenolol PO, rates controlled on tele, transfer to medical - Hypothyroidism: chronic, stable heel wound, will continue wound care DNR Heparin prophylaxis will go to [facility] once medically stable Continued [facility] stay due to: multiple IV medications needed Discharge planning: uncertain
[2016-11-22] MEDS: ONDANSETRON INJ 2 MG/ML 2 ML VIAL IV PRN (16:59)
[2016-11-22] MEDS: ATORVASTATIN 20 MG TAB PO SCH (21:07)
[2016-11-22] MEDS: RANITIDINE HCL 150 MG TAB PO SCH (21:07)
[2016-11-22] MEDS: CHOLESTYRAMINE LIGHT 4 GM PKT PO SCH (22:54)
[2016-11-23] VITALS: BP 124/62; PULSE 79; TEMP 36.4; O2SAT 100
[2016-11-23] MEDS: LEVOTHYROXINE 100 MCG TAB PO SCH (06:15)
[2016-11-23] MEDS: INSULIN ASPART 100 UNITS/ML 3 ML PEN SC SCH ×4 (06:30→20:59)
[2016-11-23 07:42] VITALS: BP 137/69; PULSE 79; TEMP 36.4; O2SAT 98
[2016-11-23 08:14] LABS: BASO % 0.2 %; BASO ABS # 0.01 K/uL (0-0.2); COMPLETE YES; EOS % 3.4 %; HEMATOCRIT 33.7 % (37-47); IG% 1.6 %; LYMPH % 33.9 %; LYMPH ABS # 2.07 K/uL (1.2-3.4); MEAN CELL VOLUME 87.1 fL (80-100); MEAN CORPUSCULAR HEMOGLOBIN 27.1 pg (25-34); MEAN CORPUSCULAR HGB CONC 31.2 g/dl (32-36); MEAN PLATELET VOLUME 9.3 fL (7.4-10.4); NEUT % 50.9 %; PLATELET COUNT 211 K/uL (130-400); RED BLOOD COUNT 3.87 M/uL (4.2-5.4)
[2016-11-23 08:45] LABS: BUN/CREATININE RATIO 13.1 (10-20); CREATININE 0.59 mg/dl (0.60-1.20); MAGNESIUM 1.7 mg/dl (1.8-2.4); POTASSIUM 3.9 mmol/L (3.5-5.1)
[2016-11-23 08:47] LABS: PHOSPHORUS 2.5 mg/dl (2.5-4.9)
[2016-11-23] MEDS: VANCOMYCIN HCL 250 MG/5 ML SOLN PO SCH ×3 (09:11→20:29)
[2016-11-23] MEDS: RASPBERRY SYRUP 5 ML UDP PO SCH ×3 (09:12→20:29)
[2016-11-23] MEDS: MAGNESIUM OXIDE 400 MG TAB PO SCH ×2 (09:12→20:30)
[2016-11-23] MEDS: RANITIDINE HCL 150 MG TAB PO SCH ×2 (09:13→20:30)
[2016-11-23] MEDS: SITAGLIPTIN 25 MG TAB PO SCH (09:13)
[2016-11-23] MEDS: CHOLESTYRAMINE LIGHT 4 GM PKT PO SCH ×2 (10:17→22:17)
[2016-11-23] MEDS: HEPARIN SOD 5000 UNIT/0.5 ML CARP SQ SCH ×2 (10:18→20:28)
--- NOTE | 2016-11-23 15:07 | Progress Note ---
Subjective Date of Service: Nov 23, 2016. Subjective Pt evaluation today including: conversation w/ patient, physical exam, lab review, review of inpatient medication list Pain: no pain PO Intake: adequate Voiding: no voiding problems more bowel continence today, stools becoming formed patient doing well, no complaints, tolerating diet discussed going to SNF tomorrow labs reviewed Problem List Medical Problems: (1) Abdominal pain Status: Acute (2) Altered mental status Status: Acute (3) Anxiety Status: Acute (4) Back pain Status: Acute (5) Diarrhea Status: Acute (6) Elevated WBC count Status: Acute (7) Gastroenteritis Status: Acute (8) Hypokalemia Status: Acute (9) Ileus Status: Acute (10) Intertriginous candidiasis Status: Acute (11) Nausea Status: Acute (12) Right arm cellulitis Status: Acute (13) Vomiting Status: Acute Review of Systems Constitutional: + weakness, + fatigue Abdomen: + diarrhea (more formed per the RN) All Other Systems: Reviewed and Negative Medications Current Inpatient Medications Medications (Trade) Dose Ordered Sig/Susana Route Start Time Stop Time Status Last Admin Dose Admin Heparin Sodium (Porcine) (Heparin Sq 5000 Unit/0.5ml) 5,000 unit Q12 SQ 11/19/16 09:00 12/19/16 08:59 11/23/16 10:18 5,000 UNIT Ondansetron HCl (Zofran Inj) 4 mg Q6H PRN IV 11/18/16 23:15 12/18/16 23:14 11/22/16 16:59 4 MG Morphine Sulfate (MoRPHine SULFATE INJ) 2 mg Q3H PRN IV 11/18/16 23:15 12/02/16 23:14 Glucose (Glucose 40% Gel) 15-30 GRAMS 15 GRAMS... UD PRN PO 11/19/16 00:45 12/19/16 00:44 Glucose (Glucose Chew Tab) 4-8 Tablets 4 Tabl... UD PRN PO 11/19/16 00:45 12/19/16 00:44 Dextrose (Dextrose 50% 50ML Syringe) 25-50ML OF 50% DW IV FOR... UD PRN IV 11/19/16 00:45 12/19/16 00:44 Glucagon (Glucagon Inj) 1 mg UD PRN SQ 11/19/16 00:45 12/19/16 00:44 Vancomycin HCl (Vancomycin Oral Soln) 250 mg TID PO 11/19/16 21:00 12/03/16 20:59 11/23/16 14:18 250 MG Raspberry (Raspberry Syrup 5ml Cup) 5 ml TID PO 11/19/16 21:00 12/03/16 20:59 11/23/16 14:18 5 ML Magnesium Oxide (Mag-Ox Tab) 400 mg BID PO 11/20/16 09:00 12/20/16 08:59 11/23/16 09:12 400 MG Insulin Aspart (novoLOG ASPART) SLIDING SCALE G... ACHS SC 11/20/16 21:00 12/20/16 20:59 Morphine Sulfate (MoRPHine SULFATE INJ) 1 mg Q2H PRN IV 11/21/16 21:45 12/05/16 21:44 Nystatin (Mycostatin Powder) 1 appln PRN PRN EXT 11/22/16 10:30 12/22/16 10:29 Cholestyramine Resin (Questran Powder Light) 4 gm BID@10,22 PO 11/22/16 22:00 12/22/16 21:59 11/23/16 10:17 4 GM Atenolol (Tenormin Tab) 25 mg DAILY PO 11/23/16 09:00 12/23/16 08:59 11/23/16 09:12 25 MG Atorvastatin Calcium (Lipitor Tab) 20 mg HS PO 11/22/16 21:00 12/22/16 20:59 11/22/16 21:07 20 MG Glipizide (Glucotrol Tab) 5 mg BIDM PO 11/22/16 16:45 12/22/16 16:44 11/23/16 09:14 5 MG Levothyroxine Sodium (Synthroid Tab) 100 mcg DAILYBB PO 11/23/16 06:00 12/23/16 05:59 11/23/16 06:15 100 MCG Ranitidine HCl (zANTac TAB) 150 mg BID PO 11/22/16 21:00 12/22/16 20:59 11/23/16 09:13 150 MG Sitagliptin Phosphate (Januvia Tab) 50 mg DAILY PO 11/23/16 09:00 12/23/16 08:59 11/23/16 09:13 50 MG Objective Vital Signs Date Time Temp Pulse Resp B/P (MAP) Pulse Ox O2 Delivery O2 Flow Rate FiO2 11/23/16 10:06 Room Air 11/23/16 07:42 36.4 79 16 137/69 (91) 98 Room Air 11/23/16 00:00 36.4 79 18 124/62 (82) 100 Room Air 11/23/16 00:00 Room Air 11/22/16 20:00 Room Air 11/22/16 16:15 Room Air Physical Exam General Appearance: WD/WN, no apparent distress Neck: supple, no adenopathy, no JVD, trachea midline Respiratory/Chest: chest non-tender, lungs clear, normal breath sounds, no respiratory distress, no accessory muscle use Cardiovascular: regular rate, rhythm, no edema, no gallop, no JVD, no murmur Abdomen: normal bowel sounds, non tender, soft, no organomegaly Extremities: normal range of motion, non-tender, normal inspection, no pedal edema, no calf tenderness, pelvis stable Neurologic/Psychiatric: drum carrier II-XII nml as tested, no motor/sensory deficits, alert, normal mood/affect, oriented x 3 Skin: normal color, warm/dry, no rash Lymphatic: no adenopathy Laboratory Results Last 24 Hours Test 11/22/16 16:44 11/22/16 20:43 11/23/16 07:20 11/23/16 07:35 Bedside Glucose 110 mg/dl 72 mg/dl 74 mg/dl White Blood Count 6.10 K/uL Red Blood Count 3.87 M/uL Hemoglobin 10.5 g/dL Hematocrit 33.7 % Mean Corpuscular Volume 87.1 fL Mean Corpuscular Hemoglobin 27.1 pg Mean Corpuscular Hemoglobin Concent 31.2 g/dl Platelet Count 211 K/uL Mean Platelet Volume 9.3 fL Neutrophils (%) (Auto) 50.9 % Lymphocytes (%) (Auto) 33.9 % Monocytes (%) (Auto) 10.0 % Eosinophils (%) (Auto) 3.4 % Basophils (%) (Auto) 0.2 % Neutrophils # (Auto) 3.10 K/uL Lymphocytes # (Auto) 2.07 K/uL Monocytes # (Auto) 0.61 K/uL Eosinophils # (Auto) 0.21 K/uL Basophils # (Auto) 0.01 K/uL RDW Standard Deviation 54.2 fL RDW Coefficient of Variation 17.1 % Immature Granulocyte % (Auto) 1.6 % Immature Granulocyte # (Auto) 0.10 K/uL Sodium Level 146 mmol/L Potassium Level 3.9 mmol/L Chloride Level 118 mmol/L Carbon Dioxide Level 21 mmol/L Anion Gap 7.0 mmol/L Blood Urea Nitrogen 8 mg/dl Creatinine 0.59 mg/dl Est Creatinine Clear Calc Drug Dose 57.3 ml/min Estimated GFR () 94.2 Estimated GFR (Non- 81.3 BUN/Creatinine Ratio 13.1 Random Glucose 73 mg/dl Calcium Level 8.0 mg/dl Phosphorus Level 2.5 mg/dl Magnesium Level 1.7 mg/dl Test 11/23/16 11:28 Bedside Glucose 96 mg/dl Assessment and Plan 89 y/o F admitted because of acute nausea, vomiting and diarrhea - C difficile colitis: stools more formed and less frequent, responding to treatment continue Vancomycin PO, stop Flagyl IV add Questran for symptom control plan to d/c tomorrow - Hypokalemia, Hypophosphatemia and Hypomagnesemia: present on admission, due to diarrhea mag 1.7 today, on PO replacement - DM type II: resume home meds of glipizide and Januvia Novolog SS diabetic diet - H/o paroxysmal atrial fibrillation: resume Atenolol PO, rates stable - Hypothyroidism: chronic, stable heel wound, will continue wound care DNR Heparin prophylaxis will go to [facility] once medically stable, plan for tomorrow Continued [facility] stay due to: multiple IV medications needed Discharge planning: uncertain
[2016-11-23 15:16] VITALS: BP 109/65; PULSE 63; TEMP 36.4; O2SAT 100
[2016-11-23] MEDS ORDERED: NURSING VERBAL MED ORDER ONE (17:30)
[2016-11-23] MEDS: ATORVASTATIN 20 MG TAB PO SCH (20:29)
[2016-11-23 23:21] VITALS: BP 117/56; PULSE 59; TEMP 36.6; O2SAT 99
[2016-11-24] MEDS: LEVOTHYROXINE 100 MCG TAB PO SCH (06:16)
[2016-11-24 07:08] VITALS: BP 130/82; PULSE 73; TEMP 36.3; O2SAT 100
[2016-11-24] MEDS: INSULIN ASPART 100 UNITS/ML 3 ML PEN SC SCH ×2 (08:58→12:28)
[2016-11-24] MEDS: RASPBERRY SYRUP 5 ML UDP PO SCH ×2 (08:59→13:13)
[2016-11-24] MEDS: RANITIDINE HCL 150 MG TAB PO SCH (08:59)
[2016-11-24] MEDS: VANCOMYCIN HCL 250 MG/5 ML SOLN PO SCH ×2 (08:59→13:13)
[2016-11-24] MEDS: SITAGLIPTIN 25 MG TAB PO SCH (09:00)
[2016-11-24] MEDS: MAGNESIUM OXIDE 400 MG TAB PO SCH (09:00)
[2016-11-24] MEDS: HEPARIN SOD 5000 UNIT/0.5 ML CARP SQ SCH (09:08)
[2016-11-24] MEDS: CHOLESTYRAMINE LIGHT 4 GM PKT PO SCH (09:56)
[2016-11-24] MEDS ORDERED: NYSP EXT (10:54)
[2016-11-24] MEDS ORDERED: QSTP PO (10:54)
[2016-11-24] MEDS ORDERED: VNCS250 PO (10:54)
--- NOTE | 2016-11-24 10:58 | Discharge Instructions ---
Discharge Instructions Date of Service Nov 24, 2016. Admission Reason for Admission: Colitis, Nausea & Vomiting Discharge Discharge Diagnosis / Problem: C diff colitis, hypoglycemia Discharge Goals Goal(s): Improve function, Improve disease control Activity Recommendations Activity Level: Assistance Required Lifting Limitations: none Exercise/Sports Limitations: as tolerated Shower/Bathe: no limitations . Additional Information Patient informed of condition: Yes Advance Directives: Yes DNR: Yes Level of Care: Skilled Communicable Disease: No Prognosis: Stable Oxygen at (LPM): no Rose Catheter: No Instructions / Follow-Up Instructions / Follow-Up Medications: - VANCOMYCIN: continue 250mg three times a day for the next 10 days then stop - QUESTRAN: continue to take twice a day, once stools become formed this can be stopped - GLIPIZIDE: stopped due to hypoglycemia, can consider resuming in 2 weeks when infection cleared FOLLOW UP - physician at [facility] in one week Current Hospital Diet Patient's current hospital diet: Diabetes Type 2 Diet Discharge Diet Recommended Diet: Diabetes Type 2 Diet Pending Studies Studies pending at discharge: no Physician Orders On Transfer POLST Discussion: Not Applicable Laboratory Results Hemoglobin A1c Test 10/19/16 04:05 Range/Units Estimated Average Glucose 137 mg/dl Hemoglobin A1c 6.4 H 4.5-5.6 % Medical Emergencies . Who to Call and When: Medical Emergencies: If at any time you feel your situation is an emergency, please call 911 immediately. . Non-Emergent Contact Non-Emergency issues call your: Primary Care Provider Call Non-Emergent contact if: you have a fever, you have any medication questions . . "Provider Documentation" section prepared by Fede Mendenhall. . Core Measure Problem Core Measures: None [place] Drug Monitoring Program Search Results: no issues identified
[2016-11-24 12:36] VITALS: Ht 152.4 cm; Wt 72.1 kg
[2016-11-24 12:41] VITALS: BP 130/82; PULSE 73; TEMP 36.3; O2SAT 100
--- NOTE | 2016-11-24 14:16 | Discharge Summary ---
Discharge Summary Date of Service Nov 24, 2016. Discharge Summary Admission Date: Nov 18, 2016 at 23:18 Discharge Date: Nov 24, 2016 Discharge Disposition: care home facility Principal Diagnosis: C diff colitis Problems/Secondary Diagnoses: Hypomagnesemia Hypokalemia Hypophosphatemia DM type II Paroxysmal atrial fibrillation Immunizations: Have You Had Influenza Vaccine: Yes History of Tetanus Vaccine?: Yes Tetanus Immunization Date: Dec 16, 2004 History of Pneumococcal: Yes Pneumococcal Date: Dec 16, 2004 History of Hepatitis B Vaccine: No Procedures: none Consultations: none Medication Reconciliation New Medications: Cholestyramine (Cholestyramine Light) 4 Gm Pack 4 GM PO BID@10,22, #1 BTL 1 Refill Nystatin (Nystop) 45 Appln/15 Gm Powd 1 APPLN EXT PRN PRN for SKIN FOLDS for 10 Days, #1 BTL 1 Refill Vancomycin HCl (Vancomycin HCl) 250 Mg/5 Ml Susp 250 MG PO TID for 10 Days, #150 ML 0 Refills Continued Medications: Acetaminophen (Tylenol) 325 Mg Tab 650 MG PO Q6H PRN for Pain or Fever, TAB TAKE 650MG EVERY 6 HOURS NEEDED FOR PAIN NOT TO EXCEED 3GM IN 24 HOURS Atenolol (Tenormin) 25 Mg Tab 25 MG PO DAILY, TAB Atorvastatin (Lipitor) 20 Mg Tab 20 MG PO HS Cholecalciferol (Vitamin D) 1,000 Unit Tab 1000 UNITS PO QAM Ferrous Sulfate (Kp Ferrous Sulfate) 325 Mg Tab 325 MG PO BID Furosemide (Lasix) 20 Mg Tab 10 MG PO DAILY, TAB Levothyroxine Sodium (Synthroid) 100 Mcg Tab 100 MCG PO QAM Magnesium Oxide (Mag-Ox) 400 Mg Tab 400 MG PO Q2D, TAB Multiple Vitamin (Multivitamin) 1 Tab Tab 1 TAB PO DAILY, TAB CHEWABLE Ondansetron Hcl (Zofran) 8 Mg Tab 8 MG PO Q8 PRN for Nausea or Vomiting, TAB Potassium Chloride (K-Tab) 20 Meq Tab 40 MEQ PO BID Ranitidine HCl (Ranitidine HCl) 150 Mg Tab 150 MG PO BID for 30 Days, #60 TAB Simethicone (Bicarsim) 80 Mg Tab 80 MG PO PC PRN for Gas or Constipation Sitagliptin Phosphate (Januvia) 50 Mg Tab 50 MG PO DAILY Discontinued Medications: Glipizide (Glipizide) 5 Mg Tab 5 MG PO BID for 30 Days, #60 TABS 1 Refill Discharge Exam Patient with one BM this AM, loose, but she had continence and per RN, continues to be more formed than before. Patient eating what she can, drinking well. No chest pain or dyspnea. Review of Systems: Constitutional: + weakness, + fatigue, No fever, No chills, No sweats, No weight loss, No problem reported Respiratory: No cough, No sputum, No wheezing, No shortness of breath, No dyspnea on exertion, No dyspnea at rest, No hemoptysis, No problem reported Cardiovascular: No chest pain, No orthopnea, No PND, No edema, No claudication, No palpitations, No problem reported Abdomen: + diarrhea (more formed), No pain, No nausea, No vomiting, No constipation, No GI bleeding, No problem reported Musculoskeletal: No joint pain, No muscle pain, No swelling, No calf pain, No problem reported Genitourinary - Female: No dysuria, No urinary frequency, No urinary urgency , No urinary incontinence Neurologic: + memory loss, + weakness, + balance problems, No paralysis, No numbness/tingling, No vertigo Psychiatric: No depression symptoms, No anhedonism, No anxiety, No insomnia , No substance abuse, No problem reported Endocrine: No fatigue, No excessive thirst, No excessive urination, No problem reported Hematologic / Lymphatic: No abnormal bleeding/bruising, No clotting problems , No swollen lymph nodes, No night sweats, No problem reported Integumentary: No rash, No itch, No new/changing skin lesions, No color change, No bleeding, No problem reported Physical Exam: General Appearance: WD/WN, no apparent distress Eyes: normal inspection, EOMI, sclerae normal ENT: normal ENT inspection, hearing grossly normal, pharynx normal Neck: supple, no adenopathy, no JVD, trachea midline Respiratory/Chest: chest non-tender, lungs clear, normal breath sounds, no respiratory distress, no accessory muscle use Cardiovascular: regular rate, rhythm, no edema, no gallop, no JVD, no murmur , normal peripheral pulses Abdomen / GI: normal bowel sounds, non tender, soft, no organomegaly Extremities: normal inspection, no calf tenderness, normal capillary refill , no pedal edema, non-tender, pelvis stable Neurologic/Psychiatric: 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 II-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 as tested, alert, normal mood/affect , normal reflexes, oriented x 3, + motor weakness (generalized, cannot transfer , ambulate independently, wheelchair at SNF) Skin: normal color, warm/dry, no rash Hospital Course 89 y/o F admitted because of acute nausea, vomiting and diarrhea - C difficile colitis: stools more formed and less frequent, now with stool continence, responding to treatment continue Vancomycin PO, stop Flagyl IV d/c on Vancomycin 250mg TID x 10 more days Questran BID x 10 more days but can stop if stools become completely formed - Hypokalemia, Hypophosphatemia and Hypomagnesemia: present on admission, due to diarrhea resolved with IV replacement - DM type II: some hypoglycemia yesterday after Glipizide resumed will hold Glipizide on discharge, could consider resuming once illness resolves continue Januvia on d/c - H/o paroxysmal atrial fibrillation: continue Atenolol PO, rates stable during admission - Hypothyroidism: chronic, stable - Tinea cruris: continue Nystatin powder BID heel wound, will continue wound care DNR Heparin prophylaxis d/c to [facility] today Total Time Spent: Greater than 30 minutes This includes examination of the patient, discharge planning, medication reconciliation, and communication with other providers. Discharge Instructions Please refer to the electronic Patient Visit Report (Discharge Instructions) for additional information. Follow-Up Dr. Can in a week Additional Copies To [facility]
== END 2016-11-24 13:30 | DRG 373 ==
LOC: EDBD 20:49 → C.EDC 20:50 → C.2T 23:18 → UNDOADMIN 23:18 → CANRESERV 23:23 → ENRESERV 23:23 → C.MS2W 11-22 12:00
PROVIDERS: ADMIT Internal Medicine; ATTEND Internal Medicine
DX: A04.7 Enterocolitis due to Clostridium difficile (principal); E83.42 Hypomagnesemia; E87.6 Hypokalemia; E83.39 Other disorders of phosphorus metabolism; E11.649 Type 2 diabetes mellitus with hypoglycemia without coma; Z66 Do not resuscitate; E03.9 Hypothyroidism, unspecified; I48.0 Paroxysmal atrial fibrillation; I10 Essential (primary) hypertension; K21.9 Gastro-esophageal reflux disease without esophagitis; E78.5 Hyperlipidemia, unspecified; B35.6 Tinea cruris; R11.2 Nausea with vomiting, unspecified; I87.2 Venous insufficiency (chronic) (peripheral); Z96.659 Presence of unspecified artificial knee joint; S91.309A Unspecified open wound, unspecified foot, initial encounter; X58.XXXA Exposure to other specified factors, initial encounter; Z79.899 Other long term (current) drug therapy; Z79.84 Long term (current) use of oral hypoglycemic drugs

== ENCOUNTER → 2016-11-18 | Outpatient (CLI) | payer BC ==
[2016-11-18 18:58] LABS: URINE APPEARANCE CLOUDY (CLEAR); URINE BILIRUBIN NEG (NEG); URINE COLOR DK YELLOW; URINE NITRITE NEG (NEG); URINE SPECIFIC GRAVITY 1.021 (1.000-1.030); UROBILINOGEN NEG (NEG)
[2016-11-18 19:06] LABS: MANUAL MICROSCOPIC REQUIRED? NO; REVIEW REQ? NO
== END ==
LOC: C.LABCC 17:38
PROVIDERS: ATTEND Internal Medicine
DX: R11.2 Nausea with vomiting, unspecified (principal)

== ENCOUNTER 2016-12-08 06:35 | Inpatient (IN) | payer BC, OTHER ==
[2016-12-08] VITALS (8 sets, daily range): BP systolic 97–118; BP diastolic 47–75; PULSE 69–81; TEMP 36.4–36.6; O2SAT 96–100; Ht 152.4 cm; Wt 71.2 kg
[~2016-12-08] VITALS: Ht 152.4 cm; Wt 71.2 kg
[~2016-12-08 06:35] MED LIST changes: -GLC5 PO; +NYSP EXT; -PROTEIN PO; +QSTP PO; +VNCS250 PO
[2016-12-08] MEDS ORDERED: SODIUM CHLORIDE 0.9% 1000ML 1,000 ML IV STA ×2 (06:43→11:17)
[2016-12-08] MEDS ORDERED: RANITIDINE HCL 50 MG/100 ML D5W IV STA (06:43)
[2016-12-08] MEDS ORDERED: SODIUM CHLORIDE 0.9% 1000ML 250 ML IV STA (06:43)
[2016-12-08] MEDS ORDERED: ONDANSETRON INJ 2 MG/ML 2 ML VIAL IV STA (06:43)
--- NOTE | 2016-12-08 06:47 | EMERGENCY ROOM VISIT NOTE ---
History Report prepared by Kelly: Belgica Navarro Under the Supervision of: Dr. Raymond Barboza M.D. First contact with patient: 06:38 Chief Complaint: GI ASSESSMENT Stated Complaint: COFFEE GROUND EMESIS/ABDOMINAL DISTENSION History of Present Illness The patient is an 89 year old female who presents to the Emergency Room with complaints of intermittent nausea over the past several days. Nursing staff reports that the patient arrived via ALS from [facility]. Per nursing staff, the patient has been taking Zofran around the clock, every 8 hours for her nausea. Nursing staff reports that today the patient had an episode of coffee ground emesis which was tested for blood and was positive. The patient denies any abdominal pain, but states that she has noticed abdominal bloating. She states that she is still feeling nauseous. The patient denies any history of a GI bleed or ulcer. Per records, the patient was evaluated in the hospital from November 18- for abdominal pain. Records indicate that the patient was diagnosed with c-diff colitis upon discharge and was placed on Vancomycin. Source of History: patient, nursing staff Onset: past several days Position: other (global) Quality: other (nausea) Timing: intermittent Associated Symptoms: + vomiting (coffee ground emesis), No abdominal pain Note: Associated Symptoms: abdominal bloating Review of Systems See HPI for pertinent positives & negatives. A total of 10 systems reviewed and were otherwise negative. Past Medical & Surgical Medical Problems: (1) Acute kidney injury (2) Anemia (3) Appendectomy (4) Atrial fibrillation (5) Benign hypertension (6) Cataract (7) Cellulitis (8) Cholecystectomy (9) Colitis (10) Diabetes mellitus (11) Gastroesophageal reflux disease (12) Hyperlipidemia (13) Hypoglycemia (14) lymphedema right upper extremity (15) Metabolic acidosis (16) Nausea & vomiting (17) Partial mastectomy - breast cancer (18) Proteinuria (19) Stage 3 chronic kidney disease (20) Urinary tract infection (21) UTI (urinary tract infection) (22) venous stasis ulcer left lower extremity Surgical Problems: (1) History of knee replacement Family History Cancer Diabetes mellitus Heart disease Hypertension Social History Smoking Status: Never Smoker Alcohol Use: none Drug Use: none Marital Status: Housing Status: lives alone Occupation Status: retired Current/Historical Medications Scheduled Atenolol (Tenormin), 25 MG PO DAILY Atorvastatin (Lipitor), 20 MG PO HS Cholecalciferol (Vitamin D), 1,000 UNITS PO QAM Cholestyramine (Cholestyramine Light), 4 GM PO BID@10,22 Collagenase (Santyl), 1 APPLN TOP DAILY Ferrous Sulfate (Kp Ferrous Sulfate), 325 MG PO BID Furosemide (Lasix), 10 MG PO DAILY Levothyroxine Sodium (Synthroid), 100 MCG PO QAM Magnesium Oxide (Mag-Ox), 400 MG PO Q2D Menthol-Zinc Oxide (Calmoseptine), 1 APPLN TOP TID Multiple Vitamin (Multivitamin), 1 TAB PO DAILY Potassium Chloride (K-Tab), 40 MEQ PO BID Probiotic Product (Probiotic), 1 CAP PO BID Protein (Prosource), 30 ML PO BID Ranitidine HCl (Ranitidine HCl), 150 MG PO BID Sitagliptin Phosphate (Januvia), 50 MG PO DAILY Scheduled PRN Bisacodyl (Bisac-Evac), 10 MG VA QPM PRN for on day 3 per bowel protocol Magnesium Hydroxide (Milk Of Magnesia), 30 ML PO DAILY PRN for on day 3 of no bm Nystatin (Nystop), 1 APPLN EXT PRN PRN for SKIN FOLDS Ondansetron Hcl (Zofran), 8 MG PO Q8 PRN for Nausea or Vomiting Prune Juice (Prune Juice ), 8 OZ PO DAILY PRN for no bowel movment in 2 days Simethicone (Bicarsim), 80 MG PO PC PRN for Gas or Constipation Sodium Phosphates (Fleet Enema Six Pack), 1 UNIT VA QAM PRN for day 4 per bowel protocol Miscellaneous Medications Dermatological Products, Misc. (Moisture Barrier), 1 APPLN TOP Allergies Coded Allergies: Zoledronic Acid (Unverified Allergy, Unknown, unk, 12/08/16) Physical Exam Vital Signs Date Time Temp Pulse Resp B/P (MAP) Pulse Ox O2 Delivery O2 Flow Rate FiO2 12/08/16 11:34 81 20 102/43 98 Room Air 12/08/16 11:04 77 20 91/49 99 Room Air 12/08/16 10:31 81 12/08/16 10:28 79 18 100/47 96 Room Air 12/08/16 08:41 78 20 133/60 97 Room Air 12/08/16 06:51 99 Room Air 12/08/16 06:45 86 12/08/16 06:40 36.3 85 21 111/60 99 Room Air Physical Exam GENERAL: Patient is in no acute distress. HEENT: No acute trauma, normocephalic atraumatic, mucous membranes moist, no nasal congestion, no scleral icterus. NECK: No stridor, no adenopathy, no meningismus, trachea is midline. LUNGS: Clear to auscultation bilaterally, no wheeze, no rhonchi, breath sounds equal. HEART: Without murmurs gallops or rubs, regular rate and rhythm. ABDOMEN: Distended, tympany with percussion. Soft, nontender, bowel sounds positive, no hernias, no peritonitis. EXTREMITIES: No cyanosis or edema, full range of motion of all the joints without pain or difficulty, no signs for acute trauma. NEUROLOGIC: Oriented x 3, no acute motor or sensory deficits, no focal weakness. SKIN: Pale. No rash, no jaundice, no diaphoresis. Medical Decision & Procedures ER Provider Diagnostic Interpretation: Radiology results as stated below per my review and radiologist interpretation: CHEST ONE VIEW PORTABLE HISTORY: 89 years-old Female acute abdominal pain with concern for gastrointestinal bleed COMPARISON: Portable chest radiograph 11/18/2016 TECHNIQUE: Portable upright AP view of the chest FINDINGS: There is mild soft tissue prominence in the region of the upper mediastinum superior to the aortic arch which is unchanged and nonspecific. There may be a calcified left paratracheal lymph node. There is atherosclerosis of the aorta. Cardiac silhouette is within normal limits. There is no pneumothorax. Trace pleural effusions are noted. Minimal right basilar opacity is again noted. Degenerative changes involve the bilateral shoulders and spine. No gross pneumoperitoneum. IMPRESSION: Blunting of the bilateral costophrenic angles is again noted suggesting trace pleural effusions with persistent subsegmental right basilar opacity. The above report was generated using voice recognition software. It may contain grammatical, syntax or spelling errors. Electronically signed by: Morales Thomas M.D. 12/08/2016 7:05 AM Dictated Date/Time: 12/08/2016 7:02 AM ABD/PELVIS NO IV OR ORAL CONT CLINICAL HISTORY: 89 years-old Female presenting with EVALUATE GI BLEED--poss obstruction. TECHNIQUE: Multidetector CT of the abdomen and pelvis was performed without the use of intravenous contrast. IV contrast: None. A dose lowering technique was used consistent with the principles of ALARA (as low as reasonably achievable). COMPARISON: 11/18/2016. CT DOSE (mGy.cm): The estimated cumulative dose is 453.89 mGy.cm. FINDINGS: Metal Treater topogram: Diffuse gaseous distention of bowel. Cholecystectomy clips. Lung bases: Minimal dependent opacities. Minimal groundglass and nodular opacities noted elsewhere at the lung bases. Normal heart size. Coronary artery and aortic valve calcification. Dilated distal esophagus. Liver: Macronodular contour of the liver. Normal density. Biliary: No gross biliary ductal dilatation allowing for noncontrast technique. Gallbladder surgically absent. Pancreas: Moderate parenchymal atrophy. Spleen: Normal. Adrenal glands: Nodular thickening of the adrenal glands, nonspecific. Kidneys and ureters: 22 mm right upper pole calculus and additional 19 mm lower pole calculus noted, unchanged. No hydronephrosis. Parenchymal atrophy of the right kidney. Vascular calcification noted in the left kidney. Ureters normal. Bladder: Apparent bladder wall thickening at the anterior dome, which may be due to underdistention. Pelvic organs: Uterus and ovaries normal. Bowel: Distended colon filled with gas and fluid. Diverticulosis of the sigmoid colon with pericolonic fat stranding in the left lower quadrant. Apart from mild apparent wall thickening in the sigmoid colon, no colonic wall thickening. Small hiatal hernia. Small bowel is diffusely mildly distended with gas and fluid. Ileocecal valve is widely patent. Peritoneal cavity: No free fluid or intraperitoneal gas. Vasculature: Atherosclerosis of the normal caliber abdominal aorta. Lymph nodes: Multiple prominent subcentimeter retroperitoneal lymph nodes, nonspecific and possibly reactive. Abdominal wall: Fat and fluid containing umbilical hernia. Fat-containing left internal hernia. Mild anasarca. Musculoskeletal: Degenerative changes of the spine. IMPRESSION: 1. Evaluation for gastrointestinal hemorrhage is limited without intravenous contrast. 2. Persistent distention of small and large bowel consistent with ileus. Fluid throughout the colon consistent with a diarrheal state. 3. Interval development of mild sigmoid colonic wall thickening associated with diverticulosis and mild pericolonic fat stranding. This is concerning for acute diverticulitis. 4. Minimal dependent opacities at the lung bases, possibly atelectasis. 5. Right nephrolithiasis. Electronically signed by: Carlos Prescott M.D. 12/08/2016 8:15 AM Dictated Date/Time: 12/08/2016 8:06 AM Laboratory Results 12/08/16 10:17 Red Blood Count 4.10, Mean Corpuscular Volume 87.3, Mean Corpuscular Hemoglobin 28.0, Mean Corpuscular Hemoglobin Concent 32.1, Mean Platelet Volume 9.7, Neutrophils (%) (Auto) 60.0, Lymphocytes (%) (Auto) 27.1, Monocytes (%) (Auto) 11.5, Eosinophils (%) (Auto) 0.6, Basophils (%) (Auto) 0.2, Neutrophils # (Auto ) 4.90, Lymphocytes # (Auto) 2.22, Monocytes # (Auto) 0.94, Eosinophils # (Auto ) 0.05, Basophils # (Auto) 0.02 12/08/16 10:17 Test 12/08/16 10:17 White Blood Count 8.18 K/uL (4.8-10.8) Red Blood Count 4.10 M/uL (4.2-5.4) Hemoglobin 11.5 g/dL (12.0-16.0) Hematocrit 35.8 % (37-47) Mean Corpuscular Volume 87.3 fL (80-100) Mean Corpuscular Hemoglobin 28.0 pg (25-34) Mean Corpuscular Hemoglobin Concent 32.1 g/dl (32-36) Platelet Count 172 K/uL (130-400) Mean Platelet Volume 9.7 fL (7.4-10.4) Neutrophils (%) (Auto) 60.0 % Lymphocytes (%) (Auto) 27.1 % Monocytes (%) (Auto) 11.5 % Eosinophils (%) (Auto) 0.6 % Basophils (%) (Auto) 0.2 % Neutrophils # (Auto) 4.90 K/uL (1.4-6.5) Lymphocytes # (Auto) 2.22 K/uL (1.2-3.4) Monocytes # (Auto) 0.94 K/uL (0.11-0.59) Eosinophils # (Auto) 0.05 K/uL (0-0.5) Basophils # (Auto) 0.02 K/uL (0-0.2) RDW Standard Deviation 59.7 fL (36.4-46.3) RDW Coefficient of Variation 18.8 % (11.5-14.5) Immature Granulocyte % (Auto) 0.6 % Immature Granulocyte # (Auto) 0.05 K/uL (0.00-0.02) Red Blood Cell Morphology Unremarkable Prothrombin Time 13.4 SECONDS (9.0-12.0) Prothromb Time International Ratio 1.2 (0.9-1.1) Activated Partial Thromboplast Time 25.4 SECONDS (21.0-31.0) Partial Thromboplastin Ratio 1.0 Anion Gap 7.0 mmol/L (3-11) Est Creatinine Clear Calc Drug Dose 32.6 ml/min Estimated GFR () 57.8 Estimated GFR (Non- 49.9 BUN/Creatinine Ratio 30.1 (10-20) Calcium Level 8.3 mg/dl (8.5-10.1) Magnesium Level 1.5 mg/dl (1.8-2.4) Total Bilirubin 0.4 mg/dl (0.2-1) Aspartate Amino Transf (AST/SGOT) 11 U/L (15-37) Alanine Aminotransferase (ALT/SGPT) 10 U/L (12-78) Alkaline Phosphatase 86 U/L (45-117) Total Protein 5.7 gm/dl (6.4-8.2) Albumin 2.2 gm/dl (3.4-5.0) Globulin 3.5 gm/dl (2.5-4.0) Albumin/Globulin Ratio 0.6 (0.9-2) Lipase 46 U/L (73-393) Free Thyroxine 1.50 ng/dl (0.80-1.60) Laboratory results reviewed by me. Medications Administered Medications (Trade) Dose Ordered Sig/Susana Route Start Time Stop Time Status Last Admin Dose Admin Sodium Chloride 250 ml @ 999 mls/hr Q16M STAT IV 12/08/16 06:43 12/08/16 06:58 DC 12/08/16 08:08 999 MLS/HR Ranitidine HCl (zANTac IV) 50 mg NOW STAT IV 12/08/16 06:43 12/08/16 06:48 DC 12/08/16 08:08 50 MG Ondansetron HCl (Zofran Inj) 4 mg NOW STAT IV 12/08/16 06:43 12/08/16 06:48 DC 12/08/16 07:54 4 MG Sodium Chloride 1,000 ml @ 200 mls/hr Q5H STAT IV 12/08/16 06:43 12/08/16 11:42 DC 12/08/16 09:10 200 MLS/HR Pantoprazole Sodium 80 mg/ Dextrose 120 ml @ 480 mls/hr 0700 IV 12/08/16 07:00 12/08/16 07:14 DC 12/08/16 08:40 480 MLS/HR Pantoprazole Sodium 40 mg/ Dextrose 100 ml @ 20 mls/hr Q5H IV 12/08/16 07:15 01/07/17 07:14 12/08/16 08:54 20 MLS/HR Magnesium Sulfate (Magnesium Sulfate) 2 gm NOW STAT IV 12/08/16 11:11 12/08/16 11:12 DC 12/08/16 11:30 2 GM Sodium Chloride 500 ml @ 999 mls/hr Q31M STAT IV 12/08/16 11:14 12/08/16 11:44 DC 12/08/16 11:21 999 MLS/HR Sodium Chloride 1,000 ml @ 125 mls/hr Q8H STAT IV 12/08/16 11:17 12/08/16 19:16 12/08/16 11:34 125 MLS/HR Procedure Central Venous Catheter Indication: need for IV access Catheter type: triple lumen Location: right femoral Verbal consent was obtained after the risks and benefits were explained, including but not limited to vessel injury, bleeding, scarring, infection, pain , and bone/joint/nerve damage. At this time, the risks of the procedure are less than the risks of NOT performing the procedure. A time out was taken and the correct patient and site identified. The patient was placed in the supine position and the skin was prepped in the standard fashion with chlorhexidine and full sterile drapes applied. The proper landmarks were identified with ultrasound, anesthetized with 1% lidocaine without epinephrine, and the needle was inserted through the skin in the standard fashion. The needle was carefully advanced into blood vessel lumen. The guidewire was placed uneventfully. The vessel was dilated and the catheter was placed. It was sutured into position. There was good blood return from all ports. The patient tolerated the procedure well and there were no complications. ECG Indication: vomiting Rate (beats per minute): 84 Rhythm: sinus rhythm Findings: 1st degree AV block, no acute ischemic change, no ectopy, other ( Poor R wave progression, possible old lateral infarct) ED Course 0640: The patient was evaluated in room A10. A complete history and physical exam was performed. 0643: Ordered Pantoprazole Sodium 1 ea IV, Sodium Chloride 1000 ml @ 200 mls/hr IV, Zofran Inj 4 mg IV, Zantac IV 50 mg IV, Sodium Chloride 250 ml @ 999 mls/hr IV. 0700: Ordered Pantoprazole Sodium 80 mg/Dextrose 120 ml @ 480 mls/hr IV. 0715: Ordered Pantoprazole Sodium 40 mg/Dextrose 100 ml @ 20 mls/hr IV. 0947: At this time I placed a central line in the patient. See procedure note for further detail. 1111: Ordered Magnesium Sulfate 2 gm IV. 1114: Ordered Sodium Chloride 500 ml @ 999 mls/hr IV. 1117: Ordered Sodium Chloride 1000 ml @ 125 mls/hr IV. 1120: I discussed the patients case [facility] He is going to evaluate the patient for further treatment. Medical Decision The patient is an 89 year old female who presents to the ED with complaints of nausea. Differential diagnoses considered include Ulcer or gastritis, upper GI bleeding, anemia, bowel obstruction, electrolyte imbalance, liver or renal failure, infection. There is no leukocytosis or concerning anemia. Renal panel testing suggests some acidosis and dehydration. Magnesium low at 1.5. There is no hepatitis or pancreatitis. EKG shows a sinus rhythm with a first-degree AV block, no acute ischemia. No concerning coagulopathy. Chest film does not show free air or pneumonia. There was no CHF. Abdominal and pelvis CT shows a potential small and large bowel ileus, no bowel obstruction. There was significant air within the bowel. A possible early diverticulitis was seen. Cath urine results are pending. The patient received IV saline, IV Zantac and IV Protonix. She was given IV Zofran for nausea. She received a second bolus of IV saline when her blood pressure dropped slightly. Her blood pressure did respond to the IV fluids. The patient had an NG tube placed to low intermittent suction-coffee ground emesis noted from the NG tube. Because of the low magnesium value, the patient received IV magnesium 2 g. The nursing staff and laboratory staff were unable to draw laboratory work. The patient had only a very small peripheral left shoulder vein IV. I did place a right femoral central line without difficulty. The laboratory values were obtained from this line. The patient has hematemesis, she is dehydrated and vomiting. She has abdominal distention. Admission/observation is warranted. I spoke to the patient and to the immigration case manager. The on-call hospitalist was consulted. Medication Reconcilliation Current Medication List: was personally reviewed by me Blood Pressure Screening Patient's blood pressure: Elevated blood pressure Blood pressure disposition: Elevated BP felt to be situational, Did not require urgent referral Consults Time Called: 1113 Consulting Physician: ASHWINI Andersen Returned Call: 1120 I discussed the patients case with ASHWINI Andersen. He is going to evaluate the patient for further treatment. Impression Primary Impression: Hematemesis Additional Impressions: Abdominal distension Hypomagnesemia Scribe Attestation The scribe's documentation has been prepared under my direction and personally reviewed by me in its entirety. I confirm that the note above accurately reflects all work, treatment, procedures, and medical decision making performed by me. Departure Information Dispostion Being Evaluated By Hospitalist Referrals HeardJaky (PCP) Problem Qualifiers
[2016-12-08] MEDS ORDERED: PANTOprazole INJ 80 MG in DEXTROSE 5% 100ML IV SCH (07:00)
--- NOTE | 2016-12-08 07:06 | DIAGNOSTIC IMAGING REPORT ---
CHEST ONE VIEW PORTABLE HISTORY: 89 years-old Female acute abdominal pain with concern for gastrointestinal bleed COMPARISON: Portable chest radiograph 11/18/2016 TECHNIQUE: Portable upright AP view of the chest FINDINGS: There is mild soft tissue prominence in the region of the upper mediastinum superior to the aortic arch which is unchanged and nonspecific. There may be a calcified left paratracheal lymph node. There is atherosclerosis of the aorta. Cardiac silhouette is within normal limits. There is no pneumothorax. Trace pleural effusions are noted. Minimal right basilar opacity is again noted. Degenerative changes involve the bilateral shoulders and spine. No gross pneumoperitoneum. IMPRESSION: Blunting of the bilateral costophrenic angles is again noted suggesting trace pleural effusions with persistent subsegmental right basilar opacity. The above report was generated using voice recognition software. It may contain grammatical, syntax or spelling errors. Electronically signed by: Morales Thomas M.D. 12/08/2016 7:05 AM Dictated Date/Time: 12/08/2016 7:02 AM
[2016-12-08] MEDS ORDERED: PANTOprazole INJ 40 MG in DEXTROSE 5% 100ML IV SCH (07:15)
[2016-12-08] MEDS ORDERED: MENTOIN TOP (07:51)
[2016-12-08] MEDS ORDERED: [UNRECOGNIZED DRUG - OTHER] TOP (07:51)
[2016-12-08] MEDS ORDERED: SODI1ENE PR (07:51)
[2016-12-08] MEDS ORDERED: BISA10SU7 PR (07:51)
[2016-12-08] MEDS ORDERED: PROTPAK PO (07:51)
[2016-12-08] MEDS ORDERED: MOML PO (07:51)
[2016-12-08] MEDS ORDERED: MISCCAP80 PO (07:51)
[2016-12-08] MEDS ORDERED: PRNJ PO (07:51)
[2016-12-08] MEDS ORDERED: SNTONWC TOP (07:52)
--- NOTE | 2016-12-08 08:16 | DIAGNOSTIC IMAGING REPORT ---
ABD/PELVIS NO IV OR ORAL CONT CLINICAL HISTORY: 89 years-old Female presenting with EVALUATE GI BLEED--poss obstruction. TECHNIQUE: Multidetector CT of the abdomen and pelvis was performed without the use of intravenous contrast. IV contrast: None. A dose lowering technique was used consistent with the principles of ALARA (as low as reasonably achievable). COMPARISON: 11/18/2016. CT DOSE (mGy.cm): The estimated cumulative dose is 453.89 mGy.cm. FINDINGS: Cocoa Roaster topogram: Diffuse gaseous distention of bowel. Cholecystectomy clips. Lung bases: Minimal dependent opacities. Minimal groundglass and nodular opacities noted elsewhere at the lung bases. Normal heart size. Coronary artery and aortic valve calcification. Dilated distal esophagus. Liver: Macronodular contour of the liver. Normal density. Biliary: No gross biliary ductal dilatation allowing for noncontrast technique. Gallbladder surgically absent. Pancreas: Moderate parenchymal atrophy. Spleen: Normal. Adrenal glands: Nodular thickening of the adrenal glands, nonspecific. Kidneys and ureters: 22 mm right upper pole calculus and additional 19 mm lower pole calculus noted, unchanged. No hydronephrosis. Parenchymal atrophy of the right kidney. Vascular calcification noted in the left kidney. Ureters normal. Bladder: Apparent bladder wall thickening at the anterior dome, which may be due to underdistention. Pelvic organs: Uterus and ovaries normal. Bowel: Distended colon filled with gas and fluid. Diverticulosis of the sigmoid colon with pericolonic fat stranding in the left lower quadrant. Apart from mild apparent wall thickening in the sigmoid colon, no colonic wall thickening. Small hiatal hernia. Small bowel is diffusely mildly distended with gas and fluid. Ileocecal valve is widely patent. Peritoneal cavity: No free fluid or intraperitoneal gas. Vasculature: Atherosclerosis of the normal caliber abdominal aorta. Lymph nodes: Multiple prominent subcentimeter retroperitoneal lymph nodes, nonspecific and possibly reactive. Abdominal wall: Fat and fluid containing umbilical hernia. Fat-containing left internal hernia. Mild anasarca. Musculoskeletal: Degenerative changes of the spine. IMPRESSION: 1. Evaluation for gastrointestinal hemorrhage is limited without intravenous contrast. 2. Persistent distention of small and large bowel consistent with ileus. Fluid throughout the colon consistent with a diarrheal state. 3. Interval development of mild sigmoid colonic wall thickening associated with diverticulosis and mild pericolonic fat stranding. This is concerning for acute diverticulitis. 4. Minimal dependent opacities at the lung bases, possibly atelectasis. 5. Right nephrolithiasis. Electronically signed by: Carlos Prescott M.D. 12/08/2016 8:15 AM Dictated Date/Time: 12/08/2016 8:06 AM
[2016-12-08 10:36] LABS: HEMATOCRIT 35.8 % (37-47); MEAN CELL VOLUME 87.3 fL (80-100); MEAN CORPUSCULAR HGB CONC 32.1 g/dl (32-36); MEAN PLATELET VOLUME 9.7 fL (7.4-10.4); PLATELET COUNT 172 K/uL (130-400); WHITE BLOOD COUNT 8.18 K/uL (4.8-10.8)
[2016-12-08 10:56] LABS: BUN/CREATININE RATIO 30.1 (10-20); CALCIUM 8.3 mg/dl (8.5-10.1); INR 1.2 (0.9-1.1); MAGNESIUM 1.5 mg/dl (1.8-2.4); PROTHROMBIN TIME (PATIENT) 13.4 SECONDS (9.0-12.0)
[2016-12-08 11:00] LABS: ALB/GLOB RATIO 0.6 (0.9-2)
[2016-12-08 11:11] LABS: BASO % 0.2 %; BASO ABS # 0.02 K/uL (0-0.2); COMPLETE YES; EOS % 0.6 %; IG% 0.6 %; LYMPH % 27.1 %; LYMPH ABS # 2.22 K/uL (1.2-3.4); MONO % 11.5 %
[2016-12-08] MEDS ORDERED: MAGNESIUM SULFATE 1GM / D5W 1 GM BAG IV STA (11:11)
[2016-12-08] MEDS ORDERED: SODIUM CHLORIDE 0.9% 500ML 500 ML IV STA (11:14)
[2016-12-08] MEDS ORDERED: POLYETHYLENE (MIRALAX) 17 GM PACK PO PRN (13:30)
[2016-12-08] MEDS ORDERED: ONDANSETRON INJ 2 MG/ML 2 ML VIAL IV PRN (13:30)
[2016-12-08] MEDS ORDERED: MAGNESIUM HYDROXIDE SUSP 30 ML UDC PO PRN (13:30)
[2016-12-08] MEDS ORDERED: ALUMINUM/MAGNESIUM/SIMETH (MAALOX MAX) 30 ML UDC PO PRN (13:30)
[2016-12-08] MEDS ORDERED: ACETAMINOPHEN 325 MG TAB PO PRN (13:30)
--- NOTE | 2016-12-08 13:58 | History and Physical ---
History & Physical Date of Service Dec 08, 2016. History & Physical admit #[id number]
--- NOTE | 2016-12-08 14:49 | HISTORY & PHYSICAL EXAMINATION ---
DATE OF ADMISSION: 12/08/2016 CHIEF COMPLAINT: Abdominal distention, nausea and vomiting. HISTORY OF PRESENT ILLNESS: The patient is a pleasant 89-year-old female who presents being sent down from [facility] after about 3 or 4 days of constant nausea and frequent vomiting. She had been given Zofran, which helped some, but still the symptoms would not go away. Today she started vomiting black, it was heme positive and between that and worsening abdominal distention the physicians at [facility] felt it prudent to send her to the ER for further evaluation. Here, she was found to have ileus-like findings on CT with just general diffuse distention of her gastrointestinal tract. She had an NG tube placed. She is actually feeling much better now that the NG tube is in. She does not have any abdominal pain. The nausea has resolved. On directed multiple times of questioning, she has not had any diarrhea of note while this is going on. She does not recall having any fever, shortness of breath. She is thirsty. She has poor appetite. REVIEW OF SYSTEMS: Otherwise negative, except for as above. PAST MEDICAL HISTORY: Most significant for recent bout of C. diff colitis which she was discharged on 11/24/2016 on p.o. vancomycin and cholestyramine. Her other medical history includes diabetes, hypothyroidism, GERD, breast cancer, chronic kidney disease. MEDICATIONS: Atenolol, Synthroid, sitagliptin, atorvastatin, cholestyramine, Zantac, mag ox, vitamin D3, multivitamin, potassium, iron sulfate, probiotic. PAST SURGICAL HISTORY: Includes appendectomy, lumpectomy versus mastectomy, she was not sure which, knee replacement x2 and a cholecystectomy. ALLERGIES: None. FAMILY HISTORY: Mom had diabetes and hypertension. Dad secondary to a toxic gas exposure. PHYSICAL EXAMINATION: VITAL SIGNS: Temp 36.3, pulse 85, respiratory rate 21, blood pressure 111/60, 99% on room air. GENERAL: She is awake, alert, oriented, pleasant, fatigued appearing, but otherwise in no acute distress. HEAD, EYES, EARS, NOSE, AND THROAT: Normocephalic, atraumatic. NG tube is in place with a decent amount of predominantly dark, but blood streaked drainage, now it is draining more clear. There is no local breakdown. Mucous membranes are slightly dry. CARDIOVASCULAR: Regular, distant. No rubs, murmurs, or gallops. LUNGS: Clear to auscultation bilaterally. No rales, rhonchi, or wheezes with good effort. ABDOMEN: Moderate to markedly distended; however it is soft. There is no tympany. There is actually no tenderness. No guarding, rigidity, rebound, masses or organomegaly. EXTREMITIES: Without cyanosis or clubbing. Maybe trace bilateral lower extremity edema. No calf tenderness. No erythema. No cords. SKIN: Dry with no rashes, no pallor or icterus. Bowman have poor turgor. NEUROLOGIC: Shows cranial nerves II-XII to be grossly intact. Gross motor and sensory are intact. MUSCULOSKELETAL EXAMINATION: Yields no gross lesions. MENTAL STATE: Shows good recent and remote recall. Normal mood and affect. LABORATORY AND DIAGNOSTICS: Her CBC shows a white count of 8.18, hemoglobin 11.5, platelets 172. Of note, her hemoglobin has been in the mid 9 to mid 11 range predominantly for the last 6 months. Complete metabolic panel showing sodium 145, potassium 5, chloride 122, CO2 16, BUN 30, creatinine 1, calcium 8.3, glucose 169, mag 1.5, total bilirubin 0.4, AST 11, ALT 10, alkaline phosphatase 86, total protein 5.7, albumin 2.2, lipase 46, free T4 of 1.5. PT of 13.4 and INR of 1.2. PTT of 25.4. Chest x-ray shows mild soft tissue prominence in the region of the upper mediastinum superior to the aortic arch unchanged and nonspecific, may be a calcified left peritracheal lymph node, atherosclerosis of the aorta. Cardiac silhouette within normal limits. There is no pneumothorax. Trace pleural effusions are noted, minimal right basilar opacity noted, degenerative changes involving the bilateral shoulders and spine. CT abdomen and pelvis shows lung bases, minimal dependent opacities, minimal ground-glass and nodular opacities elsewhere at the lung bases. Normal heart size, coronary artery and aortic valve calcification, dilated distal esophagus. Liver shows macronodular contour of the liver with normal density. Biliary shows no gross biliary ductal dilation allowing for noncontrast technique. The gallbladder is surgically absent. Pancreas shows moderate parenchymal atrophy. Spleen is normal. Adrenals show nodular thickening of the adrenal glands nonspecific. Kidneys and ureters 22 mm right upper pole calculus and additional 19 mm lower pole calculus noted and unchanged. No hydronephrosis. Parenchymal atrophy of the right kidney. Vascular calcification in the left kidney. Ureters are normal. Bladder shows wall thickening of the anterior dome may be due to under distention. Pelvic organs show uterus and ovaries to be normal. Bowel shows distended colon filled with gas and fluid, diverticulosis of the sigmoid colon with pericolonic fat stranding in the left lower quadrant. Apart from mild apparent wall thickening of sigmoid colon no colonic wall thickening, small hiatal hernia, small bowel diffusely mildly distended with gas and fluid. Ileocecal valve widely patent. Peritoneal cavity shows no free fluid or intraperitoneal gas. Vasculature show atherosclerosis of the normal caliber abdominal aorta. Lymph nodes show multiple prominent subcentimeter retroperitoneal lymph nodes, nonspecific, possibly reactive. Abdominal wall shows fat and fluid containing umbilical hernia, fat containing left internal hernia and mild anasarca. Musculoskeletal shows degenerative changes of the spine and the impression is most consistent with an ileus, fluid throughout the colon consistent with diarrheal state, interval development of mild sigmoid colonic wall thickening associated with diverticulosis and mild pericolonic fat stranding concerning for acute diverticulitis. ASSESSMENT AND PLAN: 1. Nausea and vomiting. This appears to be due to her ileus. 2. Ileus, most likely secondary to her recent Clostridium difficile either as a side effect of the Clostridium difficile itself or possibly a side effect to the cholestyramine. Certainly a viral pathology given that we have been seeing this in the community is also possible She has rather significant colon distention, however, she has been decompressed with an NG tube and hopefully the colon distention will start go down as the rest of her GI tract goes down as well. Certainly surgical consultation may be needed, but at this point in time given that she is looking so much better and has other than distention a very benign abdomen on exam will manage conservatively with the NG tube, serial exams and serial radiographic followup. We will follow her closely with supportive care as well. 3. Recent Clostridium difficile. She is not having any diarrhea. Certainly with the colon distention that she is having there is a little bit of a concern about if she was working towards a toxic megacolon, but she does not appear septic. When she had C. diff. she is having no diarrhea. At this point in time to be safe we will have her on IV Flagyl until she is able to take p.o. Given how recent her C. diff was a follow-up stool test is likely of little value as it is exceedingly likely to test positive and on top of that she is not having any diarrhea to test. 4. Metabolic acidosis due to volume loss from dehydration and vomiting. 5. Hypomagnesemia from gastrointestinal losses from vomiting. We will replace and follow. 6. Diabetes. Hold her home meds, fingersticks and supplemental insulin as needed. 7. Protein malnutrition. Work on p.o. intake once she is improving. 8. Anemia, mild. Follow obviously with the questionable hematemesis. 9. Questionable hematemesis. She does have notable blood in the NG drainage and she did have vomitus that tested positive for blood. However, she does not appear to be consistent with a GI hemorrhage. She has no epigastric tenderness, no indication for urgent endoscopy and likely the hematemesis represents a degree of gastritis from vomiting causing stomach irritation. At this point in time she has been given Protonix in the ER IV. We will continue with IV Pepcid b.i.d. Follow her hemoglobin, follow her clinical status. Much like the ileus with a low threshold, but certainly not necessary at this point for surgical consult. With the hematemesis will have a low threshold, but not necessity at this time for a GI consult for considerations for an EGD. Certainly if she has any ongoing bright red blood, if she has any significant drop in her hemoglobin or anything else appears unstable will need to move towards GI consult, but does not appear this will be the case. 10. Deep venous thrombosis prophylaxis. Pharmacologic is contraindicated due to the hematemesis. Will utilize mechanical at this point in time. 11. Disposition. [facility]. 12. Questionable diverticulitis. She does not examine consistent with diverticulitis at all, although she will be on Flagyl for C. diff coverage and we will continue to follow this clinically.
[2016-12-08] MEDS: SODIUM CHLOR 0.45% + 20MEQ KCL 1,000 ML IV SCH (15:20)
[2016-12-08] MEDS: METRONIDAZOLE / NSS 500 MG in PREMIXED NSS 100 ML IV SCH ×2 (15:21→22:11)
--- NOTE | 2016-12-08 15:25 | DIAGNOSTIC IMAGING REPORT ---
KUB CLINICAL HISTORY: Colon distention. Nasogastric tube placement. COMPARISON STUDY: CT of the abdomen and pelvis December 08, 2016 at 8:00 AM. FINDINGS: A right femoral central venous catheter is in place. Nasogastric tube tip projects over the gastric cardia and may be coiled within a hiatal hernia. There is moderate gaseous distention of small and large bowel. Mild improvement is noted since exam performed earlier today. IMPRESSION: 1. Moderate gaseous distention of small and large bowel. Mild improvement since CT performed earlier today. 2. Nasogastric tube tip projects over the gastric cardia and a portion of the tube may be within a hiatal hernia. The tube could be advanced. Electronically signed by: Dipak Anthony M.D. 12/08/2016 3:23 PM Dictated Date/Time: 12/08/2016 3:20 PM
[2016-12-08] MEDS: INSULIN ASPART 100 UNITS/ML 3 ML PEN SC SCH ×2 (17:42→21:00)
--- NOTE | 2016-12-08 17:42 | DIAGNOSTIC IMAGING REPORT ---
SERA CLINICAL HISTORY: advanced NG tube COMPARISON STUDY: KUB December 08, 2016 at 3:10 PM. FINDINGS: The nasogastric tube has been advanced. The tube is coiled within the stomach. The tip projects over the gastric fundus. Gaseous distention of small and large bowel is partially visualized on this exam but likely similar to prior study. IMPRESSION: Interval advancement of nasogastric tube. Tube coiled within stomach with tip within gastric fundus. Electronically signed by: Dipak Anthony M.D. 12/08/2016 5:40 PM Dictated Date/Time: 12/08/2016 5:39 PM
[2016-12-08] MEDS ORDERED: NURSING DECISION MEDICATION ORDER SCH (19:45)
[2016-12-08] MEDS: FAMOTIDINE IV INJ 20 MG in DEXTROSE 5% 100ML 100 ML IV SCH (19:59)
[2016-12-08] MEDS ORDERED: MICONAZOLE NITRATE POWDER 43 GM EXT PRN (20:15)
[2016-12-09] VITALS (8 sets, daily range): BP systolic 96–117; BP diastolic 55–69; PULSE 65–78; TEMP 36.3–36.6; O2SAT 96–100
[2016-12-09] MEDS: SODIUM CHLOR 0.45% + 20MEQ KCL 1,000 ML IV SCH ×2 (03:41→17:21)
[2016-12-09] MEDS: FAMOTIDINE IV INJ 20 MG in DEXTROSE 5% 100ML 100 ML IV SCH ×2 (05:46→17:25)
[2016-12-09] MEDS: METRONIDAZOLE / NSS 500 MG in PREMIXED NSS 100 ML IV SCH ×3 (05:46→21:22)
[2016-12-09 07:39] LABS: HEMATOCRIT 31.8 % (37-47); MEAN CELL VOLUME 88.1 fL (80-100); MEAN CORPUSCULAR HGB CONC 31.8 g/dl (32-36); MEAN PLATELET VOLUME 9.4 fL (7.4-10.4); PLATELET COUNT 127 K/uL (130-400); RED BLOOD COUNT 3.61 M/uL (4.2-5.4)
[2016-12-09] MEDS: INSULIN ASPART 100 UNITS/ML 3 ML PEN SC SCH ×3 (08:09→17:22)
[2016-12-09 08:26] LABS: BUN/CREATININE RATIO 25.4 (10-20); CREATININE 0.85 mg/dl (0.60-1.20); MAGNESIUM 1.7 mg/dl (1.8-2.4); POTASSIUM 4.2 mmol/L (3.5-5.1)
[2016-12-09 09:02] LABS: ANISOCYTOSIS PRESENT; BASO ABS # 0.05 K/uL (0-0.2); BASOPHIL % 0.9 %; COMPLETE YES; ECHINOCYTES 1+; EOSINOPHIL % 2.6 %; LARGE GRANULAR LYMPH ABSOLUTE 1.19 K/uL; LARGE GRANULAR LYMPHOCYTE % 22.8 %; LYMPHOCYTE % 19.3 %; NEUTROPHILS % 47.4 %; OVALOCYTES 1+
[2016-12-09 11:10] LABS: URINE APPEARANCE TURBID (CLEAR); URINE BILIRUBIN NEG (NEG); URINE COLOR YELLOW; URINE EPITHELIAL CELL AUTO >30 /lpf (0-5); URINE NITRITE POS (NEG); URINE SPECIFIC GRAVITY 1.022 (1.000-1.030); UROBILINOGEN NEG (NEG); ZZUR CULT IF INDIC CLEAN CATCH YES
[2016-12-09 11:29] LABS: MANUAL MICROSCOPIC REQUIRED? NO; REVIEW REQ? YES
[2016-12-09 11:32] LABS: URINE PATH CASTS 1-5 GRANULAR CASTS /lpf (0)
[2016-12-09] MEDS ORDERED: NURSING VERBAL MED ORDER ONE (19:00)
--- NOTE | 2016-12-09 20:32 | Hospitalist Progress Note ---
Hospitalist Progress Note Date of Service Dec 09, 2016. Subjective Pt evaluation today including: conversation w/ patient Patient with diarrhea Medications Last Resulted CBC 12/11/16 06:54 Last Resulted BMP 12/11/16 06:54 Objective Vital Signs Date Time Temp Pulse Resp B/P (MAP) Pulse Ox O2 Delivery O2 Flow Rate FiO2 12/09/16 19:49 36.4 76 18 103/66 (78) 100 Room Air 12/09/16 16:00 Room Air 12/09/16 15:34 36.5 65 16 112/69 (83) 99 12/09/16 12:00 Room Air 12/09/16 11:11 36.6 69 18 106/69 (81) 99 Room Air 12/09/16 08:00 Room Air 12/09/16 07:23 36.3 72 16 96/59 (71) 96 Room Air 12/09/16 04:00 36.5 77 18 108/68 (81) 97 Room Air 12/09/16 04:00 99 Room Air 12/09/16 00:00 99 Room Air 12/08/16 23:38 36.4 81 18 97/58 (71) 96 Room Air Physical Exam General Appearance: no apparent distress Eyes: normal inspection ENT: hearing grossly normal Neck: supple Respiratory/Chest: lungs clear Cardiovascular: regular rate, rhythm Abdomen: + distended Extremities: normal range of motion Neurologic/Psychiatric: alert Laboratory Results Last 24 Hours Test 12/09/16 07:26 12/09/16 07:31 12/09/16 10:35 12/09/16 11:30 Bedside Glucose 136 mg/dl 102 mg/dl White Blood Count 5.20 K/uL Red Blood Count 3.61 M/uL Hemoglobin 10.1 g/dL Hematocrit 31.8 % Mean Corpuscular Volume 88.1 fL Mean Corpuscular Hemoglobin 28.0 pg Mean Corpuscular Hemoglobin Concent 31.8 g/dl Platelet Count 127 K/uL Mean Platelet Volume 9.4 fL RDW Standard Deviation 60.6 fL RDW Coefficient of Variation 18.9 % Neutrophils % (Manual) 47.4 % Lymphocytes % (Manual) 19.3 % Monocytes % (Manual) 7.0 % Eosinophils % (Manual) 2.6 % Basophils % (Manual) 0.9 % Neutrophils # (Manual) 2.46 K/uL Total Absolute Neutrophils 2.46 K/uL Lymphocytes # (Manual) 1.00 K/uL Total Absolute Lymphocytes 2.19 K/uL Monocytes # (Manual) 0.36 K/uL Eosinophils # (Manual) 0.14 K/uL Basophils # (Manual) 0.05 K/uL Percent Large Granular Lymphocytes 22.8 % Absolute Large Granular Lymphocytes 1.19 K/uL Anisocytosis PRESENT Ovalocytes 1+ Echinocytes 1+ Sodium Level 144 mmol/L Potassium Level 4.2 mmol/L Chloride Level 121 mmol/L Carbon Dioxide Level 15 mmol/L Anion Gap 8.0 mmol/L Blood Urea Nitrogen 22 mg/dl Creatinine 0.85 mg/dl Est Creatinine Clear Calc Drug Dose 37.9 ml/min Estimated GFR () 70.4 Estimated GFR (Non- 60.7 BUN/Creatinine Ratio 25.4 Random Glucose 130 mg/dl Calcium Level 8.0 mg/dl Magnesium Level 1.7 mg/dl 25-Hydroxy Vitamin D Total 29.0 ng/ml Urine Color YELLOW Urine Appearance TURBID Urine pH 5.0 Urine Specific [place] 1.022 Urine Protein 1+ Urine Glucose (UA) NEG Urine Ketones NEG Urine Occult Blood 2+ Urine Nitrite POS Urine Bilirubin NEG Urine Urobilinogen NEG Urine Leukocyte Esterase LARGE Urine WBC (Auto) >30 /hpf Urine RBC (Auto) 5-10 /hpf Urine Hyaline Casts (Auto) 10-30 /lpf Urine Epithelial Cells (Auto) >30 /lpf Urine Bacteria (Auto) 1+ Urine Pathogenic Casts 1-5 GRANULAR CASTS /lpf Test 12/09/16 16:20 Bedside Glucose 73 mg/dl Assessment and Plan 1.. Ileus, most likely secondary to her recent Clostridium difficile either as a side effect of the Clostridium difficile itself or possibly a side effect to the cholestyramine. Certainly a viral pathology given that we have been seeing this in the community is also possible She has rather significant colon distention, however, she has been decompressed with an NG tube and hopefully the colon distention will start go down as the rest of her GI tract goes down as well. Ng tube not draining will clamp to see if she tolerates 2. Recent Clostridium difficile. She is not having any diarrhea. Certainly with the colon distention that she is having there is a little bit of a concern about if she was working towards a toxic megacolon, but she does not appear septic. When she had C. diff. she is having no diarrhea. At this point in time to be safe we will have her on IV Flagyl until she is able to take p.o. Given how recent her C. diff was a follow-up stool test is likely of little value as it is exceedingly likely to test positive and on top of that she is not having any diarrhea to test. 3. Metabolic acidosis due to volume loss from dehydration and vomiting. 4. Hypomagnesemia from gastrointestinal losses from vomiting. We will replace and follow. 5. Diabetes. Hold her home meds, fingersticks and supplemental insulin as needed. 6. Protein malnutrition. Work on p.o. intake once she is improving. 7. Anemia, mild. Follow obviously with the questionable hematemesis. 8. Questionable hematemesis. follow hemoglobin
[2016-12-10] VITALS (7 sets, daily range): BP systolic 101–112; BP diastolic 57–70; PULSE 76–84; TEMP 36.3–36.9; O2SAT 96–100
[2016-12-10] MEDS: SODIUM CHLOR 0.45% + 20MEQ KCL 1,000 ML IV SCH ×2 (05:33→18:26)
[2016-12-10] MEDS: METRONIDAZOLE / NSS 500 MG in PREMIXED NSS 100 ML IV SCH ×3 (05:34→21:53)
[2016-12-10] MEDS: FAMOTIDINE IV INJ 20 MG in DEXTROSE 5% 100ML 100 ML IV SCH ×2 (05:34→17:43)
[2016-12-10] MEDS: INSULIN ASPART 100 UNITS/ML 3 ML PEN SC SCH ×4 (06:00→17:50)
[2016-12-10] MEDS ORDERED: CEFTRIAXONE SOD INJ 1000 MG in DEXTROSE 5% 50ML IV SCH (19:00)
[2016-12-10] MEDS ORDERED: NURSING VERBAL MED ORDER ONE (19:00)
[2016-12-11] VITALS (8 sets, daily range): BP systolic 100–139; BP diastolic 64–74; PULSE 79–90; TEMP 36.3–36.8; O2SAT 92–100
[2016-12-11] MEDS ORDERED: GLUCAGON FOR INJ 1 MG VIAL SQ PRN (00:30)
[2016-12-11] MEDS ORDERED: GLUCOSE 40% GEL 15 GM TUBE PO PRN (00:30)
[2016-12-11] MEDS ORDERED: DEXTROSE 50% 50 ML SYR IV PRN (00:30)
[2016-12-11] MEDS ORDERED: GLUCOSE 10 TABS/TUBE PO PRN (00:30)
--- NOTE | 2016-12-11 04:21 | Hospitalist Progress Note ---
Hospitalist Progress Note Date of Service Dec 11, 2016. Subjective Pt evaluation today including: conversation w/ patient patient with no complaints Medications Last Resulted CBC 12/11/16 06:54 Last Resulted BMP 12/11/16 06:54 Objective Vital Signs Date Time Temp Pulse Resp B/P (MAP) Pulse Ox O2 Delivery O2 Flow Rate FiO2 12/11/16 04:00 Room Air 12/11/16 00:00 Room Air 12/10/16 23:28 36.3 84 16 102/65 (77) 96 Room Air 12/10/16 20:00 Room Air 12/10/16 19:23 36.7 80 20 109/70 (83) 98 Room Air 12/10/16 15:41 Room Air 12/10/16 15:35 36.9 80 18 112/68 (83) 97 12/10/16 12:00 Room Air 12/10/16 11:45 36.4 76 16 112/68 (83) 99 12/10/16 08:00 Room Air 12/10/16 07:42 36.5 80 16 102/64 (77) 97 Room Air Physical Exam General Appearance: no apparent distress ENT: hearing grossly normal Neck: trachea midline Respiratory/Chest: lungs clear Cardiovascular: regular rate, rhythm Abdomen: normal bowel sounds, + distended Extremities: normal range of motion Laboratory Results Last 24 Hours Test 12/10/16 06:04 12/10/16 17:49 12/11/16 00:11 12/11/16 01:04 Bedside Glucose 90 mg/dl 71 mg/dl 67 mg/dl 106 mg/dl Assessment and Plan 1.. Ileus, most likely secondary to her recent Clostridium difficile either as a side effect of the Clostridium difficile itself or possibly a side effect to the cholestyramine. Certainly a viral pathology given that we have been seeing this in the community is also possible She has rather significant colon distention, however, she has been decompressed with an NG tube and hopefully the colon distention will start go down as the rest of her GI tract goes down as well. Ng tube not draining will clamp to see if she tolerates 2. Recent Clostridium difficile. She is not having any diarrhea. Certainly with the colon distention that she is having there is a little bit of a concern about if she was working towards a toxic megacolon, but she does not appear septic. When she had C. diff. she is having no diarrhea. At this point in time to be safe we will have her on IV Flagyl until she is able to take p.o. Given how recent her C. diff was a follow-up stool test is likely of little value as it is exceedingly likely to test positive and on top of that she is not having any diarrhea to test. 3. Metabolic acidosis due to volume loss from dehydration and vomiting. 4. Hypomagnesemia from gastrointestinal losses from vomiting. We will replace and follow. 5. Diabetes. Hold her home meds, fingersticks and supplemental insulin as needed. 6. Protein malnutrition. Work on p.o. intake once she is improving. 7. Anemia, mild. Follow obviously with the questionable hematemesis. 8. Questionable hematemesis. follow hemoglobin
[2016-12-11] MEDS: FAMOTIDINE IV INJ 20 MG in DEXTROSE 5% 100ML 100 ML IV SCH ×2 (05:31→18:31)
[2016-12-11] MEDS: METRONIDAZOLE / NSS 500 MG in PREMIXED NSS 100 ML IV SCH ×3 (06:21→21:37)
[2016-12-11 07:13] LABS: HEMATOCRIT 33.5 % (37-47); MEAN CELL VOLUME 86.3 fL (80-100); MEAN CORPUSCULAR HEMOGLOBIN 27.3 pg (25-34); MEAN CORPUSCULAR HGB CONC 31.6 g/dl (32-36); MEAN PLATELET VOLUME 9.1 fL (7.4-10.4); PLATELET COUNT 110 K/uL (130-400); RED BLOOD COUNT 3.88 M/uL (4.2-5.4); WHITE BLOOD COUNT 4.57 K/uL (4.8-10.8)
[2016-12-11 08:01] LABS: ALB/GLOB RATIO 0.6 (0.9-2); BUN/CREATININE RATIO 19.7 (10-20); CALCIUM 7.7 mg/dl (8.5-10.1); CREATININE 0.64 mg/dl (0.60-1.20); POTASSIUM 3.6 mmol/L (3.5-5.1)
[2016-12-11] MEDS ORDERED: NURSING VERBAL MED ORDER ONE (08:15)
[2016-12-11] MEDS: INSULIN ASPART 100 UNITS/ML 3 ML PEN SC SCH ×4 (08:22→18:50)
[2016-12-11] MEDS: ERTAPENEM IV 1,000 MG in SODIUM CHLORIDE 0.9% 50ML 50 ML IV SCH (09:03)
[2016-12-11] MEDS: SODIUM CHLOR 0.45% + 20MEQ KCL 1,000 ML IV SCH ×2 (09:03→20:54)
[2016-12-12] VITALS (9 sets, daily range): BP systolic 95–121; BP diastolic 59–78; PULSE 76–99; TEMP 36.3–36.8; O2SAT 99–100
--- NOTE | 2016-12-12 00:43 | Hospitalist Progress Note ---
Hospitalist Progress Note Date of Service Dec 11, 2016. Subjective Pt evaluation today including: conversation w/ patient Objective Vital Signs Date Time Temp Pulse Resp B/P (MAP) Pulse Ox O2 Delivery O2 Flow Rate FiO2 12/11/16 04:00 Room Air 12/11/16 00:00 Room Air 12/10/16 23:28 36.3 84 16 102/65 (77) 96 Room Air 12/10/16 20:00 Room Air 12/10/16 19:23 36.7 80 20 109/70 (83) 98 Room Air 12/10/16 15:41 Room Air 12/10/16 15:35 36.9 80 18 112/68 (83) 97 12/10/16 12:00 Room Air 12/10/16 11:45 36.4 76 16 112/68 (83) 99 12/10/16 08:00 Room Air 12/10/16 07:42 36.5 80 16 102/64 (77) 97 Room Air Laboratory Results Last 24 Hours Test 12/10/16 06:04 12/10/16 17:49 12/11/16 00:11 12/11/16 01:04 Bedside Glucose 90 mg/dl 71 mg/dl 67 mg/dl 106 mg/dl Assessment and Plan 1.. Ileus, most likely secondary to her recent Clostridium difficile either as a side effect of the Clostridium difficile itself or possibly a side effect to the cholestyramine. Certainly a viral pathology given that we have been seeing this in the community is also possible She has rather significant colon distention, however, she has been decompressed with an NG tube and hopefully the colon distention will start go down as the rest of her GI tract goes down as well. Ng tube not draining will clamp to see if she tolerates. Advance diet to clear liquids 2. Recent Clostridium difficile. She is not having any diarrhea. Certainly with the colon distention that she is having there is a little bit of a concern about if she was working towards a toxic megacolon, but she does not appear septic. When she had C. diff. she is having no diarrhea. At this point in time to be safe we will have her on IV Flagyl until she is able to take p.o. Given how recent her C. diff was a follow-up stool test is likely of little value as it is exceedingly likely to test positive and on top of that she is not having any diarrhea to test. 3. UTI with ESBL will start invanz 4. Hypomagnesemia from gastrointestinal losses from vomiting. We will replace and follow. 5. Diabetes. Hold her home meds, fingersticks and supplemental insulin as needed. 6. Protein malnutrition. Work on p.o. intake once she is improving. 7. Anemia, mild. Follow obviously with the questionable hematemesis. 8. Questionable hematemesis. follow hemoglobin Discharge planning: uncertain
[2016-12-12] MEDS: FAMOTIDINE IV INJ 20 MG in DEXTROSE 5% 100ML 100 ML IV SCH ×2 (05:35→17:45)
[2016-12-12] MEDS: INSULIN ASPART 100 UNITS/ML 3 ML PEN SC SCH ×4 (06:00→18:00)
[2016-12-12] MEDS: METRONIDAZOLE / NSS 500 MG in PREMIXED NSS 100 ML IV SCH ×3 (06:10→22:37)
[2016-12-12] MEDS: ERTAPENEM IV 1,000 MG in SODIUM CHLORIDE 0.9% 50ML 50 ML IV SCH (08:45)
[2016-12-12] MEDS: SODIUM CHLOR 0.45% + 20MEQ KCL 1,000 ML IV SCH (10:34)
[2016-12-13] VITALS (10 sets, daily range): BP systolic 85–121; BP diastolic 62–81; PULSE 87–107; TEMP 36.3–36.8; O2SAT 98–99
[2016-12-13] MEDS: SODIUM CHLOR 0.45% + 20MEQ KCL 1,000 ML IV SCH ×2 (00:14→14:16)
--- NOTE | 2016-12-13 01:01 | Hospitalist Progress Note ---
Hospitalist Progress Note Date of Service Dec 12, 2016. Subjective Pt evaluation today including: conversation w/ patient Patient with no complaints Objective Vital Signs Date Time Temp Pulse Resp B/P (MAP) Pulse Ox O2 Delivery O2 Flow Rate FiO2 12/11/16 23:50 36.6 86 20 107/64 (78) 98 Room Air 12/11/16 20:00 Room Air 12/11/16 19:00 36.8 79 20 113/74 (87) 92 12/11/16 16:00 98 Room Air 12/11/16 15:12 36.4 90 16 139/68 (91) 100 Room Air 12/11/16 12:00 98 Room Air 12/11/16 08:00 98 Room Air 12/11/16 07:49 36.4 86 18 100/67 (78) 98 Room Air 12/11/16 04:41 36.3 84 18 106/68 (81) 100 Room Air 12/11/16 04:00 Room Air Physical Exam General Appearance: no apparent distress Eyes: normal inspection ENT: hearing grossly normal Neck: trachea midline Respiratory/Chest: lungs clear Cardiovascular: regular rate, rhythm Abdomen: normal bowel sounds, non tender Extremities: normal inspection Laboratory Results Last 24 Hours Test 12/11/16 01:04 12/11/16 06:02 12/11/16 06:54 12/11/16 11:59 Bedside Glucose 106 mg/dl 94 mg/dl 94 mg/dl White Blood Count 4.57 K/uL Red Blood Count 3.88 M/uL Hemoglobin 10.6 g/dL Hematocrit 33.5 % Mean Corpuscular Volume 86.3 fL Mean Corpuscular Hemoglobin 27.3 pg Mean Corpuscular Hemoglobin Concent 31.6 g/dl RDW Standard Deviation 59.2 fL RDW Coefficient of Variation 18.8 % Platelet Count 110 K/uL Mean Platelet Volume 9.1 fL Sodium Level 142 mmol/L Potassium Level 3.6 mmol/L Chloride Level 117 mmol/L Carbon Dioxide Level 15 mmol/L Anion Gap 10.0 mmol/L Blood Urea Nitrogen 13 mg/dl Creatinine 0.64 mg/dl Est Creatinine Clear Calc Drug Dose 50.6 ml/min Estimated GFR () 91.7 Estimated GFR (Non- 79.1 BUN/Creatinine Ratio 19.7 Random Glucose 94 mg/dl Calcium Level 7.7 mg/dl Total Bilirubin 0.4 mg/dl Aspartate Amino Transf (AST/SGOT) 12 U/L Alanine Aminotransferase (ALT/SGPT) 7 U/L Alkaline Phosphatase 78 U/L Total Protein 5.2 gm/dl Albumin 2.0 gm/dl Globulin 3.2 gm/dl Albumin/Globulin Ratio 0.6 Test 12/11/16 18:45 12/12/16 00:10 Bedside Glucose 91 mg/dl 74 mg/dl Assessment and Plan 1.. Ileus, most likely secondary to her recent Clostridium difficile either as a side effect of the Clostridium difficile itself or possibly a side effect to the cholestyramine. Certainly a viral pathology given that we have been seeing this in the community is also possible She has rather significant colon distention, however, she has been decompressed with an NG tube and hopefully the colon distention will start go down as the rest of her GI tract goes down as well. Ng tube not draining will clamp to see if she tolerates. Advance diet to clear liquids Patient encouraged to drink not with much of appetite. 2. Recent Clostridium difficile. She is not having any diarrhea. Certainly with the colon distention that she is having there is a little bit of a concern about if she was working towards a toxic megacolon, but she does not appear septic. When she had C. diff. she is having no diarrhea. At this point in time to be safe we will have her on IV Flagyl until she is able to take p.o. Given how recent her C. diff was a follow-up stool test is likely of little value as it is exceedingly likely to test positive and on top of that she is not having any diarrhea to test. 3. UTI with ESBL will start invanz 4. Hypomagnesemia from gastrointestinal losses from vomiting. We will replace and follow. 5. Diabetes. Hold her home meds, fingersticks and supplemental insulin as needed. 6. Protein malnutrition. Work on p.o. intake once she is improving. 7. Anemia, mild. Follow obviously with the questionable hematemesis. 8. Questionable hematemesis. follow hemoglobin Discharge planning: custodial facility
[2016-12-13] MEDS: FAMOTIDINE IV INJ 20 MG in DEXTROSE 5% 100ML 100 ML IV SCH ×2 (05:50→17:42)
[2016-12-13] MEDS: INSULIN ASPART 100 UNITS/ML 3 ML PEN SC SCH ×4 (06:00→18:00)
[2016-12-13] MEDS: METRONIDAZOLE / NSS 500 MG in PREMIXED NSS 100 ML IV SCH ×3 (06:22→21:11)
[2016-12-13] MEDS: ERTAPENEM IV 1,000 MG in SODIUM CHLORIDE 0.9% 50ML 50 ML IV SCH (08:30)
[2016-12-13 09:30] LABS: HEMATOCRIT 35.6 % (37-47); MEAN CELL VOLUME 86.6 fL (80-100); MEAN CORPUSCULAR HEMOGLOBIN 27.5 pg (25-34); MEAN CORPUSCULAR HGB CONC 31.7 g/dl (32-36); MEAN PLATELET VOLUME 9.4 fL (7.4-10.4); PLATELET COUNT 115 K/uL (130-400); RED BLOOD COUNT 4.11 M/uL (4.2-5.4); WHITE BLOOD COUNT 4.73 K/uL (4.8-10.8)
[2016-12-13 09:52] LABS: BUN/CREATININE RATIO 10.9 (10-20); CALCIUM 7.7 mg/dl (8.5-10.1); CREATININE 0.68 mg/dl (0.60-1.20); POTASSIUM 3.7 mmol/L (3.5-5.1)
--- NOTE | 2016-12-13 12:07 | Hospitalist Progress Note ---
Hospitalist Progress Note Date of Service Dec 13, 2016. Subjective Pt evaluation today including: conversation w/ patient, physical exam, chart review, lab review, review of inpatient medication list Pain: None PO Intake: Very little intake, on clear liquids Voiding: incontinence Patient reports feeling well. She states she did not eat breakfast, however, because she became nauseous. She denies vomiting. Per nursing, the patient had one bite of breakfast before saying she was done. The patient is unsure if she has been having diarrhea or not. Nursing states that she has been incontinent of urine. She has not had any bowel movements today but did have 2 small loose bowel movements throughout the day yesterday. NGT in place. The patient does complain of a mild non-productive cough. She complains of dyspnea on exertion. The patient denies fevers, chills, sweats, chest pain, palpitations, claudication, wheezing, shortness of breath at rest, vomiting, abdominal pain, dysuria, hematuria, urinary retention, paralysis, weakness, numbness and tingling. Additional Comments: See HPI for pertinent positives and negatives. All other systems reviewed and negative. Objective Vital Signs Date Time Temp Pulse Resp B/P (MAP) Pulse Ox O2 Delivery O2 Flow Rate FiO2 12/13/16 08:00 99 Room Air 12/13/16 07:25 36.7 87 17 121/81 (94) 99 Room Air 12/13/16 04:18 36.4 98 16 99/63 (75) 98 Room Air 12/13/16 03:58 Room Air 12/13/16 00:00 Room Air 12/12/16 22:59 36.4 84 18 111/71 (84) 100 Room Air 12/12/16 20:15 Room Air 12/12/16 19:32 36.4 99 20 95/59 (71) 100 Room Air 12/12/16 16:27 36.3 97 18 103/72 (82) 100 Room Air 12/12/16 16:00 100 Room Air 12/12/16 12:00 100 Room Air 12/12/16 11:35 36.8 84 20 116/78 (91) 100 Physical Exam Notes: General appearance: +Obese. Well-developed, well-nourished, no apparent distress Head: Normocephalic, atraumatic Eyes: Normal inspection, PERRL, EOMI ENT: +NGT in place. Normal ENT inspection, hearing grossly normal, pharynx normal Neck: Supple, no JVD, trachea midline Respiratory/Chest: Lungs clear to auscultation, normal breath sounds, no respiratory distress Cardiovascular: Regular rate & rhythm, no gallop, no murmur Abdomen/GI: Normal bowel sounds, non-tender, soft Extremities/Musculoskeletal: Normal inspection, no calf tenderness, no pedal edema Neurological/Psych: Alert, normal mood/affect, oriented x 3 Skin: Normal color, warm/dry, no rash Laboratory Results Last 24 Hours Test 12/12/16 12:12 12/12/16 18:11 12/13/16 00:00 12/13/16 06:21 Bedside Glucose 78 mg/dl 88 mg/dl 74 mg/dl 87 mg/dl Test 12/13/16 08:47 White Blood Count 4.73 K/uL Red Blood Count 4.11 M/uL Hemoglobin 11.3 g/dL Hematocrit 35.6 % Mean Corpuscular Volume 86.6 fL Mean Corpuscular Hemoglobin 27.5 pg Mean Corpuscular Hemoglobin Concent 31.7 g/dl RDW Standard Deviation 60.4 fL RDW Coefficient of Variation 19.1 % Platelet Count 115 K/uL Mean Platelet Volume 9.4 fL Sodium Level 140 mmol/L Potassium Level 3.7 mmol/L Chloride Level 114 mmol/L Carbon Dioxide Level 15 mmol/L Anion Gap 11.0 mmol/L Blood Urea Nitrogen 7 mg/dl Creatinine 0.68 mg/dl Est Creatinine Clear Calc Drug Dose 48.9 ml/min Estimated GFR () 89.9 Estimated GFR (Non- 77.6 BUN/Creatinine Ratio 10.9 Random Glucose 94 mg/dl Calcium Level 7.7 mg/dl Assessment and Plan 89 y/o female with a history of recent C. diff infection, HTN, HLD, DM II, hypothyroidism, CKD stage II-III, h/o breast cancer, and GERD who presents from [facility] with abdominal distention, nausea and vomiting. Ileus, abdominal distention, nausea and vomiting--stable -Admit to telemetry. No acute events overnight. Pt in sinus rhythm with PVCs, HR in 70s-90s. -NGT placed in ED. NGT not been draining, currently clamped. Will keep in place until tolerating liquids -Diet advanced to clear liquids 12/12 but pt did not tolerate breakfast -Continue 1/2NSS + 20 mEq KCl at 75 cc/hr -Recheck magnesium. Pt had hypomagnesemia on admission likely secondary to vomiting. Continue Mag Ox 400 mg PO q2d -Restart home PO meds UTI--stable -Urine culture positive for E. coli resistant to fluoroquinolones and cephalosporins -Continue ertapenem 1 gm IV qd. Day #3 Recent C. diff infection--no diarrhea -Continue contact precautions -Flagyl 500 mg IV q8h. Day #6 HTN, h/o a-fib--pt has been hypotensive/low normal. Pt in NSR -Continue to hold atenolol for now. Pt has not received this since admission due to prior NPO status -Hold Lasix HLD -Continue atorvastatin 20 mg PO qpm DM II--last HgbA1c checked on 10/19/16 was 6.4 -Hold Januvia -Insulin sliding scale -Check BSGs q ac and qhs Hypothyroidism -Continue Synthroid 100 mcg PO qd CKD stage II-III--stable -Creatine stable, at baseline Chronic iron deficiency anemia--stable -Pt w/o hematemesis. Hgb stable and at baseline -Continue ferrous sulfate 325 mg PO BID DVT prophylaxis -Hold chemical prophylaxis due to recent hematemesis -SCDs Code Status -Level V, DO NOT RESUSCITATE
[2016-12-13] MEDS: MENTHOL-ZINC OXIDE 360 APPLN/120 GM TUBE EXT SCH ×2 (14:00→21:11)
[2016-12-13] MEDS: FERROUS SULFATE 325 MG TAB PO SCH (16:45)
[2016-12-13] MEDS: MAGNESIUM SULFATE 1GM / D5W 1 GM in PREMIXED IN D5W 100 ML IV SCH ×2 (17:42→19:05)
--- NOTE | 2016-12-13 18:06 | DIAGNOSTIC IMAGING REPORT ---
KUB HISTORY: Follow-up study to assess bowel distention. COMPARISON: KUB radiographs and CT abdomen and pelvis 12/08/2016 FINDINGS: There is been retraction of the enteric tube which terminates near the gastric cardia. Persistent dilation of both small and large bowel is seen without significant change from comparison studies. Cholecystectomy clips are noted. Large right-sided renal calculi are again seen, measuring up to 2.4 cm. There are surgical clips over the right abdominal wall. Right femoral line is noted. No renal calculi. No ureteral calculi. No pneumoperitoneum or pneumatosis. No fracture. IMPRESSION: 1. Persistent dilated small and large bowel without significant change from comparison. 2. Slight retraction of the enteric tube, now terminating within the region of the gastric cardia. 3. Right-sided nephrolithiasis. Electronically signed by: Morales Thomas M.D. 12/13/2016 6:05 PM Dictated Date/Time: 12/13/2016 6:01 PM
[2016-12-13 18:56] LABS: BASO % 0.7 %; BASO ABS # 0.03 K/uL (0-0.2); COMPLETE YES; EOS % 3.1 %; HEMATOCRIT 32.7 % (37-47); IG% 1.1 %; MEAN CELL VOLUME 84.7 fL (80-100); MEAN CORPUSCULAR HEMOGLOBIN 27.5 pg (25-34); MEAN CORPUSCULAR HGB CONC 32.4 g/dl (32-36); MEAN PLATELET VOLUME 9.5 fL (7.4-10.4); MONO % 13.9 %; NEUT % 34.2 %; PLATELET COUNT 119 K/uL (130-400); RED BLOOD COUNT 3.86 M/uL (4.2-5.4); WHITE BLOOD COUNT 4.47 K/uL (4.8-10.8)
[2016-12-13 19:29] LABS: BUN/CREATININE RATIO 10.1 (10-20); CALCIUM 7.4 mg/dl (8.5-10.1); CREATININE 0.65 mg/dl (0.60-1.20); MAGNESIUM 1.5 mg/dl (1.8-2.4); POTASSIUM 3.6 mmol/L (3.5-5.1)
[2016-12-13 19:30] LABS: PHOSPHORUS 1.4 mg/dl (2.5-4.9)
[2016-12-13] MEDS ORDERED: NURSING VERBAL MED ORDER ONE (20:00)
[2016-12-13] MEDS ORDERED: POTASSIUM PHOSPHATE INJ 21 MMOL in SODIUM CHLORIDE 0.9% 500ML 500 ML IV SCH (20:30)
[2016-12-13] MEDS ORDERED: RANITIDINE HCL 150 MG TAB PO SCH (21:00)
[2016-12-13] MEDS: ATORVASTATIN 20 MG TAB PO SCH (21:11)
[2016-12-14] VITALS (14 sets, daily range): BP systolic 103–135; BP diastolic 51–77; PULSE 89–110; TEMP 36.3–36.9; O2SAT 95–100
[2016-12-14] MEDS: SODIUM CHLOR 0.45% + 20MEQ KCL 1,000 ML IV SCH (03:22)
[2016-12-14] MEDS: FAMOTIDINE IV INJ 20 MG in DEXTROSE 5% 100ML 100 ML IV SCH (05:44)
[2016-12-14] MEDS: METRONIDAZOLE / NSS 500 MG in PREMIXED NSS 100 ML IV SCH (05:58)
[2016-12-14] MEDS: INSULIN ASPART 100 UNITS/ML 3 ML PEN SC SCH ×5 (06:00→22:15)
[2016-12-14] MEDS: LEVOTHYROXINE 100 MCG TAB PO SCH (06:04)
[2016-12-14 06:27] LABS: BASO % 0.6 %; BASO ABS # 0.03 K/uL (0-0.2); COMPLETE YES; EOS % 3.4 %; HEMATOCRIT 34.7 % (37-47); IG% 0.9 %; LYMPH % 40.4 %; LYMPH ABS # 1.88 K/uL (1.2-3.4); MEAN CELL VOLUME 85.5 fL (80-100); MEAN CORPUSCULAR HEMOGLOBIN 27.3 pg (25-34); MEAN PLATELET VOLUME 9.5 fL (7.4-10.4); MONO % 13.5 %; NEUT % 41.2 %; PLATELET COUNT 130 K/uL (130-400); RED BLOOD COUNT 4.06 M/uL (4.2-5.4); WHITE BLOOD COUNT 4.65 K/uL (4.8-10.8)
[2016-12-14 06:52] LABS: BUN/CREATININE RATIO 9.7 (10-20); CALCIUM 7.9 mg/dl (8.5-10.1); CREATININE 0.61 mg/dl (0.60-1.20); MAGNESIUM 1.6 mg/dl (1.8-2.4); POTASSIUM 3.8 mmol/L (3.5-5.1)
[2016-12-14 06:54] LABS: PHOSPHORUS 2.6 mg/dl (2.5-4.9)
[2016-12-14] MEDS: MAGNESIUM SULFATE 1GM / D5W 1 GM in PREMIXED IN D5W 100 ML IV SCH ×2 (08:55→10:27)
[2016-12-14] MEDS: FERROUS SULFATE 325 MG TAB PO SCH ×2 (08:57→17:16)
[2016-12-14] MEDS: MENTHOL-ZINC OXIDE 360 APPLN/120 GM TUBE EXT SCH ×3 (08:58→20:40)
[2016-12-14] MEDS: COLLAGENASE OINT 30 GM TUBE EXT SCH (08:59)
[2016-12-14] MEDS ORDERED: MAGNESIUM OXIDE 400 MG TAB PO SCH (09:00)
[2016-12-14] MEDS: ERTAPENEM IV 1,000 MG in SODIUM CHLORIDE 0.9% 50ML 50 ML IV SCH (09:09)
--- NOTE | 2016-12-14 11:36 | Hospitalist Progress Note ---
Hospitalist Progress Note Date of Service Dec 14, 2016. Subjective Pt evaluation today including: conversation w/ patient, physical exam, chart review, lab review, review of studies, review of inpatient medication list Pain: None PO Intake: Very poor Voiding: incontinence Patient reports feeling well. She denies any pain, nausea or vomiting. She does complain of a mild, non-productive cough. Earlier this morning she did have a short run of v-tach, but the patient denies feeling symptomatic. Per nursing, the patient has not been eating. She refused any breakfast. The patient did have one large, loose bowel movement early this morning but no diarrhea. The patient denies fevers, chills, sweats, chest pain, palpitations, claudication, wheezing, shortness of breath, nausea, vomiting, abdominal pain, dysuria, hematuria, urinary retention, paralysis, weakness, numbness and tingling. Additional Comments: See HPI for pertinent positives and negatives. All other systems reviewed and negative. Objective Vital Signs Date Time Temp Pulse Resp B/P (MAP) Pulse Ox O2 Delivery O2 Flow Rate FiO2 12/14/16 07:30 36.5 91 18 103/70 (81) 99 Room Air 12/14/16 05:07 36.5 89 20 103/69 (80) 95 Room Air 12/14/16 03:59 Room Air 12/14/16 00:09 36.6 97 20 113/51 (71) 98 Room Air 12/14/16 00:00 Room Air 12/13/16 20:07 Room Air 12/13/16 19:42 36.7 96 18 116/73 (87) 99 Room Air 12/13/16 16:08 36.3 100 18 104/70 (81) 99 Room Air 12/13/16 16:00 99 Room Air 12/13/16 15:55 36.3 100 18 104/70 (81) 99 Room Air 12/13/16 12:00 99 Room Air 12/13/16 11:57 105 89/62 (71) 12/13/16 11:38 36.8 107 19 85/68 (74) 99 Room Air Physical Exam Notes: General appearance: +Obese. Well-developed, well-nourished, no apparent distress Head: Normocephalic, atraumatic Eyes: Normal inspection, PERRL, EOMI ENT: +NGT in place. Normal ENT inspection, hearing grossly normal, pharynx normal Neck: Supple, no JVD, trachea midline Respiratory/Chest: Lungs clear to auscultation, normal breath sounds, no respiratory distress Cardiovascular: Regular rate & rhythm, no gallop, no murmur Abdomen/GI: Normal bowel sounds, non-tender, soft Extremities/Musculoskeletal: Normal inspection, no calf tenderness, no pedal edema Neurological/Psych: Alert, normal mood/affect, oriented x 3 Skin: Normal color, warm/dry, no rash Laboratory Results Last 24 Hours Test 12/13/16 11:42 12/13/16 18:11 12/13/16 18:44 12/14/16 00:21 Bedside Glucose 79 mg/dl 109 mg/dl 71 mg/dl White Blood Count 4.47 K/uL Red Blood Count 3.86 M/uL Hemoglobin 10.6 g/dL Hematocrit 32.7 % Mean Corpuscular Volume 84.7 fL Mean Corpuscular Hemoglobin 27.5 pg Mean Corpuscular Hemoglobin Concent 32.4 g/dl Platelet Count 119 K/uL Mean Platelet Volume 9.5 fL Neutrophils (%) (Auto) 34.2 % Lymphocytes (%) (Auto) 47.0 % Monocytes (%) (Auto) 13.9 % Eosinophils (%) (Auto) 3.1 % Basophils (%) (Auto) 0.7 % Neutrophils # (Auto) 1.53 K/uL Lymphocytes # (Auto) 2.10 K/uL Monocytes # (Auto) 0.62 K/uL Eosinophils # (Auto) 0.14 K/uL Basophils # (Auto) 0.03 K/uL RDW Standard Deviation 58.7 fL RDW Coefficient of Variation 19.0 % Immature Granulocyte % (Auto) 1.1 % Immature Granulocyte # (Auto) 0.05 K/uL Sodium Level 139 mmol/L Potassium Level 3.6 mmol/L Chloride Level 113 mmol/L Carbon Dioxide Level 16 mmol/L Anion Gap 10.0 mmol/L Blood Urea Nitrogen 7 mg/dl Creatinine 0.65 mg/dl Est Creatinine Clear Calc Drug Dose 51.2 ml/min Estimated GFR () 91.2 Estimated GFR (Non- 78.7 BUN/Creatinine Ratio 10.1 Random Glucose 120 mg/dl Calcium Level 7.4 mg/dl Phosphorus Level 1.4 mg/dl Magnesium Level 1.5 mg/dl Test 12/14/16 06:01 12/14/16 06:18 Bedside Glucose 74 mg/dl White Blood Count 4.65 K/uL Red Blood Count 4.06 M/uL Hemoglobin 11.1 g/dL Hematocrit 34.7 % Mean Corpuscular Volume 85.5 fL Mean Corpuscular Hemoglobin 27.3 pg Mean Corpuscular Hemoglobin Concent 32.0 g/dl Platelet Count 130 K/uL Mean Platelet Volume 9.5 fL Neutrophils (%) (Auto) 41.2 % Lymphocytes (%) (Auto) 40.4 % Monocytes (%) (Auto) 13.5 % Eosinophils (%) (Auto) 3.4 % Basophils (%) (Auto) 0.6 % Neutrophils # (Auto) 1.91 K/uL Lymphocytes # (Auto) 1.88 K/uL Monocytes # (Auto) 0.63 K/uL Eosinophils # (Auto) 0.16 K/uL Basophils # (Auto) 0.03 K/uL RDW Standard Deviation 59.2 fL RDW Coefficient of Variation 18.9 % Immature Granulocyte % (Auto) 0.9 % Immature Granulocyte # (Auto) 0.04 K/uL Sodium Level 140 mmol/L Potassium Level 3.8 mmol/L Chloride Level 113 mmol/L Carbon Dioxide Level 16 mmol/L Anion Gap 11.0 mmol/L Blood Urea Nitrogen 6 mg/dl Creatinine 0.61 mg/dl Est Creatinine Clear Calc Drug Dose 54.5 ml/min Estimated GFR () 93.2 Estimated GFR (Non- 80.4 BUN/Creatinine Ratio 9.7 Random Glucose 112 mg/dl Calcium Level 7.9 mg/dl Phosphorus Level 2.6 mg/dl Magnesium Level 1.6 mg/dl Diagnostic Results Reviewed the following studies and agree with interpretation as follows: Patient Name: ARNULFO NOVA Unit Number: [id number] Dictated: 12/13/161800 Transcribed: 12/13/161800 JRB Printed Date/Time: [~ rep prt dt]/[~ rep prt tm] [~ rep ct labl] - [~ rep ct ivnm] [facility] [place] [address] Dictated: 12/13/161800 Transcribed: 12/13/161800 JRB Printed Date/Time: [~ rep prt dt]/[~ rep prt tm] [~ rep ct labl] - [~ rep ct ivnm] Patient: ARNULFO NOVA Address1: [address] [facility] Rec: [id number] Address2: [place] Acct ID: [id number] [facility] Zip: [place] [address] Date: 1925 Sex: F Room/Bed: [facility] Ref Phy: Humberto Leroy M.D. SC: C.MED Att Phy: Raúl Agrawal MD, PhD Report #: [id number] Radha Phy: [place]aky Test: KUB Admit Phy: Juan Valles D.O. Interior Horticulturist: JASMINE Interpreting Phy: Gregory Thomas D.O. Diagnosis: ABDOMINAL DISTENSION Ordering Phy: Raúl Agrawal MD, PhD Service Date: 12/13/16 Admit Date: 12/09/1707/23/17 MNE: [id number] CONF: DICTATED BY: Gregory Thomas D.O.]] CC: [facility] Raúl Agrawal MD, PhD Humberto Leroy M.D. Endcc: [~ rep ct add3]] KUB HISTORY: Follow-up study to assess bowel distention. COMPARISON: KUB radiographs and CT abdomen and pelvis 12/08/2016 FINDINGS: There is been retraction of the enteric tube which terminates near the gastric cardia. Persistent dilation of both small and large bowel is seen without significant change from comparison studies. Cholecystectomy clips are noted. Large right-sided renal calculi are again seen, measuring up to 2.4 cm. There are surgical clips over the right abdominal wall. Right femoral line is noted. No renal calculi. No ureteral calculi. No pneumoperitoneum or pneumatosis. No fracture. IMPRESSION: 1. Persistent dilated small and large bowel without significant change from comparison. 2. Slight retraction of the enteric tube, now terminating within the region of the gastric cardia. 3. Right-sided nephrolithiasis. Electronically signed by: Morales Thomas M.D. 12/13/2016 6:05 PM Dictated Date/Time: 12/13/2016 6:01 PM The status of this report is Signed. Draft = Not yet reviewed or approved by Radiologist. Signed = Reviewed and approved by Radiologist. <AttendingPhy>Raúl Agrawal MD, PhD</AttendingPhy> <FamilyPhy>Humberto Leroy M.D.</FamilyPhy> <PrimaryPhy>[facility]</PrimaryPhy> <UnitNumber>[id number]</ UnitNumber> <VisitNumber>[id number]</VisitNumber> <PatientName>ARNULFO NOVA< /PatientName> <DateOfBirth>1925</DateOfBirth> <Location>C.MED</Location> < ServiceDate>12/08/16</ServiceDate> <MNE>ESINDI</MNE> <OrderingPhy>Raúl Agrawal MD, PhD</OrderingPhy> <OrderingPhyMNE>f rep ord dr crawley</OrderingPhyMNE> < DictatingPhyMNE>f rep dict dr crawley</DictatingPhyMNE> <CCListMNE>f rep ct mne</ CCListMNE> <AdmittingPhyMNE>f pt admit dr crawley</AdmittingPhyMNE> <AttendingPhyMNE >f pt attend dr crawley</AttendingPhyMNE> <ConsultingPhyMNE>f pt consult dr crawley</ConsultingPhyMNE> <FamilyPhyMNE>f pt fam dr crawley</FamilyPhyMNE> <OtherPhyMNE>f pt other dr crawley</OtherPhyMNE> < PrimaryPhyMNE>f pt prim care dr crawley</PrimaryPhyMNE> <ReferringPhyMNE>f pt referring dr crawley</ReferringPhyMNE> Assessment and Plan 89 y/o female with a history of recent C. diff infection, HTN, HLD, DM II, hypothyroidism, CKD stage II-III, h/o breast cancer, and GERD who presents from [facility] with abdominal distention, nausea and vomiting. Ileus, abdominal distention, nausea and vomiting--stable -Admit to telemetry. Pt developed short run of v-tach around 04:28 this morning. Pt was asymptomatic. Otherwise in sinus rhythm/sinus tachycardia with HR 80s-100s -NGT placed in ED. NGT not been draining, currently clamped. Will keep in place until tolerating liquids -Clear liquid diet. Pt refusing even trying to eat. Discussed the importance of trying to eat to see if she can tolerate liquids -Continue 1/2NSS + 20 mEq KCl at 75 cc/hr -Magnesium 1.2 on 12/13. Given magnesium sulfate 2 gm IV. Rechecked in afternoon, magnesium 1.5. Magnesium 1.6 on 12/14, given another 2 gm mag. Continue to monitor -Phosphorus low at 1.4 on 12/13, given 21 mmol potassium phosphate. Phosphorus 2.6 on 12/14 -Restart home PO meds -KUB shows no significant change compared to previous study. Persistent dilated small and large bowel. Slight retraction of NGT. -General surgery consulted, appreciate recs UTI--stable -Urine culture positive for E. coli resistant to fluoroquinolones and cephalosporins -Continue ertapenem 1 gm IV qd. Day #4 Recent C. diff infection--no diarrhea -Continue contact precautions -Flagyl 500 mg IV q8h. Day #7 HTN, h/o a-fib--pt has been hypotensive/low normal. Pt in NSR -Continue to hold atenolol for now. Pt has not received this since admission due to prior NPO status -Hold Lasix HLD -Continue atorvastatin 20 mg PO qpm DM II--last HgbA1c checked on 10/19/16 was 6.4 -Hold Januvia -Insulin sliding scale -Check BSGs q ac and qhs Hypothyroidism -Continue Synthroid 100 mcg PO qd CKD stage II-III--stable -Creatine stable, at baseline Chronic iron deficiency anemia--stable -Pt w/o hematemesis. Hgb stable and at baseline -Continue ferrous sulfate 325 mg PO BID DVT prophylaxis -Hold chemical prophylaxis due to recent hematemesis -SCDs Code Status -Level V, DO NOT RESUSCITATE Dispo -Pt a bed hold at [facility]. Will need updated PT/OT evals prior to discharge for insurance auth.
--- NOTE | 2016-12-14 13:34 | Surgery Consultation ---
Consultation Date of Consultation: Dec 14, 2016. Attending Physician: Raúl Agrawal MD, PhD History of Present Illness pt was requested for surgery consult for ileus, pt denies abdominal pain, passed BM today, no nausea, no vomiting, no fever, pt said she feels better, Past Medical/Surgical History Medical Problems: (1) Abdominal distension Status: Acute (2) Abdominal pain Status: Acute (3) Altered mental status Status: Acute (4) Anxiety Status: Acute (5) Back pain Status: Acute (6) Diarrhea Status: Acute (7) Elevated WBC count Status: Acute (8) Gastroenteritis Status: Acute (9) Hematemesis Status: Acute (10) Hypokalemia Status: Acute (11) Hypomagnesemia Status: Acute (12) Ileus Status: Acute (13) Intertriginous candidiasis Status: Acute (14) Nausea Status: Acute (15) Right arm cellulitis Status: Acute (16) Vomiting Status: Acute Family History Cancer Diabetes mellitus Heart disease Hypertension Social History Smoking Status: Never Smoker Smokeless Tobacco Use: No Alcohol Use: none Drug Use: none Marital Status: Housing Status: lives alone Occupation Status: retired Allergies Coded Allergies: Zoledronic Acid (Unverified Allergy, Unknown, unk, 12/08/16) Home Medications Scheduled Atenolol (Tenormin), 25 MG PO DAILY Atorvastatin (Lipitor), 20 MG PO HS Cholecalciferol (Vitamin D), 1,000 UNITS PO QAM Cholestyramine (Cholestyramine Light), 4 GM PO BID@10,22 Collagenase (Santyl), 1 APPLN TOP DAILY Ferrous Sulfate (Kp Ferrous Sulfate), 325 MG PO BID Furosemide (Lasix), 10 MG PO DAILY Levothyroxine Sodium (Synthroid), 100 MCG PO QAM Magnesium Oxide (Mag-Ox), 400 MG PO Q2D Menthol-Zinc Oxide (Calmoseptine), 1 APPLN TOP TID Multiple Vitamin (Multivitamin), 1 TAB PO DAILY Potassium Chloride (K-Tab), 40 MEQ PO BID Probiotic Product (Probiotic), 1 CAP PO BID Protein (Prosource), 30 ML PO BID Ranitidine HCl (Ranitidine HCl), 150 MG PO BID Sitagliptin Phosphate (Januvia), 50 MG PO DAILY Scheduled PRN Bisacodyl (Bisac-Evac), 10 MG LA QPM PRN for on day 3 per bowel protocol Magnesium Hydroxide (Milk Of Magnesia), 30 ML PO DAILY PRN for on day 3 of no bm Nystatin (Nystop), 1 APPLN EXT PRN PRN for SKIN FOLDS Ondansetron Hcl (Zofran), 8 MG PO Q8 PRN for Nausea or Vomiting Prune Juice (Prune Juice ), 8 OZ PO DAILY PRN for no bowel movment in 2 days Simethicone (Bicarsim), 80 MG PO PC PRN for Gas or Constipation Sodium Phosphates (Fleet Enema Six Pack), 1 UNIT LA QAM PRN for day 4 per bowel protocol Miscellaneous Medications Dermatological Products, Misc. (Moisture Barrier), 1 APPLN TOP Current Inpatient Medications Current Inpatient Medications Medications (Trade) Dose Ordered Sig/Susana Route Start Time Stop Time Status Last Admin Dose Admin Acetaminophen (Tylenol Tab) 650 mg Q4H PRN PO 12/08/16 13:30 01/07/17 13:29 Al Hydrox/Mg Hydrox/Simethicone (Maalox Max Susp) 15 ml Q4H PRN PO 12/08/16 13:30 01/07/17 13:29 Magnesium Hydroxide (Milk Of Magnesia Susp) 30 ml Q12H PRN PO 12/08/16 13:30 01/07/17 13:29 Ondansetron HCl (Zofran Inj) 4 mg Q6H PRN IV 12/08/16 13:30 01/07/17 13:29 12/13/16 12:08 4 MG Polyethylene (Miralax Powder Packet) 17 gm DAILY PRN PO 12/08/16 13:30 01/07/17 13:29 Potassium Chloride/Sodium Chloride 1,000 ml @ 75 mls/hr [id number] IV 12/08/16 13:30 01/07/17 13:29 12/14/16 03:22 75 MLS/HR Famotidine 20 mg/ Dextrose 102 ml @ 200 mls/hr Q12H IV 12/08/16 18:00 01/07/17 17:59 12/14/16 05:44 200 MLS/HR Metoprolol Tartrate (Lopressor Iv) 2.5 mg Q4 PRN IV 12/08/16 13:30 01/07/17 13:29 Miconazole Nitrate (Desenex Powder) 1 appln PRN PRN EXT 12/08/16 20:15 01/07/17 20:14 Heparin Sodium (Porcine) (Heparin 10 Unit/ ml 5 ml Flush) 5 ml PRN PRN FLUSH 12/09/16 09:45 01/08/17 09:44 12/14/16 06:16 10 ML Insulin Aspart (novoLOG ASPART) SLIDING SCALE G... Q6 SC 12/10/16 00:00 01/09/17 00:00 Glucose (Glucose 40% Gel) 15-30 GRAMS 15 GRAMS... UD PRN PO 12/11/16 00:30 01/10/17 00:29 Glucose (Glucose Chew Tab) 4-8 Tablets 4 Tabl... UD PRN PO 12/11/16 00:30 01/10/17 00:29 Dextrose (Dextrose 50% 50ML Syringe) 25-50ML OF 50% DW IV FOR... UD PRN IV 12/11/16 00:30 01/10/17 00:29 12/11/16 00:27 25 ML Glucagon (Glucagon Inj) 1 mg UD PRN SQ 12/11/16 00:30 01/10/17 00:29 Ertapenem 1000 mg/ Sodium Chloride 60 ml @ 100 mls/hr DAILY@0900 IV 12/11/16 09:00 12/21/16 08:59 12/14/16 09:09 100 MLS/HR Atorvastatin Calcium (Lipitor Tab) 20 mg HS PO 12/13/16 21:00 01/12/17 20:59 12/13/16 21:11 20 MG Collagenase (Santyl Oint) 1 appln DAILY EXT 12/14/16 09:00 01/13/17 08:59 12/14/16 08:59 1 APPLN Levothyroxine Sodium (Synthroid Tab) 100 mcg DAILYBB PO 12/14/16 06:30 01/13/17 06:29 12/14/16 06:04 100 MCG Magnesium Oxide (Mag-Ox Tab) 400 mg Q2D@0900 PO 12/14/16 09:00 01/13/17 08:59 12/14/16 08:59 400 MG Menthol/Zinc Oxide (Calmoseptine Oint) 1 appln TID EXT 12/13/16 14:00 9/27/17 13:59 12/14/16 08:58 1 APPLN Ferrous Sulfate (Feosol Tab) 325 mg BIDM PO 12/13/16 17:00 01/12/17 16:59 12/14/16 08:57 325 MG Review of Systems Constitutional: No fever, No chills, No sweats, No weight loss, No weakness, No fatigue, No problem reported ENT: No hearing loss, No unusual epistaxis, No nasal symptoms, No sore throat, No tinnitus, No dental problems, No trouble swallowing, No problem reported Respiratory: No cough, No sputum, No wheezing, No shortness of breath, No dyspnea on exertion, No dyspnea at rest, No hemoptysis, No problem reported Cardiovascular: No chest pain, No orthopnea, No PND, No edema, No claudication , No palpitations, No problem reported Abdomen: No pain, No nausea, No vomiting, No diarrhea, No constipation, No GI bleeding, No problem reported Neurologic: No memory loss, No paralysis, No weakness, No numbness/tingling, No vertigo, No balance problems, No problem reported Psychiatric: No depression symptoms, No anhedonism, No anxiety, No insomnia, No substance abuse, No problem reported Endocrine: No fatigue, No excessive thirst, No excessive urination, No problem reported Physical Exam Date Time Temp Pulse Resp B/P (MAP) Pulse Ox O2 Delivery O2 Flow Rate FiO2 12/14/16 11:33 36.6 98 20 120/71 (87) 99 Room Air 12/14/16 08:00 99 Room Air 12/14/16 07:30 36.5 91 18 103/70 (81) 99 Room Air 12/14/16 05:07 36.5 89 20 103/69 (80) 95 Room Air 12/14/16 03:59 Room Air 12/14/16 00:09 36.6 97 20 113/51 (71) 98 Room Air 12/14/16 00:00 Room Air 12/13/16 20:07 Room Air 12/13/16 19:42 36.7 96 18 116/73 (87) 99 Room Air 12/13/16 16:08 36.3 100 18 104/70 (81) 99 Room Air 12/13/16 16:00 99 Room Air 12/13/16 15:55 36.3 100 18 104/70 (81) 99 Room Air General Appearance: WD/WN, no apparent distress Head: normocephalic Eyes: normal inspection Neck: supple, no JVD Respiratory/Chest: chest non-tender, lungs clear Cardiovascular: regular rate, rhythm, no edema, no JVD Abdomen/GI: normal bowel sounds, non tender, soft Extremities/Musculoskelatal: normal inspection, no calf tenderness, normal capillary refill Neurologic/Psych: no motor/sensory deficits, alert, normal mood/affect Laboratory Results Last 24 Hours Test 12/13/16 18:11 12/13/16 18:44 12/14/16 00:21 12/14/16 06:01 Bedside Glucose 109 mg/dl 71 mg/dl 74 mg/dl White Blood Count 4.47 K/uL Red Blood Count 3.86 M/uL Hemoglobin 10.6 g/dL Hematocrit 32.7 % Mean Corpuscular Volume 84.7 fL Mean Corpuscular Hemoglobin 27.5 pg Mean Corpuscular Hemoglobin Concent 32.4 g/dl Platelet Count 119 K/uL Mean Platelet Volume 9.5 fL Neutrophils (%) (Auto) 34.2 % Lymphocytes (%) (Auto) 47.0 % Monocytes (%) (Auto) 13.9 % Eosinophils (%) (Auto) 3.1 % Basophils (%) (Auto) 0.7 % Neutrophils # (Auto) 1.53 K/uL Lymphocytes # (Auto) 2.10 K/uL Monocytes # (Auto) 0.62 K/uL Eosinophils # (Auto) 0.14 K/uL Basophils # (Auto) 0.03 K/uL RDW Standard Deviation 58.7 fL RDW Coefficient of Variation 19.0 % Immature Granulocyte % (Auto) 1.1 % Immature Granulocyte # (Auto) 0.05 K/uL Sodium Level 139 mmol/L Potassium Level 3.6 mmol/L Chloride Level 113 mmol/L Carbon Dioxide Level 16 mmol/L Anion Gap 10.0 mmol/L Blood Urea Nitrogen 7 mg/dl Creatinine 0.65 mg/dl Est Creatinine Clear Calc Drug Dose 51.2 ml/min Estimated GFR () 91.2 Estimated GFR (Non- 78.7 BUN/Creatinine Ratio 10.1 Random Glucose 120 mg/dl Calcium Level 7.4 mg/dl Phosphorus Level 1.4 mg/dl Magnesium Level 1.5 mg/dl Test 12/14/16 06:18 White Blood Count 4.65 K/uL Red Blood Count 4.06 M/uL Hemoglobin 11.1 g/dL Hematocrit 34.7 % Mean Corpuscular Volume 85.5 fL Mean Corpuscular Hemoglobin 27.3 pg Mean Corpuscular Hemoglobin Concent 32.0 g/dl Platelet Count 130 K/uL Mean Platelet Volume 9.5 fL Neutrophils (%) (Auto) 41.2 % Lymphocytes (%) (Auto) 40.4 % Monocytes (%) (Auto) 13.5 % Eosinophils (%) (Auto) 3.4 % Basophils (%) (Auto) 0.6 % Neutrophils # (Auto) 1.91 K/uL Lymphocytes # (Auto) 1.88 K/uL Monocytes # (Auto) 0.63 K/uL Eosinophils # (Auto) 0.16 K/uL Basophils # (Auto) 0.03 K/uL RDW Standard Deviation 59.2 fL RDW Coefficient of Variation 18.9 % Immature Granulocyte % (Auto) 0.9 % Immature Granulocyte # (Auto) 0.04 K/uL Sodium Level 140 mmol/L Potassium Level 3.8 mmol/L Chloride Level 113 mmol/L Carbon Dioxide Level 16 mmol/L Anion Gap 11.0 mmol/L Blood Urea Nitrogen 6 mg/dl Creatinine 0.61 mg/dl Est Creatinine Clear Calc Drug Dose 54.5 ml/min Estimated GFR () 93.2 Estimated GFR (Non- 80.4 BUN/Creatinine Ratio 9.7 Random Glucose 112 mg/dl Calcium Level 7.9 mg/dl Phosphorus Level 2.6 mg/dl Magnesium Level 1.6 mg/dl Assessment & Plan CT Scan(12/08/2016)-IMPRESSION: 1. Evaluation for gastrointestinal hemorrhage is limited without intravenous contrast. 2. Persistent distention of small and large bowel consistent with ileus. Fluid throughout the colon consistent with a diarrheal state. 3. Interval development of mild sigmoid colonic wall thickening associated with diverticulosis and mild pericolonic fat stranding. This is concerning for acute diverticulitis. 4. Minimal dependent opacities at the lung bases, possibly atelectasis. 5. Right nephrolithiasis. KUB_ 12/13/2016)-IMPRESSION: 1. Persistent dilated small and large bowel without significant change from comparison. 2. Slight retraction of the enteric tube, now terminating within the region of the gastric cardia. 3. Right-sided nephrolithiasis. IMP: diverticulitis pt is a 89 years old female who was admitted to hospital for diverticulitis with ileus, now pt passed BM, pt denies abdominal pain, no nausea, no vomiting, no surgery indication now, continues conservative treatment, sign off today, please call if need any concerns, thanks,
[2016-12-14] MEDS: METOPROLOL TARTRATE 1 MG/ML VIAL IV PRN ×2 (13:35→23:31)
--- NOTE | 2016-12-14 14:19 | Clinical Documentation Query ---
CLINICAL DOCUMENTATION QUERY Dr. MEAD, In your clinical opinion is this patient being managed for: ( x ) Pressure ulcer of left heel, unstageable, POA ( ) Pressure ulcer of L lateral 5th metatarsal head, stage II, POA ( ) Pressure ulcer of medial coccyx , unstageable POA ( ) Not Agree ( ) Other explanation of clinical findings (Please Explain) ( ) Unable to determine (Please Define) ( ) Need to Discuss The medical record reflects the following clinical findings, treatment, and risk factors. Clinical Indicators: Wound consult noted with documentation of multiple pressure ulcers all present on admission, documented as noted above. Treatment:WOCN consult, accumax mattress, waffle boots Risk Factors: debility, age, DM Please clarify and document your clinical opinion in the progress notes and discharge summary. Terms such as "probable", "suspected", "likely", "questionable", "possible", or "still to be ruled out" are acceptable. IF IN AGREEMENT, YOU MUST DOCUMENT ABOVE DIAGNOSTIC STATEMENT IN DAILY PROGRESS NOTES AND DISCHARGE SUMMARY. This document is not part of the patient's record. Thank You, Rina Garza RN [phone]
[2016-12-14] MEDS ORDERED: BISACODYL 10 MG SUPP PR ONE (16:00)
[2016-12-14] MEDS ORDERED: NURSING VERBAL MED ORDER ONE ×2 (16:00→22:00)
[2016-12-14] MEDS: D5W AND 1/2NSS + 20MEQ KCL 1,000 ML IV SCH (16:30)
[2016-12-14] MEDS ORDERED: SOD PHOSPHATE/SOD BIPHOSPHATE ENEMA 132 ML BTL PR PRN (17:00)
[2016-12-14] MEDS: FAMOTIDINE 20 MG TAB PO SCH (17:16)
[2016-12-14] MEDS: ATORVASTATIN 20 MG TAB PO SCH (20:41)
[2016-12-14] MEDS: THIAMINE HCL 100 MG TAB PO SCH (20:41)
[2016-12-15] VITALS (9 sets, daily range): BP systolic 84–116; BP diastolic 47–70; PULSE 82–129; TEMP 36.4–37.4; O2SAT 94–100
[2016-12-15] MEDS ORDERED: MoRPHine SULFATE 2 MG/ML CARP IV STA (00:50)
[2016-12-15 02:32] LABS: BLOOD UREA NITROGEN 5 mg/dl (7-18); CALCIUM 7.8 mg/dl (8.5-10.1); CARBON DIOXIDE 14 mmol/L (21-32); CHLORIDE 111 mmol/L (98-107); GLUCOSE 202 mg/dl (70-99); SODIUM 136 mmol/L (136-145)
[2016-12-15 03:28] LABS: POTASSIUM 4.7 mmol/L (3.5-5.1)
[2016-12-15] MEDS: METOPROLOL TARTRATE 1 MG/ML VIAL IV PRN (03:28)
[2016-12-15 03:33] LABS: MAGNESIUM 1.8 mg/dl (1.8-2.4)
[2016-12-15] MEDS ORDERED: SODIUM CHLORIDE 0.9% 250ML 250 ML IV SCH (05:45)
[2016-12-15 06:09] LABS: HEMATOCRIT 35.7 % (37-47); MEAN CELL VOLUME 84.4 fL (80-100); MEAN CORPUSCULAR HEMOGLOBIN 27.7 pg (25-34); MEAN CORPUSCULAR HGB CONC 32.8 g/dl (32-36); MEAN PLATELET VOLUME 9.5 fL (7.4-10.4); PLATELET COUNT 142 K/uL (130-400); RED BLOOD COUNT 4.23 M/uL (4.2-5.4); WHITE BLOOD COUNT 10.94 K/uL (4.8-10.8)
[2016-12-15] MEDS: LEVOTHYROXINE 100 MCG TAB PO SCH (06:14)
[2016-12-15] MEDS: D5W AND 1/2NSS + 20MEQ KCL 1,000 ML IV SCH ×2 (06:31→17:50)
[2016-12-15 06:47] LABS: CALCIUM 7.9 mg/dl (8.5-10.1); CREATININE 0.78 mg/dl (0.60-1.20); MAGNESIUM 1.7 mg/dl (1.8-2.4); POTASSIUM 4.1 mmol/L (3.5-5.1)
[2016-12-15 06:58] LABS: PHOSPHORUS 1.7 mg/dl (2.5-4.9)
[2016-12-15] MEDS ORDERED: MAGNESIUM SULFATE 1GM / D5W 1 GM in PREMIXED IN D5W 100 ML IV STA (07:19)
[2016-12-15] MEDS ORDERED: POTASSIUM PHOS 3 MMOL/1 ML INFUSION IV STA (07:19)
[2016-12-15] MEDS ORDERED: POTASSIUM PHOSPHATE INJ 30 MMOL in SODIUM CHLORIDE 0.9% 500ML 500 ML IV SCH (07:30)
--- NOTE | 2016-12-15 07:44 | Clinical Documentation Query ---
CLINICAL DOCUMENTATION QUERY Dr. MEAD, In your clinical opinion is this patient being managed for: Additional pressure ulcers: ( x ) Pressure ulcer of L lateral 5th metatarsal head, stage II, POA ( x ) Pressure ulcer of medial coccyx , unstageable POA ( ) Not Agree ( ) Other explanation of clinical findings (Please Explain) ( ) Unable to determine (Please Define) ( ) Need to Discuss The medical record reflects the following clinical findings, treatment, and risk factors. Clinical Indicators: Wound consult noted with documentation of multiple pressure ulcers all present on admission, documented as noted above. Treatment:WOCN consult, accumax mattress, waffle boots Risk Factors: debility, age, DM Please clarify and document your clinical opinion in the progress notes and discharge summary. Terms such as "probable", "suspected", "likely", "questionable", "possible", or "still to be ruled out" are acceptable. IF IN AGREEMENT, YOU MUST DOCUMENT ABOVE DIAGNOSTIC STATEMENT IN DAILY PROGRESS NOTES AND DISCHARGE SUMMARY. This document is not part of the patient's record. Thank You, Rina Garza RN [phone]
[2016-12-15] MEDS: FERROUS SULFATE 325 MG TAB PO SCH ×3 (08:48→16:25)
[2016-12-15] MEDS: THIAMINE HCL 100 MG TAB PO SCH ×3 (08:48→21:00)
[2016-12-15] MEDS: INSULIN ASPART 100 UNITS/ML 3 ML PEN SC SCH ×3 (08:48→17:50)
[2016-12-15] MEDS: FAMOTIDINE 20 MG TAB PO SCH ×3 (08:49→16:25)
[2016-12-15] MEDS: MAGNESIUM OXIDE 400 MG TAB PO SCH ×3 (08:51→21:00)
[2016-12-15] MEDS: MENTHOL-ZINC OXIDE 360 APPLN/120 GM TUBE EXT SCH ×3 (10:01→21:38)
[2016-12-15] MEDS: COLLAGENASE OINT 30 GM TUBE EXT SCH (10:02)
[2016-12-15] MEDS: ERTAPENEM IV 1,000 MG in SODIUM CHLORIDE 0.9% 50ML 50 ML IV SCH (10:09)
--- NOTE | 2016-12-15 10:49 | Hospitalist Progress Note ---
Hospitalist Progress Note Date of Service Dec 15, 2016. Subjective Pt evaluation today including: conversation w/ patient, physical exam, chart review, lab review, review of inpatient medication list Voiding: voiding difficulty (not voiding) Unable to obtain reliable ROS from patient due to lethargy. Today the patient is very lethargic and unable to stay awake during interview. Roused patient multiple times during my visit. Per nursing, the patient was unable to take her PO meds even after being crushed up. The patient is not swallowing liquids well and appears to be aspirating. The patient has also not voided since 0200 when she was straight cathed for 400 cc urine. Repeat bladder scan this morning showed 276 cc. Patient did have 1 moderate loose stool this morning. Additional Comments: Unable to obtain reliable ROS from patient due to lethargy. Objective Vital Signs Date Time Temp Pulse Resp B/P (MAP) Pulse Ox O2 Delivery O2 Flow Rate FiO2 12/15/16 07:41 36.8 106 16 102/51 (68) 100 Room Air 12/15/16 06:15 114 101/67 (78) 12/15/16 05:34 112 84/57 (66) 12/15/16 03:49 Room Air 12/15/16 03:28 118 107/70 12/15/16 01:28 122 104/58 (73) 12/15/16 00:05 36.6 129 20 100/69 (79) 94 Room Air 12/15/16 00:00 Room Air 12/14/16 23:31 112 109/62 12/14/16 20:44 36.5 110 20 131/77 (95) 95 Room Air 12/14/16 20:00 100 Room Air 12/14/16 17:00 36.9 90 20 135/76 (95) 98 Room Air 12/14/16 16:45 36.3 99 20 120/65 (83) 97 Room Air 12/14/16 16:29 36.4 92 20 110/65 (80) 96 Room Air 12/14/16 16:15 36.3 91 20 128/71 (90) 97 Room Air 12/14/16 16:00 100 Room Air 12/14/16 15:39 36.4 92 18 110/74 (86) 100 Room Air 12/14/16 13:35 120 111/75 12/14/16 12:00 99 Room Air 12/14/16 11:33 36.6 98 20 120/71 (87) 99 Room Air Physical Exam Notes: General appearance: +Obese. Lethargic. Well-developed, well-nourished, no apparent distress Head: Normocephalic, atraumatic Eyes: Normal inspection, PERRL, EOMI ENT: +Dry oral mucosa. Normal ENT inspection, hearing grossly normal, pharynx normal Neck: Supple, no JVD, trachea midline Respiratory/Chest: Lungs clear to auscultation, normal breath sounds, no respiratory distress Cardiovascular: +Tachycardic. Regular rhythm, no gallop, no murmur Abdomen/GI: +Hypoactive bowel sounds. Non-tender, soft Extremities/Musculoskeletal: Normal inspection, no calf tenderness, no pedal edema Neurological/Psych: +Unable to assess mood or orientation due to lethargy. Pt unable to remain awake during exam. Skin: +Pressure ulcers sacrum and left heel, POA. Normal color, warm/dry, no rash Laboratory Results Last 24 Hours Test 12/14/16 18:13 12/14/16 21:20 12/15/16 01:39 12/15/16 02:48 Bedside Glucose 132 mg/dl 139 mg/dl Sodium Level 136 mmol/L Potassium Level mmol/L 4.7 mmol/L Chloride Level 111 mmol/L Carbon Dioxide Level 14 mmol/L Anion Gap 11.0 mmol/L Blood Urea Nitrogen 5 mg/dl Creatinine 1.00 mg/dl Est Creatinine Clear Calc Drug Dose 32.9 ml/min Estimated GFR () 57.8 Estimated GFR (Non- 49.9 BUN/Creatinine Ratio 5.0 Random Glucose 202 mg/dl Calcium Level 7.8 mg/dl Magnesium Level 1.8 mg/dl Test 12/15/16 05:45 12/15/16 07:53 White Blood Count 10.94 K/uL Red Blood Count 4.23 M/uL Hemoglobin 11.7 g/dL Hematocrit 35.7 % Mean Corpuscular Volume 84.4 fL Mean Corpuscular Hemoglobin 27.7 pg Mean Corpuscular Hemoglobin Concent 32.8 g/dl RDW Standard Deviation 59.3 fL RDW Coefficient of Variation 19.2 % Platelet Count 142 K/uL Mean Platelet Volume 9.5 fL Sodium Level 141 mmol/L Potassium Level 4.1 mmol/L Chloride Level 114 mmol/L Carbon Dioxide Level 16 mmol/L Anion Gap 11.0 mmol/L Blood Urea Nitrogen 5 mg/dl Creatinine 0.78 mg/dl Est Creatinine Clear Calc Drug Dose 42.2 ml/min Estimated GFR () 78.1 Estimated GFR (Non- 67.4 BUN/Creatinine Ratio 6.0 Random Glucose 208 mg/dl Calcium Level 7.9 mg/dl Phosphorus Level 1.7 mg/dl Magnesium Level 1.7 mg/dl Bedside Glucose 177 mg/dl Assessment and Plan 89 y/o female with a history of recent C. diff infection, HTN, HLD, DM II, hypothyroidism, CKD stage II-III, h/o breast cancer, and GERD who presents from [facility] with abdominal distention, nausea and vomiting. Ileus, abdominal distention, nausea and vomiting--stable -Admit to telemetry. Pt in sinus tach, HR in 100s, up to 120s overnight. No a- fib or v-tach last night. Pt did have a short run of a-fib yesterday afternoon. -NGT removed 12/14 -Clear liquid diet -Speech therapy evaluate and treat. Per nursing, pt is not able to eat w/ difficulty swallowing, possible aspiration -IVF changed to D5W + 1/2NSS + 20 mEq KCl at 75 cc/hr per nutrition recommendations -Pt started on thiamine 100 mg PO BID per nutrition recommendations as she has been NPO/clear liquids for last week, risk of refeeding -KUB shows no significant change compared to previous study. Persistent dilated small and large bowel. Slight retraction of NGT. -General surgery consulted, appreciate recs: no acute surgical indication, continue conservative management, will sign off. Electrolyte abnormalities--ongoing -Potassium stable at 4.1 on 12/15 -Magnesium 1.7 on 12/15. Magnesium sulfate 1 gm IV x 1. Increase PO magnesium to magnesium oxide 400 mg PO BID -Phosphorus 1.7 on 12/15. Potassium phosphate 30 mmol IV x 1. Continue to monitor. UTI--stable -Urine culture positive for E. coli resistant to fluoroquinolones and cephalosporins -Continue ertapenem 1 gm IV qd. Day #5 Recent C. diff infection, ?diverticulitis--no diarrhea or pain -Continue contact precautions -Flagyl d/c'd. Received 7 days IV inpt HTN, h/o a-fib--pt had short burst of a-fib yesterday afternoon, none since then. Sinus tachycardia now -Resume atenolol 25 mg PO qd. Hold if SBP less than 100 or HR less than 60 -Lopressor 2.5 mg IV q4h prn HR >110 -Hold Lasix HLD -Continue atorvastatin 20 mg PO qpm DM II--last HgbA1c checked on 10/19/16 was 6.4 -Hold Januvia -Insulin sliding scale -Check BSGs q ac and qhs Hypothyroidism -Continue Synthroid 100 mcg PO qd CKD stage II-III--stable -Creatine stable, at baseline Chronic iron deficiency anemia--stable -Pt w/o hematemesis. Hgb stable and at baseline -Continue ferrous sulfate 325 mg PO BID DVT prophylaxis -Heparin 5000 units SC q12h -SCDs Code Status -Level V, DO NOT RESUSCITATE Dispo -Pt a bed hold at [facility]. Will need updated PT/OT evals prior to discharge for insurance auth.
--- NOTE | 2016-12-15 13:25 | DIAGNOSTIC IMAGING REPORT ---
HEAD CT NONCONTRAST CT DOSE: 638.56 mGycm HISTORY: Altered mental status. TECHNIQUE: Multiaxial CT images of the head were performed without the use of intravenous contrast. Automated exposure control was utilized for this study. A dose lowering technique was utilized adhering to the principles of ALARA. Comparison: Head CT 10/30/2016. Findings: Mild mucosal thickening within the left maxillary sinus. No fluid levels within the paranasal sinuses. The mastoid air cells are clear. The calvarium and skull base are intact. There is no mass, hematoma, midline shift, acute infarct. White matter hypodensity is nonspecific but suggestive of microvascular ischemic change. The ventricles and sulci demonstrate mild age-related involutional changes. Impression: No acute intracranial abnormality. Atrophy and microvascular ischemic changes. Electronically signed by: Arpit Gallagher M.D. 12/15/2016 1:24 PM Dictated Date/Time: 12/15/2016 1:19 PM
[2016-12-15 14:47] LABS: URINE APPEARANCE CLOUDY (CLEAR); URINE COLOR ORANGE; URINE EPITHELIAL CELL AUTO >30 /lpf (0-5); URINE NITRITE POS (NEG); URINE SPECIFIC GRAVITY 1.027 (1.000-1.030); UROBILINOGEN NEG (NEG)
[2016-12-15 14:48] LABS: URINE BILIRUBIN 1+ (NEG)
[2016-12-15 14:49] LABS: MANUAL MICROSCOPIC REQUIRED? NO; REVIEW REQ? YES
[2016-12-15 15:15] LABS: URINE PATH CASTS 5-10 GRANULAR CASTS /lpf (0)
[2016-12-15] MEDS ORDERED: NURSING DECISION MEDICATION ORDER SCH (16:15)
[2016-12-15] MEDS ORDERED: THIAMINE HCL 100 MG/ML 2 ML VIAL IV STA (16:19)
[2016-12-15] MEDS ORDERED: THIAMINE HCL INJ 100 MG in SYRINGE 9 ML IV SCH (16:30)
[2016-12-15] MEDS: FoLIC ACID INJ 1 MG in SYRINGE 9.8 ML IV SCH (17:33)
[2016-12-15] MEDS: ATORVASTATIN 20 MG TAB PO SCH (21:00)
[2016-12-15] MEDS: HEPARIN SOD 5000 UNIT/0.5 ML CARP SQ SCH (21:42)
[2016-12-16] VITALS (13 sets, daily range): BP systolic 90–126; BP diastolic 50–81; PULSE 90–155; TEMP 36.6–37.9; O2SAT 80–100
[2016-12-16] MEDS: INSULIN ASPART 100 UNITS/ML 3 ML PEN SC SCH ×5 (06:00→23:55)
[2016-12-16] MEDS: LEVOTHYROXINE 100 MCG TAB PO SCH (06:23)
[2016-12-16] MEDS: METOPROLOL TARTRATE 1 MG/ML VIAL IV PRN (07:20)
[2016-12-16] MEDS: D5W AND 1/2NSS + 20MEQ KCL 1,000 ML IV SCH ×2 (07:38→20:02)
[2016-12-16 08:36] LABS: HEMATOCRIT 33.7 % (37-47); MEAN CORPUSCULAR HEMOGLOBIN 27.3 pg (25-34); MEAN CORPUSCULAR HGB CONC 31.8 g/dl (32-36); MEAN PLATELET VOLUME 9.4 fL (7.4-10.4); PLATELET COUNT 127 K/uL (130-400); RED BLOOD COUNT 3.92 M/uL (4.2-5.4); WHITE BLOOD COUNT 5.57 K/uL (4.8-10.8)
[2016-12-16] MEDS: THIAMINE HCL 100 MG TAB PO SCH (08:44)
[2016-12-16] MEDS: FERROUS SULFATE 325 MG TAB PO SCH (08:44)
[2016-12-16] MEDS: FAMOTIDINE 20 MG TAB PO SCH (08:44)
[2016-12-16] MEDS: MAGNESIUM OXIDE 400 MG TAB PO SCH (08:44)
[2016-12-16 09:11] LABS: BUN/CREATININE RATIO 6.9 (10-20); CALCIUM 7.6 mg/dl (8.5-10.1); CREATININE 0.71 mg/dl (0.60-1.20); MAGNESIUM 1.7 mg/dl (1.8-2.4)
[2016-12-16 09:26] LABS: PHOSPHORUS 2.3 mg/dl (2.5-4.9); THYROID STIMULATING HORMONE 2.91 uIu/ml (0.300-4.500)
[2016-12-16] MEDS: FAMOTIDINE IV INJ 20 MG in DEXTROSE 5% 100ML 100 ML IV SCH ×2 (09:44→20:01)
[2016-12-16] MEDS: LEVOTHYROXINE SODIUM INJ 50 MCG in SYRINGE 0 ML IV SCH (09:44)
[2016-12-16] MEDS: THIAMINE HCL INJ 100 MG in SYRINGE 9 ML IV SCH (09:45)
[2016-12-16] MEDS: HEPARIN SOD 5000 UNIT/0.5 ML CARP SQ SCH ×2 (09:45→20:05)
[2016-12-16] MEDS: COLLAGENASE OINT 30 GM TUBE EXT SCH (09:46)
[2016-12-16] MEDS: FoLIC ACID INJ 1 MG in SYRINGE 9.8 ML IV SCH (09:46)
[2016-12-16] MEDS: MENTHOL-ZINC OXIDE 360 APPLN/120 GM TUBE EXT SCH ×3 (09:46→20:06)
[2016-12-16] MEDS ORDERED: MAGNESIUM SULFATE 1GM / D5W 1 GM in PREMIXED IN D5W 100 ML IV STA (10:37)
[2016-12-16] MEDS: ERTAPENEM IV 1,000 MG in SODIUM CHLORIDE 0.9% 50ML 50 ML IV SCH (10:50)
--- NOTE | 2016-12-16 11:51 | Hospitalist Progress Note ---
Hospitalist Progress Note Date of Service Dec 16, 2016. Subjective Pt evaluation today including: conversation w/ patient, physical exam, chart review, lab review, review of studies, review of inpatient medication list Pain: None PO Intake: NPO Voiding: garcia catheter in place Patient much more awake and alert today, able to converse and provide ROS. She states that she has some discomfort at her sacrum secondary to her pressure ulcers. She states she is not hungry and has no appetite. She otherwise denies any complaints. The patient is strict NPO per speech therapy recommendations. A Garcia catheter has been placed. Per nursing, the patient had tea colored urine earlier this morning, but this is now improved. The patient did have 1 large liquid bowel movement earlier this morning. The patient did develop sinus tachycardia with HR up to 160s earlier this morning that was sustained for about 9 minutes but then resolved with IV Lopressor. The patient denies feeling symptomatic at this time. The patient denies fevers , chills, sweats, chest pain, palpitations, claudication, cough, wheezing, shortness of breath, nausea, vomiting, abdominal pain, dysuria, hematuria, paralysis, weakness, numbness and tingling. Additional Comments: See HPI for pertinent positives and negatives. All other systems reviewed and negative. Objective Vital Signs Date Time Temp Pulse Resp B/P (MAP) Pulse Ox O2 Delivery O2 Flow Rate FiO2 12/16/16 08:00 37.2 90 16 110/64 (79) 100 Room Air 12/16/16 08:00 Room Air 12/16/16 07:26 93 12/16/16 07:20 156 93/63 12/16/16 04:21 36.6 96 16 91/54 (66) 96 Room Air 12/16/16 04:00 Room Air 12/16/16 00:01 Room Air 12/15/16 23:30 37.1 82 16 116/70 (85) 99 Room Air 12/15/16 20:00 Room Air 12/15/16 19:23 37.4 109 20 114/47 (69) 100 Room Air 12/15/16 16:00 Room Air 12/15/16 15:31 37.1 91 20 110/61 (77) 98 Room Air 12/15/16 12:01 36.4 99 16 99/61 (74) 99 Room Air 12/15/16 12:00 Room Air Physical Exam Notes: General appearance: +Obese. Well-developed, well-nourished, no apparent distress Head: Normocephalic, atraumatic Eyes: Normal inspection, PERRL, EOMI ENT: +Dry oral mucosa. Normal ENT inspection, hearing grossly normal, pharynx normal Neck: Supple, no JVD, trachea midline Respiratory/Chest: Lungs clear to auscultation, normal breath sounds, no respiratory distress Cardiovascular: +Tachycardia. Regular rhythm, no gallop, no murmur Abdomen/GI: Normal bowel sounds, non-tender, soft Extremities/Musculoskeletal: Normal inspection, no calf tenderness, no pedal edema Neurological/Psych: Alert, normal mood/affect, oriented x 3 Skin: Normal color, warm/dry, no rash Laboratory Results Last 24 Hours Test 12/15/16 11:48 12/15/16 12:48 12/15/16 14:15 12/15/16 17:50 Bedside Glucose 170 mg/dl 141 mg/dl Erythrocyte Sedimentation Rate 2 mm/hr C-Reactive Protein 2.01 mg/dl Vitamin B12 Level 342 pg/mL Folate 5.47 ng/mL Procalcitonin 0.29 ng/ml Urine Color ORANGE Urine Appearance CLOUDY Urine pH 5.0 Urine Specific [place] 1.027 Urine Protein 1+ Urine Glucose (UA) NEG Urine Ketones NEG Urine Occult Blood NEG Urine Nitrite POS Urine Bilirubin 1+ Urine Urobilinogen NEG Urine Leukocyte Esterase SMALL Urine WBC (Auto) 5-10 /hpf Urine RBC (Auto) 0-4 /hpf Urine Hyaline Casts (Auto) >30 /lpf Urine Epithelial Cells (Auto) >30 /lpf Urine Bacteria (Auto) NEG Urine Renal Epithelial Cells 0-5 /lpf Urine Pathogenic Casts 5-10 GRANULAR CASTS /lpf Test 12/16/16 00:19 12/16/16 05:38 12/16/16 07:30 12/16/16 08:20 Bedside Glucose 151 mg/dl 149 mg/dl 173 mg/dl White Blood Count 5.57 K/uL Red Blood Count 3.92 M/uL Hemoglobin 10.7 g/dL Hematocrit 33.7 % Mean Corpuscular Volume 86.0 fL Mean Corpuscular Hemoglobin 27.3 pg Mean Corpuscular Hemoglobin Concent 31.8 g/dl RDW Standard Deviation 62.4 fL RDW Coefficient of Variation 19.8 % Platelet Count 127 K/uL Mean Platelet Volume 9.4 fL Sodium Level 142 mmol/L Potassium Level 4.0 mmol/L Chloride Level 116 mmol/L Carbon Dioxide Level 18 mmol/L Anion Gap 8.0 mmol/L Blood Urea Nitrogen 5 mg/dl Creatinine 0.71 mg/dl Est Creatinine Clear Calc Drug Dose 47.1 ml/min Estimated GFR () 87.5 Estimated GFR (Non- 75.5 BUN/Creatinine Ratio 6.9 Random Glucose 161 mg/dl Calcium Level 7.6 mg/dl Phosphorus Level 2.3 mg/dl Magnesium Level 1.7 mg/dl Thyroid Stimulating Hormone (TSH) 2.910 uIu/ml Diagnostic Results Reviewed the following studies and agree with interpretation as follows: Patient Name: ARNULFO NOVA Unit Number: [id number] Dictated: 12/15/161318 Transcribed: 12/15/161318 [facility] Printed Date/Time: [~ rep prt dt]/[~ rep prt tm] [~ rep ct labl] - [~ rep ct ivnm] [facility] [place] [address] Dictated: 12/15/161318 Transcribed: 12/15/161318 [place] Printed Date/Time: [~ rep prt dt]/[~ rep prt tm] [~ rep ct labl] - [~ rep ct ivnm] Patient: ARNULFO NOVA Address1: [address] [place] [address] Rec: [id number] Address2: [facility] Acct ID: [id number] [facility] Zip: [place] [address] Date: 1925 Sex: F Room/Bed: [facility] [place] Ref Phy: Humberto Leroy M.D. SC: [facility] Att Phy: Raúl Agrawal MD, PhD Report #: [id number] Radha Phy: [email or web address] Test: HWO Admit Phy: Juan Valles D.O. Yarn Comber: [facility] Interpreting Phy: Arpit Gallagher MD Diagnosis: ABDOMINAL DISTENSION Ordering Phy: Raúl Agrawal MD, PhD Service Date: 12/15/16 Admit Date: 12/09/1707/23/17 MNE: [id number] CONF: DICTATED BY: Arpit Gallagher M.D.]] CC: [facility] Raúl Agrawal MD, PhD Humberto Leroy M.D. Endcc: [~ rep ct add3]] HEAD CT NONCONTRAST CT DOSE: 638.56 mGycm HISTORY: Altered mental status. TECHNIQUE: Multiaxial CT images of the head were performed without the use of intravenous contrast. Automated exposure control was utilized for this study. A dose lowering technique was utilized adhering to the principles of ALARA. Comparison: Head CT 10/30/2016. Findings: Mild mucosal thickening within the left maxillary sinus. No fluid levels within the paranasal sinuses. The mastoid air cells are clear. The calvarium and skull base are intact. There is no mass, hematoma, midline shift, acute infarct. White matter hypodensity is nonspecific but suggestive of microvascular ischemic change. The ventricles and sulci demonstrate mild age-related involutional changes. Impression: No acute intracranial abnormality. Atrophy and microvascular ischemic changes. Electronically signed by: Arpit Gallagher M.D. 12/15/2016 1:24 PM Dictated Date/Time: 12/15/2016 1:19 PM The status of this report is Signed. Draft = Not yet reviewed or approved by Radiologist. Signed = Reviewed and approved by Radiologist. <AttendingPhy>Raúl Agrawal MD, PhD</AttendingPhy> <FamilyPhy>Humberto Leroy M.D.</FamilyPhy> <PrimaryPhy>[facility]</PrimaryPhy> <UnitNumber>[id number]</ UnitNumber> <VisitNumber>[id number]</VisitNumber> <PatientName>ARNULFO NOVA< /PatientName> <DateOfBirth>1925</DateOfBirth> <Location>[facility]</Location> < ServiceDate>12/08/16</ServiceDate> <MNE>ESINDI</MNE> <OrderingPhy>Raúl Agrawal MD, PhD</OrderingPhy> <OrderingPhyMNE>f rep ord dr crawley</OrderingPhyMNE> < DictatingPhyMNE>f rep dict dr crawley</DictatingPhyMNE> <CCListMNE>f rep ct misbah</ CCListMNE> <AdmittingPhyMNE>f pt admit dr crawley</AdmittingPhyMNE> <AttendingPhyMNE >f pt attend dr crawley</AttendingPhyMNE> <ConsultingPhyMNE>f pt consult dr crawley</ConsultingPhyMNE> <FamilyPhyMNE>f pt fam dr crawley</FamilyPhyMNE> <OtherPhyMNE>f pt other dr crawley</OtherPhyMNE> < PrimaryPhyMNE>f pt prim care dr crawley</PrimaryPhyMNE> <ReferringPhyMNE>f pt referring dr crawley</ReferringPhyMNE> Assessment and Plan 89 y/o female with a history of recent C. diff infection, HTN, HLD, DM II, hypothyroidism, CKD stage II-III, h/o breast cancer, and GERD who presents from [facility] with abdominal distention, nausea and vomiting. Ileus, abdominal distention, nausea and vomiting--stable -Admit to telemetry. Pt in sinus tach with HR up to 160s this morning, resolved with Lopressor 2.5 mg IV x 1 and HR went down to the 80s. -NGT removed 12/14 -Speech therapy evaluate and treat: recommend NPO as pt does not have any functional swallowing. Home meds converted to IV where able -Strict NPO. Will have speech reevaluate today as pt much more alert and may do better now -IVF changed to D5W + 1/2NSS + 20 mEq KCl at 75 cc/hr per nutrition recommendations -Thiamine converted to 100 mg IV qd -KUB shows no significant change compared to previous study. Persistent dilated small and large bowel. Slight retraction of NGT. -General surgery consulted, appreciate recs: no acute surgical indication, continue conservative management, will sign off. -Garcia placed due to urinary retention -Palliative care consulted, appreciate recs: Yadira Toledo away this weekend , will re-consult on Wednesday 12/20 if pt still here Worsening mental status/acute encephalopathy--resolved, pt appears to be back to baseline -Head CT negative for acute changes -UA negative -ESR negative. CRP 2.01 -B12 WNL at 342, folate WNL at 5.47 -TSH WNL -Folic acid 1 mg IV qd -Home meds converted to IV due to strict NPO status and decreased alertness Electrolyte abnormalities--improving -Potassium stable at 4.0 on 12/16 -Magnesium 1.7 on 12/16. Magnesium sulfate 1 gm IV x 1. PO mag held for now due to NPO status -Phosphorus 2.3 on 12/16 UTI--stable -Urine culture positive for E. coli resistant to fluoroquinolones and cephalosporins -Continue ertapenem 1 gm IV qd. Day #6 Recent C. diff infection, ?diverticulitis--no diarrhea or pain -Continue contact precautions -Flagyl d/c'd. Received 7 days IV inpt HTN, h/o a-fib--9 minutes sinus tach this morning, resolved with Lopressor -Atenolol on hold while NPO -Lopressor 2.5 mg IV q4h prn HR >110 -Hold Lasix HLD -Hold atorvastatin 20 mg PO qpm while NPO DM II--last HgbA1c checked on 10/19/16 was 6.4 -Hold Januvia -Insulin sliding scale -Check BSGs q ac and qhs Hypothyroidism -Convert to Synthroid 50 mcg IV qd CKD stage II-III--stable -Creatine stable, at baseline Chronic iron deficiency anemia--stable -Pt w/o hematemesis. Hgb stable and at baseline -Hold iron while NPO DVT prophylaxis -Heparin 5000 units SC q12h -SCDs Code Status -Level V, DO NOT RESUSCITATE Dispo -Pt a bed hold at [facility]. Will need updated PT/OT evals prior to discharge for insurance auth.
[2016-12-17 04:31] VITALS: BP_SYST 101; BP_SYST 106; BP_DIAS 64; BP_DIAS 66; PULSE 84; PULSE 94; TEMP 36.6; TEMP 36.9; O2SAT 100; O2SAT 98
[2016-12-17] MEDS: INSULIN ASPART 100 UNITS/ML 3 ML PEN SC SCH ×2 (05:56→12:09)
[2016-12-17 07:35] VITALS: BP 108/70; PULSE 85; TEMP 36.7; O2SAT 99
[2016-12-17 07:59] LABS: HEMATOCRIT 32.1 % (37-47); MEAN CELL VOLUME 85.6 fL (80-100); MEAN CORPUSCULAR HEMOGLOBIN 27.7 pg (25-34); MEAN CORPUSCULAR HGB CONC 32.4 g/dl (32-36); MEAN PLATELET VOLUME 9.3 fL (7.4-10.4); PLATELET COUNT 117 K/uL (130-400); RED BLOOD COUNT 3.75 M/uL (4.2-5.4); WHITE BLOOD COUNT 4.01 K/uL (4.8-10.8)
[2016-12-17] MEDS: MENTHOL-ZINC OXIDE 360 APPLN/120 GM TUBE EXT SCH ×3 (08:07→20:56)
[2016-12-17] MEDS: COLLAGENASE OINT 30 GM TUBE EXT SCH (08:07)
[2016-12-17] MEDS: THIAMINE HCL INJ 100 MG in SYRINGE 9 ML IV SCH (08:15)
[2016-12-17] MEDS: FoLIC ACID INJ 1 MG in SYRINGE 9.8 ML IV SCH (08:15)
[2016-12-17] MEDS: FAMOTIDINE IV INJ 20 MG in DEXTROSE 5% 100ML 100 ML IV SCH ×2 (08:21→21:25)
[2016-12-17 08:29] LABS: BUN/CREATININE RATIO 8.7 (10-20); CALCIUM 7.5 mg/dl (8.5-10.1); CREATININE 0.61 mg/dl (0.60-1.20); MAGNESIUM 1.7 mg/dl (1.8-2.4); POTASSIUM 3.6 mmol/L (3.5-5.1)
[2016-12-17 08:30] LABS: PHOSPHORUS 1.9 mg/dl (2.5-4.9)
[2016-12-17] MEDS ORDERED: POTASSIUM PHOS 3 MMOL/1 ML INFUSION IV STA (08:55)
[2016-12-17] MEDS: ERTAPENEM IV 1,000 MG in SODIUM CHLORIDE 0.9% 50ML 50 ML IV SCH (09:18)
[2016-12-17] MEDS: HEPARIN SOD 5000 UNIT/0.5 ML CARP SQ SCH (09:19)
[2016-12-17] MEDS: LEVOTHYROXINE SODIUM INJ 50 MCG in SYRINGE 0 ML IV SCH (09:19)
[2016-12-17] MEDS ORDERED: POTASSIUM PHOSPHATE INJ 21 MMOL in SODIUM CHLORIDE 0.9% 500ML 500 ML IV SCH (09:30)
[2016-12-17] MEDS ORDERED: MAGNESIUM SULFATE 1GM / D5W 1 GM in PREMIXED IN D5W 100 ML IV ONE (09:30)
[2016-12-17 11:19] VITALS: BP 98/63; PULSE 84; TEMP 36.4; O2SAT 99
[2016-12-17] MEDS: D5W AND 1/2NSS + 20MEQ KCL 1,000 ML IV SCH (11:29)
--- NOTE | 2016-12-17 13:04 | Hospitalist Progress Note ---
Hospitalist Progress Note Date of Service Dec 17, 2016. Subjective Pt evaluation today including: conversation w/ patient, physical exam, chart review, lab review, conversation w/ client relationship consultant (spoke with speech therapy), review of inpatient medication list Pain: None PO Intake: NPO Voiding: garcia catheter in place Patient is awake and alert, answering questions. She denies any pain or discomfort, nausea, or vomiting. She still states that she does not feel hungry. Per nursing and speech therapy, the patient is still not able to safely swallow anything, and even began to aspirate on Biot[place]. The patient had 1 large liquid bowel movement early this morning. The patient denies fevers , chills, sweats, chest pain, palpitations, claudication, cough, wheezing, shortness of breath, nausea, vomiting, abdominal pain, dysuria, hematuria, urinary retention, paralysis, weakness, numbness and tingling. Additional Comments: See HPI for pertinent positives and negatives. All other systems reviewed and negative. Objective Vital Signs Date Time Temp Pulse Resp B/P (MAP) Pulse Ox O2 Delivery O2 Flow Rate FiO2 12/17/16 11:19 36.4 84 20 98/63 (75) 99 12/17/16 08:00 Room Air 12/17/16 07:35 36.7 85 20 108/70 (83) 99 12/17/16 04:31 36.6 84 20 101/66 (78) 98 Room Air 12/17/16 04:15 Room Air 12/17/16 00:05 Room Air 12/16/16 23:35 36.9 94 16 106/64 (78) 100 Room Air 12/16/16 20:14 Room Air 12/16/16 20:14 36.8 12/16/16 19:29 37.7 97 20 101/65 (77) 100 Room Air 12/16/16 17:29 37.0 111 20 102/68 (79) 99 5.0 12/16/16 17:01 37.1 153 16 90/50 (63) 98 Room Air 12/16/16 16:50 37.2 142 14 119/81 (94) 100 Mask 15.0 12/16/16 16:05 108 16 126/64 (84) 100 Mask 5.0 12/16/16 16:00 37.2 124 20 121/78 (92) 100 Mask 12.0 12/16/16 15:46 36.7 106 16 98/62 (74) 96 Room Air 12/16/16 15:45 37.9 155 6 100/52 (68) 80 Room Air 12/16/16 15:30 Room Air Physical Exam Notes: General appearance: +Obese. Well-developed, well-nourished, no apparent distress Head: Normocephalic, atraumatic Eyes: Normal inspection, PERRL, EOMI ENT: +Dry oral mucosa. Normal ENT inspection, hearing grossly normal, pharynx normal Neck: Supple, no JVD, trachea midline Respiratory/Chest: +Diminished throughout. Lungs clear to auscultation, normal breath sounds, no respiratory distress Cardiovascular: Regular rate & rhythm, no gallop, no murmur Abdomen/GI: Normal bowel sounds, non-tender, soft Extremities/Musculoskeletal: Normal inspection, no calf tenderness, no pedal edema Neurological/Psych: +Disoriented. Pt believed she was in [facility]. When reoriented to the hospital, she stated the correct town/state. The patient stated the correct year but believed it was May. Alert, normal mood/affect , oriented x 1 Skin: Normal color, warm/dry, no rash Laboratory Results Last 24 Hours Test 12/16/16 15:52 12/16/16 23:54 12/17/16 05:55 12/17/16 07:24 Bedside Glucose 123 mg/dl 174 mg/dl 152 mg/dl White Blood Count 4.01 K/uL Red Blood Count 3.75 M/uL Hemoglobin 10.4 g/dL Hematocrit 32.1 % Mean Corpuscular Volume 85.6 fL Mean Corpuscular Hemoglobin 27.7 pg Mean Corpuscular Hemoglobin Concent 32.4 g/dl RDW Standard Deviation 62.2 fL RDW Coefficient of Variation 19.7 % Platelet Count 117 K/uL Mean Platelet Volume 9.3 fL Sodium Level 140 mmol/L Potassium Level 3.6 mmol/L Chloride Level 114 mmol/L Carbon Dioxide Level 18 mmol/L Anion Gap 8.0 mmol/L Blood Urea Nitrogen 5 mg/dl Creatinine 0.61 mg/dl Est Creatinine Clear Calc Drug Dose 55.1 ml/min Estimated GFR () 93.2 Estimated GFR (Non- 80.4 BUN/Creatinine Ratio 8.7 Random Glucose 158 mg/dl Calcium Level 7.5 mg/dl Phosphorus Level 1.9 mg/dl Magnesium Level 1.7 mg/dl Test 12/17/16 11:32 Bedside Glucose 187 mg/dl Assessment and Plan 89 y/o female with a history of recent C. diff infection, HTN, HLD, DM II, hypothyroidism, CKD stage II-III, h/o breast cancer, and GERD who presents from [facility] with abdominal distention, nausea and vomiting. Ileus, abdominal distention, nausea and vomiting--stable -Admit to telemetry. No acute events overnight. Pt in sinus rhythm/sinus tachycardia with HR 90s to low 100s. Transfer to medical floor 12/17 for comfort measures -NGT removed 12/14 -Speech therapy evaluate and treat: attempted to re-evaluate on 12/17 but pt aspirating even on oral hygiene. Recommend keeping NPO, consider comfort measures -IVF changed to D5W + 1/2NSS + 20 mEq KCl at 75 cc/hr per nutrition recommendations -KUB shows no significant change compared to previous study. Persistent dilated small and large bowel. Slight retraction of NGT. -General surgery consulted, appreciate recs: no acute surgical indication, continue conservative management, will sign off. -Garcia placed due to urinary retention -Palliative care consulted, appreciate recs: Yadira Toledo away this weekend , will re-consult on Wednesday 12/20 if pt still here -Pt unable to eat, no appetite, poor prognosis. Dr. Agrawal called pt's daughter, she is agreeable to placing pt on comfort measures. Worsening mental status/acute encephalopathy--stable, more disoriented today but still awake/alert -Head CT negative for acute changes -UA negative -ESR negative. CRP 2.01 -B12 WNL at 342, folate WNL at 5.47 -TSH WNL -D/c folic acid and thiamine for comfort measures Electrolyte abnormalities--ongoing -Potassium stable at 3.6 on 12/17 -Magnesium 1.7 on 12/17. Magnesium sulfate 1 gm IV x 1. PO mag held for now due to NPO status -Phosphorus 1.7 on 12/17. K phos 21 mmol IV x1 -Hold further lyte replacement for comfort measures UTI--stable -Urine culture positive for E. coli resistant to fluoroquinolones and cephalosporins -Continue ertapenem 1 gm IV qd. Day #7 Recent C. diff infection, ?diverticulitis--no diarrhea or pain -Continue contact precautions -Flagyl d/c'd. Received 7 days IV inpt HTN, h/o a-fib--stable -D/C atenolol, Lopressor and Lasix for comfort HLD -D/C atorvastatin for comfort DM II--last HgbA1c checked on 10/19/16 was 6.4 -Hold Januvia -D/C ISS and BSG checks Hypothyroidism -D/C Synthroid CKD stage II-III--stable -Creatine stable, at baseline Chronic iron deficiency anemia--stable -Pt w/o hematemesis. Hgb stable and at baseline -D/C ferrous sulfate DVT prophylaxis -D/C due to comfort measures Code Status -Level V, DO NOT RESUSCITATE Dispo -Dr. Agrawal spoke with pt's daughter about poor prognosis, and she is agreeable to transitioning to comfort measures. If pt is stable, can return to [place] and daughter agrees to not return to hospital.
[2016-12-17 16:00] VITALS: O2SAT 99
[2016-12-17 16:07] VITALS: BP 142/75; PULSE 80; TEMP 36.7; O2SAT 95
[2016-12-18] MEDS ORDERED: RISPERIDONE ODT 0.5MG PO ONE (03:00)
[2016-12-18] MEDS: MENTHOL-ZINC OXIDE 360 APPLN/120 GM TUBE EXT SCH ×3 (08:20→20:30)
[2016-12-18] MEDS: COLLAGENASE OINT 30 GM TUBE EXT SCH (08:20)
[2016-12-18] MEDS: MoRPHine SULFATE 2.5 MG/0.125 ML UDP PO PRN ×2 (08:29→18:26)
[2016-12-18 08:30] VITALS: O2SAT 99
[2016-12-18] MEDS: ERTAPENEM IV 1,000 MG in SODIUM CHLORIDE 0.9% 50ML 50 ML IV SCH (09:23)
[2016-12-18] MEDS: FAMOTIDINE IV INJ 20 MG in DEXTROSE 5% 100ML 100 ML IV SCH ×2 (10:17→20:30)
--- NOTE | 2016-12-18 12:09 | Progress Note ---
Subjective Date of Service: Dec 18, 2016. Subjective Pt evaluation today including: conversation w/ patient, physical exam, chart review, lab review, review of studies, review of inpatient medication list Patient sometimes was yelling, and talking slurry speech, nurse not sure if she is in pain or not, morphine oral was given in this morning, she is more lethargic, and frail, however seems more pleasant to me, talk slurry speeches, some sentence able to understand, this is not new to her, Possible Not eating drinking, but feel happy to try some ice cream Problem List Medical Problems: (1) Abdominal distension Status: Acute (2) Abdominal pain Status: Acute (3) Altered mental status Status: Acute (4) Anxiety Status: Acute (5) Back pain Status: Acute (6) Diarrhea Status: Acute (7) Elevated WBC count Status: Acute (8) Gastroenteritis Status: Acute (9) Hematemesis Status: Acute (10) Hypokalemia Status: Acute (11) Hypomagnesemia Status: Acute (12) Ileus Status: Acute (13) Intertriginous candidiasis Status: Acute (14) Nausea Status: Acute (15) Right arm cellulitis Status: Acute (16) Vomiting Status: Acute Review of Systems Constitutional: + problem reported (not able to fully obtained because of patient decreased mental status), No fever, No chills Respiratory: No cough, No sputum Abdomen: No nausea Objective Vital Signs Date Time Temp Pulse Resp B/P (MAP) Pulse Ox O2 Delivery O2 Flow Rate FiO2 12/18/16 08:30 99 Room Air 12/18/16 00:00 Room Air 12/17/16 16:00 99 Room Air Physical Exam General Appearance: + pertinent finding (frail chronic urinary) Eyes: normal inspection, sclerae normal ENT: normal ENT inspection, hearing grossly normal, pharynx normal Neck: supple, no adenopathy, thyroid normal, no JVD, no carotid bruits, trachea midline Respiratory/Chest: chest non-tender, normal breath sounds, no respiratory distress, no accessory muscle use, + decreased breath sounds Cardiovascular: regular rate, rhythm, no edema, no gallop, no JVD, no murmur Abdomen: normal bowel sounds, non tender, soft, no organomegaly, no pulsatile mass Extremities: normal range of motion, non-tender, normal inspection, no pedal edema, no calf tenderness, normal capillary refill, pelvis stable Neurologic/Psychiatric: pony ride operator II-XII nml as tested, no motor/sensory deficits, alert, normal mood/affect, + pertinent finding (slurry speeches) Skin: normal color, warm/dry, no rash Lymphatic: no adenopathy Assessment and Plan 89 y/o female with a history of recent C. diff infection, HTN, HLD, DM II, hypothyroidism, CKD stage II-III, h/o breast cancer, and GERD who presents from [facility] with abdominal distention, nausea and vomiting. Ileus, abdominal distention, nausea and vomiting, resolved, stable Was admitted to telemetry. Transfer to medical floor 12/17 2016 for comfort measures -NGT removed 12/14 -Speech therapy evaluate and treat: attempted to re-evaluate on 12/17 but pt had aspirating even on oral hygiene. Recommend keeping NPO, , patient has been on comfort feedings since 12/17/2016 -Rose placed due to urinary retention -Palliative care consulted, appreciate recs: Yadira Tre away this weekend , will re-consult on Wednesday 12/20 if pt still here -Pt unable to eat, no appetite, poor prognosis. Worsening mental status/acute encephalopathy--restrictive stable, disoriented / lethargic comes and goes -Head CT negative for acute changes -UA negative -ESR negative. CRP 2.01 -B12 WNL at 342, folate WNL at 5.47 -TSH WNL -D/c folic acid and thiamine for comfort measures Electrolyte abnormalities--ongoing -Hold further lyte replacement for comfort measures UTI--stable -Urine culture positive for E. coli resistant to fluoroquinolones and cephalosporins -Continue ertapenem 1 gm IV qd. Day #8, continue day 1-2 more Recent C. diff infection, ?diverticulitis--no diarrhea or pain -Continue contact precautions HTN, h/o a-fib--stable HLD DM II--last HgbA1c checked on 10/19/16 was 6.4 Hypothyroidism Chronic iron deficiency anemia--stable CKD stage II-III For the above condition, medicine was discontinued for comfort DVT prophylaxis -D/C due to comfort measures Code Status -Level V, DO NOT RESUSCITATE Dispo - On 12/17/2016 , With present of registered nurse, I spoke with pt's daughter over the phone, update family above the above medical condition, about deconditioning poor prognosis, especially for the nutrition support is an issue for now , daughter are very sure want to keep patient comfortable as only, no aggressive procedure, no invasive procedure, comfort feeding, and feeding on her own risks, and she is agreeable to transitioning to comfort measures. If pt is not active dying over the weekend, can return to [place] and start hospice care, and daughter agrees to not return to hospital. On conversation witnessed by registered nurse - Continue current care for now Discharge planning: prison facility
[2016-12-19] MEDS: COLLAGENASE OINT 30 GM TUBE EXT SCH (09:00)
[2016-12-19] MEDS: MENTHOL-ZINC OXIDE 360 APPLN/120 GM TUBE EXT SCH ×3 (09:00→20:18)
[2016-12-19] MEDS: ERTAPENEM IV 1,000 MG in SODIUM CHLORIDE 0.9% 50ML 50 ML IV SCH (09:49)
[2016-12-19] MEDS: FAMOTIDINE IV INJ 20 MG in DEXTROSE 5% 100ML 100 ML IV SCH ×2 (10:28→20:18)
[2016-12-19] MEDS: MoRPHine SULFATE 2.5 MG/0.125 ML UDP PO PRN ×3 (13:14→21:55)
--- NOTE | 2016-12-19 16:16 | Progress Note ---
Subjective Date of Service: Dec 19, 2016. Subjective Pt evaluation today including: conversation w/ patient, conversation w/ family , physical exam, chart review, lab review, review of studies, conversation w/ change management consultant, review of inpatient medication list Mumbling, no obvious pain, comfortable, was reported was trying to give her some ice cream to taste, she did had a few bites, but started choking right away, and she does not want to taste good anymore, and has been not get aNY other feedings Problem List Medical Problems: (1) Abdominal distension Status: Acute (2) Abdominal pain Status: Acute (3) Altered mental status Status: Acute (4) Anxiety Status: Acute (5) Back pain Status: Acute (6) Diarrhea Status: Acute (7) Elevated WBC count Status: Acute (8) Gastroenteritis Status: Acute (9) Hematemesis Status: Acute (10) Hypokalemia Status: Acute (11) Hypomagnesemia Status: Acute (12) Ileus Status: Acute (13) Intertriginous candidiasis Status: Acute (14) Nausea Status: Acute (15) Right arm cellulitis Status: Acute (16) Vomiting Status: Acute Review of Systems Constitutional: + problem reported (not able to obtained) Objective Vital Signs Date Time Temp Pulse Resp B/P (MAP) Pulse Ox O2 Delivery O2 Flow Rate FiO2 12/19/16 08:00 Room Air 12/19/16 00:00 Room Air Physical Exam General Appearance: + thin, + pertinent finding (frail, however no pain comfortable, mumbling) Eyes: normal inspection ENT: normal ENT inspection Neck: supple Respiratory/Chest: + decreased breath sounds Cardiovascular: regular rate, rhythm Abdomen: normal bowel sounds, soft Neurologic/Psychiatric: + disoriented, + pertinent finding (lethargic) Skin: + pertinent finding (there are decubitus in the back several place per report) Assessment and Plan 89 y/o female with a history of recent C. diff infection, HTN, HLD, DM II, hypothyroidism, CKD stage II-III, h/o breast cancer, and GERD who presents from [facility] with abdominal distention, nausea and vomiting, ileus. Ileus was resolved, however has generalized deconditioning, High risk of the choking , speech recommend nothing by mouth, family was discussed, requests no more aggressive care or procedure, and started palliative care and comfort measures only, as has been continuing Ileus, abdominal distention, nausea and vomiting, resolved, Was admitted to telemetry. Transfer to medical floor 12/17 2016 for comfort measures -NGT removed 12/14 -Speech therapy evaluate and treat: attempted to re-evaluate on 12/17 but pt had aspirating even on oral hygiene. Recommend keeping NPO, patient has been on comfort feedings since 12/17/2016 -Rose placed due to urinary retention -Palliative care consulted, appreciate recs: Yadira Toledo away this weekend , will re-consult on Wednesday 12/20 if pt still here -Pt unable to eat, no appetite, poor prognosis. Worsening mental status/acute encephalopathy, has been disoriented /lethargic comes and goes -Head CT negative for acute changes -UA negative -ESR negative. CRP 2.01 -B12 WNL at 342, folate WNL at 5.47 -TSH WNL -D/c folic acid and thiamine for comfort measures Electrolyte abnormalities--ongoing -Hold further lyte replacement for comfort measures UTI--stable -Urine culture positive for E. coli resistant to fluoroquinolones and cephalosporins -Continue ertapenem 1 gm IV qd. Day #8, continue day 1-2 more Recent C. diff infection, ?diverticulitis--no diarrhea or pain -Continue contact precautions HTN, h/o a-fib--stable HLD DM II--last HgbA1c checked on 10/19/16 was 6.4 Hypothyroidism Chronic iron deficiency anemia--stable CKD stage II-III For the above condition, medicine was discontinued for comfort DVT prophylaxis -D/C due to comfort measures Code Status -Level V, DO NOT RESUSCITATE Dispo - On 12/17/2016 , With present of registered nurse, I spoke with pt's daughter over the phone, update family above the above medical condition, about deconditioning poor prognosis, especially for the nutrition support is an issue for now , daughter are very sure want to keep patient comfortable as only, no aggressive procedure, no invasive procedure, comfort feeding, and feeding on her own risks, and she is agreeable to transitioning to comfort measures. If pt is not active dying over the weekend, can return to [facility] and start hospice care, and daughter agrees to not return to hospital. On conversation witnessed by registered nurse - Continue current comfort care for now, possible patient not active dying, and plan [facility] hospice care tomorrow, this has been agreed to by patient's daughter, and today I called to patient's son Yvan, and updated to him patient' s conditions, and discharge plan, such [facility] tomorrow Discharge planning: assisted facility, other
[2016-12-20] MEDS: ERTAPENEM IV 1,000 MG in SODIUM CHLORIDE 0.9% 50ML 50 ML IV SCH (09:49)
[2016-12-20] MEDS: MENTHOL-ZINC OXIDE 360 APPLN/120 GM TUBE EXT SCH (09:49)
[2016-12-20] MEDS: COLLAGENASE OINT 30 GM TUBE EXT SCH (09:49)
[2016-12-20] MEDS: FAMOTIDINE IV INJ 20 MG in DEXTROSE 5% 100ML 100 ML IV SCH (10:33)
[2016-12-20] MEDS ORDERED: RXNS2.5 PO (14:50)
--- NOTE | 2016-12-20 15:00 | Discharge Instructions ---
Discharge Instructions Date of Service Dec 20, 2016. Admission Reason for Admission: Abdominal Distension Discharge Discharge Diagnosis / Problem: Ileus, worsening mental status Discharge Goals Goal(s): Decrease discomfort, Improve function, Diagnostic testing, Therapeutic intervention Activity Recommendations Activity Level: Bedrest, Assistance Required . Additional Information Patient informed of condition: Yes Advance Directives: Yes DNR: Yes Level of Care: Other (Hospice/comfort measures) Communicable Disease: Yes (recent C. diff) Prognosis: Deteriorating Rose Catheter: Yes Instructions / Follow-Up Instructions / Follow-Up Patient admitted to the hospital with abdominal distention, nausea, and vomiting. NGT was placed in ED and removed on 12/14. Patient was unable to tolerate anything by mouth, aspirating even on oral hygiene materials. Patient was repeatedly evaluated by speech therapy and has remained NPO due to lack of functional swallowing. The patient's mental status also began to deteriorate. After discussing with the patient's daughter, she was placed on comfort measures. She has remained stable and will be transferred back to [facility] for hospice. Medications: *Roxanol 2.5 mg PO q4h prn pain or dyspnea. *May continue Santyl, nystatin and barrier creams for comfort. *All home PO meds discontinued as patient is not able to swallow them. Follow up: *Transition to hospice care at [facility]. Daughter agrees that if patient continues to worsen, she does not want her returned to the hospital. Current Hospital Diet Patient's current hospital diet: Clear Liquid Diet Discharge Diet Recommended Diet: N/A Pending Studies Studies pending at discharge: no Physician Orders On Transfer Additional Orders: Oral hygiene maintenance, mouth sponges Laboratory Results Hemoglobin A1c Test 10/19/16 04:05 Range/Units Estimated Average Glucose 137 mg/dl Hemoglobin A1c 6.4 H 4.5-5.6 % Medical Emergencies . Who to Call and When: Medical Emergencies: If at any time you feel your situation is an emergency, please call 911 immediately. . Non-Emergent Contact Non-Emergency issues call your: Primary Care Provider Call Non-Emergent contact if: you have any medication questions . Past History Medical & Surgical History: (1) Ileus . "Provider Documentation" section prepared by Asia Bashir. . Core Measure Problem Core Measures: None
[2016-12-20 15:02] VITALS: BP 98/63; PULSE 84; TEMP 36.4; O2SAT 99
--- NOTE | 2016-12-20 15:13 | Discharge Summary ---
Discharge Summary Date of Service Dec 20, 2016. (Asia Bashir PA-C) Discharge Summary Admission Date: Dec 08, 2016 at 12:29 Discharge Date: Dec 20, 2016 Discharge Disposition: senior care facility Principal Diagnosis: Ileus, worsening mental status Immunizations: Have You Had Influenza Vaccine: Yes History of Tetanus Vaccine?: Yes Tetanus Immunization Date: Dec 16, 2004 History of Pneumococcal: Yes Pneumococcal Date: Dec 16, 2004 History of Hepatitis B Vaccine: No (Asia Bashir PA-C) Medication Reconciliation New Medications: Morphine Sulfate (Morphine Sulfate) 2.5 Mg/0.125 Ml Soln 2.5 MG PO Q4 PRN for Pain or dyspnea for 3 Days, #12 DOSE Continued Medications: Collagenase (Santyl) 250 Unit/Gm Oin 1 APPLN TOP DAILY apply to edges of wound and cover after drying Dermatological Products, Misc. (Moisture Barrier) 1 Oin Oin 1 APPLN TOP apply to buttocks and tree-anal area after each incontinence episode and as needed Menthol-Zinc Oxide (Calmoseptine) 1 Oin Oin 1 APPLN TOP TID apply to left and right gluteal areas and coccyx every shift and as needed Nystatin (Nystop) 45 Appln/15 Gm Powd 1 APPLN EXT PRN PRN for SKIN FOLDS for 10 Days, #1 BTL 1 Refill Discontinued Medications: Atenolol (Tenormin) 25 Mg Tab 25 MG PO DAILY, TAB Atorvastatin (Lipitor) 20 Mg Tab 20 MG PO HS Bisacodyl (Bisac-Evac) 10 Mg Sup 10 MG NC QPM PRN for on day 3 per bowel protocol Cholecalciferol (Vitamin D) 1,000 Unit Tab 1000 UNITS PO QAM Cholestyramine (Cholestyramine Light) 4 Gm Pack 4 GM PO BID@10,22, #1 BTL 1 Refill Ferrous Sulfate (Kp Ferrous Sulfate) 325 Mg Tab 325 MG PO BID Furosemide (Lasix) 20 Mg Tab 10 MG PO DAILY, TAB Levothyroxine Sodium (Synthroid) 100 Mcg Tab 100 MCG PO QAM Magnesium Hydroxide (Milk Of Magnesia) 30 Ml Susp 30 ML PO DAILY PRN for on day 3 of no bm, ML Magnesium Oxide (Mag-Ox) 400 Mg Tab 400 MG PO Q2D, TAB Multiple Vitamin (Multivitamin) 1 Tab Tab 1 TAB PO DAILY, TAB CHEWABLE Ondansetron Hcl (Zofran) 8 Mg Tab 8 MG PO Q8 PRN for Nausea or Vomiting, TAB Potassium Chloride (K-Tab) 20 Meq Tab 40 MEQ PO BID Probiotic Product (Probiotic) 1 Cap Cap 1 CAP PO BID Protein (Prosource) 1 Nicko Nicko 30 ML PO BID Prune Juice (Prune Juice ) Liqd 8 OZ PO DAILY PRN for no bowel movment in 2 days Ranitidine HCl (Ranitidine HCl) 150 Mg Tab 150 MG PO BID for 30 Days, #60 TAB Simethicone (Bicarsim) 80 Mg Tab 80 MG PO PC PRN for Gas or Constipation Sitagliptin Phosphate (Januvia) 50 Mg Tab 50 MG PO DAILY Sodium Phosphates (Fleet Enema Six Pack) 1 Bisi Bisi 1 UNIT NC QAM PRN for day 4 per bowel protocol Discharge Exam Patient unable to provide ROS due to mental status. Per nursing, the patient is at times able to answer questions and follow commands. Physical Exam: General Appearance: WD/WN, no apparent distress Eyes: normal inspection, PERRL, + pertinent finding (exam limited by mental status) ENT: normal ENT inspection, hearing grossly normal, + pertinent finding ( dry oral mucosa) Neck: supple, no JVD, trachea midline Respiratory/Chest: lungs clear, normal breath sounds, no respiratory distress Cardiovascular: regular rate, rhythm, no gallop, no murmur Abdomen / GI: normal bowel sounds, non tender, soft Extremities: normal inspection, no calf tenderness, no pedal edema Neurologic/Psychiatric: alert, + pertinent finding (unable to assess affect or orientation due to mental status. Awake and alert and follows simple commands but not verbally responsive) Skin: normal color, warm/dry, no rash (Asia Bashir ., PA-C) Hospital Course 89 y/o female with a history of recent C. diff infection, HTN, HLD, DM II, hypothyroidism, CKD stage II-III, h/o breast cancer, and GERD who presents from [facility] with abdominal distention, nausea and vomiting. Ileus, abdominal distention, nausea and vomiting--stable -Admit to telemetry. No acute events overnight. Pt in sinus rhythm/sinus tachycardia with HR 90s to low 100s. Transfer to medical floor 12/17 for comfort measures -NGT removed 12/14 -Speech therapy evaluate and treat: attempted to re-evaluate on 12/17 but pt aspirating even on oral hygiene. Recommend keeping NPO, consider comfort measures -IVF changed to D5W + 1/2NSS + 20 mEq KCl at 75 cc/hr per nutrition recommendations -KUB shows no significant change compared to previous study. Persistent dilated small and large bowel. Slight retraction of NGT. -General surgery consulted, appreciate recs: no acute surgical indication, continue conservative management, will sign off. -Rose placed due to urinary retention -Palliative care consulted, appreciate recs: Yadira Toledo away this weekend , will re-consult on Wednesday 12/20 if pt still here -Pt unable to eat, no appetite, poor prognosis. Dr. Agrawal called pt's daughter, she is agreeable to placing pt on comfort measures and returning to [facility] for hospice if stable. Will not return to hospital if acute worsening at [facility] Worsening mental status/acute encephalopathy--stable, disoriented but still awake/alert -Head CT negative for acute changes -UA negative -ESR negative. CRP 2.01 -B12 WNL at 342, folate WNL at 5.47 -TSH WNL -D/c folic acid and thiamine for comfort measures Electrolyte abnormalities--ongoing -Potassium stable at 3.6 on 12/17 -Magnesium 1.7 on 12/17. Magnesium sulfate 1 gm IV x 1. PO mag held for now due to NPO status -Phosphorus 1.7 on 12/17. K phos 21 mmol IV x1 -Hold further lyte replacement for comfort measures UTI--stable -Urine culture positive for E. coli resistant to fluoroquinolones and cephalosporins -Ertapenem 1 gm IV qd. Pt received 10 days. Recent C. diff infection, ?diverticulitis--no diarrhea or pain -Continue contact precautions -Flagyl d/c'd. Received 7 days IV inpt HTN, h/o a-fib--stable -D/C atenolol, Lopressor and Lasix for comfort HLD -D/C atorvastatin for comfort DM II--last HgbA1c checked on 10/19/16 was 6.4 -Hold Januvia -D/C ISS and BSG checks Hypothyroidism -D/C Synthroid CKD stage II-III--stable -Creatine stable, at baseline Chronic iron deficiency anemia--stable -Pt w/o hematemesis. Hgb stable and at baseline -D/C ferrous sulfate DVT prophylaxis -D/C due to comfort measures Code Status -Level V, DO NOT RESUSCITATE Dispo -Dr. Agrawal spoke with pt's daughter about poor prognosis, and she is agreeable to transitioning to comfort measures. If pt is stable, can return to [facility] and daughter agrees to not return to hospital. Total Time Spent: Greater than 30 minutes This includes examination of the patient, discharge planning, medication reconciliation, and communication with other providers. (Asia Bashir ., PA-C) I agree with PA assessment and plan and have seen and examined pt myself Resting comfortably in bed Poor prognosis VSS Cont comfort measures DC to [facility] Pain controlled, cont roxanol on DC (David Nina, D.O.) Discharge Instructions Please refer to the electronic Patient Visit Report (Discharge Instructions) for additional information. (Asia Bashir ., PA-C) Additional Copies To [place], [place]
[2016-12-20 16:31] VITALS: BP 98/63; PULSE 84; TEMP 36.4; O2SAT 99
--- NOTE | 2016-12-21 10:08 | Palliative Care Progress Note ---
Palliative Care Progress Note Date of Service Dec 21, 2016. Subjective Patient discharged before palliative consult completed.
== END 2016-12-20 16:30 | DRG 388 ==
LOC: EDBD 06:35 → C.EDA 06:36 → UNDOADMIN 12:29 → C.MED 12:29 → ENRESERV 12:47 → C.4E 12-17 14:29
PROVIDERS: ADMIT Family Medicine; ATTEND Hospitalist
DX: K56.7 Ileus, unspecified (principal); G93.40 Encephalopathy, unspecified; K92.0 Hematemesis; E46 Unspecified protein-calorie malnutrition; N39.0 Urinary tract infection, site not specified; E87.2 Acidosis; Z51.5 Encounter for palliative care; E11.21 Type 2 diabetes mellitus with diabetic nephropathy; N18.3 Chronic kidney disease, stage 3 (moderate); Z96.659 Presence of unspecified artificial knee joint; E83.42 Hypomagnesemia; Z83.3 Family history of diabetes mellitus; I12.9 Hypertensive chronic kidney disease with stage 1 through stage 4 chronic kidney disease, or unspecified chronic kidney disease; K21.9 Gastro-esophageal reflux disease without esophagitis; B96.20 Unspecified Escherichia coli [E. coli] as the cause of diseases classified elsewhere; E03.9 Hypothyroidism, unspecified